=== PATIENT | male | born 1955 | race Caucasian/White ===

== ENCOUNTER 2018-01-08 10:14 | Emergency (ER) | payer OTHER ==
[2018-01-08 11:08] VITALS: RESP 16
--- NOTE | 2018-01-08 12:15 | ED ---
Recheck HPI - General Chief Complaint: Recheck/Abnormal Lab/Rx Stated Complaint: med refill Time Seen by Provider: 01/08/18 12:07 Source: patient, RN notes reviewed Mode of arrival: ambulatory Limitations: no limitations - History of Present Illness Initial Comments: This is a 62-year-old male presents emergency department for medication refill. Patient states she has hypertension takes Cozaar. Patient states he has been on it for 8 years. He ran out yesterday and is in between primary care physicians. Patient has no specific complaints denies chest pain, shortness breath, headache or dizziness. Patient states his last dose was yesterday. - Related Data Home Medications Medication Instructions Recorded Confirmed Losartan [Cozaar] 50 mg PO DAILY 01/08/18 01/08/18 Previous Rx's Medication Instructions Recorded Losartan [Cozaar] 50 mg PO DAILY #30 tab 01/08/18 Allergies Allergy/AdvReac Type Severity Reaction Status Date / Time No Known Allergies Allergy Verified 01/08/18 12:18 Review of Systems ROS Statement: Those systems with pertinent positive or pertinent negative responses have been documented in the HPI. ROS Other: All systems not noted in ROS Statement are negative. Past Medical History Past Medical History: Hypertension Additional Past Medical History / Comment(s): gout History of Any Multi-Drug Resistant Organisms: None Reported Additional Past Surgical History / Comment(s): 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 Past Psychological History: No Psychological Hx Reported Smoking Status: Never smoker Past Alcohol Use History: Daily Past Drug Use History: None Reported General Exam Limitations: no limitations General appearance: alert, in no apparent distress Head exam: Present: atraumatic, normocephalic, normal inspection ENT exam: Present: normal exam, normal oropharynx, mucous membranes moist Neck exam: Present: normal inspection, full ROM. Absent: tenderness, meningismus, lymphadenopathy Respiratory exam: Present: normal lung sounds bilaterally. Absent: respiratory distress, wheezes, rales, rhonchi, stridor Cardiovascular Exam: Present: regular rate, normal rhythm, normal heart sounds. Absent: systolic murmur, diastolic murmur, rubs, gallop, clicks Skin exam: Present: warm, dry, intact, normal color. Absent: rash Course Vital Signs 01/08/18 11:05 Temperature 98.2 F Pulse Rate 72 Respiratory 16 Rate Blood Pressure 149/87 O2 Sat by Pulse 96 Oximetry Medical Decision Making - Medical Decision Making 62-year-old male presented for medication refill. Patient will be given prescription for Cozaar he'll follow-up PCP and return for any worsening symptoms. Disposition Clinical Impression: Encounter for medication refill, Hypertension Disposition: HOME SELF-CARE Condition: Stable Instructions: Hypertension (ED) Additional Instructions: Please return to the Emergency Department if symptoms worsen or any other concerns. Prescriptions: Losartan [Cozaar] 50 mg PO DAILY #30 tab Is patient prescribed a controlled substance at d/c from ED?: No Referrals: None,Stated [Primary Care Provider] - 1-2 days Time of Disposition: 12:15
[2018-01-08 12:33] VITALS: BP 140/78; PULSE 74; TEMP 98.7
== END 2018-01-08 12:32 | disposition home or self-care (01) ==
LOC: EC 10:14
DX: I10 Essential (primary) hypertension (principal); Z76.0 Encounter for issue of repeat prescription; Z79.899 Other long term (current) drug therapy
CPT/HCPCS: 99281

== ENCOUNTER 2020-02-21 09:42 | Emergency (ER) | payer OTHER ==
[2020-02-21] MEDS ORDERED: ACETAMINOPHEN TAB 500 MG TAB PO STA (10:22)
--- NOTE | 2020-02-21 10:24 | ED ---
General Adult HPI - General Chief complaint: Upper Respiratory Infection Stated complaint: body aches/dizziness Time Seen by Provider: 02/21/20 10:04 Source: patient Mode of arrival: ambulatory Limitations: no limitations - History of Present Illness Initial comments: Patient is a 64-year-old male presenting to emergency Department with a chief complaint of body aches and dizziness. Patient reports for the past 2 days he's been having generalized body Aches with intermittent nonproductive cough. He also reports some chest tightness on both sides of the chest. Denies any radiation of the chest pain. Denies any shortness of breath. Does report some dizziness where the room was spinning around him. Denies any lightheadedness or diaphoretic episodes. Patient would like to get test difficulty. He was traveling in the last week out of state. He does have history of hypertension and hypercholesterolemia. Denies smoking. Denies family history of early cardiac related . He denies sore throat, rhinorrhea, otalgia, loss of taste or smell. - Related Data Home Medications Medication Instructions Recorded Confirmed Losartan [Cozaar] 50 mg PO HS 02/21/20 02/21/20 Previous Rx's Medication Instructions Recorded Azithromycin [Zithromax Z-pack (6 0 mg PO DIRECTED #1 pack 02/21/20 tabs)] Allergies Allergy/AdvReac Type Severity Reaction Status Date / Time No Known Allergies Allergy Verified 02/21/20 10:30 Review of Systems ROS Statement: Those systems with pertinent positive or pertinent negative responses have been documented in the HPI. ROS Other: All systems not noted in ROS Statement are negative. Past Medical History Past Medical History: Hypertension Additional Past Medical History / Comment(s): gout History of Any Multi-Drug Resistant Organisms: None Reported Additional Past Surgical History / Comment(s): 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 Past Psychological History: No Psychological Hx Reported Smoking Status: Never smoker Past Alcohol Use History: Daily Past Drug Use History: None Reported General Exam Limitations: no limitations General appearance: alert, in no apparent distress, obese Head exam: Present: atraumatic, normocephalic, normal inspection Eye exam: Present: normal appearance, PERRL, EOMI Pupils: Present: normal accommodation ENT exam: Present: normal exam, normal oropharynx, mucous membranes moist, TM's normal bilaterally, normal external ear exam Neck exam: Present: normal inspection, full ROM. Absent: tenderness Respiratory exam: Present: normal lung sounds bilaterally. Absent: respiratory distress, wheezes, rales Cardiovascular Exam: Present: regular rate, normal rhythm, normal heart sounds Extremities exam: Present: normal inspection, full ROM, normal capillary refill. Absent: tenderness, pedal edema, joint swelling, calf tenderness Back exam: Present: normal inspection, full ROM. Absent: tenderness, CVA tenderness (R), CVA tenderness (L) Neurological exam: Present: alert, oriented X3 Psychiatric exam: Present: normal affect, normal mood Skin exam: Present: warm, dry, intact, normal color Course Vital Signs 02/21/20 09:46 Temperature 100.9 F H Pulse Rate 88 Respiratory 18 Rate Blood Pressure 144/84 O2 Sat by Pulse 95 Oximetry EKG Findings - EKG Comments: EKG Findings:: Sinus rhythm and no ST or T-wave changes. Ventricular rate 75, DE 146, QRS 82, QTC 437. Medical Decision Making - Medical Decision Making Patient is a 44-year-old male presenting to the emergency department with a chief complaint of body aches. On Physical examination, patient is not in any respiratory distress. ENT examination is unremarkable. Patient did have a low- grade fever. Patient was given Tylenol. Chest x-ray is unremarkable. CBC CMP are unremarkable. Initial troponin is negative. EKG reveals sinus rhythm and no ST or T-wave changes. CT chest reveals no signs of PE but does indicate multiple small scattered groundglass opacities which can indicate early viral pneumonia. Patient will be started on azithromycin. Covid testing pending. Strict return parameters were thoroughly discussed the patient was understanding and agreeable. Case discussed with physician. - Lab Data Result diagrams: 02/21/20 10:46 02/21/20 10:46 Lab Results 02/21/20 02/21/20 02/21/20 Range/Units 10:46 10:46 10:46 WBC 3.6 L (3.8-10.6) k/uL RBC 4.84 (4.30-5.90) m/uL Hgb 15.1 (13.0-17.5) gm/dL Hct 44.3 (39.0-53.0) % MCV 91.4 (80.0-100.0) fL MCH 31.1 (25.0-35.0) pg MCHC 34.0 (31.0-37.0) g/dL RDW 12.8 (11.5-15.5) % Plt Count 198 (150-450) k/uL Neutrophils % 59 % Lymphocytes % 28 % Monocytes % 9 % Eosinophils % 2 % Basophils % 1 % Neutrophils # 2.1 (1.3-7.7) k/uL Lymphocytes # 1.0 (1.0-4.8) k/uL Monocytes # 0.3 (0-1.0) k/uL Eosinophils # 0.1 (0-0.7) k/uL Basophils # 0.0 (0-0.2) k/uL PT 10.2 (9.0-12.0) sec INR 1.0 (<1.2) APTT 29.3 (22.0-30.0) sec Sodium 139 (137-145) mmol/L Potassium 4.4 (3.5-5.1) mmol/L Chloride 103 (98-107) mmol/L Carbon Dioxide 29 (22-30) mmol/L Anion Gap 7 mmol/L BUN 20 (9-20) mg/dL Creatinine 0.97 (0.66-1.25) mg/dL Est GFR (CKD-EPI)AfAm >90 (>60 ml/min/1.73 sqM) Est GFR (CKD-EPI)NonAf 83 (>60 ml/min/1.73 sqM) Glucose 108 H (74-99) mg/dL Calcium 9.0 (8.4-10.2) mg/dL Magnesium 1.9 (1.6-2.3) mg/dL Total Bilirubin 0.4 (0.2-1.3) mg/dL AST 24 (17-59) U/L ALT 27 (4-49) U/L Alkaline Phosphatase 66 (38-126) U/L Troponin I (0.000-0.034) ng/mL Total Protein 7.1 (6.3-8.2) g/dL Albumin 4.1 (3.5-5.0) g/dL 02/21/20 Range/Units 10:46 WBC (3.8-10.6) k/uL RBC (4.30-5.90) m/uL Hgb (13.0-17.5) gm/dL Hct (39.0-53.0) % MCV (80.0-100.0) fL MCH (25.0-35.0) pg MCHC (31.0-37.0) g/dL RDW (11.5-15.5) % Plt Count (150-450) k/uL Neutrophils % % Lymphocytes % % Monocytes % % Eosinophils % % Basophils % % Neutrophils # (1.3-7.7) k/uL Lymphocytes # (1.0-4.8) k/uL Monocytes # (0-1.0) k/uL Eosinophils # (0-0.7) k/uL Basophils # (0-0.2) k/uL PT (9.0-12.0) sec INR (<1.2) APTT (22.0-30.0) sec Sodium (137-145) mmol/L Potassium (3.5-5.1) mmol/L Chloride (98-107) mmol/L Carbon Dioxide (22-30) mmol/L Anion Gap mmol/L BUN (9-20) mg/dL Creatinine (0.66-1.25) mg/dL Est GFR (CKD-EPI)AfAm (>60 ml/min/1.73 sqM) Est GFR (CKD-EPI)NonAf (>60 ml/min/1.73 sqM) Glucose (74-99) mg/dL Calcium (8.4-10.2) mg/dL Magnesium (1.6-2.3) mg/dL Total Bilirubin (0.2-1.3) mg/dL AST (17-59) U/L ALT (4-49) U/L Alkaline Phosphatase (38-126) U/L Troponin I <0.012 (0.000-0.034) ng/mL Total Protein (6.3-8.2) g/dL Albumin (3.5-5.0) g/dL Disposition Clinical Impression: Viral respiratory infection, Generalized body aches Disposition: HOME SELF-CARE Condition: Stable Instructions (If sedation given, give patient instructions): Viral Pneumonia (DC) Additional Instructions: Take prescribed medication as directed. Follow with the primary care physician. Return to emergency department if symptoms worsen. Take Tylenol only for fever. Self-isolation until you receive Covid test results. Prescriptions: Azithromycin [Zithromax Z-pack (6 tabs)] 0 mg PO DIRECTED #1 pack Is patient prescribed a controlled substance at d/c from ED?: No Referrals: None,Stated [Primary Care Provider] - 1-2 days Time of Disposition: 13:01
[2020-02-21 10:55] LABS: Basophils % (A) 1 %; Eosinophils # (A) 0.1 k/uL (0-0.7); Eosinophils % (A) 2 %; HCT 44.3 % (39.0-53.0); HGB 15.1 gm/dL (13.0-17.5); Lymphocytes % (A) 28 %; MCH 31.1 pg (25.0-35.0); MCV 91.4 fL (80.0-100.0); Monocytes # (A) 0.3 k/uL (0-1.0); Monocytes % (A) 9 %; Neutrophils # (A) 2.1 k/uL (1.3-7.7); Neutrophils % (A) 59 %; Platelet Count 198 k/uL (150-450); RBC 4.84 m/uL (4.30-5.90); RDW 12.8 % (11.5-15.5); WBC 3.6 k/uL (3.8-10.6)
[2020-02-21 11:04] LABS: ALT 27 U/L (4-49); AST 24 U/L (17-59); African American GFR (CKD) >90 (>60 ml/min/1.73 sqM); Albumin 4.1 g/dL (3.5-5.0); Alkaline Phosphatase 66 U/L (38-126); Anion Gap 7 mmol/L; Blood Urea Nitrogen 20 mg/dL (9-20); Carbon Dioxide 29 mmol/L (22-30); Chloride 103 mmol/L (98-107); Glucose 108 mg/dL (74-99); Magnesium 1.9 mg/dL (1.6-2.3); Non-African American GFR(CKD) 83 (>60 ml/min/1.73 sqM); Potassium 4.4 mmol/L (3.5-5.1); Sodium 139 mmol/L (137-145); Total Bilirubin 0.4 mg/dL (0.2-1.3); Total Protein 7.1 g/dL (6.3-8.2)
[2020-02-21 11:06] LABS: Partial Thromboplastin Time 29.3 sec (22.0-30.0); Prothrombin Time 10.2 sec (9.0-12.0)
--- NOTE | 2020-02-21 11:23 | XR ---
EXAMINATION TYPE: XR chest 2V DATE OF EXAM: 02/21/2020 COMPARISON: NONE HISTORY: Chest pain, fatigue TECHNIQUE: Frontal and lateral views of the chest are obtained. FINDINGS: There is no focal air space opacity, pleural effusion, or pneumothorax seen. The cardiac silhouette size is within normal limits. The osseous structures are intact, patient is rotated, the re may be spinal curvature. IMPRESSION: No acute cardiopulmonary process.
--- NOTE | 2020-02-21 12:55 | CT ---
EXAMINATION TYPE: CT chest angio for PE DATE OF EXAM: 02/21/2020 COMPARISON: Radiograph same day HISTORY: 64-year-old male bodyache, cough, rule out DVT TECHNIQUE: Contiguous axial scanning of the chest performed with IV Contrast, patient injected with 1 00 mL of Isovue 370. Coronal/sagittal MIP reconstructions performed. CT DLP: 694.5 mGycm Automated exposure control for dose reduction was used. FINDINGS: Heart normal size without pericardial effusion. No flattening of the interventricular septum or reflu x of contrast into hepatic veins. Ectatic aortic root at 3.6 cm. Borderline ectatic ascending aorta 3.5 cm. Conventional branching anatomy. Focal fusiform aneurysm of the proximal left vertebral artery at 9 mm, refer to axial image 15. Satisfactory opacification of pulmonary artery system without evidence for pulmonary embolus. Mildly enlarged right hilar lymph node at 1.3 cm the reactive. A few scattered prominent but nonenlar ged mediastinal lymph nodes measuring up to 8 mm in the AP window and lower right paratracheal region . Small groundglass focus periphery of the right upper lobe, axial image 37. A few additional scattered peribronchial vascular groundglass foci in the bilateral upper lobes, refer to the axial images 44, 47, 48, 50, and 58 for some medical device sales representative images. Mild dependent atelectasis. No pleural effusion. Small hiatal hernia. Visualized upper abdomen shows hepatic steatosis and some fusiform dilatation of the celiac axis after its take off of the 1.1 cm. Bones: Moderate degenerative disc disease T10-T11. IMPRESSION: 1. NO EVIDENCE FOR PULMONARY EMBOLUS. 2. SCATTERED SMALL GROUNDGLASS FOCI WITHIN THE BILATERAL UPPER LOBES. NONSPECIFIC INFECTIOUS/INFLAMMA TORY FOCI ARE SUGGESTED. DIFFERENTIAL CONSIDERATIONS INCLUDE HYPERSENSITIVITY PNEUMONITIS, BED SPRING MAKER, EARLY MULTIFOCAL PNEUMONIA, AND EVEN EARLY COVID PNEUMONIA. CLINICALLY CORRELATE. 3. SIX-MONTH FOLLOW-UP CAN REASSESS A MILDLY ENLARGED 1.3 CM RIGHT HILAR LYMPH NODE, PROBABLY REACTIV E. 4. 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
[2020-02-21 13:28] VITALS: BP 122/81; PULSE 99; RESP 17; TEMP 99.9
== END 2020-02-21 13:27 | disposition home or self-care (01) ==
LOC: EC 09:42
DX: U07.1 COVID-19 (principal); J98.8 Other specified respiratory disorders; I10 Essential (primary) hypertension; Z79.899 Other long term (current) drug therapy
CPT/HCPCS: 36415; 93005; 80053; 83735; 84484; 85025; 85610; 85730; 71046; 71275; 99284; U0003; Q9967

== ENCOUNTER 2022-09-25 09:41 | Day surgery (SDC) | payer MEDICARE, OTHER ==
[2022-09-20 12:18] VITALS: BMI 38.4
--- NOTE | 2022-09-24 15:44 | HP ---
HISTORY AND PHYSICAL DATE OF SURGERY: 09/25/2022. HISTORY OF PRESENT ILLNESS: Florin Noyola is a 67-year-old gentleman seen with progressive left knee pain. We discussed options for treatment. He elected to proceed with left knee arthroscopy. Consent regarding the procedure was obtained. PAST MEDICAL HISTORY: Hypertension, hyperlipidemia. PAST SURGICAL HISTORY: Noncontributory. DAILY MEDICATIONS: 1. Allopurinol. 2. Lipitor. 3. Losartan. 4. Meloxicam. ALLERGIES: None. SOCIAL HISTORY: Denies tobacco use. PHYSICAL EVALUATION OF THE LEFT KNEE: His range of motion is 0 to 130 degrees. Mild effusion. Tenderness along the medial and lateral joint lines. Positive medial Khushi's. Positive lateral Khushi's. Ligament is stable. Hip rotation without pain. Distal neurovascular exam is intact. RADIOGRAPHS: Radiographs of the left knee revealed some osteoarthritic changes. MRI of left knee, lateral meniscal tear. Moderate effusion. Osteoarthritic changes. IMPRESSION: 1. Internal derangement of left knee lateral meniscal tear. 2. Hypertension. 3. Hyperlipidemia. PLAN: Left knee arthroscopy with partial lateral meniscectomy and debridement. MMODL / IJN: [id number] /
[2022-09-25] MEDS ORDERED: HYDROmorphone 0.5 MG/0.5 ML SYRINGE IVP PRN (09:49)
[2022-09-25] MEDS ORDERED: LACTATED RINGERS 1,000 ML IV SCH (09:49)
[2022-09-25] MEDS ORDERED: DEXAMETHASONE SOD PHOSPHATE 4 MG/ML 1 ML VIAL IV ONE (09:49)
[2022-09-25] MEDS ORDERED: ONDANSETRON 4 MG/2 ML VIAL IVP ONE (09:49)
[2022-09-25] MEDS ORDERED: PROPOFOL 10 MG/ML 20 ML VIAL IV ONE (11:01)
[2022-09-25] MEDS ORDERED: LIDOCAINE 2% INJ 20 MG/ML (2 ML VIAL) ONE (11:01)
[2022-09-25] MEDS ORDERED: KETOROLAC 15 MG/ML 1 ML VIAL ONE (11:01)
[2022-09-25] MEDS ORDERED: MIDAZOLAM 2 MG/2 ML VIAL ONE (11:01)
[2022-09-25] MEDS ORDERED: fentaNYL (PF) 50 MCG/ML 2 ML AMP ONE (11:01)
[2022-09-25] MEDS ORDERED: BUPIVACAINE (PF) 0.25% 30 ML VIAL SQ ONE ×2 (11:23→11:38)
[2022-09-25 11:51] VITALS: TEMP 97
--- NOTE | 2022-09-25 11:53 | P.OP ---
Date of Procedure: 09/25/22 Preoperative Diagnosis: Internal derangement left knee Postoperative Diagnosis: 1. Tear medial and lateral meniscus left knee 2. Reactive synovitis medial, lateral and suprapatellar compartments left knee 3. 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 Grade 2/3 chondromalacia patella left knee Procedure(s) Performed: 1. Arthroscopic partial medial and lateral meniscectomy left knee 2. Arthroscopic partial synovectomy medial, lateral and suprapatellar compartments left knee 3. Arthroscopic chondroplasty lateral femoral condyle left knee 4. Arthroscopic chondroplasty patella left knee Anesthesia: DIRKA, local Surgeon: Jaime Macedo Estimated Blood Loss (ml): 7 Pathology: none sent Condition: stable Disposition: PACU Indications for Procedure: 67-year-old gentleman seen with progressive left knee pain. After having treatment options discussed, he elected to proceed with arthroscopy. Operative Findings: See description of procedure Description of Procedure: Patient was taken to the operative suite. Patient underwent a general anesthetic by the department of anesthesia. Patient was given preoperative antibiotics. The left lower extremity was placed in a well-padded arthroscopic leg ochoa. The left leg was prepped and draped in the normal sterile orthopedic fashion. A lateral parapatellar and suprapatellar incision was made. Trochars were inserted. Arthroscopy was initiated. Suprapatellar pouch revealed diffuse thick reactive synovitis. The patellofemoral joint appeared to articulate congruently. There was grade 2/3 chondromalacia of the patella with some osteochondral flap tears present. The scope was guided into the medial gutter. No loose bodies or plica were identified. The scope was then guided into the medial compartment. A medial parapatellar incision was made. Trocar inserted followed by probe. There was a radial tear involving the mid body of the medial meniscus. There were grade 1 chondromalacia changes involving the medial compartment. There was thick reactive synovitis anteriorly. I performed a partial medial meniscectomy getting down to stable meniscal tissue. I performed a partial synovectomy decompressing the reactive synovitis. The residual meniscus was stable. There was good decompression of the synovitis. Scope and probe were then guided into the intercondylar notch. Cruciates were identified, probed and found to be stable. The scope and probe were then guided into lateral compartment. There was a complex tear involving the anterior horn, mid body and posterior horn of the lateral meniscus. There were diffuse grade 2/3 chondromalacia changes along the lateral femoral condyle with some osteochondral flap tears present. There was thick reactive synovitis anteriorly. I performed a partial lateral meniscectomy getting down to stable meniscal tissue. I performed a chondroplasty of the lateral femoral condyle getting down to stable osteochondral tissue. I performed a partial synovectomy decompressing the reactive synovitis anteriorly. The residual meniscus was probed and was found to be stable. The residual osteochondral surface was stable. There was good decompression of the synovitis. The scope was in guided back into the suprapatellar compartment. I introduced a motorized shaver into the suprapatellar compartment. I debrided some piecemeal fragments of meniscus that I encountered. I performed a chondroplasty of the patella getting down to stable osteochondral tissue. I performed a partial synovectomy decompressing the thick reactive synovitis. The shaver was now removed. There was good decompression of the synovitis. The residual osteochondral surface about the patella was stable. I now took one more look around the entire knee, no residual debris. Instruments were now removed from the joint. The joint was infiltrated with .25% Marcaine. Steri-Strips were applied to the portal sites. Sterile dressings were applied. The patient was placed into a ALVA hose. No tourniquet was utilized. The patient was awakened, transferred to a bed and taken to recovery stable satisfactory condition.
[2022-09-25 12:53] VITALS: RESP 18
[2022-09-25] MEDS ORDERED: HYDROcodone/APAP 5-325MG 1 EACH TAB PO ONE (13:10)
[2022-09-25] MEDS ORDERED: HYDROcodone/APAP 5-325MG 1 EACH TAB ONE (13:10)
[2022-09-25 13:39] VITALS: BP 125/84; PULSE 73
== END 2022-09-25 13:58 | disposition home or self-care (01) ==
LOC: OR 09:41
PROVIDERS: ATTEND Orthopaedic Surgery
DX: S83.232A Complex tear of medial meniscus, current injury, left knee, initial encounter (principal); S83.272A Complex tear of lateral meniscus, current injury, left knee, initial encounter; M94.262 Chondromalacia, left knee; M65.862 Other synovitis and tenosynovitis, left lower leg; M17.12 Unilateral primary osteoarthritis, left knee; I10 Essential (primary) hypertension; E78.5 Hyperlipidemia, unspecified; G47.33 Obstructive sleep apnea (adult) (pediatric); E66.01 Morbid (severe) obesity due to excess calories; Z68.41 Body mass index [BMI] 40.0-44.9, adult; Z79.899 Other long term (current) drug therapy; X58.XXXA Exposure to other specified factors, initial encounter
CPT/HCPCS: 29880; J2250; J1100; J0690; J2405; J3010; J1885; J2704; J2001

== ENCOUNTER 2023-01-31 21:55 | Inpatient (IN) | payer MEDICARE, OTHER ==
--- NOTE | 2023-01-31 22:24 | ED ---
SOB HPI - General Chief Complaint: Shortness of Breath Stated Complaint: SOB Time Seen by Provider: 01/31/23 22:03 Source: patient, EMS Mode of arrival: EMS Limitations: no limitations - History of Present Illness Initial Comments: This patient is 67-year-old man who presents of evaluation for cough and shortness of breath. The patient states that he had been in his usual state of health until yesterday. At that point he noticed he had a bit of fever and a little bit of cough. Things progressed until today he was feeling very short of breath. The patient denies productive cough. No chest pain. He does have generalized weakness and fatigue. MD Complaint: shortness of breath, cough Onset/Timin -: days(s) Severity scale (1-10): 0 Consistency: constant Improves With: nothing Worsens With: nothing Associated Symptoms: fever, cough Treatments Prior to Arrival: none - Related Data Home Oxygen Therapy: No Home Medications Medication Instructions Recorded Confirmed Losartan [Cozaar] 50 mg PO HS 02/21/20 02/01/23 Atorvastatin [Lipitor] 20 mg PO HS 09/20/22 02/01/23 Finasteride [Proscar] 5 mg PO HS 09/20/22 02/01/23 allopurinoL 300 mg PO HS 09/20/22 02/01/23 Cyclobenzaprine [Flexeril] 10 mg PO TID PRN 02/01/23 02/01/23 Meloxicam [Mobic] 15 mg PO HS 02/01/23 02/01/23 Previous Rx's Medication Instructions Recorded HYDROcodone/APAP 5-325MG [[place] 1 tab PO Q6HR PRN #12 tab 09/25/22 5-325] Allergies Allergy/AdvReac Type Severity Reaction Status Date / Time No Known Allergies Allergy Verified 02/01/23 11:55 Review of Systems ROS Statement: Those systems with pertinent positive or pertinent negative responses have been documented in the HPI. ROS Other: All systems not noted in ROS Statement are negative. Constitutional: Reports: fever, chills, weakness ENT: Reports: congestion Respiratory: Reports: cough Cardiovascular: Denies: chest pain, palpitations, edema, syncope Gastrointestinal: Denies: abdominal pain, nausea, vomiting, diarrhea, melena, hematochezia Genitourinary: Denies: dysuria, hematuria Musculoskeletal: Denies: back pain Skin: Denies: rash Neurological: Denies: headache, weakness 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 Absent: scleral icterus, conjunctival injection ENT exam: Present: mucous membranes dry Neck exam: Present: normal inspection Respiratory exam: Present: rales. Absent: wheezes, rhonchi, stridor, accessory muscle use Cardiovascular Exam: Present: normal rhythm, tachycardia, normal heart sounds. Absent: systolic murmur, diastolic murmur, rubs, gallop GI/Abdominal exam: Present: soft. Absent: distended, tenderness, guarding, rebound, rigid, mass Extremities exam: Present: normal inspection, normal capillary refill. Absent: pedal edema, calf tenderness Back exam: Present: normal inspection. Absent: CVA tenderness (R), CVA tenderness (L) Neurological exam: Present: alert Skin exam: Present: warm, dry, intact, normal color. Absent: rash Course Vital Signs 01/31/23 01/31/23 01/31/23 21:57 22:00 23:37 Temperature 97.0 F L Pulse Rate 106 H Pulse Rate [ Emt P ] Respiratory 19 25 H Rate Blood Pressure 100/83 Blood Pressure [Right Arm] O2 Sat by Pulse 94 L 97 Oximetry Fraction of Inspired Oxygen (FIO2) 02/01/23 02/01/23 02/01/23 00:28 01:11 01:30 Temperature Pulse Rate 105 H 106 H 110 H Pulse Rate [ Emt P ] Respiratory 24 28 H 25 H Rate Blood Pressure 110/92 93/69 120/81 Blood Pressure [Right Arm] O2 Sat by Pulse 95 91 L 93 L Oximetry Fraction of Inspired Oxygen (FIO2) 02/01/23 02/01/23 02/01/23 01:40 02:00 02:10 Temperature Pulse Rate 104 H 104 H 103 H Pulse Rate [ Emt P ] Respiratory 24 20 24 Rate Blood Pressure 151/93 156/87 Blood Pressure [Right Arm] O2 Sat by Pulse 92 L 94 L 95 Oximetry Fraction of Inspired Oxygen (FIO2) 02/01/23 02/01/23 02/01/23 02:20 02:40 02:59 Temperature 98.3 F Pulse Rate 110 H 109 H Pulse Rate [ 116 H Emt P ] Respiratory 24 20 36 H Rate Blood Pressure 156/87 150/95 Blood Pressure 147/124 [Right Arm] O2 Sat by Pulse 94 L 95 Oximetry Fraction of Inspired Oxygen (FIO2) 02/01/23 02/01/23 02/01/23 03:10 03:40 04:10 Temperature Pulse Rate 112 H 105 H 112 H Pulse Rate [ Emt P ] Respiratory 23 23 24 Rate Blood Pressure 153/64 138/67 132/98 Blood Pressure [Right Arm] O2 Sat by Pulse 93 L 94 L 94 L Oximetry Fraction of Inspired Oxygen (FIO2) 02/01/23 02/01/23 02/01/23 06:39 06:46 07:23 Temperature Pulse Rate Pulse Rate [ 115 H Emt P ] Respiratory 35 H 30 H Rate Blood Pressure 121/78 Blood Pressure 92/73 [Right Arm] O2 Sat by Pulse 98 Oximetry Fraction of 30 Inspired Oxygen (FIO2) 02/01/23 02/01/23 02/01/23 07:28 08:24 10:28 Temperature 98.3 F Pulse Rate 112 H Pulse Rate [ 106 H Emt P ] Respiratory 31 H 37 H Rate Blood Pressure Blood Pressure [Right Arm] O2 Sat by Pulse 97 100 Oximetry Fraction of Inspired Oxygen (FIO2) 02/01/23 10:30 Temperature Pulse Rate 112 H Pulse Rate [ Emt P ] Respiratory 36 H Rate Blood Pressure 151/115 Blood Pressure [Right Arm] O2 Sat by Pulse Oximetry Fraction of Inspired Oxygen (FIO2) Medical Decision Making - Medical Decision Making The patient had chest x-ray which I interpreted as negative for acute infiltrate, pneumothorax. There is some possible congestion. Was pt. sent in by a medical professional or institution (, PA, WIRE RIGGER, urgent care, hospital, or [facility]...) When possible be specific @ -[No] Did you speak to anyone other than the patient for history (EMS, parent, family, police, friend...)? What history was obtained from this source @ -[No] Did you review nursing and triage notes (agree or disagree)? Why? @ -[I reviewed and agree with nursing and triage notes] Were old charts reviewed (outside hosp., previous admission, EMS record, old EKG, old radiological studies, urgent care reports/EKG's, [facility] records)? Report findings @ -[No old charts were reviewed] Differential Diagnosis (chest pain, altered mental status, abdominal pain women, abdominal pain men, vaginal bleeding, weakness, fever, dyspnea, syncope, headache, dizziness, GI bleed, back pain, seizure, CVA, palpatations, mental health, musculoskeletal)? @ -[Differential Dyspnea: Coronary syndrome, arrhythmia, tamponade, asthma, COPD, pulmonary embolism, pneumonia, pneumothorax, pulmonary effusion, anaphylaxis, diabetic ketoacidosis, flailed chest, pulmonary contusion, diaphragmatic rupture, anemia, neuromuscular, this is not meant to be an all-inclusive list. EKG interpreted by me (3pts min.). @ -[I interpret As above] X-rays interpreted by me (1pt min.). @ -[I interpreted as above CT interpreted by me (1pt min.). @ -[None done] U/S interpreted by me (1pt. min.). @ -[None done] What testing was considered but not performed or refused? (CT, X-rays, U/S, labs)? Why? @ -[None] What meds were considered but not given or refused? Why? @ -[None] Did you discuss the management of the patient with other professionals (professionals i.e. , PA, WIRE RIGGER, lab, RT, psych nurse, social work professor, hog sawyer, teacher, environmental protection officer, business case analyst)? Give summary @ -[Case discussed with the admitting physician and treatment recommendations are incorporated Was smoking cessation discussed for >3mins.? @ -[No] Was critical care preformed (if so, how long)? @ -[Yes 35 minutes Were there social determinants of health that impacted care today? How? (Homelessness, low income, unemployed, alcoholism, drug addiction, transportation, low edu. Level, literacy, decrease access to med. care, [facility], rehab)? @ -[No] Was there de-escalation of care discussed even if they declined (Discuss DNR or withdrawal of care, Hospice)? DNR status @ -[No] What co-morbidities impacted this encounter? (DM, HTN, Smoking, COPD, CAD, Cancer, CVA, ARF, Chemo, Hep., AIDS, mental health diagnosis, sleep apnea, morbid obesity)? @ -[None] Was patient admitted / discharged? Hospital course, mention meds given and ro deneen, prescriptions, significant lab abnormalities, going to OR and other pertinent info. @ -[Patient is a 67-year-old man presenting with recent cough and dyspnea. The patient workup reveals leukocytopenia. Patient started on empiric antiBiotics. Sepsis protocol at 2336 with initial fluids and then at 130/h after bolus finished. Patient be admitted with infectious disease, nephrology, pulmonology consultations Undiagnosed new problem with uncertain prognosis? @ -[No] Drug Therapy requiring intensive monitoring for toxicity (Heparin, Nitro, Insulin, Cardizem)? @ -[No] Were any procedures done? @ -[No] Diagnosis/symptom? @ -[Acute pneumonia Acute kidney injury Leukocytopenia Acute lactic acidosis Sepsis Acute, or Chronic, or Acute on Chronic? @ -[Acute Uncomplicated (without systemic symptoms) or Complicated (systemic symptoms)? @ -[Complicated Side effects of treatment? @ -[No] Exacerbation, Progression, or Severe Exacerbation? @ -[No] Poses a threat to life or bodily function? How? (Chest pain, USA, IA, pneumonia, PE, COPD, DKA, ARF, appy, cholecystitis, CVA, Diverticulitis, Homicidal, Suicidal, threat to staff... and all critical care pts) @ -[Yes - Lab Data Result diagrams: 02/05/23 04:30 02/05/23 06:45 Lab Results 01/31/23 01/31/23 01/31/23 Range/Units 22:48 22:48 22:48 WBC 0.9 L* (3.8-10.6) k/uL RBC 3.16 L (4.30-5.90) m/uL Hgb 11.3 L (13.0-17.5) gm/dL Hct 32.8 L (39.0-53.0) % MCV 103.6 H (80.0-100.0) fL MCH 35.7 H (25.0-35.0) pg MCHC 34.5 (31.0-37.0) g/dL RDW 15.7 H (11.5-15.5) % Plt Count 56 L (150-450) k/uL MPV 16.4 Neutrophils % 11 % Lymphocytes % 47 % Monocytes % 6 % Eosinophils % 0 % Basophils % 2 % Neutrophils # 0.1 L* (1.3-7.7) k/uL Lymphocytes # 0.4 L (1.0-4.8) k/uL Monocytes # 0.1 (0-1.0) k/uL Eosinophils # 0.0 (0-0.7) k/uL Basophils # 0.0 (0-0.2) k/uL Manual Slide Review Performed Large Platelets Present Macrocytosis Moderate PT 12.9 H (9.0-12.0) sec INR 1.3 H (<1.2) APTT 29.6 (22.0-30.0) sec Sodium 132 L (137-145) mmol/L Potassium 4.1 (3.5-5.1) mmol/L Chloride 98 (98-107) mmol/L Carbon Dioxide 13 L (22-30) mmol/L Anion Gap 21 mmol/L BUN 54 H (9-20) mg/dL Creatinine 3.53 H (0.66-1.25) mg/dL Est GFR (CKD-EPI)AfAm 20 (>60 ml/min/1.73 sqM) Est GFR (CKD-EPI)NonAf 17 (>60 ml/min/1.73 sqM) Glucose 183 H (74-99) mg/dL Lactic Ac Sepsis Rflx Plasma Lactic Acid [place] (0.7-2.0) mmol/L Calcium 8.6 (8.4-10.2) mg/dL Total Bilirubin 1.5 H (0.2-1.3) mg/dL AST 188 H (17-59) U/L ALT 63 H (4-49) U/L Alkaline Phosphatase 34 L (38-126) U/L Troponin I (0.000-0.034) ng/mL NT-Pro-B Natriuret Pep 8960 pg/mL Total Protein 6.8 (6.3-8.2) g/dL Albumin 3.4 L (3.5-5.0) g/dL Coronavirus (PCR) (Not Detectd) 01/31/23 01/31/23 01/31/23 Range/Units 22:48 22:48 22:48 WBC (3.8-10.6) k/uL RBC (4.30-5.90) m/uL Hgb (13.0-17.5) gm/dL Hct (39.0-53.0) % MCV (80.0-100.0) fL MCH (25.0-35.0) pg MCHC (31.0-37.0) g/dL RDW (11.5-15.5) % Plt Count (150-450) k/uL MPV Neutrophils % % Lymphocytes % % Monocytes % % Eosinophils % % Basophils % % Neutrophils # (1.3-7.7) k/uL Lymphocytes # (1.0-4.8) k/uL Monocytes # (0-1.0) k/uL Eosinophils # (0-0.7) k/uL Basophils # (0-0.2) k/uL Manual Slide Review Large Platelets Macrocytosis PT (9.0-12.0) sec INR (<1.2) APTT (22.0-30.0) sec Sodium (137-145) mmol/L Potassium (3.5-5.1) mmol/L Chloride (98-107) mmol/L Carbon Dioxide (22-30) mmol/L Anion Gap mmol/L BUN (9-20) mg/dL Creatinine (0.66-1.25) mg/dL Est GFR (CKD-EPI)AfAm (>60 ml/min/1.73 sqM) Est GFR (CKD-EPI)NonAf (>60 ml/min/1.73 sqM) Glucose (74-99) mg/dL Lactic Ac Sepsis Rflx Plasma Lactic Acid [place] 8.1 H* (0.7-2.0) mmol/L Calcium (8.4-10.2) mg/dL Total Bilirubin (0.2-1.3) mg/dL AST (17-59) U/L ALT (4-49) U/L Alkaline Phosphatase (38-126) U/L Troponin I 0.030 (0.000-0.034) ng/mL NT-Pro-B Natriuret Pep pg/mL Total Protein (6.3-8.2) g/dL Albumin (3.5-5.0) g/dL Coronavirus (PCR) Not Detected (Not Detectd) 01/31/23 Range/Units 23:35 WBC (3.8-10.6) k/uL RBC (4.30-5.90) m/uL Hgb (13.0-17.5) gm/dL Hct (39.0-53.0) % MCV (80.0-100.0) fL MCH (25.0-35.0) pg MCHC (31.0-37.0) g/dL RDW (11.5-15.5) % Plt Count (150-450) k/uL MPV Neutrophils % % Lymphocytes % % Monocytes % % Eosinophils % % Basophils % % Neutrophils # (1.3-7.7) k/uL Lymphocytes # (1.0-4.8) k/uL Monocytes # (0-1.0) k/uL Eosinophils # (0-0.7) k/uL Basophils # (0-0.2) k/uL Manual Slide Review Large Platelets Macrocytosis PT (9.0-12.0) sec INR (<1.2) APTT (22.0-30.0) sec Sodium (137-145) mmol/L Potassium (3.5-5.1) mmol/L Chloride (98-107) mmol/L Carbon Dioxide (22-30) mmol/L Anion Gap mmol/L BUN (9-20) mg/dL Creatinine (0.66-1.25) mg/dL Est GFR (CKD-EPI)AfAm (>60 ml/min/1.73 sqM) Est GFR (CKD-EPI)NonAf (>60 ml/min/1.73 sqM) Glucose (74-99) mg/dL Lactic Ac Sepsis Rflx Y Plasma Lactic Acid [place] (0.7-2.0) mmol/L Calcium (8.4-10.2) mg/dL Total Bilirubin (0.2-1.3) mg/dL AST (17-59) U/L ALT (4-49) U/L Alkaline Phosphatase (38-126) U/L Troponin I (0.000-0.034) ng/mL NT-Pro-B Natriuret Pep pg/mL Total Protein (6.3-8.2) g/dL Albumin (3.5-5.0) g/dL Coronavirus (PCR) (Not Detectd) - EKG Data -: EKG Interpreted by Me EKG shows normal: sinus rhythm, axis (Normal), intervals (Normal), QRS complexes (Normal) Rate: tachycardia (Rate 106 bpm) Interpretation: nonspecific ST-T wave changes Disposition Clinical Impression: Pneumonia, Acute kidney injury, Leukocytopenia, Lactic acidosis Disposition: ADMITTED IP TO THIS HOSP Condition: Critical Is patient prescribed a controlled substance at d/c from ED?: No
[2023-01-31 23:28] LABS: Basophils % (A) 2 %; Eosinophils % (A) 0 %; HCT 32.8 % (39.0-53.0); HGB 11.3 gm/dL (13.0-17.5); Lymphocytes # (A) 0.4 k/uL (1.0-4.8); Lymphocytes % (A) 47 %; MCH 35.7 pg (25.0-35.0); MCHC 34.5 g/dL (31.0-37.0); MCV 103.6 fL (80.0-100.0); Macrocytosis Moderate; Mean Platelet Volume 16.4; Monocytes # (A) 0.1 k/uL (0-1.0); Monocytes % (A) 6 %; Neutrophils % (A) 11 %; RBC 3.16 m/uL (4.30-5.90); RDW 15.7 % (11.5-15.5)
[2023-01-31 23:33] LABS: African American GFR (CKD) 20 (>60 ml/min/1.73 sqM); Albumin 3.4 g/dL (3.5-5.0); Anion Gap 21 mmol/L; Blood Urea Nitrogen 54 mg/dL (9-20); Calcium 8.6 mg/dL (8.4-10.2); Carbon Dioxide 13 mmol/L (22-30); Chloride 98 mmol/L (98-107); Glucose 183 mg/dL (74-99); Non-African American GFR(CKD) 17 (>60 ml/min/1.73 sqM); Sodium 132 mmol/L (137-145); Total Bilirubin 1.5 mg/dL (0.2-1.3); Total Protein 6.8 g/dL (6.3-8.2)
[2023-01-31] MEDS ORDERED: SODIUM CHLORIDE 0.9% 1,000 ML IV ONE ×2 (23:35→23:36)
[2023-01-31 23:41] LABS: NT-Pro-B-Type Natriuretic Pept 8960 pg/mL
[2023-01-31 23:46] LABS: AST 188 U/L (17-59); Alkaline Phosphatase 34 U/L (38-126); Neutrophils # (A) 0.1 k/uL (1.3-7.7); Potassium 4.1 mmol/L (3.5-5.1)
[2023-01-31 23:47] LABS: ALT 63 U/L (4-49)
[2023-01-31 23:50] LABS: WBC 0.9 k/uL (3.8-10.6)
[2023-02-01] LABS: INR 1.3 (<1.2); Partial Thromboplastin Time 29.6 sec (22.0-30.0); Prothrombin Time 12.9 sec (9.0-12.0)
[2023-02-01 00:25] LABS: Large Platelets Present; Platelet Count 56 k/uL (150-450)
[2023-02-01] MEDS ORDERED: AZITHROMYCIN 500 MG TAB PO STA (01:05)
[2023-02-01] MEDS ORDERED: PNEUMONIA PROTOCOL UTILIZED 1 EACH MISC PO PRN (01:37)
[2023-02-01] MEDS ORDERED: HYDROcodone/APAP 5-325MG 1 EACH TAB PO PRN (01:41)
[2023-02-01] MEDS ORDERED: SODIUM CHLORIDE 0.9% 1,000 ML IV STA (01:41)
--- NOTE | 2023-02-01 03:22 | XR ---
EXAM: XR Chest, 2 Views CLINICAL HISTORY: ITS.REASON XR Reason: difficulty breathing TECHNIQUE: Frontal and lateral views of the chest. COMPARISON: 02/21/2020. FINDINGS: Lungs: Mild prominence of central pulmonary vasculature. Presumed subsegmental atelectasis at the lung bases. Pleural space: Unremarkable. No pneumothorax. Heart: Cardiomegaly. Mediastinum: Unremarkable. Bones/joints: Unremarkable. Other findings: Hypoaeration. IMPRESSION: 1. Hypoaeration. 2. Cardiomegaly. 3. Consider mild incipient congestive heart failure.
--- NOTE | 2023-02-01 05:29 | P.HPIM ---
History of Present Illness H&P Date: 02/01/23 Chief Complaint: Shortness of breath 67-year-old male denies any significant past medical history except for hypertension He comes in with sudden onset shortness of breath that started today in the afternoon. It was associated with fever that was started yesterday. He oth erwise reports that he was at his baseline status of health he was recently in [facility] on a vacation came back about a week ago and he was doing fine up until yesterday when he spiked a fever and felt that his knees are hurting and then today he suddenly felt short of breath and decided to come into the hospital for evaluation he denies any headache denies any nausea vomiting abdominal pain changes in bowel or urinary habits denies any known sick contacts He reports some wheezing and mild cough denies any hemoptysis or phlegm production. Denies any sinus issues or sore throat. He reports right knee pain and left knee pain extending down his left leg. Today he noticed mottling of his skin over bilateral legs claims that this never happened before. He denies any history of blood clots denies any coronary artery disease or congestive heart failure patient denies illicit drugs or alcohol or smoking review of systems Pertinent positives as noted in HPI. All other systems were reviewed and are negative on exam Constitutional: No acute distress, conversant, pleasant Eyes: Anicteric sclerae, moist conjunctiva, Pupils equal round reactive to light ENMT: NC/AT Oropharynx clear, no erythema, or exudates Neck: Supple, no masses, or JVD No carotid bruits No thyromegaly Lungs: Clear to auscultation Clear to percussion Normal respiratory effort, no accessory muscle use Cardiovascular: Heart regular in rate and rhythm, No murmurs, gallops, or rubs No peripheral edema Abdominal: Soft Nontender, no guarding, rebound or rigidity Abdomen moving with respiration Normoactive bowel sounds No hepatomegaly, No splenomegaly No palpable mass No abdominal wall hernia noted Skin: Livedo reticularis and mottling of the skin over bilateral legs from the knee and down Extremities: No digital cyanosis No clubbing Pedal pulses intact and symmetrical Radial pulses intact and symmetrical No calf tenderness Psychiatric: Alert and oriented to person, place and time Appropriate affect fair judgement Neuro Muscles Strength 5/5 in all 4 extremities Sensation to light touch grossly present throughout Cranial nerves II-XII grossly intact Lymphatics: no palpable cervical or supraclavicular lymph nodes 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 Past Anesthesia/Blood Transfusion Reactions: No Reported Reaction Past Psychological History: No Psychological Hx Reported Past Alcohol Use History: Daily - Past Family History Mother Family Medical History: No Reported History Medications and Allergies Home Medications Medication Instructions Recorded Confirmed Type Losartan [Cozaar] 50 mg PO HS 02/21/20 09/20/22 History Atorvastatin [Lipitor] 20 mg PO HS 09/20/22 09/20/22 History Finasteride [Proscar] 5 mg PO HS 09/20/22 09/20/22 History allopurinoL 300 mg PO HS 09/20/22 09/20/22 History HYDROcodone/APAP 5-325MG [[place] 1 tab PO Q6HR PRN #12 tab 09/25/22 Rx 5-325] Allergies Allergy/AdvReac Type Severity Reaction Status Date / Time No Known Allergies Allergy Verified 01/31/23 22:02 Physical Exam Vitals: Vital Signs Temp Pulse Resp BP Pulse Ox 02/01/23 04:10 112 H 24 132/98 94 L 02/01/23 03:40 105 H 23 138/67 94 L 02/01/23 03:10 112 H 23 153/64 93 L 02/01/23 02:40 109 H 20 150/95 95 02/01/23 02:20 110 H 24 156/87 94 L 02/01/23 02:10 103 H 24 156/87 95 02/01/23 02:00 104 H 20 94 L 02/01/23 01:40 104 H 24 151/93 92 L 02/01/23 01:30 110 H 25 H 120/81 93 L 02/01/23 01:11 106 H 28 H 93/69 91 L 02/01/23 00:28 105 H 24 110/92 95 01/31/23 23:37 97 01/31/23 22:00 25 H 01/31/23 21:57 97.0 F L 106 H 19 100/83 94 L Intake and Output 01/31/23 01/31/23 02/01/23 14:59 22:59 06:59 Other: Weight 122.47 kg Results CBC & Chem 7: 01/31/23 22:48 01/31/23 22:48 Labs: Abnormal Lab Results - Last 24 Hours (Table) 01/31/23 01/31/23 01/31/23 Range/Units 22:48 22:48 22:48 WBC 0.9 L* (3.8-10.6) k/uL RBC 3.16 L (4.30-5.90) m/uL Hgb 11.3 L (13.0-17.5) gm/dL Hct 32.8 L (39.0-53.0) % MCV 103.6 H (80.0-100.0) fL MCH 35.7 H (25.0-35.0) pg RDW 15.7 H (11.5-15.5) % Plt Count 56 L (150-450) k/uL Neutrophils # 0.1 L* (1.3-7.7) k/uL Lymphocytes # 0.4 L (1.0-4.8) k/uL PT 12.9 H (9.0-12.0) sec INR 1.3 H (<1.2) Sodium 132 L (137-145) mmol/L Carbon Dioxide 13 L (22-30) mmol/L BUN 54 H (9-20) mg/dL Creatinine 3.53 H (0.66-1.25) mg/dL Glucose 183 H (74-99) mg/dL Plasma Lactic Acid Ham[place] (0.7-2.0) mmol/L Total Bilirubin 1.5 H (0.2-1.3) mg/dL AST 188 H (17-59) U/L ALT 63 H (4-49) U/L Alkaline Phosphatase 34 L (38-126) U/L Albumin 3.4 L (3.5-5.0) g/dL 01/31/23 02/01/23 Range/Units 22:48 01:47 WBC (3.8-10.6) k/uL RBC (4.30-5.90) m/uL Hgb (13.0-17.5) gm/dL Hct (39.0-53.0) % MCV (80.0-100.0) fL MCH (25.0-35.0) pg RDW (11.5-15.5) % Plt Count (150-450) k/uL Neutrophils # (1.3-7.7) k/uL Lymphocytes # (1.0-4.8) k/uL PT (9.0-12.0) sec INR (<1.2) Sodium (137-145) mmol/L Carbon Dioxide (22-30) mmol/L BUN (9-20) mg/dL Creatinine (0.66-1.25) mg/dL Glucose (74-99) mg/dL Plasma Lactic Acid [place] 8.1 H* 5.2 H* (0.7-2.0) mmol/L Total Bilirubin (0.2-1.3) mg/dL AST (17-59) U/L ALT (4-49) U/L Alkaline Phosphatase (38-126) U/L Albumin (3.5-5.0) g/dL Assessment and Plan Assessment: 67-year-old male with hypertension coming in for sudden onset shortness of breath he reports coming back from a vacation [facility] about 1 week ago I discussed the case with the ED doctor and accepted the admission for sepsis possibly secondary to underlying pneumonia rule out underlying blood clots with anticipated length of stay more than 2 midnights Sepsis with acute hypoxic respiratory failure Suspected pneumonia Follow-up cultures Check urine Legionella antigen Patient initiated on Rocephin and azithromycin in the ED continue with azithromycin switch to cefepime due to neutropenic fever Supportive care Check stat d-dimer Check CPK IV fluid hydration normal saline 130 mL per hour Lactic acidosis continue to monitor status post normal saline boluses 2 L Tylenol for fever Covid test negative Lactic acid 8.1 White count 0.9 Hemoglobin 11.3 Acute kidney injury most likely secondary to prerenal ATN Avoid nephrotoxic meds Hold losartan IV fluid hydration as above Monitor renal function Monitor urine output Sodium 132 creatinine 3.5 when necessary 54 Hypertension Hold losartan secondary to acute kidney injury Full code DVT prophylaxis heparin subcu 3 times a day
--- NOTE | 2023-02-01 07:30 | XR ---
EXAMINATION TYPE: XR chest 1V portable DATE OF EXAM: 02/01/2023 COMPARISON: 01/31/2023 HISTORY: Dyspnea TECHNIQUE: Single frontal view of the chest is obtained. FINDINGS: There is no focal air space opacity, pleural effusion, or pneumothorax seen. The cardiac silhouette size is within normal limits. The osseous structures are intact. IMPRESSION: No acute cardiopulmonary disease with no interval change.
[2023-02-01] MEDS ORDERED: VANCOMYCIN IV PER PHARMACY 1 EACH MISC MISCELLANE PRN (07:48)
[2023-02-01] MEDS ORDERED: CEFEPIME 2 GM in SODIUM CHLORIDE 0.9% 100 ML IVPB SCH (08:00)
[2023-02-01] MEDS ORDERED: VANCOMYCIN 2,000 MG in SODIUM CHLORIDE 0.9% 500 ML 500 ML IVPB ONE (08:30)
[2023-02-01 08:44] LABS: HCT 31.6 % (39.0-53.0); HGB 10.9 gm/dL (13.0-17.5); MCH 35.8 pg (25.0-35.0); MCHC 34.6 g/dL (31.0-37.0); MCV 103.4 fL (80.0-100.0); Macrocytosis Moderate; Mean Platelet Volume 15.8; RBC 3.06 m/uL (4.30-5.90)
[2023-02-01 08:46] LABS: WBC 0.5 k/uL (3.8-10.6)
[2023-02-01 08:47] LABS: Platelet Count 47 k/uL (150-450)
[2023-02-01 08:53] LABS: ALT 67 U/L (4-49); AST 207 U/L (17-59); African American GFR (CKD) 18 (>60 ml/min/1.73 sqM); Alkaline Phosphatase 40 U/L (38-126); Anion Gap 18 mmol/L; Blood Urea Nitrogen 61 mg/dL (9-20); Calcium 7.9 mg/dL (8.4-10.2); Carbon Dioxide 15 mmol/L (22-30); Chloride 102 mmol/L (98-107); Glucose 141 mg/dL (74-99); Non-African American GFR(CKD) 15 (>60 ml/min/1.73 sqM); Potassium 4.3 mmol/L (3.5-5.1); Sodium 135 mmol/L (137-145)
[2023-02-01 09:32] LABS: Large Platelets Present; Rouleaux Present
--- NOTE | 2023-02-01 10:17 | US ---
EXAMINATION TYPE: US venous doppler duplex LE DATE OF EXAM: 02/01/2023 9:53 AM COMPARISON: NONE CLINICAL INDICATION: Male, 67 years old with history of possible DVT; Pain and edema bilateral legs SIDE PERFORMED: bilateral TECHNIQUE: The lower extremity deep venous system is examined utilizing real time linear array sonog miroslava with graded compression, doppler sonography and color-flow sonography. VESSELS IMAGED: Common Femoral Vein Deep Femoral Vein Greater Saphenous Vein * Femoral Vein Popliteal Vein Small Saphenous Vein * Proximal Calf Veins (* superficial vessels) Right Leg: Limited by the patient's body habitus but the deep venous system from the common femoral v ein to the proximal calf veins is patent and compressible with augmentable flow throughout. Left Leg: Deep venous systems left lower extremity from the common femoral vein to the proximal calf veins is patent and compressible with augmentable flow throughout. IMPRESSION: No evidence of bilateral lower extremity DVT as described above.
--- NOTE | 2023-02-01 10:19 | US ---
EXAMINATION TYPE: US kidneys/renal and bladder DATE OF EXAM: 02/01/2023 COMPARISON: NONE CLINICAL INDICATION: Male, 67 years old with history of FRANCISCO; FRANCISCO EXAM MEASUREMENTS: Right Kidney: 11.0 x 5.9 x 4.2 cm Left Kidney: 10.9 x 4.8 x 4.4 cm Right Kidney: no evidence of hydronephrosis Left Kidney: no evidence of hydronephrosis Bladder: unable to visualize, not fully distended There is no evidence for hydronephrosis at this point in time. No nephrolithiasis is seen. No edgar s are identified. The urinary bladder is anechoic. Bilateral ureteral jets are seen. The renal cortices are normal in thickness and echotexture and there is no evidence of medical renal disease. IMPRESSION: 1. No significant abnormality of the kidneys. 2. Limited evaluation of the urinary bladder due to nondistention.
[2023-02-01] MEDS ORDERED: SODIUM CHLORIDE 0.9% 1,000 ML IV ONE (11:12)
[2023-02-01] MEDS ORDERED: SODIUM CHLORIDE 0.9% 1,000 ML IV SCH (11:15)
[2023-02-01 11:25] LABS: ABG Base Excess -10.2 mmol/L; ABG HCO3 16 mmol/L (21-25); ABG Oxygen Saturation 97.9 % (94-97); ABG PCO2 29 mmHg (35-45); ABG PH 7.34 (7.35-7.45); ABG PO2 118 mmHg (83-108); ABG TCO2 16 mmol/L (19-24); Allen Test Performed? Yes
[2023-02-01] MEDS: CEFEPIME 1 GM in SODIUM CHLORIDE 0.9% 50 ML IVPB SCH ×2 (11:54→19:52)
--- NOTE | 2023-02-01 12:22 | P.CNPUL ---
History of Present Illness Consult date: 02/01/23 Requesting physician: Sharmin Escobedo Reason for consult: dyspnea, pneumonia, other Chief complaint: Shortness of breath, weakness. History of present illness: Pulmonary consult dated 02/01/2023. 67-year-old male with a history of hypertension, hyperlipidemia, and gout. Presents to the emergency department on January 31, complaining of shortness of breath. He also complained of cough. He apparently recently was in [facility], about a week and a half or 2 weeks ago. He recentlyjust about 2 days prior to admission. He missed a bit of a fever as well. He also admits to some weakness in his legs, and generally weakness and fatigue. The patient is seen in the emergency department, room 25. The patient's N-terminal proBNP was elevated, suggesting CHF. The patient's white count was only 0.9. The patient was on BiPAP at 10/5, and 30%, or 4 L. He was started on vancomycin and cefepime. We will ordered a pro-calcitonin level. We also wanted the patient to have lower extremity Dopplers. He had a left lower extremity Doppler on January 27 that was negative. In addition, we recommended a ventilation perfusion lung scan. His lower extremities reveal evidence of livedo reticularis. White count was 0.5, down from 0.9, hemoglobin 10.9, hematocrit 31.6, and platelet count only 47,000. The patient's d-dimer was elevated at 9.94. Blood gases showed a pO2 118, pCO2 29, and a pH is 7.34. This is consistent with metabolic acidosis. Sodium 135, potassium 4.3, chlorides 102, CO2 15, anion gap 18, and BUN 61 with a creatinine of 3.83. Lactic acid was 3.8, and repeat was 4.9. The patient's CK was 15,572. In addition, the patient's N-terminal proBNP was 8960. He was tested for coronavirus, but tested negative. Chest x-ray was interpreted as being normal. Bilateral lower extremity Dopplers were negative for DVT. Review of Systems REVIEW OF SYSTEMS: CONSTITUTIONAL: Weakness and fatigue. NEUROLOGIC: [ Negative.] HEENT: [ Negative.] CARDIAC: [Negative.] PULMONARY: Shortness of breath and cough. GI: [Negative.] : [Negative.] RHEUMATOLOGIC: [ Negative.] IMMUNOLOGIC: [ Negative.] ENDOCRINE: [Negative. 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 Past Anesthesia/Blood Transfusion Reactions: No Reported Reaction Past Psychological History: No Psychological Hx Reported Past Alcohol Use History: Daily - Past Family History Mother Family Medical History: No Reported History Medications and Allergies Home Medications Medication Instructions Recorded Confirmed Type Losartan [Cozaar] 50 mg PO HS 02/21/20 02/01/23 History Atorvastatin [Lipitor] 20 mg PO HS 09/20/22 02/01/23 History Finasteride [Proscar] 5 mg PO HS 09/20/22 02/01/23 History allopurinoL 300 mg PO HS 09/20/22 02/01/23 History HYDROcodone/APAP 5-325MG [[place] 1 tab PO Q6HR PRN #12 tab 09/25/22 02/01/23 Rx 5-325] Cyclobenzaprine [Flexeril] 10 mg PO TID PRN 02/01/23 02/01/23 History Meloxicam [Mobic] 15 mg PO HS 02/01/23 02/01/23 History Allergies Allergy/AdvReac Type Severity Reaction Status Date / Time No Known Allergies Allergy Verified 02/01/23 11:55 Physical Exam Osteopathic Statement: *. No significant issues noted on an osteopathic structural exam other than those noted in the History and Physical/Consult. Vitals: Vital Signs Temp Pulse Pulse Resp BP BP Pulse Ox 02/01/23 11:15 112 H 33 H 128/64 98 02/01/23 11:04 02/01/23 11:00 114 H 40 H 147/124 96 02/01/23 10:45 112 H 40 H 133/100 93 L 02/01/23 10:30 112 H 36 H 151/115 02/01/23 10:28 98.3 F 112 H 37 H 100 02/01/23 08:24 97 02/01/23 07:28 106 H 31 H 02/01/23 07:23 115 H 30 H 92/73 98 02/01/23 06:46 02/01/23 06:39 35 H 121/78 02/01/23 04:10 112 H 24 132/98 94 L 02/01/23 03:40 105 H 23 138/67 94 L 02/01/23 03:10 112 H 23 153/64 93 L 02/01/23 02:59 98.3 F 116 H 36 H 147/124 02/01/23 02:40 109 H 20 150/95 95 02/01/23 02:20 110 H 24 156/87 94 L 02/01/23 02:10 103 H 24 156/87 95 02/01/23 02:00 104 H 20 94 L 02/01/23 01:40 104 H 24 151/93 92 L 02/01/23 01:30 110 H 25 H 120/81 93 L 02/01/23 01:11 106 H 28 H 93/69 91 L 02/01/23 00:28 105 H 24 110/92 95 01/31/23 23:37 97 01/31/23 22:00 25 H 01/31/23 21:57 97.0 F L 106 H 19 100/83 94 L FiO2 02/01/23 11:15 30 02/01/23 11:04 30 02/01/23 11:00 02/01/23 10:45 02/01/23 10:30 02/01/23 10:28 02/01/23 08:24 02/01/23 07:28 02/01/23 07:23 02/01/23 06:46 30 02/01/23 06:39 02/01/23 04:10 02/01/23 03:40 02/01/23 03:10 02/01/23 02:59 02/01/23 02:40 02/01/23 02:20 02/01/23 02:10 02/01/23 02:00 02/01/23 01:40 02/01/23 01:30 02/01/23 01:11 02/01/23 00:28 01/31/23 23:37 01/31/23 22:00 01/31/23 21:57 Intake and Output 01/31/23 02/01/23 02/01/23 22:59 06:59 14:59 Other: Weight 122.47 kg 122.47 kg Oriented 3, quite dyspneic at rest. Currently on 4 L nasal cannula. Saturations are 97%. HEENT examination is grossly unremarkable. Neck supple. Full range of motion. No adenopathy thyromegaly or neck vein distention. Cardiovascular examination reveals regular rhythm rate. S1-S2 normal. No S3 or S4. No discernible murmur noted. Heart rate 112 bpm. Lungs reveal mostly clear breath sounds. Her sounds are equal bilaterally. Minimal scattered rhonchi. No wheezes or crackles. Saturations are 98% on BiPAP. Abdomen soft bowel sounds are heard. No masses or tenderness. Extremities are intact. No cyanosis, clubbing, or significant edema. Skin reveals livedo reticularis of the lower extremities. Neurologic examination is brief but nonfocal. Results - Laboratory Findings CBC and BMP: 02/01/23 07:55 02/01/23 07:55 ABG ABG pH 7.34 (7.35-7.45) L 02/01/23 11:24 ABG pCO2 29 mmHg (35-45) L 02/01/23 11:24 ABG pO2 118 mmHg (83-108) H 02/01/23 11:24 ABG O2 Saturation 97.9 % (94-97) H 02/01/23 11:24 PT/INR, D-dimer PT 12.9 sec (9.0-12.0) H 01/31/23 22:48 INR 1.3 (<1.2) H 01/31/23 22:48 D-Dimer 9.94 mg/L FEU (<0.60) H 02/01/23 04:39 Abnormal lab findings: Abnormal Labs 01/31/23 01/31/23 01/31/23 22:48 22:48 22:48 WBC 0.9 L* RBC 3.16 L Hgb 11.3 L Hct 32.8 L MCV 103.6 H MCH 35.7 H RDW 15.7 H Plt Count 56 L Neutrophils # 0.1 L* Lymphocytes # 0.4 L PT 12.9 H INR 1.3 H D-Dimer ABG pH ABG pCO2 ABG pO2 ABG HCO3 ABG Total CO2 ABG O2 Saturation Sodium 132 L Carbon Dioxide 13 L BUN 54 H Creatinine 3.53 H Glucose 183 H Plasma Lactic Acid [place] Calcium Total Bilirubin 1.5 H AST 188 H ALT 63 H Alkaline Phosphatase 34 L Creatine Kinase Total Protein Albumin 3.4 L 01/31/23 02/01/23 02/01/23 22:48 01:47 04:39 WBC RBC Hgb Hct MCV MCH RDW Plt Count Neutrophils # Lymphocytes # PT INR D-Dimer 9.94 H ABG pH ABG pCO2 ABG pO2 ABG HCO3 ABG Total CO2 ABG O2 Saturation Sodium Carbon Dioxide BUN Creatinine Glucose Plasma Lactic Acid [place] 8.1 H* 5.2 H* Calcium Total Bilirubin AST ALT Alkaline Phosphatase Creatine Kinase Total Protein Albumin 02/01/23 02/01/23 02/01/23 04:39 07:55 07:55 WBC 0.5 L* RBC 3.06 L Hgb 10.9 L Hct 31.6 L MCV 103.4 H MCH 35.8 H RDW 16.0 H Plt Count 47 L Neutrophils # Lymphocytes # PT INR D-Dimer ABG pH ABG pCO2 ABG pO2 ABG HCO3 ABG Total CO2 ABG O2 Saturation Sodium Carbon Dioxide BUN Creatinine Glucose Plasma Lactic Acid [place] 3.8 H* Calcium Total Bilirubin AST ALT Alkaline Phosphatase Creatine Kinase 20714 H* Total Protein Albumin 02/01/23 02/01/23 02/01/23 07:55 11:15 11:24 WBC RBC Hgb Hct MCV MCH RDW Plt Count Neutrophils # Lymphocytes # PT INR D-Dimer ABG pH 7.34 L ABG pCO2 29 L ABG pO2 118 H ABG HCO3 16 L ABG Total CO2 16 L ABG O2 Saturation 97.9 H Sodium 135 L Carbon Dioxide 15 L BUN 61 H Creatinine 3.83 H Glucose 141 H Plasma Lactic Acid Ham[place] 4.9 H* Calcium 7.9 L Total Bilirubin AST 207 H ALT 67 H Alkaline Phosphatase Creatine Kinase Total Protein 6.0 L Albumin 3.0 L - Diagnostic Findings Chest x-ray: image reviewed U/S of Legs: image reviewed Assessment and Plan Assessment: Shortness of breath, and cough, possibly related to underlying sepsis, and/or fluid overload. Acute kidney injury. Anion gap metabolic acidosis. Rule out pulmonary embolism. Lactic acidosis. Rhabdomyolysis. Pancytopenia. History of hypertension. History of hyperlipidemia. History of gout. Plan: Plan dated 02/01/2023. The patient is seen in the emergency department, room 25. It's unclear as to what's going on with this patient, as he only recently became ill in the last 2 or 3 days. A pro-calcitonin level was pending. The patient has significant pancytopenia. The patient was started on vancomycin and cefepime for possible sepsis, empirically. Bilateral lower extremity Dopplers were negative for DVT. A VQ scan is pending. The patient is transferred to the intensive care unit for further monitoring and management. Will have nephrology see the patient. The patient will be started on a sodium bicarbonate drip. Additional recommendations and suggestions are forthcoming. Prognosis is very guarded. Time with Patient: Greater than 30
[2023-02-01] MEDS ORDERED: AMIODARONE 360 MG in DEXTROSE 5% IN WATER 200 ML IV ONE ×2 (13:14)
[2023-02-01] MEDS ORDERED: DEXTROSE 5% IN WATER 250 ML with AMIODARONE 300 MG IV ONE (13:15)
[2023-02-01 13:39] LABS: Appearance,Urine Turbid (Clear); Bacteria,Urine Occasional /hpf; Bilirubin,Urine Negative (Negative); Blood,Urine Large (Negative); Color,Urine Dark Brown; Glucose,Urine (UA) Trace (Negative); Ketones,Urine Trace (Negative); Leukocyte Esterase,Urine Small (Negative); Mucus,Urine Few /hpf; Nitrite,Urine Negative (Negative); PH, Urine 5.5 (5.0-8.0); Protein,Urine 2+ (Negative); RBC,Urine >182 /hpf (0-5); Specific Gravity,Urine 1.024 (1.001-1.035); Squamous Epithelial Cell,Urine 3 /hpf (0-4); Urobilinogen,Urine <2.0 mg/dL (<2.0); WBC,Urine 50 /hpf (0-5)
[2023-02-01 14:34] LABS: Reticulocyte % 1.5 % (0.5-2.0)
--- NOTE | 2023-02-01 14:55 | NM ---
EXAMINATION TYPE: NM pul perfusion DATE OF EXAM: 02/01/2023 COMPARISON: Radiograph same day CLINICAL INDICATION: Male, 67 years old with history of R/O PE; patient on BiPAP. TECHNIQUE: Following administration of 5.4 mCi Tc 99m MAA. Images obtained post injection. The techn ologist notes that the patient's arms are by his side during imaging. FINDINGS: There is no discrete perfusion abnormality seen. Some artifact is created by the patient's arms done - IMPRESSION: Very low probability for pulmonary embolus.
[2023-02-01 15:04] LABS: ABG HCO3 16 mmol/L (21-25); ABG Oxygen Saturation 99.2 % (94-97); ABG PCO2 27 mmHg (35-45); ABG PH 7.36 (7.35-7.45); ABG PO2 204 mmHg (83-108); ABG TCO2 16 mmol/L (19-24)
--- NOTE | 2023-02-01 15:05 | P.NPCON ---
History of Present Illness - Reason for Consult Consult date: 02/01/23 acute renal failure - Chief Complaint Acute kidney injury - History of Present Illness 61-year-old white gentleman coming to the hospital with shortness of breath and not feeling well. As per him he has decreased oral intake for few days. Denies any nausea vomiting diarrhea. Baseline creatinine 1.2 MG per DL. He was hypotensive, lactic acidosis, transferred to ICU. He was given fluid resusc itation, urine output marginal. On BiPAP. Chest x-ray shows pneumonia. History of hypertension on losartan at home. 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 Past Anesthesia/Blood Transfusion Reactions: No Reported Reaction Past Psychological History: No Psychological Hx Reported Past Alcohol Use History: Daily - Past Family History Mother Family Medical History: No Reported History Medications and Allergies Home Medications Medication Instructions Recorded Confirmed Type Losartan [Cozaar] 50 mg PO HS 02/21/20 02/01/23 History Atorvastatin [Lipitor] 20 mg PO HS 09/20/22 02/01/23 History Finasteride [Proscar] 5 mg PO HS 09/20/22 02/01/23 History allopurinoL 300 mg PO HS 09/20/22 02/01/23 History HYDROcodone/APAP 5-325MG [[place] 1 tab PO Q6HR PRN #12 tab 09/25/22 02/01/23 Rx 5-325] Cyclobenzaprine [Flexeril] 10 mg PO TID PRN 02/01/23 02/01/23 History Meloxicam [Mobic] 15 mg PO HS 02/01/23 02/01/23 History Allergies Allergy/AdvReac Type Severity Reaction Status Date / Time No Known Allergies Allergy Verified 02/01/23 11:55 Physical Exam Vitals: Vital Signs Temp Pulse Pulse Resp BP BP Pulse Ox 02/01/23 14:00 141 H 35 H 102/80 95 02/01/23 13:30 152 H 30 H 102/80 100 02/01/23 12:00 109 H 35 H 150/62 99 02/01/23 11:30 113 H 37 H 164/77 97 02/01/23 11:15 112 H 33 H 128/64 98 02/01/23 11:04 02/01/23 11:00 114 H 40 H 147/124 96 02/01/23 10:45 112 H 40 H 133/100 93 L 02/01/23 10:30 112 H 36 H 151/115 02/01/23 10:28 98.3 F 112 H 37 H 100 02/01/23 08:24 97 02/01/23 07:28 106 H 31 H 02/01/23 07:23 115 H 30 H 92/73 98 02/01/23 06:46 02/01/23 06:39 35 H 121/78 02/01/23 04:10 112 H 24 132/98 94 L 02/01/23 03:40 105 H 23 138/67 94 L 02/01/23 03:10 112 H 23 153/64 93 L 02/01/23 02:59 98.3 F 116 H 36 H 147/124 02/01/23 02:40 109 H 20 150/95 95 02/01/23 02:20 110 H 24 156/87 94 L 02/01/23 02:10 103 H 24 156/87 95 02/01/23 02:00 104 H 20 94 L 02/01/23 01:40 104 H 24 151/93 92 L 02/01/23 01:30 110 H 25 H 120/81 93 L 02/01/23 01:11 106 H 28 H 93/69 91 L 02/01/23 00:28 105 H 24 110/92 95 01/31/23 23:37 97 01/31/23 22:00 25 H 01/31/23 21:57 97.0 F L 106 H 19 100/83 94 L FiO2 02/01/23 14:00 02/01/23 13:30 02/01/23 12:00 02/01/23 11:30 02/01/23 11:15 30 02/01/23 11:04 30 02/01/23 11:00 02/01/23 10:45 02/01/23 10:30 02/01/23 10:28 02/01/23 08:24 02/01/23 07:28 02/01/23 07:23 02/01/23 06:46 30 02/01/23 06:39 02/01/23 04:10 02/01/23 03:40 02/01/23 03:10 02/01/23 02:59 02/01/23 02:40 02/01/23 02:20 02/01/23 02:10 02/01/23 02:00 02/01/23 01:40 02/01/23 01:30 02/01/23 01:11 02/01/23 00:28 01/31/23 23:37 01/31/23 22:00 01/31/23 21:57 Intake and Output 01/31/23 02/01/23 02/01/23 22:59 06:59 14:59 Intake Total 1390 Output Total 65 Balance 1325 Intake: IV 1390 Sodium Chloride 0.9% 1, 1390 000 ml @ 130 mls/hr IV . Q7H42M [facility] Rx#:[id number] Output: Urine 65 Other: Voiding Method Indwelling Catheter Weight 122.47 kg 122.47 kg No acute distress S1-S2 heard Decreased breath sounds Abdomen distended Amaro Edema Results - Lab Results Most recent lab results ABG pH 7.34 (7.35-7.45) L 02/01/23 11:24 ABG pCO2 29 mmHg (35-45) L 02/01/23 11:24 ABG pO2 118 mmHg (83-108) H 02/01/23 11:24 ABG HCO3 16 mmol/L (21-25) L 02/01/23 11:24 ABG O2 Saturation 97.9 % (94-97) H 02/01/23 11:24 Calcium 7.9 mg/dL (8.4-10.2) L 02/01/23 07:55 02/01/23 07:55 02/01/23 07:55 Assessment and Plan Assessment: #1 oliguric acute kidney injury secondary to hemodynamic ATN with low blood pressures -Baseline creatinine 1.2 MG per DL. -Urine analysis hematuria with pyuria and proteinuria -No hydronephrosis on renal ultrasound #2 severe sepsis #3 acute respiratory failure on BiPAP #4 lactic acidosis secondary to hypotension and sepsis #5 pancytopenia Plan: #1 continue with fluid resuscitation, currently on bicarb drip. #2 monitor renal function, urine output closely. #3 discussed with the patient, if renal function does not improve he needs dialysis. Patient agreeable. #4 ICU care #5 avoid nephrotoxic agents and hypotensive episodes
[2023-02-01 15:06] LABS: Allen Test Performed? no
[2023-02-01] MEDS: AZITHROMYCIN 500 MG in SODIUM CHLORIDE 0.9% 250 ML IVPB SCH (15:07)
[2023-02-01] MEDS: DEXTROSE 5% IN WATER 1,000 ML with SODIUM BICARB (1 MEQ/ML) 150 ML IV SCH ×2 (15:07→23:41)
[2023-02-01] MEDS: AMIODARONE 450 MG in DEXTROSE 5% IN WATER 250 ML IV SCH ×4 (15:08→21:55)
--- NOTE | 2023-02-01 15:20 | PCN ---
PROCEDURE NOTE PROCEDURE PERFORMED: Right radial art line. PREOPERATIVE DIAGNOSES: Frequent blood draws and blood gas monitoring. POSTOPERATIVE DIAGNOSES: Frequent blood draws and blood gas monitoring. We used the right radial artery. GAS PUMPING STATION OPERATOR: Dr. Thomas. DESCRIPTION OF PROCEDURE: There were informed consent and universal time-out. We used the right radial artery. There were good blood return and waveform. The patient tolerated the procedure well. The catheter was sutured in place. There was no immediate complication. MMODL / IJN: [id number] /
--- NOTE | 2023-02-01 15:23 | PCN ---
PROCEDURE NOTE PROCEDURE PERFORMED: Left internal jugular triple-lumen catheter. PREOPERATIVE DIAGNOSES: 1. Administration of fluids and pressors. 2. Hypotension. POSTOPERATIVE DIAGNOSES: 1. Administration of fluids and pressors. 2. Hypotension. DESCRIPTION OF PROCEDURE: We used the left internal jugular vein. There was no immediate complication. There was good blood return from all 3 ports. The tip of the catheter was seen at the junction of superior vena cava and right atrium. The catheter was sutured in place. Sterile dressing was applied by the nurse. A chest x-ray was ordered. There was no immediate complication. MMODL / IJN: [id number] /
--- NOTE | 2023-02-01 15:32 | XR ---
EXAMINATION TYPE: XR chest 1V portable DATE OF EXAM: 02/01/2023 COMPARISON: 02/01/2023 HISTORY: Shortness of breath TECHNIQUE: Single frontal view of the chest is obtained. Limited by suboptimal inspiration FINDINGS: There is no focal air space opacity, pleural effusion, or pneumothorax seen. The cardiac silhouette size is within normal limits. The osseous structures are intact. IMPRESSION: No acute process. Limited by suboptimal inspiration
[2023-02-01] MEDS ORDERED: propofoL 100 ML IV ONE (16:32)
[2023-02-01] MEDS ORDERED: CISATRACURIUM 2 MG/ML 5 ML VIAL IV ONE (16:36)
--- NOTE | 2023-02-01 17:45 | XR ---
EXAMINATION TYPE: XR chest 1V portable DATE OF EXAM: 02/01/2023 COMPARISON: 02/01/2023 Findings: There has been interval insertion of an ET tube which is approximately 2 cm above the simon. There i s an NG tube within the stomach. A left central venous catheter tip is unchanged in position and is i n the SVC/R junction. The lungs are clear. There is no pleural effusion or pneumothorax. The heart and pulmonary vasculature are normal. The osseous structures are intact. IMPRESSION: 1. ET tube 2 cm above the simon. 2. No acute cardiopulmonary disease.
[2023-02-01 17:59] LABS: ABG Base Excess -10.9 mmol/L; ABG HCO3 18 mmol/L (21-25); ABG Oxygen Saturation 97.4 % (94-97); ABG PCO2 47 mmHg (35-45); ABG PO2 132 mmHg (83-108); ABG TCO2 19 mmol/L (19-24)
[2023-02-01 18:01] LABS: ABG PH 7.18 (7.35-7.45); Allen Test Performed? no
[2023-02-01] MEDS: NOREPINEPHRINE 32 MG in SODIUM CHLORIDE 0.9% 218 ML IV SCH (18:44)
[2023-02-01] MEDS: LINEZOLID 600 MG in DEXTROSE/WATER 1 300ML.BAG IVPB SCH (19:44)
[2023-02-01] MEDS: FINASTERIDE 5 MG TAB PO SCH (19:46)
[2023-02-01] MEDS: CHLORHEXIDINE GLUCONATE 15 ML CUP MUCOUS MEM SCH (19:55)
[2023-02-01] MEDS ORDERED: ATORVASTATIN 20 MG TAB PO SCH (21:00)
[2023-02-01] MEDS ORDERED: LOSARTAN 50 MG TAB PO SCH (21:00)
[2023-02-01] MEDS ORDERED: allopurinoL 300 MG TAB PO SCH (21:00)
--- NOTE | 2023-02-01 22:15 | P.CONS ---
History of Present Illness - Reason for Consult Consult date: 02/01/23 Pneumonia, sepsis Requesting physician: Soren Lowry - Chief Complaint shortness of breath and cough x few days - History of Present Illness Patient is a 67-year-old male with a past medical history [place] for hypertension and gout who recently returned from a trip to [facility] about a week ago patient presented to [facility] ER last night for evaluation of increasing shortness of breath fever and generalized body aches patient symptom has been going on for about 2 days before presentation to hospital patient denies having any chest pain he did have a cough mild to moderate intensity but is mostly dry in nature has not been up any sputum no pleuritic chest pain denies any URI symptoms nausea vomiting no abdominal pain and no diarrhea patien t also noticed mottling of his skin to bilateral legs area but no significant swelling to the joints on presentation to the hospital patient was afebrile and no fever has been culture subsequently patient was tachycardic tachypneic and hypotensive requiring admission to the ICU and has been on a BiPAP at the time my evaluation patient did have a leukopenia with a white count of 0.9 platelet count was low at 56 hemoglobin is 11.3 creatinine is 3.83 lactic acid was elevated as well as CK urine was mostly hematuria and small leukocyte esterase influenza RSV COVID and urine for Legionella antigen were negative patient did have a chest x-ray mild prominence of central vascular atelectasis lung bases [place] scan was low probability for PE, patient was started on vancomycin cefepime and Zithromax infectious was consulted for further management of antibiotic therapy most information has been obtained from review the chart that the patient was slightly tachypneic and mild respite distress at the time of evaluation Review of Systems Positive point and negatives has been mentioned in the HPI, complete review of systems was performed and all other systems are negative 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 Past Anesthesia/Blood Transfusion Reactions: No Reported Reaction Past Psychological History: No Psychological Hx Reported Past Alcohol Use History: Daily - Past Family History Mother Family Medical History: No Reported History Medications and Allergies Home Medications Medication Instructions Recorded Confirmed Type Losartan [Cozaar] 50 mg PO HS 02/21/20 02/01/23 History Atorvastatin [Lipitor] 20 mg PO HS 09/20/22 02/01/23 History Finasteride [Proscar] 5 mg PO HS 09/20/22 02/01/23 History allopurinoL 300 mg PO HS 09/20/22 02/01/23 History HYDROcodone/APAP 5-325MG [[place] 1 tab PO Q6HR PRN #12 tab 09/25/22 02/01/23 Rx 5-325] Cyclobenzaprine [Flexeril] 10 mg PO TID PRN 02/01/23 02/01/23 History Meloxicam [Mobic] 15 mg PO HS 02/01/23 02/01/23 History Allergies Allergy/AdvReac Type Severity Reaction Status Date / Time No Known Allergies Allergy Verified 02/01/23 11:55 Physical Exam Vitals: Vital Signs Temp Pulse Pulse Resp BP BP Pulse Ox 02/01/23 11:15 112 H 33 H 128/64 98 02/01/23 11:04 02/01/23 11:00 114 H 40 H 147/124 96 02/01/23 10:45 112 H 40 H 133/100 93 L 02/01/23 10:30 112 H 36 H 151/115 02/01/23 10:28 98.3 F 112 H 37 H 100 02/01/23 08:24 97 02/01/23 07:28 106 H 31 H 02/01/23 07:23 115 H 30 H 92/73 98 02/01/23 06:46 02/01/23 06:39 35 H 121/78 02/01/23 04:10 112 H 24 132/98 94 L 02/01/23 03:40 105 H 23 138/67 94 L 02/01/23 03:10 112 H 23 153/64 93 L 02/01/23 02:59 98.3 F 116 H 36 H 147/124 02/01/23 02:40 109 H 20 150/95 95 02/01/23 02:20 110 H 24 156/87 94 L 02/01/23 02:10 103 H 24 156/87 95 02/01/23 02:00 104 H 20 94 L 02/01/23 01:40 104 H 24 151/93 92 L 02/01/23 01:30 110 H 25 H 120/81 93 L 02/01/23 01:11 106 H 28 H 93/69 91 L 02/01/23 00:28 105 H 24 110/92 95 01/31/23 23:37 97 01/31/23 22:00 25 H 01/31/23 21:57 97.0 F L 106 H 19 100/83 94 L FiO2 02/01/23 11:15 30 02/01/23 11:04 30 02/01/23 11:00 02/01/23 10:45 02/01/23 10:30 02/01/23 10:28 02/01/23 08:24 02/01/23 07:28 02/01/23 07:23 02/01/23 06:46 30 02/01/23 06:39 02/01/23 04:10 02/01/23 03:40 02/01/23 03:10 02/01/23 02:59 02/01/23 02:40 02/01/23 02:20 02/01/23 02:10 02/01/23 02:00 02/01/23 01:40 02/01/23 01:30 02/01/23 01:11 02/01/23 00:28 01/31/23 23:37 01/31/23 22:00 01/31/23 21:57 Intake and Output 01/31/23 02/01/23 02/01/23 22:59 06:59 14:59 Intake Total 1260 Output Total 55 Balance 1205 Intake: IV 1260 Sodium Chloride 0.9% 1, 1260 000 ml @ 130 mls/hr IV . Q7H42M [facility] Rx#:[id number] Output: Urine 55 Other: Weight 122.47 kg 122.47 kg GENERAL DESCRIPTION: Elderly male lying in bed, no distress. No tachypnea or accessory muscle of respiration use. HEENT: Shows Pallor , no scleral icterus. Oral mucous membrane is dry. NECK: Trachea central, no thyromegaly. LUNGS: Unlabored breathing. Coarse breath sounds bilaterally HEART: S1, S2, regular rate and rhythm. No loud murmur ABDOMEN: Soft, no tenderness , EXTREMITIES: No edema of feet. SKIN: No rash, no masses palpable. NEUROLOGICAL: The patient is awake, alert, oriented x3, mood and affect normal. Results CBC & Chem 7: 02/05/23 04:30 02/05/23 06:45 Labs: Abnormal Lab Results - Last 24 Hours (Table) 01/31/23 01/31/23 01/31/23 Range/Units 22:48 22:48 22:48 WBC 0.9 L* (3.8-10.6) k/uL RBC 3.16 L (4.30-5.90) m/uL Hgb 11.3 L (13.0-17.5) gm/dL Hct 32.8 L (39.0-53.0) % MCV 103.6 H (80.0-100.0) fL MCH 35.7 H (25.0-35.0) pg RDW 15.7 H (11.5-15.5) % Plt Count 56 L (150-450) k/uL Neutrophils # 0.1 L* (1.3-7.7) k/uL Lymphocytes # 0.4 L (1.0-4.8) k/uL PT 12.9 H (9.0-12.0) sec INR 1.3 H (<1.2) D-Dimer (<0.60) mg/L FEU ABG pH (7.35-7.45) ABG pCO2 (35-45) mmHg ABG pO2 (83-108) mmHg ABG HCO3 (21-25) mmol/L ABG Total CO2 (19-24) mmol/L ABG O2 Saturation (94-97) % Sodium 132 L (137-145) mmol/L Carbon Dioxide 13 L (22-30) mmol/L BUN 54 H (9-20) mg/dL Creatinine 3.53 H (0.66-1.25) mg/dL Glucose 183 H (74-99) mg/dL Plasma Lactic Acid Hamlet (0.7-2.0) mmol/L Calcium (8.4-10.2) mg/dL Total Bilirubin 1.5 H (0.2-1.3) mg/dL AST 188 H (17-59) U/L ALT 63 H (4-49) U/L Alkaline Phosphatase 34 L (38-126) U/L Creatine Kinase (55-170) U/L Total Protein (6.3-8.2) g/dL Albumin 3.4 L (3.5-5.0) g/dL 01/31/23 02/01/23 02/01/23 Range/Units 22:48 01:47 04:39 WBC (3.8-10.6) k/uL RBC (4.30-5.90) m/uL Hgb (13.0-17.5) gm/dL Hct (39.0-53.0) % MCV (80.0-100.0) fL MCH (25.0-35.0) pg RDW (11.5-15.5) % Plt Count (150-450) k/uL Neutrophils # (1.3-7.7) k/uL Lymphocytes # (1.0-4.8) k/uL PT (9.0-12.0) sec INR (<1.2) D-Dimer 9.94 H (<0.60) mg/L FEU ABG pH (7.35-7.45) ABG pCO2 (35-45) mmHg ABG pO2 (83-108) mmHg ABG HCO3 (21-25) mmol/L ABG Total CO2 (19-24) mmol/L ABG O2 Saturation (94-97) % Sodium (137-145) mmol/L Carbon Dioxide (22-30) mmol/L BUN (9-20) mg/dL Creatinine (0.66-1.25) mg/dL Glucose (74-99) mg/dL Plasma Lactic Acid Hamlet 8.1 H* 5.2 H* (0.7-2.0) mmol/L Calcium (8.4-10.2) mg/dL Total Bilirubin (0.2-1.3) mg/dL AST (17-59) U/L ALT (4-49) U/L Alkaline Phosphatase (38-126) U/L Creatine Kinase (55-170) U/L Total Protein (6.3-8.2) g/dL Albumin (3.5-5.0) g/dL 02/01/23 02/01/23 02/01/23 Range/Units 04:39 07:55 07:55 WBC 0.5 L* (3.8-10.6) k/uL RBC 3.06 L (4.30-5.90) m/uL Hgb 10.9 L (13.0-17.5) gm/dL Hct 31.6 L (39.0-53.0) % MCV 103.4 H (80.0-100.0) fL MCH 35.8 H (25.0-35.0) pg RDW 16.0 H (11.5-15.5) % Plt Count 47 L (150-450) k/uL Neutrophils # (1.3-7.7) k/uL Lymphocytes # (1.0-4.8) k/uL PT (9.0-12.0) sec INR (<1.2) D-Dimer (<0.60) mg/L FEU ABG pH (7.35-7.45) ABG pCO2 (35-45) mmHg ABG pO2 (83-108) mmHg ABG HCO3 (21-25) mmol/L ABG Total CO2 (19-24) mmol/L ABG O2 Saturation (94-97) % Sodium (137-145) mmol/L Carbon Dioxide (22-30) mmol/L BUN (9-20) mg/dL Creatinine (0.66-1.25) mg/dL Glucose (74-99) mg/dL Plasma Lactic Acid Hamlet 3.8 H* (0.7-2.0) mmol/L Calcium (8.4-10.2) mg/dL Total Bilirubin (0.2-1.3) mg/dL AST (17-59) U/L ALT (4-49) U/L Alkaline Phosphatase (38-126) U/L Creatine Kinase 27172 H* (55-170) U/L Total Protein (6.3-8.2) g/dL Albumin (3.5-5.0) g/dL 02/01/23 02/01/23 02/01/23 Range/Units 07:55 11:15 11:24 WBC (3.8-10.6) k/uL RBC (4.30-5.90) m/uL Hgb (13.0-17.5) gm/dL Hct (39.0-53.0) % MCV (80.0-100.0) fL MCH (25.0-35.0) pg RDW (11.5-15.5) % Plt Count (150-450) k/uL Neutrophils # (1.3-7.7) k/uL Lymphocytes # (1.0-4.8) k/uL PT (9.0-12.0) sec INR (<1.2) D-Dimer (<0.60) mg/L FEU ABG pH 7.34 L (7.35-7.45) ABG pCO2 29 L (35-45) mmHg ABG pO2 118 H (83-108) mmHg ABG HCO3 16 L (21-25) mmol/L ABG Total CO2 16 L (19-24) mmol/L ABG O2 Saturation 97.9 H (94-97) % Sodium 135 L (137-145) mmol/L Carbon Dioxide 15 L (22-30) mmol/L BUN 61 H (9-20) mg/dL Creatinine 3.83 H (0.66-1.25) mg/dL Glucose 141 H (74-99) mg/dL Plasma Lactic Acid Hamlet 4.9 H* (0.7-2.0) mmol/L Calcium 7.9 L (8.4-10.2) mg/dL Total Bilirubin (0.2-1.3) mg/dL AST 207 H (17-59) U/L ALT 67 H (4-49) U/L Alkaline Phosphatase (38-126) U/L Creatine Kinase (55-170) U/L Total Protein 6.0 L (6.3-8.2) g/dL Albumin 3.0 L (3.5-5.0) g/dL Assessment and Plan (1) Pneumonia Status: Acute Code(s): J18.9 - PNEUMONIA, UNSPECIFIED ORGANISM SNOMED Code(s): 337780262 (2) Sepsis Status: Acute Code(s): A41.9 - SEPSIS, UNSPECIFIED ORGANISM SNOMED Code(s): 53387233 Plan: 1patient presented hospital with sepsis in this patient with the leukopenia tachycardia tachypnea hypotension elevated lactic acid and apparently did have a fever at home with the pulmonary vascular congestion on the x-rays low probability of PE on the VQ scan with consideration for pneumonia question of tuberculosis atypical pathogen however urine for Legionella antigen was negative and the patient has been ruled out for COVID-19 2-patient with renal insufficiency high risk of nephrotoxicity from vancomycin 3-we will try to obtain a sputum for Gram stain and culture check a procalcitonin level 4-discontinue vancomycin 5-we will keep the patient on cefepime Zithromax and Zyvox while waiting for the condition stabilized and culture to finalize Prognosis guarded We will follow on clinical condition and cultures to further adjust medication if needed Thank you for this consultation we will follow the patient along with you Dictation was produced using [employer] dictation software. please excuse any grammatical, word or spelling errors. Time with Patient: Greater than 30
[2023-02-02 01:12] LABS: Glucose,Whole Blood 219 mg/dL (70-110)
[2023-02-02] MEDS ORDERED: DEXTROSE 50% SYRINGE 50 ML IVP PRN ×2 (02:21)
[2023-02-02 03:22] LABS: Anisocytosis Slight; HCT 27.2 % (39.0-53.0); HGB 9.7 gm/dL (13.0-17.5); MCH 37.2 pg (25.0-35.0); MCHC 35.8 g/dL (31.0-37.0); Macrocytosis Moderate; Mean Platelet Volume 19.4; Poikilocytosis Slight; RBC 2.61 m/uL (4.30-5.90); RDW 16.7 % (11.5-15.5)
[2023-02-02 03:30] LABS: ALT 263 U/L (4-49); AST 362 U/L (17-59); African American GFR (CKD) 15 (>60 ml/min/1.73 sqM); Albumin 2.6 g/dL (3.5-5.0); Alkaline Phosphatase 43 U/L (38-126); Anion Gap 16 mmol/L; Blood Urea Nitrogen 69 mg/dL (9-20); Calcium 6.5 mg/dL (8.4-10.2); Carbon Dioxide 16 mmol/L (22-30); Chloride 100 mmol/L (98-107); Glucose 213 mg/dL (74-99); Non-African American GFR(CKD) 13 (>60 ml/min/1.73 sqM); Potassium 4.8 mmol/L (3.5-5.1); Sodium 132 mmol/L (137-145); Total Protein 5.3 g/dL (6.3-8.2)
[2023-02-02 03:36] LABS: Platelet Count 62 k/uL (150-450)
[2023-02-02] MEDS: NOREPINEPHRINE 32 MG in SODIUM CHLORIDE 0.9% 218 ML IV SCH ×2 (06:19→16:48)
[2023-02-02 06:35] LABS: ABG HCO3 20 mmol/L (21-25); ABG Oxygen Saturation 96.5 % (94-97); ABG PCO2 36 mmHg (35-45); ABG PH 7.34 (7.35-7.45); ABG PO2 89 mmHg (83-108); ABG TCO2 21 mmol/L (19-24); Allen Test Performed? Yes
[2023-02-02 06:46] LABS: Glucose,Whole Blood 208 mg/dL (70-110)
[2023-02-02] MEDS: INSULIN ASPART (NovoLOG) 100 UNIT/ML VIAL SQ SCH ×3 (06:46→18:01)
[2023-02-02] MEDS ORDERED: VANCOMYCIN 2,000 MG in SODIUM CHLORIDE 0.9% 500 ML 500 ML IVPB ONE (08:00)
[2023-02-02] MEDS ORDERED: IPRATROPIUM-ALBUTEROL 3 ML NEB INHALATION PRN (08:07)
--- NOTE | 2023-02-02 08:38 | XR ---
EXAMINATION TYPE: XR chest 1V portable DATE OF EXAM: 02/02/2023 COMPARISON: 02/01/2023 HISTORY: Tube placement TECHNIQUE: Single frontal view of the chest is obtained. FINDINGS: ET tube is 3.8 cm above. There is an NG tube stomach. There is no change in the small left pleural effusion and probable left lower lobe infiltrate. The right lung is clear. The heart size is normal and the pulmonary vasculature is not congested. The osseous structures are intact IMPRESSION: 1. ET tube 3.8 cm above the simon. 2. No change in the left lower lobe infiltrate and small pleural effusion.
[2023-02-02] MEDS ORDERED: AZITHROMYCIN 500 MG TAB PO SCH (09:00)
[2023-02-02] MEDS ORDERED: CISATRACURIUM 2 MG/ML 5 ML VIAL IV ONE (09:03)
[2023-02-02 09:25] LABS: Neutrophils % (M) 19 %
[2023-02-02 09:26] LABS: Band Neutrophils % 1 %; Metamyelocytes # (M) 0.02 k/uL (0); Metamyelocytes % 1 %; Monocytes # (M) 0.36 k/uL (0-1.0); Myelocytes # (M) 0.02 k/uL (0); Myelocytes % 1 %; Nucleated Red Blood Cells 29 /100 WBC (0-0); Total Cells Counted 100
[2023-02-02] MEDS: CISATRACURIUM 200 MG in SODIUM CHLORIDE 0.9% 180 ML IV SCH (09:31)
[2023-02-02] MEDS: VASOPRESSIN 60 UNIT in SODIUM CHLORIDE 0.9% 150 ML IV SCH (09:31)
[2023-02-02] MEDS ORDERED: AMIODARONE 360 MG in DEXTROSE 5% IN WATER 200 ML IV ONE ×2 (09:39)
[2023-02-02] MEDS: CEFEPIME 1 GM in SODIUM CHLORIDE 0.9% 50 ML IVPB SCH (09:44)
[2023-02-02] MEDS: DEXTROSE 5% IN WATER 1,000 ML with SODIUM BICARB (1 MEQ/ML) 150 ML IV SCH ×2 (09:45→16:52)
[2023-02-02] MEDS: CHLORHEXIDINE GLUCONATE 15 ML CUP MUCOUS MEM SCH ×2 (10:05→21:55)
[2023-02-02] MEDS: LINEZOLID 600 MG in DEXTROSE/WATER 1 300ML.BAG IVPB SCH (10:15)
--- NOTE | 2023-02-02 11:32 | P.PN ---
Subjective Progress Note Date: 02/02/23 Hospital Course: 67-year-old male with history of hypertension and dyslipidemia presented with sudden onset shortness of breath. Patient recently spent some time in eyes: On medication, came back 1 week ago. He was doing well up until the day prior to admission when he spiked a fever and felt pain in his knees. Prior to admission, he had sudden onset shortness of breath and presented to the hospital for further evaluation. At the time of admission, patient was tachypneic, tachycardic, slowly becoming hypoxic and required BiPAP. Laboratory workup showed WBC of 0.9, with neutrophil 0.1, pancytopenia, acute kidney injury with creatinine of 2.53, transaminitis, lactic acidosis with lactate of 8.1, rhabdomyolysis with CK of 15,000. Pulmonology was consulted. Patient was thomas sferred to medical ICU, currently intubated and sedated. Etiology of acute decompensation and multiorgan failure currently unclear. Subjective: Patient seen and examined at bedside. Right minimal dark urine in Amaro bag. Currently intubated and sedated Pertinent positives and negatives as discussed above, a complete review of systems was performed and all other systems are negative. Vitals Signs Reviewed. General: nontoxic, no distress, appears at stated age, intubated and sedated, Derm: warm, dry, slight erythema noted on the left calf, lower extremity mottling has resolved Head: atraumatic, normocephalic, symmetric Eyes: Pupils equal and reactive, anicteric sclera Mouth: no lip lesion, mucus membranes moist Cardiovascular: S1S2 reg, no murmur Lungs: CTA bilateral, no rhonchi, no rales , intubated Abdominal: soft, nontender to palpation, no guarding, no appreciable organome shalini Ext: no gross muscle atrophy, no edema, no contractures Neuro: Sedated Psych: Unable to assess Data Reviewed Today: Pertinent Labs: WBC 2, hemoglobin 9.7, platelets 62, neutrophils 0.4, sodium 132, BUN 69, creatinine 4.33, total bilirubin 1, AST 362, ALT 263, LDH 798, CK 12,000, fibrinogen 1200. Imaging: Chest x-ray independently interpreted, underinflated, shows left basilar opacity, ET tube and NG tube in place. Assessment and Plan: Patient is critically ill, currently in medical ICU Septic shock Beta-hemolytic strep G bacteremia Suspected pneumonia Pancytopenia with severe neutropenia Rhabdomyolysis Acute kidney injury, anuric High anion gap metabolic acidosis Transaminitis A. fib with RVR History of hypertension, hold antihypertensives -On vasopressin and Levophed -Intubated and sedated on propofol, ICU following -ID following, patient currently on azithromycin, cefepime, and linezolid, may consider de-escalating -Repeat blood cultures ordered -Echocardiogram pending -Pancytopenia likely secondary to bone marrow suppression in the setting of bacteremia -Fibrinogen elevated, less likely to be DIC -LDH elevated, haptoglobin pending -Hematology has been consulted -CK down trending, lactic acid down trended -Renal function still poor, nephrology following -On D5 water sodium bicarbonate drip at 1 25 mL an hour -Amaro catheter in place, patient may need dialysis if no improvement -On amiodarone drip cardiology consulted DVT ppx: Mechanical Code status: Full code Anticipated discharge place: Pending clinical course Anticipated discharge time: Pending clinical course Objective - Vital Signs Vital signs: Vital Signs Temp 99.9 F H 02/02/23 09:00 Pulse 124 H 02/02/23 11:15 Resp 28 H 02/02/23 11:15 BP 102/80 02/01/23 14:00 Pulse Ox 98 02/02/23 11:15 FiO2 50 02/02/23 11:22 Intake & Output 02/01/23 02/02/23 02/02/23 18:59 06:59 18:59 Intake Total 2359.026 4949.229 718.077 Output Total 85 695 85 Balance 9653.364 2533.229 633.077 Weight 134.1 kg Intake: IV 1890 1500 625 Dextrose 5% in Water 1, 500 1500 625 000 ml @ 125 mls/hr IV . Q9H12M [facility] with Sodium Bicarb (1 Meq/ml) 150 ml Rx#:[id number] Sodium Chloride 0.9% 1, 1390 000 ml @ 130 mls/hr IV . Q7H42M [facility] Rx#:[id number] Intake, IV Titration 6.246 541.229 93.077 Amount Norepinephrine 32 mg In 213.186 Sodium Chloride 0.9% 218 ml @ 0.03 MCG/KG/MIN 1. 722 mls/hr IV .Q24H [facility] Rx#:[id number] propofoL 1,000 mg In 6.246 328.043 93.077 Empty Bag 1 bag @ 15 MCG/ KG/MIN 11.022 mls/hr IV . Q9H5M [facility] Rx#:[id number] Output: Gastric Drainage 550 Urine 85 145 85 Other: Voiding Method Indwelling Catheter Indwelling Catheter ABP, PAP, CO, CI - Last Documented Arterial Blood Pressure 102/67 - Labs CBC & Chem 7: 02/02/23 02:40 02/02/23 02:40 Labs: Abnormal Lab Results - Last 24 Hours (Table) 02/01/23 02/01/23 02/01/23 Range/Units 11:15 12:55 14:09 WBC (3.8-10.6) k/uL RBC (4.30-5.90) m/uL Hgb (13.0-17.5) gm/dL Hct (39.0-53.0) % MCV (80.0-100.0) fL MCH (25.0-35.0) pg RDW (11.5-15.5) % Plt Count (150-450) k/uL Neutrophils # (Manual) (1.3-7.7) k/uL Metamyelocytes # (Man) (0) k/uL Myelocytes # (Manual) (0) k/uL Nucleated RBCs (0-0) /100 WBC Haptoglobin (31.2-198.0) mg/dL Fibrinogen (200-500) mg/dL ABG pH (7.35-7.45) ABG pCO2 (35-45) mmHg ABG pO2 (83-108) mmHg ABG HCO3 (21-25) mmol/L ABG Total CO2 (19-24) mmol/L ABG O2 Saturation (94-97) % Sodium (137-145) mmol/L Carbon Dioxide (22-30) mmol/L BUN (9-20) mg/dL Creatinine (0.66-1.25) mg/dL Glucose (74-99) mg/dL POC Glucose (mg/dL) (70-110) mg/dL Plasma Lactic Acid Hamlet 4.9 H* (0.7-2.0) mmol/L Calcium (8.4-10.2) mg/dL AST (17-59) U/L ALT (4-49) U/L Lactate Dehydrogenase (120-246) U/L Creatine Kinase 76996 H* (55-170) U/L Total Protein (6.3-8.2) g/dL Albumin (3.5-5.0) g/dL Urine Protein 2+ H (Negative) Urine Glucose (UA) Trace H (Negative) Urine Ketones Trace H (Negative) Urine Blood Large H (Negative) Ur Leukocyte Esterase Small H (Negative) Urine RBC >182 H (0-5) /hpf Urine WBC 50 H (0-5) /hpf Urine Bacteria Occasional H (None) /hpf Urine Mucus Few H (None) /hpf 02/01/23 02/01/23 02/01/23 Range/Units 14:09 14:09 14:09 WBC (3.8-10.6) k/uL RBC (4.30-5.90) m/uL Hgb (13.0-17.5) gm/dL Hct (39.0-53.0) % MCV (80.0-100.0) fL MCH (25.0-35.0) pg RDW (11.5-15.5) % Plt Count (150-450) k/uL Neutrophils # (Manual) (1.3-7.7) k/uL Metamyelocytes # (Man) (0) k/uL Myelocytes # (Manual) (0) k/uL Nucleated RBCs (0-0) /100 WBC Haptoglobin 337.0 H (31.2-198.0) mg/dL Fibrinogen 1204 H (200-500) mg/dL ABG pH (7.35-7.45) ABG pCO2 (35-45) mmHg ABG pO2 (83-108) mmHg ABG HCO3 (21-25) mmol/L ABG Total CO2 (19-24) mmol/L ABG O2 Saturation (94-97) % Sodium (137-145) mmol/L Carbon Dioxide (22-30) mmol/L BUN (9-20) mg/dL Creatinine (0.66-1.25) mg/dL Glucose (74-99) mg/dL POC Glucose (mg/dL) (70-110) mg/dL Plasma Lactic Acid Hamlet (0.7-2.0) mmol/L Calcium (8.4-10.2) mg/dL AST (17-59) U/L ALT (4-49) U/L Lactate Dehydrogenase 798 H (120-246) U/L Creatine Kinase (55-170) U/L Total Protein (6.3-8.2) g/dL Albumin (3.5-5.0) g/dL Urine Protein (Negative) Urine Glucose (UA) (Negative) Urine Ketones (Negative) Urine Blood (Negative) Ur Leukocyte Esterase (Negative) Urine RBC (0-5) /hpf Urine WBC (0-5) /hpf Urine Bacteria (None) /hpf Urine Mucus (None) /hpf 02/01/23 02/01/23 02/01/23 Range/Units 14:09 15:02 17:56 WBC (3.8-10.6) k/uL RBC (4.30-5.90) m/uL Hgb (13.0-17.5) gm/dL Hct (39.0-53.0) % MCV (80.0-100.0) fL MCH (25.0-35.0) pg RDW (11.5-15.5) % Plt Count (150-450) k/uL Neutrophils # (Manual) (1.3-7.7) k/uL Metamyelocytes # (Man) (0) k/uL Myelocytes # (Manual) (0) k/uL Nucleated RBCs (0-0) /100 WBC Haptoglobin (31.2-198.0) mg/dL Fibrinogen (200-500) mg/dL ABG pH 7.18 L* (7.35-7.45) ABG pCO2 27 L 47 H (35-45) mmHg ABG pO2 204 H 132 H (83-108) mmHg ABG HCO3 16 L 18 L (21-25) mmol/L ABG Total CO2 16 L (19-24) mmol/L ABG O2 Saturation 99.2 H 97.4 H (94-97) % Sodium (137-145) mmol/L Carbon Dioxide (22-30) mmol/L BUN (9-20) mg/dL Creatinine (0.66-1.25) mg/dL Glucose (74-99) mg/dL POC Glucose (mg/dL) (70-110) mg/dL Plasma Lactic Acid Hamlet 4.1 H* (0.7-2.0) mmol/L Calcium (8.4-10.2) mg/dL AST (17-59) U/L ALT (4-49) U/L Lactate Dehydrogenase (120-246) U/L Creatine Kinase (55-170) U/L Total Protein (6.3-8.2) g/dL Albumin (3.5-5.0) g/dL Urine Protein (Negative) Urine Glucose (UA) (Negative) Urine Ketones (Negative) Urine Blood (Negative) Ur Leukocyte Esterase (Negative) Urine RBC (0-5) /hpf Urine WBC (0-5) /hpf Urine Bacteria (None) /hpf Urine Mucus (None) /hpf 02/01/23 02/02/23 02/02/23 Range/Units 20:00 01:10 02:40 WBC 2.0 L (3.8-10.6) k/uL RBC 2.61 L (4.30-5.90) m/uL Hgb 9.7 L (13.0-17.5) gm/dL Hct 27.2 L (39.0-53.0) % MCV 104.0 H (80.0-100.0) fL MCH 37.2 H (25.0-35.0) pg RDW 16.7 H (11.5-15.5) % Plt Count 62 L (150-450) k/uL Neutrophils # (Manual) 0.40 L* (1.3-7.7) k/uL Metamyelocytes # (Man) 0.02 H (0) k/uL Myelocytes # (Manual) 0.02 H (0) k/uL Nucleated RBCs 29 H (0-0) /100 WBC Haptoglobin (31.2-198.0) mg/dL Fibrinogen (200-500) mg/dL ABG pH (7.35-7.45) ABG pCO2 (35-45) mmHg ABG pO2 (83-108) mmHg ABG HCO3 (21-25) mmol/L ABG Total CO2 (19-24) mmol/L ABG O2 Saturation (94-97) % Sodium (137-145) mmol/L Carbon Dioxide (22-30) mmol/L BUN (9-20) mg/dL Creatinine (0.66-1.25) mg/dL Glucose (74-99) mg/dL POC Glucose (mg/dL) 219 H (70-110) mg/dL Plasma Lactic Acid Hamlet 4.1 H* (0.7-2.0) mmol/L Calcium (8.4-10.2) mg/dL AST (17-59) U/L ALT (4-49) U/L Lactate Dehydrogenase (120-246) U/L Creatine Kinase (55-170) U/L Total Protein (6.3-8.2) g/dL Albumin (3.5-5.0) g/dL Urine Protein (Negative) Urine Glucose (UA) (Negative) Urine Ketones (Negative) Urine Blood (Negative) Ur Leukocyte Esterase (Negative) Urine RBC (0-5) /hpf Urine WBC (0-5) /hpf Urine Bacteria (None) /hpf Urine Mucus (None) /hpf 02/02/23 02/02/23 02/02/23 Range/Units 02:40 06:31 06:45 WBC (3.8-10.6) k/uL RBC (4.30-5.90) m/uL Hgb (13.0-17.5) gm/dL Hct (39.0-53.0) % MCV (80.0-100.0) fL MCH (25.0-35.0) pg RDW (11.5-15.5) % Plt Count (150-450) k/uL Neutrophils # (Manual) (1.3-7.7) k/uL Metamyelocytes # (Man) (0) k/uL Myelocytes # (Manual) (0) k/uL Nucleated RBCs (0-0) /100 WBC Haptoglobin (31.2-198.0) mg/dL Fibrinogen (200-500) mg/dL ABG pH 7.34 L (7.35-7.45) ABG pCO2 (35-45) mmHg ABG pO2 (83-108) mmHg ABG HCO3 20 L (21-25) mmol/L ABG Total CO2 (19-24) mmol/L ABG O2 Saturation (94-97) % Sodium 132 L (137-145) mmol/L Carbon Dioxide 16 L (22-30) mmol/L BUN 69 H (9-20) mg/dL Creatinine 4.33 H (0.66-1.25) mg/dL Glucose 213 H (74-99) mg/dL POC Glucose (mg/dL) 208 H (70-110) mg/dL Plasma Lactic Acid [place] (0.7-2.0) mmol/L Calcium 6.5 L (8.4-10.2) mg/dL AST 362 H (17-59) U/L ALT 263 H (4-49) U/L Lactate Dehydrogenase (120-246) U/L Creatine Kinase (55-170) U/L Total Protein 5.3 L (6.3-8.2) g/dL Albumin 2.6 L (3.5-5.0) g/dL Urine Protein (Negative) Urine Glucose (UA) (Negative) Urine Ketones (Negative) Urine Blood (Negative) Ur Leukocyte Esterase (Negative) Urine RBC (0-5) /hpf Urine WBC (0-5) /hpf Urine Bacteria (None) /hpf Urine Mucus (None) /hpf Microbiology - Last 24 Hours (Table) 02/01/23 00:18 Blood Culture Gram Stain - Preliminary Blood Blood Culture - Preliminary Beta Hemolytic Strep Group G
[2023-02-02] MEDS: IPRATROPIUM-ALBUTEROL 3 ML NEB INHALATION SCH ×3 (11:44→21:05)
[2023-02-02 12:05] LABS: Hepatitis A Antibody IgM Nonreactive; Hepatitis B Core IgM Nonreactive; Hepatitis B Surface Antigen Nonreactive; Hepatitis C IgG Antibody Nonreactive
--- NOTE | 2023-02-02 12:19 | P.CONS ---
History of Present Illness - Reason for Consult Consult date: 02/02/23 Severe neutropenia, pancytopenia - History of Present Illness The patient is a 67-year-old white male, with reasonably well controlled medical problems baseline. The patient had come into the emergency room on 02/01/23 with development of some shortness of breath, mild cough and wheezing. The day before he had spiked a high fever. Prior to that he was in her normal state of health and had actually come back from [facility] about a week before. During evaluation in the ER, the patient became progressively short of breath and hypotensive. He was admitted to the ICU with intubation. Imaging studies showed left lower lobe infiltrate with pleural effusion. Dopplers of the lower extremities, and V/Q scan were negative for evidence of venous thrombosis. He was noted to be in renal failure, presumably acute. Labs showed severe leukopenia with total WBC in the 500-900 range, hemoglobin in the 11 range, and platelets in the 50,000 range. Total WBC has improved today to 2000, though the patient remains profoundly neutropenic. However absolute neutrophil count has also shown some improvement from non-measurable to about 400. Platelets at down into the 40,000 range but are up to 62,000. Hemoglobin is 9.7. Blood cultures grew group B streptococcus. Testing for COVID, influenza and RSV were negative. The history was obtained from the EMR, as well as family members including his and [id number] were at the bedside. They confirmed that the patient has no prior history of any blood related problems or malignancy, other than superficial nonmelanoma skin cancer. He has been on allopurinol chronically for gout. Labs in 08/25 showed WBC in the lower end of normal at 4.3 with normal hemoglobin and platelets. No history of any heavy or regular alcohol use, or chronic liver disease. No history of any autoimmune disease. Review of Systems Review of systems from prior to admission obtained from family and bedside and EHR Constitutional: Reports as per HPI, Reports fever Eyes: denies blurred vision, denies pain Ears: deny: decreased hearing, ear discharge, earache, tinnitus Ears, nose, mouth and throat: Denies headache, Denies sore throat Cardiovascular: Denies chest pain, Denies shortness of breath Respiratory: Reports as per HPI Gastrointestinal: Denies abdominal pain, Denies diarrhea, Denies nausea, Denies vomiting Genitourinary: Reports as per HPI Musculoskeletal: Denies myalgias Integumentary: Denies pruritus, Denies rash Neurological: Reports weakness Psychiatric: Denies anxiety, Denies depression Endocrine: Denies fatigue, Denies weight change Hematologic/Lymphatic: Reports as per HPI 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 Past Anesthesia/Blood Transfusion Reactions: No Reported Reaction Past Psychological History: No Psychological Hx Reported Past Alcohol Use History: Daily - Past Family History Mother Family Medical History: No Reported History Medications and Allergies Home Medications Medication Instructions Recorded Confirmed Type Losartan [Cozaar] 50 mg PO HS 02/21/20 02/01/23 History Atorvastatin [Lipitor] 20 mg PO HS 09/20/22 02/01/23 History Finasteride [Proscar] 5 mg PO HS 09/20/22 02/01/23 History allopurinoL 300 mg PO HS 09/20/22 02/01/23 History HYDROcodone/APAP 5-325MG [[place] 1 tab PO Q6HR PRN #12 tab 09/25/22 02/01/23 Rx 5-325] Cyclobenzaprine [Flexeril] 10 mg PO TID PRN 02/01/23 02/01/23 History Meloxicam [Mobic] 15 mg PO HS 02/01/23 02/01/23 History Allergies Allergy/AdvReac Type Severity Reaction Status Date / Time No Known Allergies Allergy Verified 02/01/23 11:55 Physical Exam Vitals: Vital Signs Temp Pulse Resp BP Pulse Ox FiO2 02/02/23 11:53 130 H 02/02/23 11:44 130 H 02/02/23 11:22 50 02/02/23 11:15 124 H 28 H 98 02/02/23 11:00 133 H 28 H 98 02/02/23 10:45 116 H 28 H 98 02/02/23 10:30 122 H 28 H 99 02/02/23 10:15 126 H 28 H 99 02/02/23 10:00 135 H 28 H 98 02/02/23 09:45 134 H 28 H 98 02/02/23 09:30 133 H 28 H 93 L 02/02/23 09:15 142 H 28 H 96 02/02/23 09:00 99.9 F H 138 H 28 H 94 L 02/02/23 08:45 135 H 28 H 95 02/02/23 08:30 130 H 28 H 92 L 02/02/23 08:15 138 H 28 H 96 02/02/23 08:00 152 H 28 H 96 50 02/02/23 07:45 144 H 28 H 97 02/02/23 07:30 151 H 28 H 97 02/02/23 07:15 131 H 28 H 97 02/02/23 07:00 128 H 36 H 97 02/02/23 06:45 129 H 36 H 96 02/02/23 06:30 160 H 38 H 98 02/02/23 06:15 144 H 31 H 97 02/02/23 06:00 149 H 35 H 98 02/02/23 05:45 142 H 30 H 99 02/02/23 05:30 131 H 37 H 93 L 02/02/23 05:15 138 H 36 H 93 L 02/02/23 05:00 141 H 36 H 92 L 02/02/23 04:45 130 H 37 H 93 L 02/02/23 04:30 151 H 39 H 94 L 02/02/23 04:15 129 H 35 H 94 L 02/02/23 04:00 99 F 133 H 36 H 96 50 02/02/23 03:54 50 02/02/23 03:45 124 H 35 H 98 02/02/23 03:35 60 02/02/23 03:30 138 H 34 H 99 02/02/23 03:15 115 H 34 H 99 02/02/23 03:00 130 H 34 H 98 02/02/23 02:45 122 H 36 H 100 02/02/23 02:30 122 H 33 H 100 02/02/23 02:15 116 H 35 H 96 02/02/23 02:00 141 H 34 H 96 02/02/23 01:45 128 H 34 H 97 02/02/23 01:30 128 H 34 H 97 02/02/23 01:18 97 02/02/23 01:15 138 H 33 H 99 02/02/23 01:00 140 H 33 H 99 02/02/23 00:45 151 H 35 H 100 02/02/23 00:30 146 H 31 H 93 L 02/02/23 00:19 138 H 34 H 97 02/02/23 00:15 130 H 34 H 93 L 02/02/23 00:00 99.2 F 117 H 33 H 97 60 02/01/23 23:59 60 02/01/23 23:45 138 H 34 H 98 02/01/23 23:38 60 02/01/23 23:30 120 H 33 H 98 02/01/23 23:15 131 H 33 H 96 02/01/23 23:00 134 H 34 H 98 02/01/23 22:45 125 H 33 H 97 02/01/23 22:30 112 H 34 H 98 02/01/23 22:15 137 H 33 H 98 02/01/23 22:00 133 H 35 H 97 02/01/23 21:45 120 H 34 H 98 02/01/23 21:30 122 H 34 H 98 02/01/23 21:15 146 H 35 H 97 02/01/23 21:00 133 H 34 H 98 02/01/23 20:56 70 02/01/23 20:45 135 H 32 H 99 02/01/23 20:30 140 H 34 H 99 02/01/23 20:15 133 H 42 H 97 02/01/23 20:00 99.4 F 131 H 35 H 96 80 02/01/23 19:56 80 02/01/23 19:45 128 H 38 H 02/01/23 19:30 142 H 41 H 97 02/01/23 19:15 135 H 39 H 02/01/23 19:00 138 H 28 H 97 02/01/23 18:45 141 H 28 H 96 02/01/23 18:30 141 H 28 H 97 02/01/23 18:15 133 H 28 H 96 02/01/23 18:04 80 02/01/23 18:00 133 H 24 98 02/01/23 17:45 149 H 24 98 02/01/23 17:30 160 H 24 95 02/01/23 17:15 144 H 24 02/01/23 17:00 134 H 39 H 98 100 02/01/23 16:50 100 02/01/23 16:45 130 H 23 98 02/01/23 16:42 100 02/01/23 16:30 137 H 42 H 02/01/23 15:49 50 02/01/23 15:30 138 H 28 H 99 02/01/23 15:00 142 H 36 H 99 02/01/23 14:30 151 H 40 H 100 02/01/23 14:00 141 H 35 H 102/80 95 02/01/23 13:30 152 H 30 H 102/80 100 Intake and Output 02/01/23 02/02/23 02/02/23 22:59 06:59 14:59 Intake Total 1206.070 9476.093 718.077 Output Total 635 80 85 Balance 522.388 9848.093 633.077 Intake: IV 1000 1000 625 Dextrose 5% in Water 1, 1000 1000 625 000 ml @ 125 mls/hr IV . Q9H12M [facility] with Sodium Bicarb (1 Meq/ml) 150 ml Rx#:[id number] Intake, IV Titration 154.382 393.093 93.077 Amount Norepinephrine 32 mg In 20.093 193.093 Sodium Chloride 0.9% 218 ml @ 0.03 MCG/KG/MIN 1. 722 mls/hr IV .Q24H [facility]HE Rx#:[id number] propofoL 1,000 mg In 134.289 200 93.077 Empty Bag 1 bag @ 15 MCG/ KG/MIN 11.022 mls/hr IV . Q9H5M [facility] Rx#:[id number] Output: Gastric Drainage 550 Urine 85 80 85 Other: Voiding Method Indwelling Catheter Indwelling Catheter Weight 134.1 kg ABP, PAP, CO, CI - Last 8 Hours Arterial Blood Pressure 102/67 Arterial Blood Pressure 107/70 Arterial Blood Pressure 103/64 Arterial Blood Pressure 98/61 Arterial Blood Pressure 99/62 Arterial Blood Pressure 114/71 Arterial Blood Pressure 112/64 Arterial Blood Pressure 100/59 Arterial Blood Pressure 107/63 Arterial Blood Pressure 105/64 Arterial Blood Pressure 106/64 Arterial Blood Pressure 94/56 Arterial Blood Pressure 99/56 Arterial Blood Pressure 100/60 Arterial Blood Pressure 98/58 Arterial Blood Pressure 101/63 Arterial Blood Pressure 102/64 Arterial Blood Pressure 92/57 Arterial Blood Pressure 89/57 Arterial Blood Pressure 98/61 Arterial Blood Pressure 114/67 Arterial Blood Pressure 102/61 Arterial Blood Pressure 91/56 Arterial Blood Pressure 98/60 Arterial Blood Pressure 96/59 Arterial Blood Pressure 104/61 Arterial Blood Pressure 107/65 Arterial Blood Pressure 95/62 Arterial Blood Pressure 103/60 - Constitutional Sedated, on the vent General appearance: obese - EENT Eyes: PERRLA - Neck Neck: no lymphadenopathy - Respiratory Respiratory: left: diminished - Cardiovascular Rhythm: regular Heart sounds: normal: S1, S2 - Gastrointestinal General gastrointestinal: decreased bowel sounds, soft - Integumentary Integumentary: normal - Neurologic Sedated, on the vent - Musculoskeletal Musculoskeletal: generalized weakness - Psychiatric Sedated Results CBC & Chem 7: 02/02/23 02:40 02/02/23 02:40 Labs: Abnormal Lab Results - Last 24 Hours (Table) 02/01/23 02/01/23 02/01/23 Range/Units 12:55 14:09 14:09 WBC (3.8-10.6) k/uL RBC (4.30-5.90) m/uL Hgb (13.0-17.5) gm/dL Hct (39.0-53.0) % MCV (80.0-100.0) fL MCH (25.0-35.0) pg RDW (11.5-15.5) % Plt Count (150-450) k/uL Neutrophils # (Manual) (1.3-7.7) k/uL Metamyelocytes # (Man) (0) k/uL Myelocytes # (Manual) (0) k/uL Nucleated RBCs (0-0) /100 WBC Haptoglobin (31.2-198.0) mg/dL Fibrinogen 1204 H (200-500) mg/dL ABG pH (7.35-7.45) ABG pCO2 (35-45) mmHg ABG pO2 (83-108) mmHg ABG HCO3 (21-25) mmol/L ABG Total CO2 (19-24) mmol/L ABG O2 Saturation (94-97) % Sodium (137-145) mmol/L Carbon Dioxide (22-30) mmol/L BUN (9-20) mg/dL Creatinine (0.66-1.25) mg/dL Glucose (74-99) mg/dL POC Glucose (mg/dL) (70-110) mg/dL Plasma Lactic Acid [place] (0.7-2.0) mmol/L Calcium (8.4-10.2) mg/dL AST (17-59) U/L ALT (4-49) U/L Lactate Dehydrogenase (120-246) U/L Creatine Kinase 90305 H* (55-170) U/L Total Protein (6.3-8.2) g/dL Albumin (3.5-5.0) g/dL Urine Protein 2+ H (Negative) Urine Glucose (UA) Trace H (Negative) Urine Ketones Trace H (Negative) Urine Blood Large H (Negative) Ur Leukocyte Esterase Small H (Negative) Urine RBC >182 H (0-5) /hpf Urine WBC 50 H (0-5) /hpf Urine Bacteria Occasional H (None) /hpf Urine Mucus Few H (None) /hpf 02/01/23 02/01/23 02/01/23 Range/Units 14:09 14:09 14:09 WBC (3.8-10.6) k/uL RBC (4.30-5.90) m/uL Hgb (13.0-17.5) gm/dL Hct (39.0-53.0) % MCV (80.0-100.0) fL MCH (25.0-35.0) pg RDW (11.5-15.5) % Plt Count (150-450) k/uL Neutrophils # (Manual) (1.3-7.7) k/uL Metamyelocytes # (Man) (0) k/uL Myelocytes # (Manual) (0) k/uL Nucleated RBCs (0-0) /100 WBC Haptoglobin 337.0 H (31.2-198.0) mg/dL Fibrinogen (200-500) mg/dL ABG pH (7.35-7.45) ABG pCO2 (35-45) mmHg ABG pO2 (83-108) mmHg ABG HCO3 (21-25) mmol/L ABG Total CO2 (19-24) mmol/L ABG O2 Saturation (94-97) % Sodium (137-145) mmol/L Carbon Dioxide (22-30) mmol/L BUN (9-20) mg/dL Creatinine (0.66-1.25) mg/dL Glucose (74-99) mg/dL POC Glucose (mg/dL) (70-110) mg/dL Plasma Lactic Acid [place] 4.1 H* (0.7-2.0) mmol/L Calcium (8.4-10.2) mg/dL AST (17-59) U/L ALT (4-49) U/L Lactate Dehydrogenase 798 H (120-246) U/L Creatine Kinase (55-170) U/L Total Protein (6.3-8.2) g/dL Albumin (3.5-5.0) g/dL Urine Protein (Negative) Urine Glucose (UA) (Negative) Urine Ketones (Negative) Urine Blood (Negative) Ur Leukocyte Esterase (Negative) Urine RBC (0-5) /hpf Urine WBC (0-5) /hpf Urine Bacteria (None) /hpf Urine Mucus (None) /hpf 02/01/23 02/01/23 02/01/23 Range/Units 15:02 17:56 20:00 WBC (3.8-10.6) k/uL RBC (4.30-5.90) m/uL Hgb (13.0-17.5) gm/dL Hct (39.0-53.0) % MCV (80.0-100.0) fL MCH (25.0-35.0) pg RDW (11.5-15.5) % Plt Count (150-450) k/uL Neutrophils # (Manual) (1.3-7.7) k/uL Metamyelocytes # (Man) (0) k/uL Myelocytes # (Manual) (0) k/uL Nucleated RBCs (0-0) /100 WBC Haptoglobin (31.2-198.0) mg/dL Fibrinogen (200-500) mg/dL ABG pH 7.18 L* (7.35-7.45) ABG pCO2 27 L 47 H (35-45) mmHg ABG pO2 204 H 132 H (83-108) mmHg ABG HCO3 16 L 18 L (21-25) mmol/L ABG Total CO2 16 L (19-24) mmol/L ABG O2 Saturation 99.2 H 97.4 H (94-97) % Sodium (137-145) mmol/L Carbon Dioxide (22-30) mmol/L BUN (9-20) mg/dL Creatinine (0.66-1.25) mg/dL Glucose (74-99) mg/dL POC Glucose (mg/dL) (70-110) mg/dL Plasma Lactic Acid [place] 4.1 H* (0.7-2.0) mmol/L Calcium (8.4-10.2) mg/dL AST (17-59) U/L ALT (4-49) U/L Lactate Dehydrogenase (120-246) U/L Creatine Kinase (55-170) U/L Total Protein (6.3-8.2) g/dL Albumin (3.5-5.0) g/dL Urine Protein (Negative) Urine Glucose (UA) (Negative) Urine Ketones (Negative) Urine Blood (Negative) Ur Leukocyte Esterase (Negative) Urine RBC (0-5) /hpf Urine WBC (0-5) /hpf Urine Bacteria (None) /hpf Urine Mucus (None) /hpf 02/02/23 02/02/23 02/02/23 Range/Units 01:10 02:40 02:40 WBC 2.0 L (3.8-10.6) k/uL RBC 2.61 L (4.30-5.90) m/uL Hgb 9.7 L (13.0-17.5) gm/dL Hct 27.2 L (39.0-53.0) % MCV 104.0 H (80.0-100.0) fL MCH 37.2 H (25.0-35.0) pg RDW 16.7 H (11.5-15.5) % Plt Count 62 L (150-450) k/uL Neutrophils # (Manual) 0.40 L* (1.3-7.7) k/uL Metamyelocytes # (Man) 0.02 H (0) k/uL Myelocytes # (Manual) 0.02 H (0) k/uL Nucleated RBCs 29 H (0-0) /100 WBC Haptoglobin (31.2-198.0) mg/dL Fibrinogen (200-500) mg/dL ABG pH (7.35-7.45) ABG pCO2 (35-45) mmHg ABG pO2 (83-108) mmHg ABG HCO3 (21-25) mmol/L ABG Total CO2 (19-24) mmol/L ABG O2 Saturation (94-97) % Sodium 132 L (137-145) mmol/L Carbon Dioxide 16 L (22-30) mmol/L BUN 69 H (9-20) mg/dL Creatinine 4.33 H (0.66-1.25) mg/dL Glucose 213 H (74-99) mg/dL POC Glucose (mg/dL) 219 H (70-110) mg/dL Plasma Lactic Acid [place] (0.7-2.0) mmol/L Calcium 6.5 L (8.4-10.2) mg/dL AST 362 H (17-59) U/L ALT 263 H (4-49) U/L Lactate Dehydrogenase (120-246) U/L Creatine Kinase (55-170) U/L Total Protein 5.3 L (6.3-8.2) g/dL Albumin 2.6 L (3.5-5.0) g/dL Urine Protein (Negative) Urine Glucose (UA) (Negative) Urine Ketones (Negative) Urine Blood (Negative) Ur Leukocyte Esterase (Negative) Urine RBC (0-5) /hpf Urine WBC (0-5) /hpf Urine Bacteria (None) /hpf Urine Mucus (None) /hpf 02/02/23 02/02/23 Range/Units 06:31 06:45 WBC (3.8-10.6) k/uL RBC (4.30-5.90) m/uL Hgb (13.0-17.5) gm/dL Hct (39.0-53.0) % MCV (80.0-100.0) fL MCH (25.0-35.0) pg RDW (11.5-15.5) % Plt Count (150-450) k/uL Neutrophils # (Manual) (1.3-7.7) k/uL Metamyelocytes # (Man) (0) k/uL Myelocytes # (Manual) (0) k/uL Nucleated RBCs (0-0) /100 WBC Haptoglobin (31.2-198.0) mg/dL Fibrinogen (200-500) mg/dL ABG pH 7.34 L (7.35-7.45) ABG pCO2 (35-45) mmHg ABG pO2 (83-108) mmHg ABG HCO3 20 L (21-25) mmol/L ABG Total CO2 (19-24) mmol/L ABG O2 Saturation (94-97) % Sodium (137-145) mmol/L Carbon Dioxide (22-30) mmol/L BUN (9-20) mg/dL Creatinine (0.66-1.25) mg/dL Glucose (74-99) mg/dL POC Glucose (mg/dL) 208 H (70-110) mg/dL Plasma Lactic Acid [place] (0.7-2.0) mmol/L Calcium (8.4-10.2) mg/dL AST (17-59) U/L ALT (4-49) U/L Lactate Dehydrogenase (120-246) U/L Creatine Kinase (55-170) U/L Total Protein (6.3-8.2) g/dL Albumin (3.5-5.0) g/dL Urine Protein (Negative) Urine Glucose (UA) (Negative) Urine Ketones (Negative) Urine Blood (Negative) Ur Leukocyte Esterase (Negative) Urine RBC (0-5) /hpf Urine WBC (0-5) /hpf Urine Bacteria (None) /hpf Urine Mucus (None) /hpf Microbiology - Last 24 Hours (Table) 02/01/23 00:18 Blood Culture Gram Stain - Preliminary Blood Blood Culture - Preliminary Beta Hemolytic Strep Group G Comments: V/Q scan report reviewed Chest x-ray: report reviewed Venous US: report reviewed Assessment and Plan (1) Leukocytopenia Narrative/Plan: The patient had presented with pancytopenia, with leukocytopenia most performed. There is an improvement since admission. - Based on review of his history with the family, and previous labs, this appears to be acute, most likely due to severe infection. It may be some underlying baseline marrow suppression from allopurinol use. Clinical suspicion for any underlying primary marrow condition is low at this time. - Therefore it would be reasonable to start the patient on G-CSF. Same will be ordered - Check labs for other underlying conditions, with autoimmune markers, and labs for deficiency states and paraproteinemia. - Check CMV serology in view of prominent leukopenia, and liver enzyme elevation Current Visit: Yes Status: Acute Code(s): D72.819 - DECREASED WHITE BLOOD CELL COUNT, UNSPECIFIED SNOMED Code(s): 60420434 (2) Pancytopenia Narrative/Plan: [facility] to be secondary to the same process, that is possibly some underlying low- level marrow suppression from chronic allopurinol use, Exacerbated by acute infection. Platelet counts have improved to 62,000. Continue to monitor and supplement for hemoglobin less than 7, and platelets less than 10,000. - G-CSF initiation as detailed above - Hold allopurinol Current Visit: Yes Status: Acute Code(s): D61.818 - OTHER PANCYTOPENIA SNOMED Code(s): 213925883 Plan: Defer to the admitting service for management of his other medical issues. Case discussed with nursing. It is possible that as his WBC increases, the chest x- ray findings, as well as lung symptoms may actually worsen temporarily, due to increased capacity for inflammatory response.
[2023-02-02] MEDS: AZITHROMYCIN 500 MG in SODIUM CHLORIDE 0.9% 250 ML IVPB SCH (12:31)
[2023-02-02 12:34] LABS: Glucose,Whole Blood 281 mg/dL (70-110)
--- NOTE | 2023-02-02 12:40 | P.PN ---
Subjective Progress Note Date: 02/02/23 Principal diagnosis: Respiratory failure/sepsis. Pulmonary consult dated 02/01/2023. 67-year-old male with a history of hypertension, hyperlipidemia, and gout. Presents to the emergency department on January 31, complaining of shortness of breath. He also complained of cough. He apparently recently was in [facility], about a week and a half or 2 weeks ago. He recentlyjust about 2 days prior to admission. He missed a bit of a fever as well. He also admits to some weakness in his legs, and generally weakness and fatigue. The patient is seen in the emergency department, room 25. The patient's N-terminal proBNP was elevated, suggesting CHF. The patient's white count was only 0.9. The patient was on BiPAP at 10/5, and 30%, or 4 L. He was started on vancomycin and cefepime. We will ordered a pro-calcitonin level. We also wanted the patient to have lower extremity Dopplers. He had a left lower extremity Doppler on January 27 that was negative. In addition, we recommended a ventilation perfusion lung scan. His lower extremities reveal evidence of livedo reticularis. White count was 0.5, down from 0.9, hemoglobin 10.9, hematocrit 31.6, and platelet count only 47,000. The patient's d-dimer was elevated at 9.94. Blood gases showed a pO2 118, pCO2 29, and a pH is 7.34. This is consistent with metabolic acidosis. Sodium 135, potassium 4.3, chlorides 102, CO2 15, anion gap 18, and BUN 61 with a creatinine of 3.83. Lactic acid was 3.8, and repeat was 4.9. The patient's CK was 15,572. In addition, the patient's N-terminal proBNP was 8960. He was tested for coronavirus, but tested negative. Chest x-ray was interpreted as being normal. Bilateral lower extremity Dopplers were negative for DVT. Progress note dated 02/02/2023. The patient was seen in consultation yesterday. He is a 67-year-old male with a history of hypertension, hyperlipidemia and gout. He presented to the emergency department on January 31, complaining of shortness of breath, and cough. The patient was brought to the intensive care unit, and rapidly deteriorated, and, required intubation and mechanical ventilation. In addition, the patient had a arterial line in place, and a central line placed. Currently, the patient is on volume assist control, rate 28, tidal volume 400, FiO2 50%, and PEEP of 10. Blood gases show pO2 of 89, pCO2 36, and a pH is 7.34. The patient is receiving a sodium bicarbonate drip, with 3 ampules of sodium bicarbonate and D5W 125 mL an hour. Addition, the patient is on norepinephrine at 36 mcg/m, and receiving propofol at 50 mcg/kg/m. The patient's also getting saline at 10 mL an hour, and amiodarone at 0.5 mcg/m. White count is 2, hemoglobin 9.7, hematocrit 27.2, and platelet count 62,000. Sodium 132, potassium 4.8, chlorides 100, CO2 16, anion gap 16, BUN 69, creatinine 4.33. Calcium is 6.5. Albumin is 2.6. AST is 362 with an ALT of 263. Blood cultures are positive for group G beta-hemolytic strep. Chest x-ray shows a well-placed endotracheal tube, about 4 cm above the simon, and a left lower lobe infi ltrate. Objective - Vital Signs Vital signs: Vital Signs Temp 99.9 F H 02/02/23 09:00 Pulse 130 H 02/02/23 11:53 Resp 28 H 02/02/23 11:15 BP 102/80 02/01/23 14:00 Pulse Ox 98 02/02/23 11:15 FiO2 50 02/02/23 11:22 Intake & Output 02/01/23 02/02/23 02/02/23 18:59 06:59 18:59 Intake Total 7128.886 7898.229 718.077 Output Total 85 695 85 Balance 2647.842 8609.229 633.077 Weight 134.1 kg Intake: IV 1890 1500 625 Dextrose 5% in Water 1, 500 1500 625 000 ml @ 125 mls/hr IV . Q9H12M [facility] with Sodium Bicarb (1 Meq/ml) 150 ml Rx#:[id number] Sodium Chloride 0.9% 1, 1390 000 ml @ 130 mls/hr IV . Q7H42M [facility] Rx#:[id number] Intake, IV Titration 6.246 541.229 93.077 Amount Norepinephrine 32 mg In 213.186 Sodium Chloride 0.9% 218 ml @ 0.03 MCG/KG/MIN 1. 722 mls/hr IV .Q24H [facility] Rx#:[id number] propofoL 1,000 mg In 6.246 328.043 93.077 Empty Bag 1 bag @ 15 MCG/ KG/MIN 11.022 mls/hr IV . Q9H5M [facility] Rx#:[id number] Output: Gastric Drainage 550 Urine 85 145 85 Other: Voiding Method Indwelling Catheter Indwelling Catheter ABP, PAP, CO, CI - Last Documented Arterial Blood Pressure 102/67 - Exam Sedated, with an orally placed endotracheal tube and NG tube. HEENT examination is grossly unremarkable. Neck supple. Full range of motion. No adenopathy thyromegaly or neck vein distention. Cardiovascular examination reveals regular rhythm rate. S1-S2 normal. No S3 or S4. No discernible murmur noted. Heart rate 130 bpm. Lungs reveal mostly clear breath sounds. Her sounds are equal bilaterally. Minimal scattered rhonchi. No wheezes or crackles. Saturations are 98% on the ventilator. Abdomen soft, without bowel sounds. No masses or tenderness.. Extremities are intact. No cyanosis, clubbing, or significant edema. Skin reveals livedo reticularis of the lower extremities, which is improved. Neurologic examination cannot be assessed at this time. - Labs CBC & Chem 7: 02/02/23 02:40 02/02/23 02:40 Labs: Abnormal Lab Results - Last 24 Hours (Table) 02/01/23 02/01/23 02/01/23 Range/Units 12:55 14:09 14:09 WBC (3.8-10.6) k/uL RBC (4.30-5.90) m/uL Hgb (13.0-17.5) gm/dL Hct (39.0-53.0) % MCV (80.0-100.0) fL MCH (25.0-35.0) pg RDW (11.5-15.5) % Plt Count (150-450) k/uL Neutrophils # (Manual) (1.3-7.7) k/uL Metamyelocytes # (Man) (0) k/uL Myelocytes # (Manual) (0) k/uL Nucleated RBCs (0-0) /100 WBC Haptoglobin (31.2-198.0) mg/dL Fibrinogen 1204 H (200-500) mg/dL ABG pH (7.35-7.45) ABG pCO2 (35-45) mmHg ABG pO2 (83-108) mmHg ABG HCO3 (21-25) mmol/L ABG Total CO2 (19-24) mmol/L ABG O2 Saturation (94-97) % Sodium (137-145) mmol/L Carbon Dioxide (22-30) mmol/L BUN (9-20) mg/dL Creatinine (0.66-1.25) mg/dL Glucose (74-99) mg/dL POC Glucose (mg/dL) (70-110) mg/dL Plasma Lactic Acid Hamlet (0.7-2.0) mmol/L Calcium (8.4-10.2) mg/dL AST (17-59) U/L ALT (4-49) U/L Lactate Dehydrogenase (120-246) U/L Creatine Kinase 03037 H* (55-170) U/L Total Protein (6.3-8.2) g/dL Albumin (3.5-5.0) g/dL Urine Protein 2+ H (Negative) Urine Glucose (UA) Trace H (Negative) Urine Ketones Trace H (Negative) Urine Blood Large H (Negative) Ur Leukocyte Esterase Small H (Negative) Urine RBC >182 H (0-5) /hpf Urine WBC 50 H (0-5) /hpf Urine Bacteria Occasional H (None) /hpf Urine Mucus Few H (None) /hpf 02/01/23 02/01/23 02/01/23 Range/Units 14:09 14:09 14:09 WBC (3.8-10.6) k/uL RBC (4.30-5.90) m/uL Hgb (13.0-17.5) gm/dL Hct (39.0-53.0) % MCV (80.0-100.0) fL MCH (25.0-35.0) pg RDW (11.5-15.5) % Plt Count (150-450) k/uL Neutrophils # (Manual) (1.3-7.7) k/uL Metamyelocytes # (Man) (0) k/uL Myelocytes # (Manual) (0) k/uL Nucleated RBCs (0-0) /100 WBC Haptoglobin 337.0 H (31.2-198.0) mg/dL Fibrinogen (200-500) mg/dL ABG pH (7.35-7.45) ABG pCO2 (35-45) mmHg ABG pO2 (83-108) mmHg ABG HCO3 (21-25) mmol/L ABG Total CO2 (19-24) mmol/L ABG O2 Saturation (94-97) % Sodium (137-145) mmol/L Carbon Dioxide (22-30) mmol/L BUN (9-20) mg/dL Creatinine (0.66-1.25) mg/dL Glucose (74-99) mg/dL POC Glucose (mg/dL) (70-110) mg/dL Plasma Lactic Acid Hamlet 4.1 H* (0.7-2.0) mmol/L Calcium (8.4-10.2) mg/dL AST (17-59) U/L ALT (4-49) U/L Lactate Dehydrogenase 798 H (120-246) U/L Creatine Kinase (55-170) U/L Total Protein (6.3-8.2) g/dL Albumin (3.5-5.0) g/dL Urine Protein (Negative) Urine Glucose (UA) (Negative) Urine Ketones (Negative) Urine Blood (Negative) Ur Leukocyte Esterase (Negative) Urine RBC (0-5) /hpf Urine WBC (0-5) /hpf Urine Bacteria (None) /hpf Urine Mucus (None) /hpf 02/01/23 02/01/23 02/01/23 Range/Units 15:02 17:56 20:00 WBC (3.8-10.6) k/uL RBC (4.30-5.90) m/uL Hgb (13.0-17.5) gm/dL Hct (39.0-53.0) % MCV (80.0-100.0) fL MCH (25.0-35.0) pg RDW (11.5-15.5) % Plt Count (150-450) k/uL Neutrophils # (Manual) (1.3-7.7) k/uL Metamyelocytes # (Man) (0) k/uL Myelocytes # (Manual) (0) k/uL Nucleated RBCs (0-0) /100 WBC Haptoglobin (31.2-198.0) mg/dL Fibrinogen (200-500) mg/dL ABG pH 7.18 L* (7.35-7.45) ABG pCO2 27 L 47 H (35-45) mmHg ABG pO2 204 H 132 H (83-108) mmHg ABG HCO3 16 L 18 L (21-25) mmol/L ABG Total CO2 16 L (19-24) mmol/L ABG O2 Saturation 99.2 H 97.4 H (94-97) % Sodium (137-145) mmol/L Carbon Dioxide (22-30) mmol/L BUN (9-20) mg/dL Creatinine (0.66-1.25) mg/dL Glucose (74-99) mg/dL POC Glucose (mg/dL) (70-110) mg/dL Plasma Lactic Acid Hamlet 4.1 H* (0.7-2.0) mmol/L Calcium (8.4-10.2) mg/dL AST (17-59) U/L ALT (4-49) U/L Lactate Dehydrogenase (120-246) U/L Creatine Kinase (55-170) U/L Total Protein (6.3-8.2) g/dL Albumin (3.5-5.0) g/dL Urine Protein (Negative) Urine Glucose (UA) (Negative) Urine Ketones (Negative) Urine Blood (Negative) Ur Leukocyte Esterase (Negative) Urine RBC (0-5) /hpf Urine WBC (0-5) /hpf Urine Bacteria (None) /hpf Urine Mucus (None) /hpf 02/02/23 02/02/23 02/02/23 Range/Units 01:10 02:40 02:40 WBC 2.0 L (3.8-10.6) k/uL RBC 2.61 L (4.30-5.90) m/uL Hgb 9.7 L (13.0-17.5) gm/dL Hct 27.2 L (39.0-53.0) % MCV 104.0 H (80.0-100.0) fL MCH 37.2 H (25.0-35.0) pg RDW 16.7 H (11.5-15.5) % Plt Count 62 L (150-450) k/uL Neutrophils # (Manual) 0.40 L* (1.3-7.7) k/uL Metamyelocytes # (Man) 0.02 H (0) k/uL Myelocytes # (Manual) 0.02 H (0) k/uL Nucleated RBCs 29 H (0-0) /100 WBC Haptoglobin (31.2-198.0) mg/dL Fibrinogen (200-500) mg/dL ABG pH (7.35-7.45) ABG pCO2 (35-45) mmHg ABG pO2 (83-108) mmHg ABG HCO3 (21-25) mmol/L ABG Total CO2 (19-24) mmol/L ABG O2 Saturation (94-97) % Sodium 132 L (137-145) mmol/L Carbon Dioxide 16 L (22-30) mmol/L BUN 69 H (9-20) mg/dL Creatinine 4.33 H (0.66-1.25) mg/dL Glucose 213 H (74-99) mg/dL POC Glucose (mg/dL) 219 H (70-110) mg/dL Plasma Lactic Acid Hamlet (0.7-2.0) mmol/L Calcium 6.5 L (8.4-10.2) mg/dL AST 362 H (17-59) U/L ALT 263 H (4-49) U/L Lactate Dehydrogenase (120-246) U/L Creatine Kinase (55-170) U/L Total Protein 5.3 L (6.3-8.2) g/dL Albumin 2.6 L (3.5-5.0) g/dL Urine Protein (Negative) Urine Glucose (UA) (Negative) Urine Ketones (Negative) Urine Blood (Negative) Ur Leukocyte Esterase (Negative) Urine RBC (0-5) /hpf Urine WBC (0-5) /hpf Urine Bacteria (None) /hpf Urine Mucus (None) /hpf 02/02/23 02/02/23 Range/Units 06:31 06:45 WBC (3.8-10.6) k/uL RBC (4.30-5.90) m/uL Hgb (13.0-17.5) gm/dL Hct (39.0-53.0) % MCV (80.0-100.0) fL MCH (25.0-35.0) pg RDW (11.5-15.5) % Plt Count (150-450) k/uL Neutrophils # (Manual) (1.3-7.7) k/uL Metamyelocytes # (Man) (0) k/uL Myelocytes # (Manual) (0) k/uL Nucleated RBCs (0-0) /100 WBC Haptoglobin (31.2-198.0) mg/dL Fibrinogen (200-500) mg/dL ABG pH 7.34 L (7.35-7.45) ABG pCO2 (35-45) mmHg ABG pO2 (83-108) mmHg ABG HCO3 20 L (21-25) mmol/L ABG Total CO2 (19-24) mmol/L ABG O2 Saturation (94-97) % Sodium (137-145) mmol/L Carbon Dioxide (22-30) mmol/L BUN (9-20) mg/dL Creatinine (0.66-1.25) mg/dL Glucose (74-99) mg/dL POC Glucose (mg/dL) 208 H (70-110) mg/dL Plasma Lactic Acid Hamlet (0.7-2.0) mmol/L Calcium (8.4-10.2) mg/dL AST (17-59) U/L ALT (4-49) U/L Lactate Dehydrogenase (120-246) U/L Creatine Kinase (55-170) U/L Total Protein (6.3-8.2) g/dL Albumin (3.5-5.0) g/dL Urine Protein (Negative) Urine Glucose (UA) (Negative) Urine Ketones (Negative) Urine Blood (Negative) Ur Leukocyte Esterase (Negative) Urine RBC (0-5) /hpf Urine WBC (0-5) /hpf Urine Bacteria (None) /hpf Urine Mucus (None) /hpf Microbiology - Last 24 Hours (Table) 02/01/23 00:18 Blood Culture Gram Stain - Preliminary Blood Blood Culture - Preliminary Beta Hemolytic Strep Group G Assessment and Plan Assessment: Acute hypoxemic respiratory failure, requiring intubation and mechanical ventilation, on 02/01/2023. Shortness of breath, and cough, possibly related to underlying sepsis, and/or fluid overload. Group G beta-hemolytic streptococcal sepsis/bacteremia. Acute kidney injury, secondary to ATN. Anion gap metabolic acidosis. Lactic acidosis. Rhabdomyolysis. Pancytopenia. History of hypertension. History of hyperlipidemia. History of gout. Plan: Plan dated 02/01/2023. The patient is seen in the emergency department, room 25. It's unclear as to what's going on with this patient, as he only recently became ill in the last 2 or 3 days. A pro-calcitonin level was pending. The patient has significant pancytopenia. The patient was started on vancomycin and cefepime for possible sepsis, empirically. Bilateral lower extremity Dopplers were negative for DVT. A VQ scan is pending. The patient is transferred to the intensive care unit for further monitoring and management. Will have nephrology see the patient. The patient will be started on a sodium bicarbonate drip. Additional recommendations and suggestions are forthcoming. Prognosis is very guarded. Plan dated 02/02/2023. Tube feedings will be started on this patient. In addition, we will add vasopressin at 0.03 units per minute. The patient will also be started on Nimbex, given a bolus of 10 mg, and a drip at 2 mcg/kg/m, with train of 4 monitoring. Dopplers of the lower extremities were negative. The VQ scan was low probability for pulmonary embolism. His respiratory rate, despite propofol, is quite high. Labs, x-rays, and medications are reviewed. The patient is currently on azithromycin, cefepime, and Zyvox, for group G beta-hemolytic streptococcal sepsis. The patient has been seen by nephrology, and infectious diseases. The patient's overall prognosis remains guarded. Time with Patient: Greater than 30
--- NOTE | 2023-02-02 13:12 | CA ---
Transthoracic Echo Report Name: Florin Noyola Age: 67 Gender: M : 1955 Exam Date: 02/01/2023 14:55 Exam Location: [facility] Ht (in): 69 Wt (lb): 270 Ordering Physician: Soren Lowry MD Attending/Referring Phys: Song Lyricist Elvia Rodriguez RDCS Procedure CPT: Indications: hypoxic respiratory failure Cardiac Hx: Technical Quality: Technically difficult study Contrast 1: Lumason Total Dose (mL): 4 Contrast 2: Total Dose (mL): MEASUREMENTS (Male / Female) Normal Values 2D ECHO LV Diastolic Diameter PLAX 3.2 cm 4.2 - 5.9 / 3.9 - 5.3 cm LV Systolic Diameter PLAX 2.8 cm IVS Diastolic Thickness 1.4 cm 0.6 - 1.0 / 0.6 - 0.9 cm LVPW Diastolic Thickness 1.5 cm 0.6 - 1.0 / 0.6 - 0.9 cm LV Relative Wall Thickness 0.9 RV Internal Dim ED PLAX 3.1 cm M-MODE Aortic Root Diameter MM 3.8 cm LA Systolic Diameter MM 3.7 cm LA Ao Ratio MM 1.0 AV Cusp Separation MM 1.5 cm DOPPLER AV Peak Velocity 148.1 cm/s AV Peak Gradient 8.8 mmHg AV Mean Velocity 89.7 cm/s AV Mean Gradient 4.0 mmHg AV Velocity Time Integral 17.1 cm LVOT Peak Velocity 128.9 cm/s LVOT Peak Gradient 6.6 mmHg LVOT Velocity Time Integral 15.7 cm MV Area PHT 4.6 cm??? Mitral E Point Velocity 78.4 cm/s Mitral A Point Velocity 0.6 cm/s Mitral E to A Ratio 133.3 MV Deceleration Time 166.2 ms MV E' Velocity 8.2 cm/s Mitral E to MV E' Ratio 9.6 TR Peak Velocity 197.9 cm/s TR Peak Gradient 15.7 mmHg Right Ventricular Systolic Press 20.1 mmHg FINDINGS Left Ventricle Mildly increased left ventricular wall thickness. Left ventricular cavity size normal. Severely reduced global left ventricular systolic function. Left ventricular ejection fraction is estimated at 25-30 %. Right Ventricle Normal right ventricular size and function. Right ventricular systolic pressure within normal limits. Right Atrium Right atrium not well visualized. Left Atrium Normal left atrial size. Mitral Valve Mild mitral annular calcification. Mild mitral regurgitation. Aortic Valve Diffuse thickening (sclerosis) of the aortic valve cusps without reduced excursion. No aortic stenosis. No aortic regurgitation. Tricuspid Valve Trace to mild tricuspid regurgitation. Pulmonic Valve Pulmonic valve not well visualized. Pericardium No pericardial effusion. Aorta Normal size aortic root and proximal ascending aorta. CONCLUSIONS Apparently reduced LV systolic function in the setting of RVR Previewed by: Dr. Cristian Geiger MD (Electronically Signed) Final Date: 02 February 2023 13:11
--- NOTE | 2023-02-02 14:01 | P.CRDCN ---
History of Present Illness Consult date: 02/02/23 Consult reason: atrial fibrillation History of present illness: This is Shane Valenzuela NP, I'm dictating on behalf of Dr. Geiger's H&P and A&P The patient was interviewed and examined. HPI: Patient is a 67-year-old male with a past medical history that includes hypertension and gout who presented to the hospital for cough and shortness of breath. Patient reported generalized weakness and fatigue, with shortness of breath that progressively got significantly worse, until he presented to the hospital. Patient had previously been on a trip to [facility] approximately 2 weeks ago. In the emergency department the patient required to be placed on BiPAP due to his increasing tachypnea and tachycardia. Patient's white count was low at 0.9, with pancytopenia. Patient had acute kidney injury, transaminitis, lactic acidosis, and rhabdomyolysis. Patient eventually required intubation, which was completed yesterday. Cardiology was consulted due to the patient being in A. fib with RVR. Patient was examined at the bedside, and is currently intubated and sedated. ROS: Unable to be completed due to patient being intubated and sedated EXAMINATION: GENERAL: Ill-appearing, well-nourished and in no acute distress. NECK: Supple without JVD or thyromegaly. LUNGS: Breath sounds contain some rhonchi to auscultation bilaterally. Respiration equal and unlabored. No wheezes, rales. HEART: Irregular rate and rhythm without murmurs, rubs or gallops. S1 and S2 heard. EXTREMITIES: No edema. No clubbing or cyanosis. Peripheral pulses intact and strong. REVIEW OF LABS, ECG & MEDICAL DATA: LABS: EKG: IMAGING: Chest x-ray dated 01/31/2023 demonstrates hypoaeration, cardiomegaly, and consider mild incipient congestive heart failure. Chest x-ray dated 02/01/2023 demonstrates no acute cardiopulmonary disease with no interval change. Venous Doppler of the bilateral lower extremities dated 02/01/2023 demonstrates no evidence of bilateral lower extremity DVT. Ultrasound of the kidneys, renal, and bladder dated 02/01/2023 demonstrates no significant abnormality of the kidneys, limited evaluation of the urinary bladder due to nondistention. VQ scan dated 02/01/2023 demonstrates very low probability for pulmonary embolus. Echocardiogram dated 02/01/2023 demonstrates apparently reduced LV systolic function and the settings of RVR. Chest x-ray dated 02/01/2023 demonstrates no acute process, limited by suboptimal inspiration. Chest x-ray dated 02/01/2023 demonstrates ET tube 2 cm above the simon, no acute cardiopulmonary disease. Chest x-ray dated 02/02/2023 demonstrates ET tube 3.8 cm above the simon, no change in the left lower lobe infiltrate and small pleural effusion. VITALS: Temp 99.9, pulse 138, respirations 28, blood pressure 105/64, O2 saturation 94% on mechanical ventilation IMPRESSION: 1. A. fib with RVR, likely secondary to current medical status 2. Pneumonia of unknown origin 3. Severe hypoxic respiratory failure, requiring intubation 4. Pancytopenia 5. Acute kidney injury 6. Rhabdomyolysis 7. Lactic acidosis PLAN: Increase amiodarone drip to 1 mg/minute. It is felt that the A. fib with RVR is likely secondary to his other current acute conditions. It will be difficult to place the patient on any other rate control medications, due to his soft blood pressures. Suspect that once other acute conditions begin to improve, the A. fib will also improve, and it will be easier to medicate the patient if necessary. Further recommendations based on patient's clinical course. Thank you for the consult and allowing us to participate in the care of this patient. 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 Past Anesthesia/Blood Transfusion Reactions: No Reported Reaction Past Psychological History: No Psychological Hx Reported Past Alcohol Use History: Daily - Past Family History Mother Family Medical History: No Reported History Medications and Allergies Home Medications Medication Instructions Recorded Confirmed Type Losartan [Cozaar] 50 mg PO HS 02/21/20 02/01/23 History Atorvastatin [Lipitor] 20 mg PO HS 09/20/22 02/01/23 History Finasteride [Proscar] 5 mg PO HS 09/20/22 02/01/23 History allopurinoL 300 mg PO HS 09/20/22 02/01/23 History HYDROcodone/APAP 5-325MG [[place] 1 tab PO Q6HR PRN #12 tab 09/25/22 02/01/23 Rx 5-325] Cyclobenzaprine [Flexeril] 10 mg PO TID PRN 02/01/23 02/01/23 History Meloxicam [Mobic] 15 mg PO HS 02/01/23 02/01/23 History Allergies Allergy/AdvReac Type Severity Reaction Status Date / Time No Known Allergies Allergy Verified 02/01/23 11:55 Physical Exam Vitals: Vital Signs Temp Pulse Resp BP Pulse Ox FiO2 02/02/23 13:00 123 H 28 H 97 02/02/23 12:45 138 H 28 H 97 02/02/23 12:30 125 H 28 H 98 02/02/23 12:15 117 H 28 H 97 02/02/23 12:00 100.6 F H 141 H 28 H 98 50 02/02/23 11:53 130 H 02/02/23 11:45 142 H 28 H 98 02/02/23 11:44 130 H 02/02/23 11:30 128 H 28 H 98 02/02/23 11:22 50 02/02/23 11:15 124 H 28 H 98 02/02/23 11:00 133 H 28 H 98 02/02/23 10:45 116 H 28 H 98 02/02/23 10:30 122 H 28 H 99 02/02/23 10:15 126 H 28 H 99 02/02/23 10:00 135 H 28 H 98 02/02/23 09:45 134 H 28 H 98 02/02/23 09:30 133 H 28 H 93 L 02/02/23 09:15 142 H 28 H 96 02/02/23 09:00 99.9 F H 138 H 28 H 94 L 02/02/23 08:45 135 H 28 H 95 02/02/23 08:30 130 H 28 H 92 L 02/02/23 08:15 138 H 28 H 96 02/02/23 08:00 152 H 28 H 96 50 02/02/23 07:45 144 H 28 H 97 02/02/23 07:30 151 H 28 H 97 02/02/23 07:15 131 H 28 H 97 02/02/23 07:00 128 H 36 H 97 02/02/23 06:45 129 H 36 H 96 02/02/23 06:30 160 H 38 H 98 02/02/23 06:15 144 H 31 H 97 02/02/23 06:00 149 H 35 H 98 02/02/23 05:45 142 H 30 H 99 02/02/23 05:30 131 H 37 H 93 L 02/02/23 05:15 138 H 36 H 93 L 02/02/23 05:00 141 H 36 H 92 L 02/02/23 04:45 130 H 37 H 93 L 02/02/23 04:30 151 H 39 H 94 L 02/02/23 04:15 129 H 35 H 94 L 02/02/23 04:00 99 F 133 H 36 H 96 50 02/02/23 03:54 50 02/02/23 03:45 124 H 35 H 98 02/02/23 03:35 60 02/02/23 03:30 138 H 34 H 99 02/02/23 03:15 115 H 34 H 99 02/02/23 03:00 130 H 34 H 98 02/02/23 02:45 122 H 36 H 100 02/02/23 02:30 122 H 33 H 100 02/02/23 02:15 116 H 35 H 96 02/02/23 02:00 141 H 34 H 96 02/02/23 01:45 128 H 34 H 97 02/02/23 01:30 128 H 34 H 97 02/02/23 01:18 97 02/02/23 01:15 138 H 33 H 99 02/02/23 01:00 140 H 33 H 99 02/02/23 00:45 151 H 35 H 100 02/02/23 00:30 146 H 31 H 93 L 02/02/23 00:19 138 H 34 H 97 02/02/23 00:15 130 H 34 H 93 L 02/02/23 00:00 99.2 F 117 H 33 H 97 60 02/01/23 23:59 60 02/01/23 23:45 138 H 34 H 98 02/01/23 23:38 60 02/01/23 23:30 120 H 33 H 98 02/01/23 23:15 131 H 33 H 96 02/01/23 23:00 134 H 34 H 98 02/01/23 22:45 125 H 33 H 97 02/01/23 22:30 112 H 34 H 98 02/01/23 22:15 137 H 33 H 98 02/01/23 22:00 133 H 35 H 97 02/01/23 21:45 120 H 34 H 98 02/01/23 21:30 122 H 34 H 98 02/01/23 21:15 146 H 35 H 97 02/01/23 21:00 133 H 34 H 98 02/01/23 20:56 70 02/01/23 20:45 135 H 32 H 99 02/01/23 20:30 140 H 34 H 99 02/01/23 20:15 133 H 42 H 97 02/01/23 20:00 99.4 F 131 H 35 H 96 80 02/01/23 19:56 80 02/01/23 19:45 128 H 38 H 02/01/23 19:30 142 H 41 H 97 02/01/23 19:15 135 H 39 H 02/01/23 19:00 138 H 28 H 97 02/01/23 18:45 141 H 28 H 96 02/01/23 18:30 141 H 28 H 97 02/01/23 18:15 133 H 28 H 96 02/01/23 18:04 80 02/01/23 18:00 133 H 24 98 02/01/23 17:45 149 H 24 98 02/01/23 17:30 160 H 24 95 02/01/23 17:15 144 H 24 02/01/23 17:00 134 H 39 H 98 100 02/01/23 16:50 100 02/01/23 16:45 130 H 23 98 02/01/23 16:42 100 02/01/23 16:30 137 H 42 H 02/01/23 15:49 50 02/01/23 15:30 138 H 28 H 99 02/01/23 15:00 142 H 36 H 99 02/01/23 14:30 151 H 40 H 100 02/01/23 14:00 141 H 35 H 102/80 95 Intake and Output 02/01/23 02/02/23 02/02/23 22:59 06:59 14:59 Intake Total 8366.080 8293.093 968.077 Output Total 635 80 110 Balance 184.897 7327.093 858.077 Intake: IV 1000 1000 875 Dextrose 5% in Water 1, 1000 1000 875 000 ml @ 125 mls/hr IV . Q9H12M [facility] with Sodium Bicarb (1 Meq/ml) 150 ml Rx#:[id number] Intake, IV Titration 154.382 393.093 93.077 Amount Norepinephrine 32 mg In 20.093 193.093 Sodium Chloride 0.9% 218 ml @ 0.03 MCG/KG/MIN 1. 722 mls/hr IV .Q24H [facility] Rx#:[id number] propofoL 1,000 mg In 134.289 200 93.077 Empty Bag 1 bag @ 15 MCG/ KG/MIN 11.022 mls/hr IV . Q9H5M [facility] Rx#:[id number] Output: Gastric Drainage 550 Urine 85 80 110 Other: Voiding Method Indwelling Catheter Indwelling Catheter Indwelling Catheter Weight 134.1 kg ABP, PAP, CO, CI - Last 8 Hours Arterial Blood Pressure 96/62 Arterial Blood Pressure 102/67 Arterial Blood Pressure 103/62 Arterial Blood Pressure 101/69 Arterial Blood Pressure 96/65 Arterial Blood Pressure 119/74 Arterial Blood Pressure 104/70 Arterial Blood Pressure 102/67 Arterial Blood Pressure 107/70 Arterial Blood Pressure 103/64 Arterial Blood Pressure 98/61 Arterial Blood Pressure 99/62 Arterial Blood Pressure 114/71 Arterial Blood Pressure 112/64 Arterial Blood Pressure 100/59 Arterial Blood Pressure 107/63 Arterial Blood Pressure 105/64 Arterial Blood Pressure 106/64 Arterial Blood Pressure 94/56 Arterial Blood Pressure 99/56 Arterial Blood Pressure 100/60 Arterial Blood Pressure 98/58 Arterial Blood Pressure 101/63 Arterial Blood Pressure 102/64 Arterial Blood Pressure 92/57 Arterial Blood Pressure 89/57 Arterial Blood Pressure 98/61 Arterial Blood Pressure 114/67 Arterial Blood Pressure 102/61 Results 02/02/23 02:40 02/02/23 02:40 Cardiac Enzymes 02/01/23 02/02/23 Range/Units 14:09 02:40 AST 362 H (17-59) U/L Lactate Dehydrogenase 798 H (120-246) U/L CBC 02/02/23 Range/Units 02:40 WBC 2.0 L (3.8-10.6) k/uL RBC 2.61 L (4.30-5.90) m/uL Hgb 9.7 L (13.0-17.5) gm/dL Hct 27.2 L (39.0-53.0) % Plt Count 62 L (150-450) k/uL Comprehensive Metabolic Panel 02/02/23 Range/Units 02:40 Sodium 132 L (137-145) mmol/L Potassium 4.8 (3.5-5.1) mmol/L Chloride 100 (98-107) mmol/L Carbon Dioxide 16 L (22-30) mmol/L BUN 69 H (9-20) mg/dL Creatinine 4.33 H (0.66-1.25) mg/dL Glucose 213 H (74-99) mg/dL Calcium 6.5 L (8.4-10.2) mg/dL AST 362 H (17-59) U/L ALT 263 H (4-49) U/L Alkaline Phosphatase 43 (38-126) U/L Total Protein 5.3 L (6.3-8.2) g/dL Albumin 2.6 L (3.5-5.0) g/dL Current Medications Generic Name Dose Route Start Last Admin Trade Name Freq PRN Reason Stop Dose Admin Hydrocodone Bitart/Acetaminophen 1 each 02/01/23 01:41 Hydrocodone/Apap 5-325mg 1 Each Tab PO Q6HR PRN Pain Albuterol/Ipratropium 3 ml 02/02/23 12:00 02/02/23 11:44 Ipratropium-Albuterol 3 Ml Neb INHALATION 3 ml RT-Q4H [facility] Administration Albuterol/Ipratropium 3 ml 02/02/23 08:07 Ipratropium-Albuterol 3 Ml Neb INHALATION RT-Q2H PRN Shortness Of Breath Or Wheezing Chlorhexidine Gluconate 15 ml 02/01/23 21:00 02/02/23 10:05 Chlorhexidine Gluconate 15 Ml Cup MUCOUS MEM 15 ml BID [facility] Administration Dextrose/Water 25 ml 02/02/23 02:21 Dextrose 50% Syringe 50 Ml IVP PER PROTOCOL PRN Hypoglycemia Protocol Dextrose/Water 50 ml 02/02/23 02:21 Dextrose 50% Syringe 50 Ml IVP PER PROTOCOL PRN Hypoglycemia Protocol Filgrastim-Sndz 480 mcg 02/02/23 12:00 Filgrastim-Sndz 480 Mcg/0.8 Ml Syringe SQ DAILY [facility] Finasteride 5 mg 02/01/23 21:00 02/01/23 19:46 Finasteride 5 Mg Tab PO Not Given HS [facility] Cefepime HCl 1 gm/ Sodium 50 mls @ 12.5 mls/hr 02/01/23 08:00 02/02/23 09:44 Chloride IVPB 12.5 mls/hr Q12H [facility] Administration Sodium Bicarbonate 150 ml/ 1,150 mls @ 125 mls/hr 02/01/23 12:30 02/02/23 09:45 Dextrose/Water IV 125 mls/hr .Q9H12M [facility] Administration Azithromycin 500 mg/ Sodium 250 mls @ 250 mls/hr 02/01/23 13:30 02/02/23 12:31 Chloride IVPB 02/03/23 09:59 250 mls/hr DAILY [facility] Administration Protocol Propofol 1,000 mg/ IV Solution 100 mls @ 11.022 mls/hr 02/01/23 16:45 08:50 IV 50 mcg/kg/min .Q9H5M [facility] 36.741 mls/hr Administration Protocol 15 MCG/KG/MIN Norepinephrine Bitartrate 32 250 mls @ 1.722 mls/hr 02/01/23 17:00 02/02/23 06:19 mg/ Sodium Chloride IV 0.3 mcg/kg/min .Q24H [facility] 17.222 mls/hr Administration Protocol 0.03 MCG/KG/MIN Linezolid 600 mg/ IV Solution 300 mls @ 150 mls/hr 02/01/23 21:00 02/02/23 10:15 IVPB 150 mls/hr Q12HR [facility] Administration Protocol Vasopressin 60 unit/ Sodium 153 mls @ 4.59 mls/hr 02/02/23 09:15 02/02/23 09:31 Chloride IV 0.04 units/min .Q24H [facility] 6.12 mls/hr Administration Protocol 0.03 UNITS/MIN Cisatracurium Besylate 200 mg/ 200 mls @ 8.046 mls/hr 02/02/23 09:15 02/02/23 09:31 Sodium Chloride IV 1 mcg/kg/min .Q24H [facility] 8.046 mls/hr Administration Protocol 1 MCG/KG/MIN Amiodarone HCl 360 mg/ 200 mls @ 33.333 mls/hr 02/02/23 09:39 02/02/23 10:05 Dextrose/Water IV 02/02/23 15:38 1 mg/min .Q6H ONE 33.333 mls/hr Administration Protocol 1 MG/MIN Insulin Aspart 0 unit 02/02/23 06:00 02/02/23 13:35 Insulin Aspart (Novolog) 100 Unit/Ml Vial SQ 6 unit Q6H [facility] Administration Protocol Miscellaneous Information 1 each 02/01/23 01:37 Pneumonia Protocol Utilized 1 Each Misc PO ONCE PRN Per Protocol Intake and Output 02/01/23 02/02/23 02/02/23 22:59 06:59 14:59 Intake Total 3273.713 7229.093 968.077 Output Total 635 80 110 Balance 071.388 3108.093 858.077 Intake: IV 1000 1000 875 Dextrose 5% in Water 1, 1000 1000 875 000 ml @ 125 mls/hr IV . Q9H12M [facility] with Sodium Bicarb (1 Meq/ml) 150 ml Rx#:[id number] Intake, IV Titration 154.382 393.093 93.077 Amount Norepinephrine 32 mg In 20.093 193.093 Sodium Chloride 0.9% 218 ml @ 0.03 MCG/KG/MIN 1. 722 mls/hr IV .Q24H [facility] Rx#:[id number] propofoL 1,000 mg In 134.289 200 93.077 Empty Bag 1 bag @ 15 MCG/ KG/MIN 11.022 mls/hr IV . Q9H5M [facility] Rx#:[id number] Output: Gastric Drainage 550 Urine 85 80 110 Other: Voiding Method Indwelling Catheter Indwelling Catheter Indwelling Catheter Weight 134.1 kg 02/02/23 02:40 02/02/23 02:40
[2023-02-02] MEDS ORDERED: FUROSEMIDE 10 MG/ML 10 ML VIAL IV STA (14:28)
[2023-02-02] MEDS: FILGRASTIM-SNDZ 480 MCG/0.8 ML SYRINGE SQ SCH (14:29)
--- NOTE | 2023-02-02 14:40 | P.PN ---
Subjective Progress Note Date: 02/02/23 Follow-up for acute kidney injury. Still on pressors. Urine output marginal. On ventilator, family at bedside Objective - Vital Signs Vital signs: Vital Signs Temp 100.6 F H 02/02/23 12:00 Pulse 128 H 02/02/23 14:15 Resp 28 H 02/02/23 14:15 BP 102/80 02/01/23 14:00 Pulse Ox 98 02/02/23 14:15 FiO2 50 02/02/23 12:00 Intake & Output 02/01/23 02/02/23 02/02/23 18:59 06:59 18:59 Intake Total 4255.669 2254.229 1203.077 Output Total 85 695 115 Balance 7375.197 3525.229 1088.077 Weight 134.1 kg Intake: IV 1890 1500 1000 Dextrose 5% in Water 1, 500 1500 1000 000 ml @ 125 mls/hr IV . Q9H12M [facility] with Sodium Bicarb (1 Meq/ml) 150 ml Rx#:[id number] Sodium Chloride 0.9% 1, 1390 000 ml @ 130 mls/hr IV . Q7H42M [facility] Rx#:[id number] Intake, IV Titration 6.246 541.229 193.077 Amount Norepinephrine 32 mg In 213.186 Sodium Chloride 0.9% 218 ml @ 0.03 MCG/KG/MIN 1. 722 mls/hr IV .Q24H [facility] Rx#:[id number] propofoL 1,000 mg In 6.246 328.043 193.077 Empty Bag 1 bag @ 15 MCG/ KG/MIN 11.022 mls/hr IV . Q9H5M [facility] Rx#:[id number] Tube Feeding 10 Output: Gastric Drainage 550 Urine 85 145 115 Other: Voiding Method Indwelling Catheter Indwelling Catheter Indwelling Catheter ABP, PAP, CO, CI - Last Documented Arterial Blood Pressure 86/61 - Exam No acute distress S1-S2 heard Decreased breath sounds Oral intubation Abdomen soft Edema - Labs CBC & Chem 7: 02/02/23 02:40 02/02/23 02:40 Labs: Abnormal Lab Results - Last 24 Hours (Table) 02/01/23 02/01/23 02/01/23 Range/Units 08:04 14:09 14:09 WBC (3.8-10.6) k/uL RBC (4.30-5.90) m/uL Hgb (13.0-17.5) gm/dL Hct (39.0-53.0) % MCV (80.0-100.0) fL MCH (25.0-35.0) pg RDW (11.5-15.5) % Plt Count (150-450) k/uL Neutrophils # (Manual) (1.3-7.7) k/uL Metamyelocytes # (Man) (0) k/uL Myelocytes # (Manual) (0) k/uL Nucleated RBCs (0-0) /100 WBC Haptoglobin (31.2-198.0) mg/dL Fibrinogen 1204 H (200-500) mg/dL ABG pH (7.35-7.45) ABG pCO2 (35-45) mmHg ABG pO2 (83-108) mmHg ABG HCO3 (21-25) mmol/L ABG Total CO2 (19-24) mmol/L ABG O2 Saturation (94-97) % Sodium (137-145) mmol/L Carbon Dioxide (22-30) mmol/L BUN (9-20) mg/dL Creatinine (0.66-1.25) mg/dL Glucose (74-99) mg/dL POC Glucose (mg/dL) (70-110) mg/dL Plasma Lactic Acid [place] (0.7-2.0) mmol/L Calcium (8.4-10.2) mg/dL AST (17-59) U/L ALT (4-49) U/L Lactate Dehydrogenase (120-246) U/L Creatine Kinase 96846 H* (55-170) U/L Total Protein (6.3-8.2) g/dL Albumin (3.5-5.0) g/dL Procalcitonin >100.00 H (0.02-0.09) ng/mL 02/01/23 02/01/23 02/01/23 Range/Units 14:09 14:09 14:09 WBC (3.8-10.6) k/uL RBC (4.30-5.90) m/uL Hgb (13.0-17.5) gm/dL Hct (39.0-53.0) % MCV (80.0-100.0) fL MCH (25.0-35.0) pg RDW (11.5-15.5) % Plt Count (150-450) k/uL Neutrophils # (Manual) (1.3-7.7) k/uL Metamyelocytes # (Man) (0) k/uL Myelocytes # (Manual) (0) k/uL Nucleated RBCs (0-0) /100 WBC Haptoglobin 337.0 H (31.2-198.0) mg/dL Fibrinogen (200-500) mg/dL ABG pH (7.35-7.45) ABG pCO2 (35-45) mmHg ABG pO2 (83-108) mmHg ABG HCO3 (21-25) mmol/L ABG Total CO2 (19-24) mmol/L ABG O2 Saturation (94-97) % Sodium (137-145) mmol/L Carbon Dioxide (22-30) mmol/L BUN (9-20) mg/dL Creatinine (0.66-1.25) mg/dL Glucose (74-99) mg/dL POC Glucose (mg/dL) (70-110) mg/dL Plasma Lactic Acid [place] 4.1 H* (0.7-2.0) mmol/L Calcium (8.4-10.2) mg/dL AST (17-59) U/L ALT (4-49) U/L Lactate Dehydrogenase 798 H (120-246) U/L Creatine Kinase (55-170) U/L Total Protein (6.3-8.2) g/dL Albumin (3.5-5.0) g/dL Procalcitonin (0.02-0.09) ng/mL 02/01/23 02/01/23 02/01/23 Range/Units 15:02 17:56 20:00 WBC (3.8-10.6) k/uL RBC (4.30-5.90) m/uL Hgb (13.0-17.5) gm/dL Hct (39.0-53.0) % MCV (80.0-100.0) fL MCH (25.0-35.0) pg RDW (11.5-15.5) % Plt Count (150-450) k/uL Neutrophils # (Manual) (1.3-7.7) k/uL Metamyelocytes # (Man) (0) k/uL Myelocytes # (Manual) (0) k/uL Nucleated RBCs (0-0) /100 WBC Haptoglobin (31.2-198.0) mg/dL Fibrinogen (200-500) mg/dL ABG pH 7.18 L* (7.35-7.45) ABG pCO2 27 L 47 H (35-45) mmHg ABG pO2 204 H 132 H (83-108) mmHg ABG HCO3 16 L 18 L (21-25) mmol/L ABG Total CO2 16 L (19-24) mmol/L ABG O2 Saturation 99.2 H 97.4 H (94-97) % Sodium (137-145) mmol/L Carbon Dioxide (22-30) mmol/L BUN (9-20) mg/dL Creatinine (0.66-1.25) mg/dL Glucose (74-99) mg/dL POC Glucose (mg/dL) (70-110) mg/dL Plasma Lactic Acid [place] 4.1 H* (0.7-2.0) mmol/L Calcium (8.4-10.2) mg/dL AST (17-59) U/L ALT (4-49) U/L Lactate Dehydrogenase (120-246) U/L Creatine Kinase (55-170) U/L Total Protein (6.3-8.2) g/dL Albumin (3.5-5.0) g/dL Procalcitonin (0.02-0.09) ng/mL 02/02/23 02/02/23 02/02/23 Range/Units 01:10 02:40 02:40 WBC 2.0 L (3.8-10.6) k/uL RBC 2.61 L (4.30-5.90) m/uL Hgb 9.7 L (13.0-17.5) gm/dL Hct 27.2 L (39.0-53.0) % MCV 104.0 H (80.0-100.0) fL MCH 37.2 H (25.0-35.0) pg RDW 16.7 H (11.5-15.5) % Plt Count 62 L (150-450) k/uL Neutrophils # (Manual) 0.40 L* (1.3-7.7) k/uL Metamyelocytes # (Man) 0.02 H (0) k/uL Myelocytes # (Manual) 0.02 H (0) k/uL Nucleated RBCs 29 H (0-0) /100 WBC Haptoglobin (31.2-198.0) mg/dL Fibrinogen (200-500) mg/dL ABG pH (7.35-7.45) ABG pCO2 (35-45) mmHg ABG pO2 (83-108) mmHg ABG HCO3 (21-25) mmol/L ABG Total CO2 (19-24) mmol/L ABG O2 Saturation (94-97) % Sodium 132 L (137-145) mmol/L Carbon Dioxide 16 L (22-30) mmol/L BUN 69 H (9-20) mg/dL Creatinine 4.33 H (0.66-1.25) mg/dL Glucose 213 H (74-99) mg/dL POC Glucose (mg/dL) 219 H (70-110) mg/dL Plasma Lactic Acid [place] (0.7-2.0) mmol/L Calcium 6.5 L (8.4-10.2) mg/dL AST 362 H (17-59) U/L ALT 263 H (4-49) U/L Lactate Dehydrogenase (120-246) U/L Creatine Kinase (55-170) U/L Total Protein 5.3 L (6.3-8.2) g/dL Albumin 2.6 L (3.5-5.0) g/dL Procalcitonin (0.02-0.09) ng/mL 02/02/23 02/02/23 02/02/23 Range/Units 06:31 06:45 12:33 WBC (3.8-10.6) k/uL RBC (4.30-5.90) m/uL Hgb (13.0-17.5) gm/dL Hct (39.0-53.0) % MCV (80.0-100.0) fL MCH (25.0-35.0) pg RDW (11.5-15.5) % Plt Count (150-450) k/uL Neutrophils # (Manual) (1.3-7.7) k/uL Metamyelocytes # (Man) (0) k/uL Myelocytes # (Manual) (0) k/uL Nucleated RBCs (0-0) /100 WBC Haptoglobin (31.2-198.0) mg/dL Fibrinogen (200-500) mg/dL ABG pH 7.34 L (7.35-7.45) ABG pCO2 (35-45) mmHg ABG pO2 (83-108) mmHg ABG HCO3 20 L (21-25) mmol/L ABG Total CO2 (19-24) mmol/L ABG O2 Saturation (94-97) % Sodium (137-145) mmol/L Carbon Dioxide (22-30) mmol/L BUN (9-20) mg/dL Creatinine (0.66-1.25) mg/dL Glucose (74-99) mg/dL POC Glucose (mg/dL) 208 H 281 H (70-110) mg/dL Plasma Lactic Acid [place] (0.7-2.0) mmol/L Calcium (8.4-10.2) mg/dL AST (17-59) U/L ALT (4-49) U/L Lactate Dehydrogenase (120-246) U/L Creatine Kinase (55-170) U/L Total Protein (6.3-8.2) g/dL Albumin (3.5-5.0) g/dL Procalcitonin (0.02-0.09) ng/mL Microbiology - Last 24 Hours (Table) 02/01/23 00:18 Blood Culture Gram Stain - Preliminary Blood Blood Culture - Preliminary Beta Hemolytic Strep Group G Assessment and Plan Assessment: #1 oliguric acute kidney injury secondary to hemodynamic ATN with low blood pressures -Baseline creatinine 1.2 MG per DL. -Urine analysis hematuria with pyuria and proteinuria -No hydronephrosis on renal ultrasound #2 severe sepsis with septic shock #3 acute respiratory failure on BiPAP #4 lactic acidosis secondary to hypotension and sepsis #5 pancytopenia Plan: #1 renal function worsening. #2 Lasix challenge today, 120 mg IV once. If he makes 200 ML's of urine in 2 hours, add Lasix drip at 10 mg an hour. If no response to Lasix challenge, he needs dialysis by tomorrow #3 ICU care #4 plan of care discussed with the family at bedside #5 avoid nephrotoxic agents and hypotensive episodes
[2023-02-02] MEDS: CLINDAMYCIN 900 MG in DEXTROSE 5% IN WATER 50 ML IVPB SCH ×2 (15:40)
[2023-02-02 17:14] VITALS: RESP 28
[2023-02-02 17:41] LABS: Glucose,Whole Blood 300 mg/dL (70-110)
[2023-02-02] MEDS: AMIODARONE 360 MG in DEXTROSE 5% IN WATER 200 ML IV SCH ×4 (18:18→22:05)
[2023-02-02] MEDS: INSULIN REGULAR 100 UNIT in SODIUM CHLORIDE 0.9% 100 ML IV SCH (18:37)
[2023-02-02 18:38] LABS: Glucose,Whole Blood 301 mg/dL (70-110)
[2023-02-02 20:02] LABS: Glucose,Whole Blood 275 mg/dL (70-110)
[2023-02-02 21:24] LABS: Glucose,Whole Blood 277 mg/dL (70-110)
[2023-02-02] MEDS: FINASTERIDE 5 MG TAB PO SCH (21:55)
[2023-02-02 22:39] LABS: Glucose,Whole Blood 265 mg/dL (70-110)
--- NOTE | 2023-02-02 23:04 | P.PN ---
Subjective Progress Note Date: 02/02/23 Principal diagnosis: Sepsis.Pneumonia,Bacteremia Patient is a 67-year-old male with a past medical history Nupercaine for hypertension and gout who recently returned from a trip to [facility] about a week ago patient presented to [facility], for evaluation of increasing shortness of breath fever and generalized body aches,patient admitted to ICU subsequently ended up getting intubated because of worsening respiratory status. On today's evaluation that is 02/02/2023 patient did have a low-grade fever 100.6 F patient is currently on the vent FiO2 50% patient is also tachycardic and tachypneic and is requiring pressor to maintain his blood pressure no signifi cant purulent secretions through the ET or any diarrhea reported by the nursing staff. Patient white count has come up to 2.0, creatinine is 4.33 blood cultures with a beta-hemolytic group G strep. Objective - Vital Signs Vital signs: Vital Signs Temp 100.6 F H 02/02/23 12:00 Pulse 128 H 02/02/23 14:15 Resp 28 H 02/02/23 14:15 BP 102/80 02/01/23 14:00 Pulse Ox 98 02/02/23 14:15 FiO2 50 02/02/23 12:00 Intake & Output 02/01/23 02/02/23 02/02/23 18:59 06:59 18:59 Intake Total 4049.679 6135.229 1203.077 Output Total 85 695 115 Balance 0284.093 9853.229 1088.077 Weight 134.1 kg Intake: IV 1890 1500 1000 Dextrose 5% in Water 1, 500 1500 1000 000 ml @ 125 mls/hr IV . Q9H12M [facility] with Sodium Bicarb (1 Meq/ml) 150 ml Rx#:[id number] Sodium Chloride 0.9% 1, 1390 000 ml @ 130 mls/hr IV . Q7H42M [facility] Rx#:[id number] Intake, IV Titration 6.246 541.229 193.077 Amount Norepinephrine 32 mg In 213.186 Sodium Chloride 0.9% 218 ml @ 0.03 MCG/KG/MIN 1. 722 mls/hr IV .Q24H [facility] Rx#:[id number] propofoL 1,000 mg In 6.246 328.043 193.077 Empty Bag 1 bag @ 15 MCG/ KG/MIN 11.022 mls/hr IV . Q9H5M [facility] Rx#:[id number] Tube Feeding 10 Output: Gastric Drainage 550 Urine 85 145 115 Other: Voiding Method Indwelling Catheter Indwelling Catheter Indwelling Catheter ABP, PAP, CO, CI - Last Documented Arterial Blood Pressure 86/61 - Exam GENERAL DESCRIPTION: Elderly male intubated on the vent RESPIRATORY SYSTEM: Unlabored breathing , decreased breath sounds at bases HEART: S1 S2 regular rate and rhythm ,no loud murmurs ABDOMEN: Soft , no tenderness EXTREMITIES: No edema feet - Labs CBC & Chem 7: 02/02/23 02:40 02/02/23 02:40 Labs: Abnormal Lab Results - Last 24 Hours (Table) 02/01/23 02/01/23 02/01/23 Range/Units 08:04 14:09 14:09 WBC (3.8-10.6) k/uL RBC (4.30-5.90) m/uL Hgb (13.0-17.5) gm/dL Hct (39.0-53.0) % MCV (80.0-100.0) fL MCH (25.0-35.0) pg RDW (11.5-15.5) % Plt Count (150-450) k/uL Neutrophils # (Manual) (1.3-7.7) k/uL Metamyelocytes # (Man) (0) k/uL Myelocytes # (Manual) (0) k/uL Nucleated RBCs (0-0) /100 WBC Haptoglobin (31.2-198.0) mg/dL Fibrinogen 1204 H (200-500) mg/dL ABG pH (7.35-7.45) ABG pCO2 (35-45) mmHg ABG pO2 (83-108) mmHg ABG HCO3 (21-25) mmol/L ABG Total CO2 (19-24) mmol/L ABG O2 Saturation (94-97) % Sodium (137-145) mmol/L Carbon Dioxide (22-30) mmol/L BUN (9-20) mg/dL Creatinine (0.66-1.25) mg/dL Glucose (74-99) mg/dL POC Glucose (mg/dL) (70-110) mg/dL Plasma Lactic Acid Hamlet (0.7-2.0) mmol/L Calcium (8.4-10.2) mg/dL AST (17-59) U/L ALT (4-49) U/L Lactate Dehydrogenase (120-246) U/L Creatine Kinase 28159 H* (55-170) U/L Total Protein (6.3-8.2) g/dL Albumin (3.5-5.0) g/dL Procalcitonin >100.00 H (0.02-0.09) ng/mL 02/01/23 02/01/23 02/01/23 Range/Units 14:09 14:09 14:09 WBC (3.8-10.6) k/uL RBC (4.30-5.90) m/uL Hgb (13.0-17.5) gm/dL Hct (39.0-53.0) % MCV (80.0-100.0) fL MCH (25.0-35.0) pg RDW (11.5-15.5) % Plt Count (150-450) k/uL Neutrophils # (Manual) (1.3-7.7) k/uL Metamyelocytes # (Man) (0) k/uL Myelocytes # (Manual) (0) k/uL Nucleated RBCs (0-0) /100 WBC Haptoglobin 337.0 H (31.2-198.0) mg/dL Fibrinogen (200-500) mg/dL ABG pH (7.35-7.45) ABG pCO2 (35-45) mmHg ABG pO2 (83-108) mmHg ABG HCO3 (21-25) mmol/L ABG Total CO2 (19-24) mmol/L ABG O2 Saturation (94-97) % Sodium (137-145) mmol/L Carbon Dioxide (22-30) mmol/L BUN (9-20) mg/dL Creatinine (0.66-1.25) mg/dL Glucose (74-99) mg/dL POC Glucose (mg/dL) (70-110) mg/dL Plasma Lactic Acid Hamlet 4.1 H* (0.7-2.0) mmol/L Calcium (8.4-10.2) mg/dL AST (17-59) U/L ALT (4-49) U/L Lactate Dehydrogenase 798 H (120-246) U/L Creatine Kinase (55-170) U/L Total Protein (6.3-8.2) g/dL Albumin (3.5-5.0) g/dL Procalcitonin (0.02-0.09) ng/mL 02/01/23 02/01/23 02/01/23 Range/Units 15:02 17:56 20:00 WBC (3.8-10.6) k/uL RBC (4.30-5.90) m/uL Hgb (13.0-17.5) gm/dL Hct (39.0-53.0) % MCV (80.0-100.0) fL MCH (25.0-35.0) pg RDW (11.5-15.5) % Plt Count (150-450) k/uL Neutrophils # (Manual) (1.3-7.7) k/uL Metamyelocytes # (Man) (0) k/uL Myelocytes # (Manual) (0) k/uL Nucleated RBCs (0-0) /100 WBC Haptoglobin (31.2-198.0) mg/dL Fibrinogen (200-500) mg/dL ABG pH 7.18 L* (7.35-7.45) ABG pCO2 27 L 47 H (35-45) mmHg ABG pO2 204 H 132 H (83-108) mmHg ABG HCO3 16 L 18 L (21-25) mmol/L ABG Total CO2 16 L (19-24) mmol/L ABG O2 Saturation 99.2 H 97.4 H (94-97) % Sodium (137-145) mmol/L Carbon Dioxide (22-30) mmol/L BUN (9-20) mg/dL Creatinine (0.66-1.25) mg/dL Glucose (74-99) mg/dL POC Glucose (mg/dL) (70-110) mg/dL Plasma Lactic Acid Hamlet 4.1 H* (0.7-2.0) mmol/L Calcium (8.4-10.2) mg/dL AST (17-59) U/L ALT (4-49) U/L Lactate Dehydrogenase (120-246) U/L Creatine Kinase (55-170) U/L Total Protein (6.3-8.2) g/dL Albumin (3.5-5.0) g/dL Procalcitonin (0.02-0.09) ng/mL 02/02/23 02/02/23 02/02/23 Range/Units 01:10 02:40 02:40 WBC 2.0 L (3.8-10.6) k/uL RBC 2.61 L (4.30-5.90) m/uL Hgb 9.7 L (13.0-17.5) gm/dL Hct 27.2 L (39.0-53.0) % MCV 104.0 H (80.0-100.0) fL MCH 37.2 H (25.0-35.0) pg RDW 16.7 H (11.5-15.5) % Plt Count 62 L (150-450) k/uL Neutrophils # (Manual) 0.40 L* (1.3-7.7) k/uL Metamyelocytes # (Man) 0.02 H (0) k/uL Myelocytes # (Manual) 0.02 H (0) k/uL Nucleated RBCs 29 H (0-0) /100 WBC Haptoglobin (31.2-198.0) mg/dL Fibrinogen (200-500) mg/dL ABG pH (7.35-7.45) ABG pCO2 (35-45) mmHg ABG pO2 (83-108) mmHg ABG HCO3 (21-25) mmol/L ABG Total CO2 (19-24) mmol/L ABG O2 Saturation (94-97) % Sodium 132 L (137-145) mmol/L Carbon Dioxide 16 L (22-30) mmol/L BUN 69 H (9-20) mg/dL Creatinine 4.33 H (0.66-1.25) mg/dL Glucose 213 H (74-99) mg/dL POC Glucose (mg/dL) 219 H (70-110) mg/dL Plasma Lactic Acid Hamlet (0.7-2.0) mmol/L Calcium 6.5 L (8.4-10.2) mg/dL AST 362 H (17-59) U/L ALT 263 H (4-49) U/L Lactate Dehydrogenase (120-246) U/L Creatine Kinase (55-170) U/L Total Protein 5.3 L (6.3-8.2) g/dL Albumin 2.6 L (3.5-5.0) g/dL Procalcitonin (0.02-0.09) ng/mL 02/02/23 02/02/23 02/02/23 Range/Units 06:31 06:45 12:33 WBC (3.8-10.6) k/uL RBC (4.30-5.90) m/uL Hgb (13.0-17.5) gm/dL Hct (39.0-53.0) % MCV (80.0-100.0) fL MCH (25.0-35.0) pg RDW (11.5-15.5) % Plt Count (150-450) k/uL Neutrophils # (Manual) (1.3-7.7) k/uL Metamyelocytes # (Man) (0) k/uL Myelocytes # (Manual) (0) k/uL Nucleated RBCs (0-0) /100 WBC Haptoglobin (31.2-198.0) mg/dL Fibrinogen (200-500) mg/dL ABG pH 7.34 L (7.35-7.45) ABG pCO2 (35-45) mmHg ABG pO2 (83-108) mmHg ABG HCO3 20 L (21-25) mmol/L ABG Total CO2 (19-24) mmol/L ABG O2 Saturation (94-97) % Sodium (137-145) mmol/L Carbon Dioxide (22-30) mmol/L BUN (9-20) mg/dL Creatinine (0.66-1.25) mg/dL Glucose (74-99) mg/dL POC Glucose (mg/dL) 208 H 281 H (70-110) mg/dL Plasma Lactic Acid Hamlet (0.7-2.0) mmol/L Calcium (8.4-10.2) mg/dL AST (17-59) U/L ALT (4-49) U/L Lactate Dehydrogenase (120-246) U/L Creatine Kinase (55-170) U/L Total Protein (6.3-8.2) g/dL Albumin (3.5-5.0) g/dL Procalcitonin (0.02-0.09) ng/mL Microbiology - Last 24 Hours (Table) 02/01/23 00:18 Blood Culture Gram Stain - Preliminary Blood Blood Culture - Preliminary Beta Hemolytic Strep Group G Assessment and Plan (1) Sepsis Current Visit: Yes Status: Acute Code(s): A41.9 - SEPSIS, UNSPECIFIED ORGANISM SNOMED Code(s): 32083378 (2) Bacteremia Current Visit: Yes Status: Acute Code(s): R78.81 - BACTEREMIA SNOMED Code(s): 9165515 (3) Pneumonia Current Visit: Yes Status: Acute Code(s): J18.9 - PNEUMONIA, UNSPECIFIED ORGANISM SNOMED Code(s): 810962155 Plan: 1patient presented hospital with sepsis in this patient with the leukopenia tachycardia tachypnea hypotension elevated lactic acid and apparently did have a fever at home with the pulmonary vascular congestion on the x-rays low probability of PE on the VQ scan with consideration for pneumonia question of tuberculosis atypical pathogen however urine for Legionella antigen was negative and the patient has been ruled out for COVID-19 2patient blood cultures came back positive with beta-hemolytic's group G strep source likely pneumonia 3-we will discontinue cefepime Zyvox and Zithromax 4-start the patient on Rocephin 2 g daily and clindamycin 5-nursing staff to obtain sputum for Gram stain and culture Multiple family members the bedside questions were answered Dictation was produced using [employer] dictation software. please excuse any gramm atical, word or spelling errors.
[2023-02-02 23:18] LABS: Glucose,Whole Blood 296 mg/dL (70-110)
[2023-02-02 23:21] LABS: Glucose,Whole Blood 235 mg/dL (70-110)
[2023-02-03 00:11] LABS: Glucose,Whole Blood 254 mg/dL (70-110)
[2023-02-03] MEDS: IPRATROPIUM-ALBUTEROL 3 ML NEB INHALATION SCH ×6 (00:11→21:15)
[2023-02-03] MEDS: CLINDAMYCIN 900 MG in DEXTROSE 5% IN WATER 50 ML IVPB SCH ×6 (01:17→15:48)
[2023-02-03 01:27] LABS: Glucose,Whole Blood 232 mg/dL (70-110)
[2023-02-03 03:24] LABS: Glucose,Whole Blood 209 mg/dL (70-110)
[2023-02-03] MEDS: DEXTROSE 5% IN WATER 1,000 ML with SODIUM BICARB (1 MEQ/ML) 150 ML IV SCH ×3 (03:27→21:56)
[2023-02-03] MEDS: AMIODARONE 360 MG in DEXTROSE 5% IN WATER 200 ML IV SCH ×8 (03:55→19:27)
[2023-02-03 04:44] LABS: Glucose,Whole Blood 192 mg/dL (70-110)
[2023-02-03 05:26] LABS: Anisocytosis Slight; HCT 22.7 % (39.0-53.0); MCV 103.7 fL (80.0-100.0); Macrocytosis Moderate; RBC 2.19 m/uL (4.30-5.90); RDW 16.3 % (11.5-15.5)
[2023-02-03 05:38] LABS: Glucose,Whole Blood 177 mg/dL (70-110)
[2023-02-03 05:39] LABS: ALT 349 U/L (4-49); AST 341 U/L (17-59); African American GFR (CKD) 18 (>60 ml/min/1.73 sqM); Albumin 1.7 g/dL (3.5-5.0); Alkaline Phosphatase 42 U/L (38-126); Anion Gap 13 mmol/L; Blood Urea Nitrogen 65 mg/dL (9-20); Carbon Dioxide 18 mmol/L (22-30); Chloride 103 mmol/L (98-107); Glucose 131 mg/dL (74-99); Non-African American GFR(CKD) 16 (>60 ml/min/1.73 sqM); Sodium 134 mmol/L (137-145); Total Bilirubin 1.2 mg/dL (0.2-1.3); Total Protein 3.8 g/dL (6.3-8.2)
[2023-02-03 05:44] LABS: Vancomycin,Random 8.8 ug/mL
[2023-02-03 05:56] LABS: MCH 34.9 pg (25.0-35.0)
[2023-02-03 05:57] LABS: Platelet Count 24 k/uL (150-450)
[2023-02-03 06:07] LABS: Calcium 4.4 mg/dL (8.4-10.2)
[2023-02-03 06:10] LABS: HGB 7.7 gm/dL (13.0-17.5)
[2023-02-03 06:17] LABS: ABG Base Excess -0.4 mmol/L; ABG HCO3 26 mmol/L (21-25); ABG Oxygen Saturation 95.3 % (94-97); ABG PCO2 53 mmHg (35-45); ABG PO2 79 mmHg (83-108); ABG TCO2 28 mmol/L (19-24); Allen Test Performed? Yes
[2023-02-03] MEDS: NOREPINEPHRINE 32 MG in SODIUM CHLORIDE 0.9% 218 ML IV SCH ×2 (06:36→19:27)
[2023-02-03] MEDS: VASOPRESSIN 60 UNIT in SODIUM CHLORIDE 0.9% 150 ML IV SCH (06:37)
[2023-02-03 06:57] LABS: Glucose,Whole Blood 163 mg/dL (70-110)
[2023-02-03] MEDS: CISATRACURIUM 200 MG in SODIUM CHLORIDE 0.9% 180 ML IV SCH (07:08)
--- NOTE | 2023-02-03 07:33 | P.PN ---
Subjective Progress Note Date: 02/03/23 Principal diagnosis: Persistent atrial fibrillation This is a 67-year-old gentleman who was admitted to the hospital after he presented with shortness of breath and was found to be in respiratory failure. Initially he was placed on BiPAP with no improvement and subsequently he was intubated and placed on mechanical ventilation. Patient was seen by our service because off new-onset atrial fibrillation with RVR. He was diagnosed with pneumonia/sepsis. Also he was found to have pancytopenia. The atrial fibrillation is new to the patient. Further investigation was performed including an echocardiogram and that revealed a cardiomyopathy appeared to be severe with an ejection fraction between 25-30%. Also he was found to be in acute renal failure. The plan is to undergo dialysis later on today. February 032022 The patient was seen and evaluated this morning. Unfortunately he continues to be intubated on mechanical ventilation and currently he is with an empty unstable requiring vasopressors was norepinephrine and vasopressin's. He continues to be in atrial fibrillation. Currently amiodarone is on. He, be on any beta fabian at this point during the hypotension and cannot be on any calcium channel fabian giving the cardiomyopathy as well as well as h ypotension. Heparin is not given to the patient also because of the pancytopenia severely low platelet count. Also his hemoglobin is low. The echo as a mentioned earlier showed an ejection fraction between 25-30% The examination is remarkable for irregular rhythm with diminished breathing sounds bilaterally and bilateral lower extremities edema Assessment Acute hypoxic respiratory failure Pneumonia/sepsis with positive blood culture Persistent atrial fibrillation Acute renal failure Pancytopenia Multiple comorbid conditions Plan Continue amiodarone IV Avoid any oral anticoagulation giving the thrombocytopenia Consider adding beta fabian once the blood pressure improved Consider adding cardiomyopathy medication once a pressure improved as well Continue antibiotic Follow-up with the patient Objective - Vital Signs Vital signs: Vital Signs Temp 100.4 F H 02/03/23 04:00 Pulse 113 H 02/03/23 07:00 Resp 28 H 02/03/23 07:00 BP 102/80 02/01/23 14:00 Pulse Ox 95 02/03/23 07:00 FiO2 50 02/03/23 04:29 Intake & Output 02/02/23 02/03/23 02/03/23 18:59 06:59 18:59 Intake Total 2259.528 2784.930 308.928 Output Total 198 221 5 Balance 2061.528 2563.930 303.928 Weight 137 kg Intake: IV 1375 1375 125 Dextrose 5% in Water 1, 1375 1375 125 000 ml @ 125 mls/hr IV . Q9H12M [facility] with Sodium Bicarb (1 Meq/ml) 150 ml Rx#:[id number] Intake, IV Titration 103.996 2530.930 173.928 Amount Amiodarone 360 mg In 320.552 Dextrose 5% in Water 200 ml @ 1 MG/MIN 33.333 mls/ hr IV .Q6H [facility] Rx#: [id number] Azithromycin 500 mg In 250 Sodium Chloride 0.9% 250 ml @ 250 mls/hr IVPB DAILY [facility] Rx#:[id number] Cisatracurium 200 mg In 173.928 Sodium Chloride 0.9% 180 ml @ 1 MCG/KG/MIN 8.046 mls/hr IV .Q24H [facility] Rx#: [id number] Clindamycin 900 mg In 50 Dextrose 5% in Water 50 ml @ 50 mls/hr IVPB Q8HR [facility] Rx#:[id number] Insulin Regular 100 unit 66.400 In Sodium Chloride 0.9% 100 ml @ Titrate IV .Q0M [facility] Rx#:[id number] Norepinephrine 32 mg In 191.451 239.093 Sodium Chloride 0.9% 218 ml @ 0.03 MCG/KG/MIN 1. 722 mls/hr IV .Q24H [facility] Rx#:[id number] Vasopressin 60 unit In 129.132 Sodium Chloride 0.9% 150 ml @ 0.03 UNITS/MIN 4.59 mls/hr IV .Q24H [facility] Rx#: [id number] cefTRIAXone 2 gm In 50 Sodium Chloride 0.9% 50 ml @ 100 mls/hr IVPB Q24HR [facility] Rx#:[id number] propofoL 1,000 mg In 293.077 444.753 Empty Bag 1 bag @ 15 MCG/ KG/MIN 11.022 mls/hr IV . Q9H5M [facility] Rx#:[id number] Tube Feeding 50 120 10 Other 90 Output: Urine 198 221 5 Other: Voiding Method Indwelling Catheter Indwelling Catheter ABP, PAP, CO, CI - Last Documented Arterial Blood Pressure 104/63 - Labs CBC & Chem 7: 02/03/23 05:10 02/03/23 05:10 Labs: Abnormal Lab Results - Last 24 Hours (Table) 02/01/23 02/01/23 02/02/23 Range/Units 08:04 14:09 02:40 WBC 2.0 L (3.8-10.6) k/uL RBC (4.30-5.90) m/uL Hct (39.0-53.0) % MCV (80.0-100.0) fL RDW (11.5-15.5) % Plt Count 62 L (150-450) k/uL Neutrophils # (Manual) 0.40 L* (1.3-7.7) k/uL Metamyelocytes # (Man) 0.02 H (0) k/uL Myelocytes # (Manual) 0.02 H (0) k/uL Nucleated RBCs 29 H (0-0) /100 WBC Haptoglobin 337.0 H (31.2-198.0) mg/dL ABG pH (7.35-7.45) ABG pCO2 (35-45) mmHg ABG pO2 (83-108) mmHg ABG HCO3 (21-25) mmol/L ABG Total CO2 (19-24) mmol/L Sodium (137-145) mmol/L Potassium (3.5-5.1) mmol/L Carbon Dioxide (22-30) mmol/L BUN (9-20) mg/dL Creatinine (0.66-1.25) mg/dL Glucose (74-99) mg/dL POC Glucose (mg/dL) (70-110) mg/dL Calcium (8.4-10.2) mg/dL AST (17-59) U/L ALT (4-49) U/L Total Protein (6.3-8.2) g/dL Albumin (3.5-5.0) g/dL Procalcitonin >100.00 H (0.02-0.09) ng/mL 02/02/23 02/02/23 02/02/23 Range/Units 12:33 17:40 18:36 WBC (3.8-10.6) k/uL RBC (4.30-5.90) m/uL Hct (39.0-53.0) % MCV (80.0-100.0) fL RDW (11.5-15.5) % Plt Count (150-450) k/uL Neutrophils # (Manual) (1.3-7.7) k/uL Metamyelocytes # (Man) (0) k/uL Myelocytes # (Manual) (0) k/uL Nucleated RBCs (0-0) /100 WBC Haptoglobin (31.2-198.0) mg/dL ABG pH (7.35-7.45) ABG pCO2 (35-45) mmHg ABG pO2 (83-108) mmHg ABG HCO3 (21-25) mmol/L ABG Total CO2 (19-24) mmol/L Sodium (137-145) mmol/L Potassium (3.5-5.1) mmol/L Carbon Dioxide (22-30) mmol/L BUN (9-20) mg/dL Creatinine (0.66-1.25) mg/dL Glucose (74-99) mg/dL POC Glucose (mg/dL) 281 H 300 H 301 H (70-110) mg/dL Calcium (8.4-10.2) mg/dL AST (17-59) U/L ALT (4-49) U/L Total Protein (6.3-8.2) g/dL Albumin (3.5-5.0) g/dL Procalcitonin (0.02-0.09) ng/mL 02/02/23 02/02/23 02/02/23 Range/Units 20:01 21:23 22:37 WBC (3.8-10.6) k/uL RBC (4.30-5.90) m/uL Hct (39.0-53.0) % MCV (80.0-100.0) fL RDW (11.5-15.5) % Plt Count (150-450) k/uL Neutrophils # (Manual) (1.3-7.7) k/uL Metamyelocytes # (Man) (0) k/uL Myelocytes # (Manual) (0) k/uL Nucleated RBCs (0-0) /100 WBC Haptoglobin (31.2-198.0) mg/dL ABG pH (7.35-7.45) ABG pCO2 (35-45) mmHg ABG pO2 (83-108) mmHg ABG HCO3 (21-25) mmol/L ABG Total CO2 (19-24) mmol/L Sodium (137-145) mmol/L Potassium (3.5-5.1) mmol/L Carbon Dioxide (22-30) mmol/L BUN (9-20) mg/dL Creatinine (0.66-1.25) mg/dL Glucose (74-99) mg/dL POC Glucose (mg/dL) 275 H 277 H 265 H (70-110) mg/dL Calcium (8.4-10.2) mg/dL AST (17-59) U/L ALT (4-49) U/L Total Protein (6.3-8.2) g/dL Albumin (3.5-5.0) g/dL Procalcitonin (0.02-0.09) ng/mL 02/02/23 02/02/23 02/03/23 Range/Units 23:15 23:19 00:09 WBC (3.8-10.6) k/uL RBC (4.30-5.90) m/uL Hct (39.0-53.0) % MCV (80.0-100.0) fL RDW (11.5-15.5) % Plt Count (150-450) k/uL Neutrophils # (Manual) (1.3-7.7) k/uL Metamyelocytes # (Man) (0) k/uL Myelocytes # (Manual) (0) k/uL Nucleated RBCs (0-0) /100 WBC Haptoglobin (31.2-198.0) mg/dL ABG pH (7.35-7.45) ABG pCO2 (35-45) mmHg ABG pO2 (83-108) mmHg ABG HCO3 (21-25) mmol/L ABG Total CO2 (19-24) mmol/L Sodium (137-145) mmol/L Potassium (3.5-5.1) mmol/L Carbon Dioxide (22-30) mmol/L BUN (9-20) mg/dL Creatinine (0.66-1.25) mg/dL Glucose (74-99) mg/dL POC Glucose (mg/dL) 296 H 235 H 254 H (70-110) mg/dL Calcium (8.4-10.2) mg/dL AST (17-59) U/L ALT (4-49) U/L Total Protein (6.3-8.2) g/dL Albumin (3.5-5.0) g/dL Procalcitonin (0.02-0.09) ng/mL 02/03/23 02/03/23 02/03/23 Range/Units 01:25 03:22 04:42 WBC (3.8-10.6) k/uL RBC (4.30-5.90) m/uL Hct (39.0-53.0) % MCV (80.0-100.0) fL RDW (11.5-15.5) % Plt Count (150-450) k/uL Neutrophils # (Manual) (1.3-7.7) k/uL Metamyelocytes # (Man) (0) k/uL Myelocytes # (Manual) (0) k/uL Nucleated RBCs (0-0) /100 WBC Haptoglobin (31.2-198.0) mg/dL ABG pH (7.35-7.45) ABG pCO2 (35-45) mmHg ABG pO2 (83-108) mmHg ABG HCO3 (21-25) mmol/L ABG Total CO2 (19-24) mmol/L Sodium (137-145) mmol/L Potassium (3.5-5.1) mmol/L Carbon Dioxide (22-30) mmol/L BUN (9-20) mg/dL Creatinine (0.66-1.25) mg/dL Glucose (74-99) mg/dL POC Glucose (mg/dL) 232 H 209 H 192 H (70-110) mg/dL Calcium (8.4-10.2) mg/dL AST (17-59) U/L ALT (4-49) U/L Total Protein (6.3-8.2) g/dL Albumin (3.5-5.0) g/dL Procalcitonin (0.02-0.09) ng/mL 02/03/23 02/03/23 02/03/23 Range/Units 05:10 05:10 05:37 WBC 2.4 L (3.8-10.6) k/uL RBC 2.19 L (4.30-5.90) m/uL Hct 22.7 L (39.0-53.0) % MCV 103.7 H (80.0-100.0) fL RDW 16.3 H (11.5-15.5) % Plt Count (150-450) k/uL Neutrophils # (Manual) (1.3-7.7) k/uL Metamyelocytes # (Man) (0) k/uL Myelocytes # (Manual) (0) k/uL Nucleated RBCs (0-0) /100 WBC Haptoglobin (31.2-198.0) mg/dL ABG pH (7.35-7.45) ABG pCO2 (35-45) mmHg ABG pO2 (83-108) mmHg ABG HCO3 (21-25) mmol/L ABG Total CO2 (19-24) mmol/L Sodium 134 L (137-145) mmol/L Potassium 3.0 L (3.5-5.1) mmol/L Carbon Dioxide 18 L (22-30) mmol/L BUN 65 H (9-20) mg/dL Creatinine 3.71 H (0.66-1.25) mg/dL Glucose 131 H (74-99) mg/dL POC Glucose (mg/dL) 177 H (70-110) mg/dL Calcium 4.4 L* (8.4-10.2) mg/dL AST 341 H (17-59) U/L ALT 349 H (4-49) U/L Total Protein 3.8 L (6.3-8.2) g/dL Albumin 1.7 L (3.5-5.0) g/dL Procalcitonin (0.02-0.09) ng/mL 02/03/23 02/03/23 Range/Units 06:22 06:55 WBC (3.8-10.6) k/uL RBC (4.30-5.90) m/uL Hct (39.0-53.0) % MCV (80.0-100.0) fL RDW (11.5-15.5) % Plt Count (150-450) k/uL Neutrophils # (Manual) (1.3-7.7) k/uL Metamyelocytes # (Man) (0) k/uL Myelocytes # (Manual) (0) k/uL Nucleated RBCs (0-0) /100 WBC Haptoglobin (31.2-198.0) mg/dL ABG pH 7.30 L (7.35-7.45) ABG pCO2 53 H (35-45) mmHg ABG pO2 79 L (83-108) mmHg ABG HCO3 26 H (21-25) mmol/L ABG Total CO2 28 H (19-24) mmol/L Sodium (137-145) mmol/L Potassium (3.5-5.1) mmol/L Carbon Dioxide (22-30) mmol/L BUN (9-20) mg/dL Creatinine (0.66-1.25) mg/dL Glucose (74-99) mg/dL POC Glucose (mg/dL) 163 H (70-110) mg/dL Calcium (8.4-10.2) mg/dL AST (17-59) U/L ALT (4-49) U/L Total Protein (6.3-8.2) g/dL Albumin (3.5-5.0) g/dL Procalcitonin (0.02-0.09) ng/mL Microbiology - Last 24 Hours (Table) 02/01/23 00:18 Blood Culture Gram Stain - Preliminary Blood Blood Culture - Preliminary Beta Hemolytic Strep Group G
[2023-02-03] MEDS ORDERED: Potassium Replacement Protocol 1 EACH MISC MISCELLANE PRN (08:02)
[2023-02-03] MEDS ORDERED: Magnesium Replacement Protocol 1 EACH MISC MISCELLANE PRN (08:02)
[2023-02-03] MEDS: CHLORHEXIDINE GLUCONATE 15 ML CUP MUCOUS MEM SCH ×2 (08:12→20:28)
[2023-02-03 08:15] LABS: Band Neutrophils % 2 %; Eosinophils # (M) 0.02 k/uL (0-0.7); Neutrophils % (M) 13 %
[2023-02-03] MEDS: FILGRASTIM-SNDZ 480 MCG/0.8 ML SYRINGE SQ SCH (08:15)
[2023-02-03 08:17] LABS: Metamyelocytes # (M) 0.14 k/uL (0); Metamyelocytes % 6 %; Myelocytes % 4 %; Nucleated Red Blood Cells 4 /100 WBC (0-0); Total Cells Counted 100
[2023-02-03 08:18] LABS: Lymphocytes # (M) 1.43 k/uL (1.0-4.8); Monocytes # (M) 0.28 k/uL (0-1.0); Myelocytes # (M) 0.09 k/uL (0); WBC 2.3 k/uL (3.8-10.6)
--- NOTE | 2023-02-03 08:25 | XR ---
EXAMINATION TYPE: XR chest 1V portable DATE OF EXAM: 02/03/2023 COMPARISON: 02/02/2023 HISTORY: Shortness of breath TECHNIQUE: Single frontal view of the chest is obtained. FINDINGS: Bilateral and joint pleural effusion rest. Congestion. ET tube, G-tube and central line stable. No sizable thorax. Size stable. Hypertrophic deg enerative changes spine IMPRESSION: 1. Mild progression in bilateral pleural effusion. Underlying venous congestion in the differential d iagnosis.
[2023-02-03 08:52] LABS: Glucose,Whole Blood 152 mg/dL (70-110)
[2023-02-03] MEDS ORDERED: POTASSIUM CHLORIDE ER 20 MEQ TAB.ER PO SCH (09:00)
--- NOTE | 2023-02-03 10:01 | P.PN ---
Subjective Progress Note Date: 02/03/23 67-year-old male with a history of hypertension, hyperlipidemia, and gout. Presents to the emergency department on January 31, complaining of shortness of breath. He also complained of cough. He apparently recently was in [facility], about a week and a half or 2 weeks ago. On today's evaluation of 02/03/2022, I'm seeing the patient for a follow-up. He remains intubated on a mechanical ventilator. The patient is an septic shock with multisystem organ failure. To me, the exact source of the strep into his blood is not clear. The patient had positive positive blood culture with beta- hemolytic strep group G. The patient remains on a combination of clindamycin and IV Rocephin. At this point in time, the patient is intubated on a mechanical ventilator. He is on propofol running at 50 mcg/kg/m and is also on Nimbex at 1 mcg/kg/m. His adequately sedated and paralyzed for now. He is on assist-control mode of mechanical ventilation, at the rate of 28, tidal volume 400, FiO2 of 50% with a PEEP of 10. He remains on pressors. Norepinephrine is running at 0.32 mcg/kg/m and the patient is also physiologic vasopressin dose of 0.04 units minutes. The patient remains oliguric, hypotensive, tachycardic, his cardiac rhythm is atrial fibrillation he remains on amiodarone drip running at 1 mg/m. His urine output is in order of 5-10 mL an hour. IV fluids are currently running in the form of bicarbonate infusion at the rate of 125 mL an hour. Is in a pathologic profile is obviously abnormal. His echoes improved and is currently up to 2.3. He has a drop in hemoglobin down to 7.7 and a drop in a platelet count down to 84. This could be related to underlying DIC as the patient has also abnormal coagulation profile. D-dimer is at 9.9. Fibrinogen is at 05/06/2003. The patient also has an acute kidney injury. Creatinine was up to 3.7 with a BUN of 65, serum bicarbs of 18, the patient has a hiatus lactic acid level of 8.1, LFTs are abnormal, he had a acute rhabdomyolysis and the CPK has been down trending down to 12,607. Pro-calcitonin level was above 1000. The patient's echo cardiac rhythm showed impaired LV function with ejection fraction of 25%. The chest x-ray from today is showing adequate expansion of both lungs. No evidence of any pneumothorax. There is some limited subpulmonic bilateral pleural effusions. The blood gas also shows a pH of 7.3 with a pCO2 of 53 and pO2 of 79. The patient's triple lumen cath in his left IJ. Calcium level is at 4.4. Potassium levels at 3.0. The patient is also on an insulin drip running at 12 units an hour. Objective - Vital Signs Vital signs: Vital Signs Temp 98.5 F 02/03/23 08:00 Pulse 118 H 02/03/23 08:14 Resp 28 H 02/03/23 08:00 BP 102/80 02/01/23 14:00 Pulse Ox 94 L 02/03/23 08:00 FiO2 50 02/03/23 08:00 Intake & Output 02/02/23 02/03/23 02/03/23 18:59 06:59 18:59 Intake Total 2259.528 2784.930 843.248 Output Total 198 221 15 Balance 2061.528 2563.930 828.248 Weight 137 kg Intake: IV 1375 1375 250 Dextrose 5% in Water 1, 1375 1375 250 000 ml @ 125 mls/hr IV . Q9H12M [facility] with Sodium Bicarb (1 Meq/ml) 150 ml Rx#:[id number] Intake, IV Titration 674.662 6530.930 493.248 Amount Amiodarone 360 mg In 320.552 142.776 Dextrose 5% in Water 200 ml @ 1 MG/MIN 33.333 mls/ hr IV .Q6H [facility] Rx#: [id number] Azithromycin 500 mg In 250 Sodium Chloride 0.9% 250 ml @ 250 mls/hr IVPB DAILY [facility] Rx#:[id number] Cisatracurium 200 mg In 173.928 Sodium Chloride 0.9% 180 ml @ 1 MCG/KG/MIN 8.046 mls/hr IV .Q24H [facility] Rx#: [id number] Clindamycin 900 mg In 50 50 Dextrose 5% in Water 50 ml @ 50 mls/hr IVPB Q8HR [facility] Rx#:[id number] Insulin Regular 100 unit 66.400 In Sodium Chloride 0.9% 100 ml @ Titrate IV .Q0M [facility] Rx#:[id number] Norepinephrine 32 mg In 191.451 239.093 Sodium Chloride 0.9% 218 ml @ 0.03 MCG/KG/MIN 1. 722 mls/hr IV .Q24H [facility] Rx#:[id number] Vasopressin 60 unit In 129.132 Sodium Chloride 0.9% 150 ml @ 0.03 UNITS/MIN 4.59 mls/hr IV .Q24H [facility] Rx#: [id number] cefTRIAXone 2 gm In 50 50 Sodium Chloride 0.9% 50 ml @ 100 mls/hr IVPB Q24HR [facility] Rx#:[id number] propofoL 1,000 mg In 293.077 444.753 76.544 Empty Bag 1 bag @ 15 MCG/ KG/MIN 11.022 mls/hr IV . Q9H5M [facility] Rx#:[id number] Oral 80 Tube Feeding 50 120 20 Other 90 Output: Urine 198 221 15 Other: Voiding Method Indwelling Catheter Indwelling Catheter Indwelling Catheter ABP, PAP, CO, CI - Last Documented Arterial Blood Pressure 98/58 - Exam Sedated, with an orally placed endotracheal tube and NG tube. Patient is also on paralytics and is on a combination propofol and Nimbex Head exam was generally normal. There was no scleral icterus or corneal arcus. Mucous membranes were moist. HEENT examination is grossly unremarkable. The patient has a left IJ triple lumen catheter Neck supple. Full range of motion. No adenopathy thyromegaly or neck vein distention. Cardiovascular examination reveals regular rhythm rate. S1-S2 normal. No S3 or S4. No discernible murmur noted. Lungs reveal mostly clear breath sounds. Her sounds are equal bilaterally. Minimal scattered rhonchi. No wheezes or crackles. Abdomen soft, without bowel sounds. No masses or tenderness.. Extremities are intact. No cyanosis, clubbing, or significant edema. Skin reveals livedo reticularis of the lower extremities, which is improved. Neurologic examination cannot be assessed at this time. - Labs CBC & Chem 7: 02/03/23 05:10 02/03/23 05:10 Labs: Abnormal Lab Results - Last 24 Hours (Table) 02/01/23 02/01/23 02/02/23 Range/Units 08:04 14:09 12:33 WBC (3.8-10.6) k/uL RBC (4.30-5.90) m/uL Hgb (13.0-17.5) gm/dL Hct (39.0-53.0) % MCV (80.0-100.0) fL RDW (11.5-15.5) % Plt Count (150-450) k/uL Haptoglobin 337.0 H (31.2-198.0) mg/dL ABG pH (7.35-7.45) ABG pCO2 (35-45) mmHg ABG pO2 (83-108) mmHg ABG HCO3 (21-25) mmol/L ABG Total CO2 (19-24) mmol/L Sodium (137-145) mmol/L Potassium (3.5-5.1) mmol/L Carbon Dioxide (22-30) mmol/L BUN (9-20) mg/dL Creatinine (0.66-1.25) mg/dL Glucose (74-99) mg/dL POC Glucose (mg/dL) 281 H (70-110) mg/dL Calcium (8.4-10.2) mg/dL AST (17-59) U/L ALT (4-49) U/L Total Protein (6.3-8.2) g/dL Albumin (3.5-5.0) g/dL Procalcitonin >100.00 H (0.02-0.09) ng/mL 02/02/23 02/02/23 02/02/23 Range/Units 17:40 18:36 20:01 WBC (3.8-10.6) k/uL RBC (4.30-5.90) m/uL Hgb (13.0-17.5) gm/dL Hct (39.0-53.0) % MCV (80.0-100.0) fL RDW (11.5-15.5) % Plt Count (150-450) k/uL Haptoglobin (31.2-198.0) mg/dL ABG pH (7.35-7.45) ABG pCO2 (35-45) mmHg ABG pO2 (83-108) mmHg ABG HCO3 (21-25) mmol/L ABG Total CO2 (19-24) mmol/L Sodium (137-145) mmol/L Potassium (3.5-5.1) mmol/L Carbon Dioxide (22-30) mmol/L BUN (9-20) mg/dL Creatinine (0.66-1.25) mg/dL Glucose (74-99) mg/dL POC Glucose (mg/dL) 300 H 301 H 275 H (70-110) mg/dL Calcium (8.4-10.2) mg/dL AST (17-59) U/L ALT (4-49) U/L Total Protein (6.3-8.2) g/dL Albumin (3.5-5.0) g/dL Procalcitonin (0.02-0.09) ng/mL 02/02/23 02/02/23 02/02/23 Range/Units 21:23 22:37 23:15 WBC (3.8-10.6) k/uL RBC (4.30-5.90) m/uL Hgb (13.0-17.5) gm/dL Hct (39.0-53.0) % MCV (80.0-100.0) fL RDW (11.5-15.5) % Plt Count (150-450) k/uL Haptoglobin (31.2-198.0) mg/dL ABG pH (7.35-7.45) ABG pCO2 (35-45) mmHg ABG pO2 (83-108) mmHg ABG HCO3 (21-25) mmol/L ABG Total CO2 (19-24) mmol/L Sodium (137-145) mmol/L Potassium (3.5-5.1) mmol/L Carbon Dioxide (22-30) mmol/L BUN (9-20) mg/dL Creatinine (0.66-1.25) mg/dL Glucose (74-99) mg/dL POC Glucose (mg/dL) 277 H 265 H 296 H (70-110) mg/dL Calcium (8.4-10.2) mg/dL AST (17-59) U/L ALT (4-49) U/L Total Protein (6.3-8.2) g/dL Albumin (3.5-5.0) g/dL Procalcitonin (0.02-0.09) ng/mL 02/02/23 02/03/23 02/03/23 Range/Units 23:19 00:09 01:25 WBC (3.8-10.6) k/uL RBC (4.30-5.90) m/uL Hgb (13.0-17.5) gm/dL Hct (39.0-53.0) % MCV (80.0-100.0) fL RDW (11.5-15.5) % Plt Count (150-450) k/uL Haptoglobin (31.2-198.0) mg/dL ABG pH (7.35-7.45) ABG pCO2 (35-45) mmHg ABG pO2 (83-108) mmHg ABG HCO3 (21-25) mmol/L ABG Total CO2 (19-24) mmol/L Sodium (137-145) mmol/L Potassium (3.5-5.1) mmol/L Carbon Dioxide (22-30) mmol/L BUN (9-20) mg/dL Creatinine (0.66-1.25) mg/dL Glucose (74-99) mg/dL POC Glucose (mg/dL) 235 H 254 H 232 H (70-110) mg/dL Calcium (8.4-10.2) mg/dL AST (17-59) U/L ALT (4-49) U/L Total Protein (6.3-8.2) g/dL Albumin (3.5-5.0) g/dL Procalcitonin (0.02-0.09) ng/mL 02/03/23 02/03/23 02/03/23 Range/Units 03:22 04:42 05:10 WBC (3.8-10.6) k/uL RBC (4.30-5.90) m/uL Hgb (13.0-17.5) gm/dL Hct (39.0-53.0) % MCV (80.0-100.0) fL RDW (11.5-15.5) % Plt Count (150-450) k/uL Haptoglobin (31.2-198.0) mg/dL ABG pH (7.35-7.45) ABG pCO2 (35-45) mmHg ABG pO2 (83-108) mmHg ABG HCO3 (21-25) mmol/L ABG Total CO2 (19-24) mmol/L Sodium 134 L (137-145) mmol/L Potassium 3.0 L (3.5-5.1) mmol/L Carbon Dioxide 18 L (22-30) mmol/L BUN 65 H (9-20) mg/dL Creatinine 3.71 H (0.66-1.25) mg/dL Glucose 131 H (74-99) mg/dL POC Glucose (mg/dL) 209 H 192 H (70-110) mg/dL Calcium 4.4 L* (8.4-10.2) mg/dL AST 341 H (17-59) U/L ALT 349 H (4-49) U/L Total Protein 3.8 L (6.3-8.2) g/dL Albumin 1.7 L (3.5-5.0) g/dL Procalcitonin (0.02-0.09) ng/mL 02/03/23 02/03/23 02/03/23 Range/Units 05:10 05:37 06:22 WBC 2.3 L (3.8-10.6) k/uL RBC 2.19 L (4.30-5.90) m/uL Hgb 7.7 L D (13.0-17.5) gm/dL Hct 22.7 L (39.0-53.0) % MCV 103.7 H (80.0-100.0) fL RDW 16.3 H (11.5-15.5) % Plt Count 24 L D (150-450) k/uL Haptoglobin (31.2-198.0) mg/dL ABG pH 7.30 L (7.35-7.45) ABG pCO2 53 H (35-45) mmHg ABG pO2 79 L (83-108) mmHg ABG HCO3 26 H (21-25) mmol/L ABG Total CO2 28 H (19-24) mmol/L Sodium (137-145) mmol/L Potassium (3.5-5.1) mmol/L Carbon Dioxide (22-30) mmol/L BUN (9-20) mg/dL Creatinine (0.66-1.25) mg/dL Glucose (74-99) mg/dL POC Glucose (mg/dL) 177 H (70-110) mg/dL Calcium (8.4-10.2) mg/dL AST (17-59) U/L ALT (4-49) U/L Total Protein (6.3-8.2) g/dL Albumin (3.5-5.0) g/dL Procalcitonin (0.02-0.09) ng/mL 02/03/23 02/03/23 Range/Units 06:55 08:50 WBC (3.8-10.6) k/uL RBC (4.30-5.90) m/uL Hgb (13.0-17.5) gm/dL Hct (39.0-53.0) % MCV (80.0-100.0) fL RDW (11.5-15.5) % Plt Count (150-450) k/uL Haptoglobin (31.2-198.0) mg/dL ABG pH (7.35-7.45) ABG pCO2 (35-45) mmHg ABG pO2 (83-108) mmHg ABG HCO3 (21-25) mmol/L ABG Total CO2 (19-24) mmol/L Sodium (137-145) mmol/L Potassium (3.5-5.1) mmol/L Carbon Dioxide (22-30) mmol/L BUN (9-20) mg/dL Creatinine (0.66-1.25) mg/dL Glucose (74-99) mg/dL POC Glucose (mg/dL) 163 H 152 H (70-110) mg/dL Calcium (8.4-10.2) mg/dL AST (17-59) U/L ALT (4-49) U/L Total Protein (6.3-8.2) g/dL Albumin (3.5-5.0) g/dL Procalcitonin (0.02-0.09) ng/mL Microbiology - Last 24 Hours (Table) 02/01/23 00:18 Blood Culture Gram Stain - Preliminary Blood Blood Culture - Preliminary Beta Hemolytic Strep Group G Assessment and Plan Plan: Acute hypoxemic respiratory failure, requiring intubation and mechanical ventilation, on 02/01/2023. Acute septic shock with evidence of multisystem organ failure secondary to streptococcal septicemia. Exact source is not clear. It could be bilateral pneumonia although other sources cannot be completely ruled out. No evidence of any endocarditis. No evidence of any soft tissue infection. Acute hypotension secondary to above, currently on high-dose pressors and the patient is currently on a combination of norepinephrine and vasopressin Acute bone marrow suppression secondary to septic shock, white second is gradually improving Acute DIC secondary to septic shock, the patient has developed anemia and thrombocytopenia. No evidence of any bleeding Acute kidney failure secondary to above and the patient is currently oliguric, not ready for hemodialysis yet. Acute rhabdomyolysis, CPK is gradually improving Acute lactic acidosis, improved and the patient remains on a bicarb drip to replace the bicarb deficit Acute febrile illness secondary to above Hypertension history of Hyperlipidemia, history of Gout, history of Chronic atrial fibrillation, currently on IV amiodarone Severe cardiomyopathy with an ejection fraction of 25%, chronic versus acute myocardial suppression to septic shock. Plan Continue ventilator support, no ventilator changes without for today Keep the patient sedated and paralyzed for now Continue the bicarb infusion lingula and give the patient 2 L of normal saline infusion for now. Continue pressors Monitor fluid balance and electrolytes. Urine output remains low. Not ready for hemodialysis yet. Potassium is being replaced. Calcium be replaced. No signs of any significant fluid overload at this point in time. Monitor hematologic profile Continue the IV amiodarone Continue Rocephin and clindamycin Check cortisol level and add hydrocortisone should the patient be relatively adrenal insufficient Repeat CPK level Condition is extremely critical. We'll continue to follow, update the family in his condition and make further recommendations based on his progress. Evaluation was done in more than 30 minutes. Case was discussed with nephrology. Time with Patient: Greater than 30
[2023-02-03] MEDS ORDERED: SODIUM CHLORIDE 0.9% 2,000 ML IV ONE (10:06)
[2023-02-03 10:15] LABS: Glucose,Whole Blood 134 mg/dL (70-110)
[2023-02-03] MEDS: POTASSIUM BICARBONATE/CIT AC 20 MEQ TABLET.EFF PO SCH ×3 (10:27→10:30)
--- NOTE | 2023-02-03 10:34 | P.PN ---
Subjective Patient is seen in follow-up for acute kidney injury. Creatinine trending down however oliguric. Currently on Levophed and vasopressin. Also on amiodarone drip. Receiving tube feeds. On bicarb drip. Intubated. Vital signs - on vasopressor support. Blood pressure on the lower side. In A. fib. General: Laying in bed. HEENT: Intubated. LUNGS: Scattered rhonchi. HEART: Irregular rate and rhythm. ABDOMEN: No distention. Obese. EXTREMITITES: Trace edema. Objective - Vital Signs Vital signs: Vital Signs Temp 98.5 F 02/03/23 08:00 Pulse 118 H 02/03/23 08:14 Resp 28 H 02/03/23 08:00 BP 102/80 02/01/23 14:00 Pulse Ox 94 L 02/03/23 08:00 FiO2 50 02/03/23 08:00 Intake & Output 02/02/23 02/03/23 02/03/23 18:59 06:59 18:59 Intake Total 2259.528 2784.930 843.248 Output Total 198 221 15 Balance 2061.528 2563.930 828.248 Weight 137 kg Intake: IV 1375 1375 250 Dextrose 5% in Water 1, 1375 1375 250 000 ml @ 125 mls/hr IV . Q9H12M [facility] with Sodium Bicarb (1 Meq/ml) 150 ml Rx#:[id number] Intake, IV Titration 342.954 9542.930 493.248 Amount Amiodarone 360 mg In 320.552 142.776 Dextrose 5% in Water 200 ml @ 1 MG/MIN 33.333 mls/ hr IV .Q6H [facility] Rx#: [id number] Azithromycin 500 mg In 250 Sodium Chloride 0.9% 250 ml @ 250 mls/hr IVPB DAILY [facility] Rx#:[id number] Cisatracurium 200 mg In 173.928 Sodium Chloride 0.9% 180 ml @ 1 MCG/KG/MIN 8.046 mls/hr IV .Q24H [facility] Rx#: [id number] Clindamycin 900 mg In 50 50 Dextrose 5% in Water 50 ml @ 50 mls/hr IVPB Q8HR [facility] Rx#:[id number] Insulin Regular 100 unit 66.400 In Sodium Chloride 0.9% 100 ml @ Titrate IV .Q0M [facility] Rx#:[id number] Norepinephrine 32 mg In 191.451 239.093 Sodium Chloride 0.9% 218 ml @ 0.03 MCG/KG/MIN 1. 722 mls/hr IV .Q24H [facility] Rx#:[id number] Vasopressin 60 unit In 129.132 Sodium Chloride 0.9% 150 ml @ 0.03 UNITS/MIN 4.59 mls/hr IV .Q24H [facility] Rx#: [id number] cefTRIAXone 2 gm In 50 50 Sodium Chloride 0.9% 50 ml @ 100 mls/hr IVPB Q24HR [facility] Rx#:[id number] propofoL 1,000 mg In 293.077 444.753 76.544 Empty Bag 1 bag @ 15 MCG/ KG/MIN 11.022 mls/hr IV . Q9H5M [facility] Rx#:[id number] Oral 80 Tube Feeding 50 120 20 Other 90 Output: Urine 198 221 15 Other: Voiding Method Indwelling Catheter Indwelling Catheter Indwelling Catheter ABP, PAP, CO, CI - Last Documented Arterial Blood Pressure 98/58 - Labs CBC & Chem 7: 02/03/23 05:10 02/03/23 05:10 Labs: Abnormal Lab Results - Last 24 Hours (Table) 02/01/23 02/01/23 02/02/23 Range/Units 08:04 14:09 12:33 WBC (3.8-10.6) k/uL RBC (4.30-5.90) m/uL Hgb (13.0-17.5) gm/dL Hct (39.0-53.0) % MCV (80.0-100.0) fL RDW (11.5-15.5) % Plt Count (150-450) k/uL Haptoglobin 337.0 H (31.2-198.0) mg/dL ABG pH (7.35-7.45) ABG pCO2 (35-45) mmHg ABG pO2 (83-108) mmHg ABG HCO3 (21-25) mmol/L ABG Total CO2 (19-24) mmol/L Sodium (137-145) mmol/L Potassium (3.5-5.1) mmol/L Carbon Dioxide (22-30) mmol/L BUN (9-20) mg/dL Creatinine (0.66-1.25) mg/dL Glucose (74-99) mg/dL POC Glucose (mg/dL) 281 H (70-110) mg/dL Calcium (8.4-10.2) mg/dL AST (17-59) U/L ALT (4-49) U/L Total Protein (6.3-8.2) g/dL Albumin (3.5-5.0) g/dL Procalcitonin >100.00 H (0.02-0.09) ng/mL 02/02/23 02/02/23 02/02/23 Range/Units 17:40 18:36 20:01 WBC (3.8-10.6) k/uL RBC (4.30-5.90) m/uL Hgb (13.0-17.5) gm/dL Hct (39.0-53.0) % MCV (80.0-100.0) fL RDW (11.5-15.5) % Plt Count (150-450) k/uL Haptoglobin (31.2-198.0) mg/dL ABG pH (7.35-7.45) ABG pCO2 (35-45) mmHg ABG pO2 (83-108) mmHg ABG HCO3 (21-25) mmol/L ABG Total CO2 (19-24) mmol/L Sodium (137-145) mmol/L Potassium (3.5-5.1) mmol/L Carbon Dioxide (22-30) mmol/L BUN (9-20) mg/dL Creatinine (0.66-1.25) mg/dL Glucose (74-99) mg/dL POC Glucose (mg/dL) 300 H 301 H 275 H (70-110) mg/dL Calcium (8.4-10.2) mg/dL AST (17-59) U/L ALT (4-49) U/L Total Protein (6.3-8.2) g/dL Albumin (3.5-5.0) g/dL Procalcitonin (0.02-0.09) ng/mL 02/02/23 02/02/23 02/02/23 Range/Units 21:23 22:37 23:15 WBC (3.8-10.6) k/uL RBC (4.30-5.90) m/uL Hgb (13.0-17.5) gm/dL Hct (39.0-53.0) % MCV (80.0-100.0) fL RDW (11.5-15.5) % Plt Count (150-450) k/uL Haptoglobin (31.2-198.0) mg/dL ABG pH (7.35-7.45) ABG pCO2 (35-45) mmHg ABG pO2 (83-108) mmHg ABG HCO3 (21-25) mmol/L ABG Total CO2 (19-24) mmol/L Sodium (137-145) mmol/L Potassium (3.5-5.1) mmol/L Carbon Dioxide (22-30) mmol/L BUN (9-20) mg/dL Creatinine (0.66-1.25) mg/dL Glucose (74-99) mg/dL POC Glucose (mg/dL) 277 H 265 H 296 H (70-110) mg/dL Calcium (8.4-10.2) mg/dL AST (17-59) U/L ALT (4-49) U/L Total Protein (6.3-8.2) g/dL Albumin (3.5-5.0) g/dL Procalcitonin (0.02-0.09) ng/mL 02/02/23 02/03/23 02/03/23 Range/Units 23:19 00:09 01:25 WBC (3.8-10.6) k/uL RBC (4.30-5.90) m/uL Hgb (13.0-17.5) gm/dL Hct (39.0-53.0) % MCV (80.0-100.0) fL RDW (11.5-15.5) % Plt Count (150-450) k/uL Haptoglobin (31.2-198.0) mg/dL ABG pH (7.35-7.45) ABG pCO2 (35-45) mmHg ABG pO2 (83-108) mmHg ABG HCO3 (21-25) mmol/L ABG Total CO2 (19-24) mmol/L Sodium (137-145) mmol/L Potassium (3.5-5.1) mmol/L Carbon Dioxide (22-30) mmol/L BUN (9-20) mg/dL Creatinine (0.66-1.25) mg/dL Glucose (74-99) mg/dL POC Glucose (mg/dL) 235 H 254 H 232 H (70-110) mg/dL Calcium (8.4-10.2) mg/dL AST (17-59) U/L ALT (4-49) U/L Total Protein (6.3-8.2) g/dL Albumin (3.5-5.0) g/dL Procalcitonin (0.02-0.09) ng/mL 02/03/23 02/03/23 02/03/23 Range/Units 03:22 04:42 05:10 WBC (3.8-10.6) k/uL RBC (4.30-5.90) m/uL Hgb (13.0-17.5) gm/dL Hct (39.0-53.0) % MCV (80.0-100.0) fL RDW (11.5-15.5) % Plt Count (150-450) k/uL Haptoglobin (31.2-198.0) mg/dL ABG pH (7.35-7.45) ABG pCO2 (35-45) mmHg ABG pO2 (83-108) mmHg ABG HCO3 (21-25) mmol/L ABG Total CO2 (19-24) mmol/L Sodium 134 L (137-145) mmol/L Potassium 3.0 L (3.5-5.1) mmol/L Carbon Dioxide 18 L (22-30) mmol/L BUN 65 H (9-20) mg/dL Creatinine 3.71 H (0.66-1.25) mg/dL Glucose 131 H (74-99) mg/dL POC Glucose (mg/dL) 209 H 192 H (70-110) mg/dL Calcium 4.4 L* (8.4-10.2) mg/dL AST 341 H (17-59) U/L ALT 349 H (4-49) U/L Total Protein 3.8 L (6.3-8.2) g/dL Albumin 1.7 L (3.5-5.0) g/dL Procalcitonin (0.02-0.09) ng/mL 02/03/23 02/03/23 02/03/23 Range/Units 05:10 05:37 06:22 WBC 2.3 L (3.8-10.6) k/uL RBC 2.19 L (4.30-5.90) m/uL Hgb 7.7 L D (13.0-17.5) gm/dL Hct 22.7 L (39.0-53.0) % MCV 103.7 H (80.0-100.0) fL RDW 16.3 H (11.5-15.5) % Plt Count 24 L D (150-450) k/uL Haptoglobin (31.2-198.0) mg/dL ABG pH 7.30 L (7.35-7.45) ABG pCO2 53 H (35-45) mmHg ABG pO2 79 L (83-108) mmHg ABG HCO3 26 H (21-25) mmol/L ABG Total CO2 28 H (19-24) mmol/L Sodium (137-145) mmol/L Potassium (3.5-5.1) mmol/L Carbon Dioxide (22-30) mmol/L BUN (9-20) mg/dL Creatinine (0.66-1.25) mg/dL Glucose (74-99) mg/dL POC Glucose (mg/dL) 177 H (70-110) mg/dL Calcium (8.4-10.2) mg/dL AST (17-59) U/L ALT (4-49) U/L Total Protein (6.3-8.2) g/dL Albumin (3.5-5.0) g/dL Procalcitonin (0.02-0.09) ng/mL 02/03/23 02/03/23 02/03/23 Range/Units 06:55 08:50 10:13 WBC (3.8-10.6) k/uL RBC (4.30-5.90) m/uL Hgb (13.0-17.5) gm/dL Hct (39.0-53.0) % MCV (80.0-100.0) fL RDW (11.5-15.5) % Plt Count (150-450) k/uL Haptoglobin (31.2-198.0) mg/dL ABG pH (7.35-7.45) ABG pCO2 (35-45) mmHg ABG pO2 (83-108) mmHg ABG HCO3 (21-25) mmol/L ABG Total CO2 (19-24) mmol/L Sodium (137-145) mmol/L Potassium (3.5-5.1) mmol/L Carbon Dioxide (22-30) mmol/L BUN (9-20) mg/dL Creatinine (0.66-1.25) mg/dL Glucose (74-99) mg/dL POC Glucose (mg/dL) 163 H 152 H 134 H (70-110) mg/dL Calcium (8.4-10.2) mg/dL AST (17-59) U/L ALT (4-49) U/L Total Protein (6.3-8.2) g/dL Albumin (3.5-5.0) g/dL Procalcitonin (0.02-0.09) ng/mL Microbiology - Last 24 Hours (Table) 02/01/23 00:18 Blood Culture Gram Stain - Preliminary Blood Blood Culture - Preliminary Beta Hemolytic Strep Group G Assessment and Plan Plan: Assessment: 1. Acute kidney injury secondary to ATN secondary to septic shock. Baseline creatinine near 1. Creatinine 3.5 on admission and peaked at 4.33 - 3.71 today. Oliguric. No hydronephrosis noted on kidney ultrasound. 2. A. fib with RVR maintain on amiodarone drip. Cardiology following. 3. Metabolic acidosis secondary to acute kidney injury and lactic acidosis. 4. Hypokalemia from poor intake. 5. Hypocalcemia secondary to acute kidney injury. Corrected calcium near 6.2. 6. Septic shock with blood culture positive for beta hemolytic strep group G. On vasopressors. 7. Acute hypoxic respiratory failure. 8. Cardiomyopathy with ejection fraction of 25-30%. 9. Pancytopenia. Haptoglobin high. Consider hematology developed. Plan: Maintain bicarb drip. Potassium and calcium being replaced. Wean FiO2 and vasopressors. Receiving fluid bolus. Maintain tube feeds. Status post 120 mg of IV Lasix given in 02/02/2023 with no significant response in urine output. Repeat BMP this afternoon. Check phosphorus level as well. Continue to assess daily for need for renal replacement therapy. Patient currently hemodynamically very unstable for renal replacement therapy. Case discussed with superintendent measurement.
[2023-02-03 10:40] LABS: Rheumatoid Factor, Qnt 29 IU/mL (0-15)
[2023-02-03] MEDS ORDERED: CALCIUM GLUCONATE IN NACL 2 GM in SALINE 1 100ML.BAG IVPB ONE (11:00)
[2023-02-03 11:05] LABS: Vitamin B12 >3600.0 pg/mL (200.0-944.0)
--- NOTE | 2023-02-03 11:15 | P.PN ---
Subjective Progress Note Date: 02/03/[address] [facility], came back 1 week ago. He was doing well up until the day prior to admission when he spiked a fever and felt pain in his knees. Prior to admission, he had sudden onset shortness of breath and presented to the hospital for further evaluation. At the time of admission, patient was tachypneic, tachycardic, slowly becoming hypoxic and required BiPAP. Laboratory workup sh owed WBC of 0.9, with neutrophil 0.1, pancytopenia, acute kidney injury with creatinine of 2.53, transaminitis, lactic acidosis with lactate of 8.1, rhabdomyolysis with CK of 15,000. Pulmonology was consulted. Patient was transferred to medical ICU, currently intubated and sedated. His workup rev ealed beta-hemolytic strep group G bacteremia. Currently on IV antibiotics. In septic shock, on vasopressors. Remains anuric, nephrology following. Also in A. fib with RVR, currently on amiodarone drip, cardiology following. Subjective: Patient seen and examined at bedside. Currently intubated and sedated. On multiple pressors. Poor urine output. Pertinent positives and negatives as discussed above, a complete review of systems was performed and all other systems are negative. Vitals Signs Reviewed. General: nontoxic, no distress, appears at stated age, intubated and sedated, Derm: warm, dry, slight erythema noted on the left calf, lower extremity mottling has resolved Head: atraumatic, normocephalic, symmetric Eyes: Pupils equal and reactive, anicteric sclera Mouth: no lip lesion, mucus membranes moist Cardiovascular: S1S2 reg, no murmur Lungs: CTA bilateral, no rhonchi, no rales , intubated Abdominal: soft, nontender to palpation, no guarding, no appreciable organom egaly Ext: no gross muscle atrophy, no edema, no contractures Neuro: Sedated Psych: Unable to assess Data Reviewed Today: Pertinent Labs: WBC 2.3, hemoglobin 7.7, platelet 24, sodium 134, potassium 3, creatinine 3.71, calcium 4.4, AST 341, ALT 249 Imaging: Chest x-ray independently interpreted, bilateral pleural effusions, increased vascular prominence, ET tube and NG tube in place. Assessment and Plan: Patient is critically ill, currently in medical ICU, prognosis is poor. Septic shock Beta-hemolytic strep G bacteremia Suspected pneumonia Pancytopenia with severe neutropenia Rhabdomyolysis Acute kidney injury likely ATN, anuric High anion gap metabolic acidosis Transaminitis A. fib with RVR Cardiomyopathy, unsure if ischemic or nonischemic, EF 25-30% History of hypertension, hold antihypertensives Hypokalemia Hypocalcemia Hyperglycemia -On vasopressin and Levophed, wean if possible -Intubated and sedated on propofol -ICU note reviewed, checking cortisol level and may need to add hydrocortisone -ID following, now on ceftriaxone and clindamycin -Repeat blood cultures pending -Hematology following, allopurinol discontinued as it may cause pancytopenia -Patient on filgrastim -Nephrology note reviewed, replace potassium and calcium, no response to IV Lasix given yesterday, currently hemodynamically very unstable for renal replacement therapy, on bicarb drip -Cardiology note reviewed, continue amiodarone drip -On insulin drip for persistent hyperglycemia DVT ppx: Mechanical Code status: Full code Anticipated discharge place: Pending clinical course Anticipated discharge time: Pending clinical course Objective - Vital Signs Vital signs: Vital Signs Temp 98.5 F 02/03/23 08:00 Pulse 118 H 02/03/23 08:14 Resp 28 H 02/03/23 08:00 BP 102/80 02/01/23 14:00 Pulse Ox 94 L 02/03/23 08:00 FiO2 50 02/03/23 11:13 Intake & Output 02/02/23 02/03/23 02/03/23 18:59 06:59 18:59 Intake Total 2259.528 2784.930 925.303 Output Total 198 221 15 Balance 2061.528 2563.930 910.303 Weight 137 kg Intake: IV 1375 1375 250 Dextrose 5% in Water 1, 1375 1375 250 000 ml @ 125 mls/hr IV . Q9H12M [facility] with Sodium Bicarb (1 Meq/ml) 150 ml Rx#:[id number] Intake, IV Titration 356.464 1978.930 575.303 Amount Amiodarone 360 mg In 320.552 142.776 Dextrose 5% in Water 200 ml @ 1 MG/MIN 33.333 mls/ hr IV .Q6H [facility] Rx#: [id number] Azithromycin 500 mg In 250 Sodium Chloride 0.9% 250 ml @ 250 mls/hr IVPB DAILY [facility] Rx#:[id number] Cisatracurium 200 mg In 173.928 Sodium Chloride 0.9% 180 ml @ 1 MCG/KG/MIN 8.046 mls/hr IV .Q24H [facility] Rx#: [id number] Clindamycin 900 mg In 50 50 Dextrose 5% in Water 50 ml @ 50 mls/hr IVPB Q8HR [facility] Rx#:[id number] Insulin Regular 100 unit 66.400 In Sodium Chloride 0.9% 100 ml @ Titrate IV .Q0M [facility] Rx#:[id number] Norepinephrine 32 mg In 191.451 239.093 Sodium Chloride 0.9% 218 ml @ 0.03 MCG/KG/MIN 1. 722 mls/hr IV .Q24H [facility] Rx#:[id number] Vasopressin 60 unit In 129.132 Sodium Chloride 0.9% 150 ml @ 0.03 UNITS/MIN 4.59 mls/hr IV .Q24H [facility] Rx#: [id number] cefTRIAXone 2 gm In 50 50 Sodium Chloride 0.9% 50 ml @ 100 mls/hr IVPB Q24HR [facility] Rx#:[id number] propofoL 1,000 mg In 293.077 444.753 158.599 Empty Bag 1 bag @ 15 MCG/ KG/MIN 11.022 mls/hr IV . Q9H5M [facility] Rx#:[id number] Oral 80 Tube Feeding 50 120 20 Other 90 Output: Urine 198 221 15 Other: Voiding Method Indwelling Catheter Indwelling Catheter Indwelling Catheter ABP, PAP, CO, CI - Last Documented Arterial Blood Pressure 98/58 - Labs CBC & Chem 7: 02/03/23 05:10 02/03/23 05:10 Labs: Abnormal Lab Results - Last 24 Hours (Table) 02/01/23 02/02/23 02/02/23 Range/Units 08:04 02:40 12:33 WBC (3.8-10.6) k/uL RBC (4.30-5.90) m/uL Hgb (13.0-17.5) gm/dL Hct (39.0-53.0) % MCV (80.0-100.0) fL RDW (11.5-15.5) % Plt Count (150-450) k/uL ABG pH (7.35-7.45) ABG pCO2 (35-45) mmHg ABG pO2 (83-108) mmHg ABG HCO3 (21-25) mmol/L ABG Total CO2 (19-24) mmol/L Sodium (137-145) mmol/L Potassium (3.5-5.1) mmol/L Carbon Dioxide (22-30) mmol/L BUN (9-20) mg/dL Creatinine (0.66-1.25) mg/dL Glucose (74-99) mg/dL POC Glucose (mg/dL) 281 H (70-110) mg/dL Calcium (8.4-10.2) mg/dL AST (17-59) U/L ALT (4-49) U/L Total Protein (6.3-8.2) g/dL Albumin (3.5-5.0) g/dL Vitamin B12 >3600.0 H (200.0-944.0) pg/mL Procalcitonin >100.00 H (0.02-0.09) ng/mL Rheumatoid Factor 29 H (0-15) IU/mL 02/02/23 02/02/23 02/02/23 Range/Units 17:40 18:36 20:01 WBC (3.8-10.6) k/uL RBC (4.30-5.90) m/uL Hgb (13.0-17.5) gm/dL Hct (39.0-53.0) % MCV (80.0-100.0) fL RDW (11.5-15.5) % Plt Count (150-450) k/uL ABG pH (7.35-7.45) ABG pCO2 (35-45) mmHg ABG pO2 (83-108) mmHg ABG HCO3 (21-25) mmol/L ABG Total CO2 (19-24) mmol/L Sodium (137-145) mmol/L Potassium (3.5-5.1) mmol/L Carbon Dioxide (22-30) mmol/L BUN (9-20) mg/dL Creatinine (0.66-1.25) mg/dL Glucose (74-99) mg/dL POC Glucose (mg/dL) 300 H 301 H 275 H (70-110) mg/dL Calcium (8.4-10.2) mg/dL AST (17-59) U/L ALT (4-49) U/L Total Protein (6.3-8.2) g/dL Albumin (3.5-5.0) g/dL Vitamin B12 (200.0-944.0) pg/mL Procalcitonin (0.02-0.09) ng/mL Rheumatoid Factor (0-15) IU/mL 02/02/23 02/02/23 02/02/23 Range/Units 21:23 22:37 23:15 WBC (3.8-10.6) k/uL RBC (4.30-5.90) m/uL Hgb (13.0-17.5) gm/dL Hct (39.0-53.0) % MCV (80.0-100.0) fL RDW (11.5-15.5) % Plt Count (150-450) k/uL ABG pH (7.35-7.45) ABG pCO2 (35-45) mmHg ABG pO2 (83-108) mmHg ABG HCO3 (21-25) mmol/L ABG Total CO2 (19-24) mmol/L Sodium (137-145) mmol/L Potassium (3.5-5.1) mmol/L Carbon Dioxide (22-30) mmol/L BUN (9-20) mg/dL Creatinine (0.66-1.25) mg/dL Glucose (74-99) mg/dL POC Glucose (mg/dL) 277 H 265 H 296 H (70-110) mg/dL Calcium (8.4-10.2) mg/dL AST (17-59) U/L ALT (4-49) U/L Total Protein (6.3-8.2) g/dL Albumin (3.5-5.0) g/dL Vitamin B12 (200.0-944.0) pg/mL Procalcitonin (0.02-0.09) ng/mL Rheumatoid Factor (0-15) IU/mL 02/02/23 02/03/23 02/03/23 Range/Units 23:19 00:09 01:25 WBC (3.8-10.6) k/uL RBC (4.30-5.90) m/uL Hgb (13.0-17.5) gm/dL Hct (39.0-53.0) % MCV (80.0-100.0) fL RDW (11.5-15.5) % Plt Count (150-450) k/uL ABG pH (7.35-7.45) ABG pCO2 (35-45) mmHg ABG pO2 (83-108) mmHg ABG HCO3 (21-25) mmol/L ABG Total CO2 (19-24) mmol/L Sodium (137-145) mmol/L Potassium (3.5-5.1) mmol/L Carbon Dioxide (22-30) mmol/L BUN (9-20) mg/dL Creatinine (0.66-1.25) mg/dL Glucose (74-99) mg/dL POC Glucose (mg/dL) 235 H 254 H 232 H (70-110) mg/dL Calcium (8.4-10.2) mg/dL AST (17-59) U/L ALT (4-49) U/L Total Protein (6.3-8.2) g/dL Albumin (3.5-5.0) g/dL Vitamin B12 (200.0-944.0) pg/mL Procalcitonin (0.02-0.09) ng/mL Rheumatoid Factor (0-15) IU/mL 02/03/23 02/03/23 02/03/23 Range/Units 03:22 04:42 05:10 WBC (3.8-10.6) k/uL RBC (4.30-5.90) m/uL Hgb (13.0-17.5) gm/dL Hct (39.0-53.0) % MCV (80.0-100.0) fL RDW (11.5-15.5) % Plt Count (150-450) k/uL ABG pH (7.35-7.45) ABG pCO2 (35-45) mmHg ABG pO2 (83-108) mmHg ABG HCO3 (21-25) mmol/L ABG Total CO2 (19-24) mmol/L Sodium 134 L (137-145) mmol/L Potassium 3.0 L (3.5-5.1) mmol/L Carbon Dioxide 18 L (22-30) mmol/L BUN 65 H (9-20) mg/dL Creatinine 3.71 H (0.66-1.25) mg/dL Glucose 131 H (74-99) mg/dL POC Glucose (mg/dL) 209 H 192 H (70-110) mg/dL Calcium 4.4 L* (8.4-10.2) mg/dL AST 341 H (17-59) U/L ALT 349 H (4-49) U/L Total Protein 3.8 L (6.3-8.2) g/dL Albumin 1.7 L (3.5-5.0) g/dL Vitamin B12 (200.0-944.0) pg/mL Procalcitonin (0.02-0.09) ng/mL Rheumatoid Factor (0-15) IU/mL 02/03/23 02/03/23 02/03/23 Range/Units 05:10 05:37 06:22 WBC 2.3 L (3.8-10.6) k/uL RBC 2.19 L (4.30-5.90) m/uL Hgb 7.7 L D (13.0-17.5) gm/dL Hct 22.7 L (39.0-53.0) % MCV 103.7 H (80.0-100.0) fL RDW 16.3 H (11.5-15.5) % Plt Count 24 L D (150-450) k/uL ABG pH 7.30 L (7.35-7.45) ABG pCO2 53 H (35-45) mmHg ABG pO2 79 L (83-108) mmHg ABG HCO3 26 H (21-25) mmol/L ABG Total CO2 28 H (19-24) mmol/L Sodium (137-145) mmol/L Potassium (3.5-5.1) mmol/L Carbon Dioxide (22-30) mmol/L BUN (9-20) mg/dL Creatinine (0.66-1.25) mg/dL Glucose (74-99) mg/dL POC Glucose (mg/dL) 177 H (70-110) mg/dL Calcium (8.4-10.2) mg/dL AST (17-59) U/L ALT (4-49) U/L Total Protein (6.3-8.2) g/dL Albumin (3.5-5.0) g/dL Vitamin B12 (200.0-944.0) pg/mL Procalcitonin (0.02-0.09) ng/mL Rheumatoid Factor (0-15) IU/mL 02/03/23 02/03/23 02/03/23 Range/Units 06:55 08:50 10:13 WBC (3.8-10.6) k/uL RBC (4.30-5.90) m/uL Hgb (13.0-17.5) gm/dL Hct (39.0-53.0) % MCV (80.0-100.0) fL RDW (11.5-15.5) % Plt Count (150-450) k/uL ABG pH (7.35-7.45) ABG pCO2 (35-45) mmHg ABG pO2 (83-108) mmHg ABG HCO3 (21-25) mmol/L ABG Total CO2 (19-24) mmol/L Sodium (137-145) mmol/L Potassium (3.5-5.1) mmol/L Carbon Dioxide (22-30) mmol/L BUN (9-20) mg/dL Creatinine (0.66-1.25) mg/dL Glucose (74-99) mg/dL POC Glucose (mg/dL) 163 H 152 H 134 H (70-110) mg/dL Calcium (8.4-10.2) mg/dL AST (17-59) U/L ALT (4-49) U/L Total Protein (6.3-8.2) g/dL Albumin (3.5-5.0) g/dL Vitamin B12 (200.0-944.0) pg/mL Procalcitonin (0.02-0.09) ng/mL Rheumatoid Factor (0-15) IU/mL Microbiology - Last 24 Hours (Table) 02/01/23 00:18 Blood Culture Gram Stain - Preliminary Blood Blood Culture - Preliminary Beta Hemolytic Strep Group G
[2023-02-03 11:22] LABS: Glucose,Whole Blood 127 mg/dL (70-110)
[2023-02-03 12:29] LABS: Glucose,Whole Blood 162 mg/dL (70-110)
--- NOTE | 2023-02-03 12:37 | P.PN ---
Subjective Progress Note Date: 02/03/23 Principal diagnosis: pneumonia, FRANCISCO Patient was seen today in the ICU on follow-up, at bedside. Patient remains on ventilator. Temperature 100.4 this morning. IV antibiotics continued. WBC improved, 2.3, ANC pending. No reported episodes of acute bleeding. Objective - Vital Signs Vital signs: Vital Signs Temp 98.5 F 02/03/23 08:00 Pulse 118 H 02/03/23 11:28 Resp 28 H 02/03/23 11:00 BP 102/80 02/01/23 14:00 Pulse Ox 90 L 02/03/23 11:00 FiO2 50 02/03/23 12:00 Intake & Output 02/02/23 02/03/23 02/03/23 18:59 06:59 18:59 Intake Total 2259.528 2784.930 1410.303 Output Total 198 221 40 Balance 2061.528 2563.930 1370.303 Weight 137 kg Intake: IV 1375 1375 625 Dextrose 5% in Water 1, 1375 1375 625 000 ml @ 125 mls/hr IV . Q9H12M [facility] with Sodium Bicarb (1 Meq/ml) 150 ml Rx#:[id number] Intake, IV Titration 893.754 5287.930 575.303 Amount Amiodarone 360 mg In 320.552 142.776 Dextrose 5% in Water 200 ml @ 1 MG/MIN 33.333 mls/ hr IV .Q6H [facility] Rx#: [id number] Azithromycin 500 mg In 250 Sodium Chloride 0.9% 250 ml @ 250 mls/hr IVPB DAILY [facility] Rx#:[id number] Cisatracurium 200 mg In 173.928 Sodium Chloride 0.9% 180 ml @ 1 MCG/KG/MIN 8.046 mls/hr IV .Q24H [facility] Rx#: [id number] Clindamycin 900 mg In 50 50 Dextrose 5% in Water 50 ml @ 50 mls/hr IVPB Q8HR [facility] Rx#:[id number] Insulin Regular 100 unit 66.400 In Sodium Chloride 0.9% 100 ml @ Titrate IV .Q0M [facility] Rx#:[id number] Norepinephrine 32 mg In 191.451 239.093 Sodium Chloride 0.9% 218 ml @ 0.03 MCG/KG/MIN 1. 722 mls/hr IV .Q24H [facility] Rx#:[id number] Vasopressin 60 unit In 129.132 Sodium Chloride 0.9% 150 ml @ 0.03 UNITS/MIN 4.59 mls/hr IV .Q24H [facility] Rx#: [id number] cefTRIAXone 2 gm In 50 50 Sodium Chloride 0.9% 50 ml @ 100 mls/hr IVPB Q24HR [facility] Rx#:[id number] propofoL 1,000 mg In 293.077 444.753 158.599 Empty Bag 1 bag @ 15 MCG/ KG/MIN 11.022 mls/hr IV . Q9H5M [facility] Rx#:[id number] Oral 160 Tube Feeding 50 120 50 Other 90 Output: Urine 198 221 40 Other: Voiding Method Indwelling Catheter Indwelling Catheter Indwelling Catheter ABP, PAP, CO, CI - Last Documented Arterial Blood Pressure 88/55 - Constitutional General appearance: Present: obese - Respiratory Details: ventilated - Cardiovascular Details: skin warm and dry - Integumentary Integumentary Comment(s): no petechiae Integumentary: Absent: cyanotic, jaundiced - Psychiatric Psychiatric Comment(s): sedated - Labs CBC & Chem 7: 02/03/23 05:10 02/03/23 05:10 Labs: Abnormal Lab Results - Last 24 Hours (Table) 02/01/23 02/02/23 02/02/23 Range/Units 08:04 02:40 12:33 WBC (3.8-10.6) k/uL RBC (4.30-5.90) m/uL Hgb (13.0-17.5) gm/dL Hct (39.0-53.0) % MCV (80.0-100.0) fL RDW (11.5-15.5) % Plt Count (150-450) k/uL ABG pH (7.35-7.45) ABG pCO2 (35-45) mmHg ABG pO2 (83-108) mmHg ABG HCO3 (21-25) mmol/L ABG Total CO2 (19-24) mmol/L Sodium (137-145) mmol/L Potassium (3.5-5.1) mmol/L Carbon Dioxide (22-30) mmol/L BUN (9-20) mg/dL Creatinine (0.66-1.25) mg/dL Glucose (74-99) mg/dL POC Glucose (mg/dL) 281 H (70-110) mg/dL Hemoglobin A1c (<=6.0) % Calcium (8.4-10.2) mg/dL AST (17-59) U/L ALT (4-49) U/L Total Protein (6.3-8.2) g/dL Albumin (3.5-5.0) g/dL Vitamin B12 >3600.0 H (200.0-944.0) pg/mL Procalcitonin >100.00 H (0.02-0.09) ng/mL Rheumatoid Factor 29 H (0-15) IU/mL 02/02/23 02/02/23 02/02/23 Range/Units 17:40 18:36 20:01 WBC (3.8-10.6) k/uL RBC (4.30-5.90) m/uL Hgb (13.0-17.5) gm/dL Hct (39.0-53.0) % MCV (80.0-100.0) fL RDW (11.5-15.5) % Plt Count (150-450) k/uL ABG pH (7.35-7.45) ABG pCO2 (35-45) mmHg ABG pO2 (83-108) mmHg ABG HCO3 (21-25) mmol/L ABG Total CO2 (19-24) mmol/L Sodium (137-145) mmol/L Potassium (3.5-5.1) mmol/L Carbon Dioxide (22-30) mmol/L BUN (9-20) mg/dL Creatinine (0.66-1.25) mg/dL Glucose (74-99) mg/dL POC Glucose (mg/dL) 300 H 301 H 275 H (70-110) mg/dL Hemoglobin A1c (<=6.0) % Calcium (8.4-10.2) mg/dL AST (17-59) U/L ALT (4-49) U/L Total Protein (6.3-8.2) g/dL Albumin (3.5-5.0) g/dL Vitamin B12 (200.0-944.0) pg/mL Procalcitonin (0.02-0.09) ng/mL Rheumatoid Factor (0-15) IU/mL 02/02/23 02/02/23 02/02/23 Range/Units 21:23 22:37 23:15 WBC (3.8-10.6) k/uL RBC (4.30-5.90) m/uL Hgb (13.0-17.5) gm/dL Hct (39.0-53.0) % MCV (80.0-100.0) fL RDW (11.5-15.5) % Plt Count (150-450) k/uL ABG pH (7.35-7.45) ABG pCO2 (35-45) mmHg ABG pO2 (83-108) mmHg ABG HCO3 (21-25) mmol/L ABG Total CO2 (19-24) mmol/L Sodium (137-145) mmol/L Potassium (3.5-5.1) mmol/L Carbon Dioxide (22-30) mmol/L BUN (9-20) mg/dL Creatinine (0.66-1.25) mg/dL Glucose (74-99) mg/dL POC Glucose (mg/dL) 277 H 265 H 296 H (70-110) mg/dL Hemoglobin A1c (<=6.0) % Calcium (8.4-10.2) mg/dL AST (17-59) U/L ALT (4-49) U/L Total Protein (6.3-8.2) g/dL Albumin (3.5-5.0) g/dL Vitamin B12 (200.0-944.0) pg/mL Procalcitonin (0.02-0.09) ng/mL Rheumatoid Factor (0-15) IU/mL 02/02/23 02/03/23 02/03/23 Range/Units 23:19 00:09 01:25 WBC (3.8-10.6) k/uL RBC (4.30-5.90) m/uL Hgb (13.0-17.5) gm/dL Hct (39.0-53.0) % MCV (80.0-100.0) fL RDW (11.5-15.5) % Plt Count (150-450) k/uL ABG pH (7.35-7.45) ABG pCO2 (35-45) mmHg ABG pO2 (83-108) mmHg ABG HCO3 (21-25) mmol/L ABG Total CO2 (19-24) mmol/L Sodium (137-145) mmol/L Potassium (3.5-5.1) mmol/L Carbon Dioxide (22-30) mmol/L BUN (9-20) mg/dL Creatinine (0.66-1.25) mg/dL Glucose (74-99) mg/dL POC Glucose (mg/dL) 235 H 254 H 232 H (70-110) mg/dL Hemoglobin A1c (<=6.0) % Calcium (8.4-10.2) mg/dL AST (17-59) U/L ALT (4-49) U/L Total Protein (6.3-8.2) g/dL Albumin (3.5-5.0) g/dL Vitamin B12 (200.0-944.0) pg/mL Procalcitonin (0.02-0.09) ng/mL Rheumatoid Factor (0-15) IU/mL 02/03/23 02/03/23 02/03/23 Range/Units 03:22 04:42 05:10 WBC (3.8-10.6) k/uL RBC (4.30-5.90) m/uL Hgb (13.0-17.5) gm/dL Hct (39.0-53.0) % MCV (80.0-100.0) fL RDW (11.5-15.5) % Plt Count (150-450) k/uL ABG pH (7.35-7.45) ABG pCO2 (35-45) mmHg ABG pO2 (83-108) mmHg ABG HCO3 (21-25) mmol/L ABG Total CO2 (19-24) mmol/L Sodium (137-145) mmol/L Potassium (3.5-5.1) mmol/L Carbon Dioxide (22-30) mmol/L BUN (9-20) mg/dL Creatinine (0.66-1.25) mg/dL Glucose (74-99) mg/dL POC Glucose (mg/dL) 209 H 192 H (70-110) mg/dL Hemoglobin A1c 7.0 H (<=6.0) % Calcium (8.4-10.2) mg/dL AST (17-59) U/L ALT (4-49) U/L Total Protein (6.3-8.2) g/dL Albumin (3.5-5.0) g/dL Vitamin B12 (200.0-944.0) pg/mL Procalcitonin (0.02-0.09) ng/mL Rheumatoid Factor (0-15) IU/mL 02/03/23 02/03/23 02/03/23 Range/Units 05:10 05:10 05:37 WBC 2.3 L (3.8-10.6) k/uL RBC 2.19 L (4.30-5.90) m/uL Hgb 7.7 L D (13.0-17.5) gm/dL Hct 22.7 L (39.0-53.0) % MCV 103.7 H (80.0-100.0) fL RDW 16.3 H (11.5-15.5) % Plt Count 24 L D (150-450) k/uL ABG pH (7.35-7.45) ABG pCO2 (35-45) mmHg ABG pO2 (83-108) mmHg ABG HCO3 (21-25) mmol/L ABG Total CO2 (19-24) mmol/L Sodium 134 L (137-145) mmol/L Potassium 3.0 L (3.5-5.1) mmol/L Carbon Dioxide 18 L (22-30) mmol/L BUN 65 H (9-20) mg/dL Creatinine 3.71 H (0.66-1.25) mg/dL Glucose 131 H (74-99) mg/dL POC Glucose (mg/dL) 177 H (70-110) mg/dL Hemoglobin A1c (<=6.0) % Calcium 4.4 L* (8.4-10.2) mg/dL AST 341 H (17-59) U/L ALT 349 H (4-49) U/L Total Protein 3.8 L (6.3-8.2) g/dL Albumin 1.7 L (3.5-5.0) g/dL Vitamin B12 (200.0-944.0) pg/mL Procalcitonin (0.02-0.09) ng/mL Rheumatoid Factor (0-15) IU/mL 02/03/23 02/03/23 02/03/23 Range/Units 06:22 06:55 08:50 WBC (3.8-10.6) k/uL RBC (4.30-5.90) m/uL Hgb (13.0-17.5) gm/dL Hct (39.0-53.0) % MCV (80.0-100.0) fL RDW (11.5-15.5) % Plt Count (150-450) k/uL ABG pH 7.30 L (7.35-7.45) ABG pCO2 53 H (35-45) mmHg ABG pO2 79 L (83-108) mmHg ABG HCO3 26 H (21-25) mmol/L ABG Total CO2 28 H (19-24) mmol/L Sodium (137-145) mmol/L Potassium (3.5-5.1) mmol/L Carbon Dioxide (22-30) mmol/L BUN (9-20) mg/dL Creatinine (0.66-1.25) mg/dL Glucose (74-99) mg/dL POC Glucose (mg/dL) 163 H 152 H (70-110) mg/dL Hemoglobin A1c (<=6.0) % Calcium (8.4-10.2) mg/dL AST (17-59) U/L ALT (4-49) U/L Total Protein (6.3-8.2) g/dL Albumin (3.5-5.0) g/dL Vitamin B12 (200.0-944.0) pg/mL Procalcitonin (0.02-0.09) ng/mL Rheumatoid Factor (0-15) IU/mL 02/03/23 02/03/23 Range/Units 10:13 11:21 WBC (3.8-10.6) k/uL RBC (4.30-5.90) m/uL Hgb (13.0-17.5) gm/dL Hct (39.0-53.0) % MCV (80.0-100.0) fL RDW (11.5-15.5) % Plt Count (150-450) k/uL ABG pH (7.35-7.45) ABG pCO2 (35-45) mmHg ABG pO2 (83-108) mmHg ABG HCO3 (21-25) mmol/L ABG Total CO2 (19-24) mmol/L Sodium (137-145) mmol/L Potassium (3.5-5.1) mmol/L Carbon Dioxide (22-30) mmol/L BUN (9-20) mg/dL Creatinine (0.66-1.25) mg/dL Glucose (74-99) mg/dL POC Glucose (mg/dL) 134 H 127 H (70-110) mg/dL Hemoglobin A1c (<=6.0) % Calcium (8.4-10.2) mg/dL AST (17-59) U/L ALT (4-49) U/L Total Protein (6.3-8.2) g/dL Albumin (3.5-5.0) g/dL Vitamin B12 (200.0-944.0) pg/mL Procalcitonin (0.02-0.09) ng/mL Rheumatoid Factor (0-15) IU/mL Microbiology - Last 24 Hours (Table) 02/01/23 00:18 Blood Culture Gram Stain - Preliminary Blood Blood Culture - Preliminary Beta Hemolytic Strep Group G Assessment and Plan (1) Bacteremia Current Visit: Yes Status: Acute Priority: High Code(s): R78.81 - BACTEREMIA SNOMED Code(s): 7850822 (2) Leukocytopenia Current Visit: Yes Status: Acute Priority: High Code(s): D72.819 - DECREASED WHITE BLOOD CELL COUNT, UNSPECIFIED SNOMED Code(s): 73670730 (3) Pancytopenia Current Visit: Yes Status: Acute Priority: High Code(s): D61.818 - OTHER PANCYTOPENIA SNOMED Code(s): 498207028 (4) Pneumonia Current Visit: Yes Status: Acute Code(s): J18.9 - PNEUMONIA, UNSPECIFIED ORGANISM SNOMED Code(s): 117506245 Plan: Leukocytopenia: The patient had presented with pancytopenia, with leukocytopenia most pronounced. There is an improvement since admission. - Based on review of his history with the family, and previous labs, this appears to be acute, most likely due to severe infection. It may be some underlying baseline marrow suppression from allopurinol use. Clinical suspicion for any underlying primary marrow condition is low at this time. - Therefore it would be reasonable to start the patient on G-CSF. S/p 2 doses granix, will continue tilll ANC > 1000 - Check labs for other underlying conditions, with autoimmune markers, and labs for deficiency states and paraproteinemia. Workup pending - Check CMV serology in view of prominent leukopenia, and liver enzyme elevation. 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 Platelet counts decreased to 24,000 today. Continue to monitor and supplement for hemoglobin less than 7, and platelets less than 10,000. -Hemolysis workup negative. Willcheck DIC labs - G-CSF initiation as detailed above. For anticoagulation platelets need to be greater than 50,000. Recommend SCDs for DVT prophylaxis - Hold allopurinol Defer to the admitting service for management of his other medical issues. Case discussed with nursing. It is possible that as his WBC increases, the chest x- ray findings, as well as lung symptoms may actually worsen temporarily, due to increased capacity for inflammatory response.
[2023-02-03 13:29] LABS: African American GFR (CKD) 13 (>60 ml/min/1.73 sqM); Anion Gap 17 mmol/L; Blood Urea Nitrogen 84 mg/dL (9-20); Carbon Dioxide 20 mmol/L (22-30); Chloride 92 mmol/L (98-107); Glucose 133 mg/dL (74-99); Non-African American GFR(CKD) 11 (>60 ml/min/1.73 sqM); Potassium 4.3 mmol/L (3.5-5.1); Sodium 129 mmol/L (137-145)
[2023-02-03 13:35] LABS: Glucose,Whole Blood 171 mg/dL (70-110)
[2023-02-03 14:00] LABS: Creatine Kinase 4794 U/L (55-170)
[2023-02-03 14:04] LABS: Calcium 5.5 mg/dL (8.4-10.2)
[2023-02-03 14:07] LABS: Free Kappa Lt Chain Qnt, Serum 5.18 mg/dL (0.33-1.94); Free Lambda Lt Chain Qnt, Seru 3.44 mg/dL (0.57-2.63)
[2023-02-03 15:29] LABS: Glucose,Whole Blood 208 mg/dL (70-110)
[2023-02-03] MEDS: INSULIN REGULAR 100 UNIT in SODIUM CHLORIDE 0.9% 100 ML IV SCH (15:48)
[2023-02-03] MEDS ORDERED: ALBUMIN HUMAN 5% 500 ML in EMPTY BAG 1 BAG IVPB ONE (16:26)
[2023-02-03 16:43] LABS: HIV 2 AB Non-Reactive (Non-Reactive); HIV AB P24 Non-Reactive (Non-Reactive); HIV P24 AG Non-Reactive (Non-Reactive)
--- NOTE | 2023-02-03 17:22 | P.PN ---
Subjective Progress Note Date: 02/03/23 Principal diagnosis: Sepsis.Pneumonia,Bacteremia Patient is a 67-year-old male with a past medical history [place]percaine for hypertension and gout who recently returned from a trip to [facility] about a week ago patient presented to [facility], for evaluation of increasing shortness of breath fever and generalized body aches,patient admitted to ICU subsequently ended up getting intubated because of worsening respiratory status. On today's evaluation that is 02/03/2023 patient did have a low-grade fever 100.7 F around midnight, the patient is afebrile this afternoon, patient is currently on the vent FiO2 50% patient is requiring pressor to maintain his blood pressure, no significant purulent secretions through the ET or any diarrhea reported by the nursing staff. Patient white count has come up to 2.3, creatinine is 4.87 blood cultures with a beta-hemolytic group G strep. Sputum cultures pending Objective - Vital Signs Vital signs: Vital Signs Temp 98.5 F 02/03/23 08:00 Pulse 118 H 02/03/23 11:28 Resp 28 H 02/03/23 11:00 BP 102/80 02/01/23 14:00 Pulse Ox 90 L 02/03/23 11:00 FiO2 50 02/03/23 12:00 Intake & Output 02/02/23 02/03/23 02/03/23 18:59 06:59 18:59 Intake Total 2259.528 2784.930 1410.303 Output Total 198 221 40 Balance 2061.528 2563.930 1370.303 Weight 137 kg Intake: IV 1375 1375 625 Dextrose 5% in Water 1, 1375 1375 625 000 ml @ 125 mls/hr IV . Q9H12M [facility] with Sodium Bicarb (1 Meq/ml) 150 ml Rx#:[id number] Intake, IV Titration 681.698 0415.930 575.303 Amount Amiodarone 360 mg In 320.552 142.776 Dextrose 5% in Water 200 ml @ 1 MG/MIN 33.333 mls/ hr IV .Q6H [facility] Rx#: [id number] Azithromycin 500 mg In 250 Sodium Chloride 0.9% 250 ml @ 250 mls/hr IVPB DAILY [facility] Rx#:[id number] Cisatracurium 200 mg In 173.928 Sodium Chloride 0.9% 180 ml @ 1 MCG/KG/MIN 8.046 mls/hr IV .Q24H [facility] Rx#: [id number] Clindamycin 900 mg In 50 50 Dextrose 5% in Water 50 ml @ 50 mls/hr IVPB Q8HR [facility] Rx#:[id number] Insulin Regular 100 unit 66.400 In Sodium Chloride 0.9% 100 ml @ Titrate IV .Q0M [facility] Rx#:[id number] Norepinephrine 32 mg In 191.451 239.093 Sodium Chloride 0.9% 218 ml @ 0.03 MCG/KG/MIN 1. 722 mls/hr IV .Q24H [facility] Rx#:[id number] Vasopressin 60 unit In 129.132 Sodium Chloride 0.9% 150 ml @ 0.03 UNITS/MIN 4.59 mls/hr IV .Q24H [facility] Rx#: [id number] cefTRIAXone 2 gm In 50 50 Sodium Chloride 0.9% 50 ml @ 100 mls/hr IVPB Q24HR [facility] Rx#:[id number] propofoL 1,000 mg In 293.077 444.753 158.599 Empty Bag 1 bag @ 15 MCG/ KG/MIN 11.022 mls/hr IV . Q9H5M [facility] Rx#:[id number] Oral 160 Tube Feeding 50 120 50 Other 90 Output: Urine 198 221 40 Other: Voiding Method Indwelling Catheter Indwelling Catheter Indwelling Catheter ABP, PAP, CO, CI - Last Documented Arterial Blood Pressure 88/55 - Exam GENERAL DESCRIPTION: Elderly male intubated on the vent RESPIRATORY SYSTEM: Unlabored breathing , decreased breath sounds at bases HEART: S1 S2 regular rate and rhythm ,no loud murmurs ABDOMEN: Soft , no tenderness EXTREMITIES: No edema feet - Labs CBC & Chem 7: 02/03/23 05:10 02/03/23 12:00 Labs: Abnormal Lab Results - Last 24 Hours (Table) 02/01/23 02/02/23 02/02/23 Range/Units 08:04 02:40 17:40 WBC (3.8-10.6) k/uL RBC (4.30-5.90) m/uL Hgb (13.0-17.5) gm/dL Hct (39.0-53.0) % MCV (80.0-100.0) fL RDW (11.5-15.5) % Plt Count (150-450) k/uL ABG pH (7.35-7.45) ABG pCO2 (35-45) mmHg ABG pO2 (83-108) mmHg ABG HCO3 (21-25) mmol/L ABG Total CO2 (19-24) mmol/L Sodium (137-145) mmol/L Potassium (3.5-5.1) mmol/L Carbon Dioxide (22-30) mmol/L BUN (9-20) mg/dL Creatinine (0.66-1.25) mg/dL Glucose (74-99) mg/dL POC Glucose (mg/dL) 300 H (70-110) mg/dL Hemoglobin A1c (<=6.0) % Calcium (8.4-10.2) mg/dL AST (17-59) U/L ALT (4-49) U/L Total Protein (6.3-8.2) g/dL Albumin (3.5-5.0) g/dL Vitamin B12 >3600.0 H (200.0-944.0) pg/mL Procalcitonin >100.00 H (0.02-0.09) ng/mL Rheumatoid Factor 29 H (0-15) IU/mL 02/02/23 02/02/23 02/02/23 Range/Units 18:36 20:01 21:23 WBC (3.8-10.6) k/uL RBC (4.30-5.90) m/uL Hgb (13.0-17.5) gm/dL Hct (39.0-53.0) % MCV (80.0-100.0) fL RDW (11.5-15.5) % Plt Count (150-450) k/uL ABG pH (7.35-7.45) ABG pCO2 (35-45) mmHg ABG pO2 (83-108) mmHg ABG HCO3 (21-25) mmol/L ABG Total CO2 (19-24) mmol/L Sodium (137-145) mmol/L Potassium (3.5-5.1) mmol/L Carbon Dioxide (22-30) mmol/L BUN (9-20) mg/dL Creatinine (0.66-1.25) mg/dL Glucose (74-99) mg/dL POC Glucose (mg/dL) 301 H 275 H 277 H (70-110) mg/dL Hemoglobin A1c (<=6.0) % Calcium (8.4-10.2) mg/dL AST (17-59) U/L ALT (4-49) U/L Total Protein (6.3-8.2) g/dL Albumin (3.5-5.0) g/dL Vitamin B12 (200.0-944.0) pg/mL Procalcitonin (0.02-0.09) ng/mL Rheumatoid Factor (0-15) IU/mL 02/02/23 02/02/23 02/02/23 Range/Units 22:37 23:15 23:19 WBC (3.8-10.6) k/uL RBC (4.30-5.90) m/uL Hgb (13.0-17.5) gm/dL Hct (39.0-53.0) % MCV (80.0-100.0) fL RDW (11.5-15.5) % Plt Count (150-450) k/uL ABG pH (7.35-7.45) ABG pCO2 (35-45) mmHg ABG pO2 (83-108) mmHg ABG HCO3 (21-25) mmol/L ABG Total CO2 (19-24) mmol/L Sodium (137-145) mmol/L Potassium (3.5-5.1) mmol/L Carbon Dioxide (22-30) mmol/L BUN (9-20) mg/dL Creatinine (0.66-1.25) mg/dL Glucose (74-99) mg/dL POC Glucose (mg/dL) 265 H 296 H 235 H (70-110) mg/dL Hemoglobin A1c (<=6.0) % Calcium (8.4-10.2) mg/dL AST (17-59) U/L ALT (4-49) U/L Total Protein (6.3-8.2) g/dL Albumin (3.5-5.0) g/dL Vitamin B12 (200.0-944.0) pg/mL Procalcitonin (0.02-0.09) ng/mL Rheumatoid Factor (0-15) IU/mL 02/03/23 02/03/23 02/03/23 Range/Units 00:09 01:25 03:22 WBC (3.8-10.6) k/uL RBC (4.30-5.90) m/uL Hgb (13.0-17.5) gm/dL Hct (39.0-53.0) % MCV (80.0-100.0) fL RDW (11.5-15.5) % Plt Count (150-450) k/uL ABG pH (7.35-7.45) ABG pCO2 (35-45) mmHg ABG pO2 (83-108) mmHg ABG HCO3 (21-25) mmol/L ABG Total CO2 (19-24) mmol/L Sodium (137-145) mmol/L Potassium (3.5-5.1) mmol/L Carbon Dioxide (22-30) mmol/L BUN (9-20) mg/dL Creatinine (0.66-1.25) mg/dL Glucose (74-99) mg/dL POC Glucose (mg/dL) 254 H 232 H 209 H (70-110) mg/dL Hemoglobin A1c (<=6.0) % Calcium (8.4-10.2) mg/dL AST (17-59) U/L ALT (4-49) U/L Total Protein (6.3-8.2) g/dL Albumin (3.5-5.0) g/dL Vitamin B12 (200.0-944.0) pg/mL Procalcitonin (0.02-0.09) ng/mL Rheumatoid Factor (0-15) IU/mL 02/03/23 02/03/23 02/03/23 Range/Units 04:42 05:10 05:10 WBC (3.8-10.6) k/uL RBC (4.30-5.90) m/uL Hgb (13.0-17.5) gm/dL Hct (39.0-53.0) % MCV (80.0-100.0) fL RDW (11.5-15.5) % Plt Count (150-450) k/uL ABG pH (7.35-7.45) ABG pCO2 (35-45) mmHg ABG pO2 (83-108) mmHg ABG HCO3 (21-25) mmol/L ABG Total CO2 (19-24) mmol/L Sodium 134 L (137-145) mmol/L Potassium 3.0 L (3.5-5.1) mmol/L Carbon Dioxide 18 L (22-30) mmol/L BUN 65 H (9-20) mg/dL Creatinine 3.71 H (0.66-1.25) mg/dL Glucose 131 H (74-99) mg/dL POC Glucose (mg/dL) 192 H (70-110) mg/dL Hemoglobin A1c 7.0 H (<=6.0) % Calcium 4.4 L* (8.4-10.2) mg/dL AST 341 H (17-59) U/L ALT 349 H (4-49) U/L Total Protein 3.8 L (6.3-8.2) g/dL Albumin 1.7 L (3.5-5.0) g/dL Vitamin B12 (200.0-944.0) pg/mL Procalcitonin (0.02-0.09) ng/mL Rheumatoid Factor (0-15) IU/mL 02/03/23 02/03/23 02/03/23 Range/Units 05:10 05:37 06:22 WBC 2.3 L (3.8-10.6) k/uL RBC 2.19 L (4.30-5.90) m/uL Hgb 7.7 L D (13.0-17.5) gm/dL Hct 22.7 L (39.0-53.0) % MCV 103.7 H (80.0-100.0) fL RDW 16.3 H (11.5-15.5) % Plt Count 24 L D (150-450) k/uL ABG pH 7.30 L (7.35-7.45) ABG pCO2 53 H (35-45) mmHg ABG pO2 79 L (83-108) mmHg ABG HCO3 26 H (21-25) mmol/L ABG Total CO2 28 H (19-24) mmol/L Sodium (137-145) mmol/L Potassium (3.5-5.1) mmol/L Carbon Dioxide (22-30) mmol/L BUN (9-20) mg/dL Creatinine (0.66-1.25) mg/dL Glucose (74-99) mg/dL POC Glucose (mg/dL) 177 H (70-110) mg/dL Hemoglobin A1c (<=6.0) % Calcium (8.4-10.2) mg/dL AST (17-59) U/L ALT (4-49) U/L Total Protein (6.3-8.2) g/dL Albumin (3.5-5.0) g/dL Vitamin B12 (200.0-944.0) pg/mL Procalcitonin (0.02-0.09) ng/mL Rheumatoid Factor (0-15) IU/mL 02/03/23 02/03/23 02/03/23 Range/Units 06:55 08:50 10:13 WBC (3.8-10.6) k/uL RBC (4.30-5.90) m/uL Hgb (13.0-17.5) gm/dL Hct (39.0-53.0) % MCV (80.0-100.0) fL RDW (11.5-15.5) % Plt Count (150-450) k/uL ABG pH (7.35-7.45) ABG pCO2 (35-45) mmHg ABG pO2 (83-108) mmHg ABG HCO3 (21-25) mmol/L ABG Total CO2 (19-24) mmol/L Sodium (137-145) mmol/L Potassium (3.5-5.1) mmol/L Carbon Dioxide (22-30) mmol/L BUN (9-20) mg/dL Creatinine (0.66-1.25) mg/dL Glucose (74-99) mg/dL POC Glucose (mg/dL) 163 H 152 H 134 H (70-110) mg/dL Hemoglobin A1c (<=6.0) % Calcium (8.4-10.2) mg/dL AST (17-59) U/L ALT (4-49) U/L Total Protein (6.3-8.2) g/dL Albumin (3.5-5.0) g/dL Vitamin B12 (200.0-944.0) pg/mL Procalcitonin (0.02-0.09) ng/mL Rheumatoid Factor (0-15) IU/mL 02/03/23 02/03/23 Range/Units 11:21 12:26 WBC (3.8-10.6) k/uL RBC (4.30-5.90) m/uL Hgb (13.0-17.5) gm/dL Hct (39.0-53.0) % MCV (80.0-100.0) fL RDW (11.5-15.5) % Plt Count (150-450) k/uL ABG pH (7.35-7.45) ABG pCO2 (35-45) mmHg ABG pO2 (83-108) mmHg ABG HCO3 (21-25) mmol/L ABG Total CO2 (19-24) mmol/L Sodium (137-145) mmol/L Potassium (3.5-5.1) mmol/L Carbon Dioxide (22-30) mmol/L BUN (9-20) mg/dL Creatinine (0.66-1.25) mg/dL Glucose (74-99) mg/dL POC Glucose (mg/dL) 127 H 162 H (70-110) mg/dL Hemoglobin A1c (<=6.0) % Calcium (8.4-10.2) mg/dL AST (17-59) U/L ALT (4-49) U/L Total Protein (6.3-8.2) g/dL Albumin (3.5-5.0) g/dL Vitamin B12 (200.0-944.0) pg/mL Procalcitonin (0.02-0.09) ng/mL Rheumatoid Factor (0-15) IU/mL Microbiology - Last 24 Hours (Table) 02/01/23 00:18 Blood Culture Gram Stain - Preliminary Blood Blood Culture - Preliminary Beta Hemolytic Strep Group G Assessment and Plan (1) Sepsis Current Visit: Yes Status: Acute Code(s): A41.9 - SEPSIS, UNSPECIFIED ORGANISM SNOMED Code(s): 95822144 (2) Bacteremia Current Visit: Yes Status: Acute Priority: High Code(s): R78.81 - BACTEREMIA SNOMED Code(s): 9263156 (3) Pneumonia Current Visit: Yes Status: Acute Code(s): J18.9 - PNEUMONIA, UNSPECIFIED ORGANISM SNOMED Code(s): 132780213 Plan: 1patient presented hospital with sepsis in this patient with the leukopenia tachycardia tachypnea hypotension elevated lactic acid and apparently did have a fever at home with the pulmonary vascular congestion on the x-rays low probability of PE on the VQ scan with consideration for pneumonia question of tuberculosis atypical pathogen however urine for Legionella antigen was negative and the patient has been ruled out for COVID-19 2patient blood cultures came back positive with beta-hemolytic's group G strep source likely pneumonia 3-patient to continue with Rocephin 2 g daily and clindamycin, and monitor his clinical course closely Brother at the bedside questions were answered Dictation was produced using [employer] dictation software. please excuse any grammatical, word or spelling errors. Time with Patient: Less than 30
[2023-02-03 17:44] LABS: Glucose,Whole Blood 206 mg/dL (70-110)
[2023-02-03 18:56] LABS: Glucose,Whole Blood 174 mg/dL (70-110)
[2023-02-03] MEDS: ACETAMINOPHEN IV (For NPO) 1,000 MG in EMPTY BAG 1 BAG IVPB ONE ×2 (20:08→20:20)
[2023-02-03] MEDS: FINASTERIDE 5 MG TAB PO SCH (21:00)
[2023-02-03 21:12] LABS: Glucose,Whole Blood 176 mg/dL (70-110)
[2023-02-03 22:18] LABS: Glucose,Whole Blood 179 mg/dL (70-110)
[2023-02-03 22:58] LABS: Fibrinogen 877 mg/dL (200-500); Partial Thromboplastin Time 29.6 sec (22.0-30.0)
[2023-02-03 23:11] LABS: Glucose,Whole Blood 180 mg/dL (70-110)
[2023-02-04 00:08] LABS: Glucose,Whole Blood 180 mg/dL (70-110)
[2023-02-04] MEDS: CLINDAMYCIN 900 MG in DEXTROSE 5% IN WATER 50 ML IVPB SCH ×6 (00:29→15:58)
[2023-02-04] MEDS: IPRATROPIUM-ALBUTEROL 3 ML NEB INHALATION SCH ×6 (00:50→20:47)
[2023-02-04] MEDS: AMIODARONE 360 MG in DEXTROSE 5% IN WATER 200 ML IV SCH ×4 (01:35→07:00)
[2023-02-04 02:29] LABS: Glucose,Whole Blood 178 mg/dL (70-110)
[2023-02-04 03:20] LABS: Glucose,Whole Blood 181 mg/dL (70-110)
[2023-02-04 04:18] LABS: Glucose,Whole Blood 175 mg/dL (70-110)
[2023-02-04] MEDS: VASOPRESSIN 60 UNIT in SODIUM CHLORIDE 0.9% 150 ML IV SCH (05:10)
[2023-02-04 05:25] LABS: Glucose,Whole Blood 176 mg/dL (70-110)
[2023-02-04] MEDS: NOREPINEPHRINE 32 MG in SODIUM CHLORIDE 0.9% 218 ML IV SCH ×2 (05:26→17:20)
[2023-02-04 05:46] LABS: Ionized Calcium 3.1 mg/dL (4.5-5.3)
[2023-02-04] MEDS ORDERED: CALCIUM GLUCONATE IN NACL 2 GM in SALINE 1 100ML.BAG IVPB ONE ×2 (05:50→17:22)
[2023-02-04 05:56] LABS: ABG Base Excess -0.9 mmol/L; ABG HCO3 26 mmol/L (21-25); ABG Oxygen Saturation 96.2 % (94-97); ABG PCO2 60 mmHg (35-45); ABG PH 7.25 (7.35-7.45); ABG PO2 91 mmHg (83-108); ABG TCO2 28 mmol/L (19-24); Allen Test Performed? Yes
[2023-02-04 05:58] LABS: Albumin 2.3 g/dL (3.5-5.0); Alkaline Phosphatase 84 U/L (38-126); Anion Gap 19 mmol/L; Anisocytosis Slight; Blood Urea Nitrogen 91 mg/dL (9-20); Carbon Dioxide 22 mmol/L (22-30); Chloride 87 mmol/L (98-107); Glucose 150 mg/dL (74-99); MCV 104.6 fL (80.0-100.0); Macrocytosis Moderate; Magnesium 1.6 mg/dL (1.6-2.3); Mean Platelet Volume 14.7; Potassium 4.9 mmol/L (3.5-5.1); RBC 1.53 m/uL (4.30-5.90); RDW 17.1 % (11.5-15.5); Sodium 128 mmol/L (137-145); Total Bilirubin 3.1 mg/dL (0.2-1.3); Total Protein 4.8 g/dL (6.3-8.2)
[2023-02-04 05:59] LABS: MCHC 33.5 g/dL (31.0-37.0)
[2023-02-04 06:00] LABS: MCH 34.7 pg (25.0-35.0)
[2023-02-04 06:02] LABS: HGB 5.4 gm/dL (13.0-17.5)
[2023-02-04 06:03] LABS: Platelet Count 17 k/uL (150-450)
[2023-02-04 06:04] LABS: African American GFR (CKD) 13 (>60 ml/min/1.73 sqM); Non-African American GFR(CKD) 11 (>60 ml/min/1.73 sqM)
[2023-02-04 06:05] LABS: AST 1223 U/L (17-59)
[2023-02-04 06:06] LABS: ALT 875 U/L (4-49)
[2023-02-04 06:09] LABS: Phosphorus 9.4 mg/dL (2.5-4.5)
[2023-02-04 06:11] LABS: Calcium 5.3 mg/dL (8.4-10.2)
[2023-02-04 06:38] LABS: Creatine Kinase 4574 U/L (55-170)
[2023-02-04 06:41] LABS: Glucose,Whole Blood 181 mg/dL (70-110)
[2023-02-04] MEDS: CISATRACURIUM 200 MG in SODIUM CHLORIDE 0.9% 180 ML IV SCH (07:01)
[2023-02-04] MEDS: DEXTROSE 5% IN WATER 1,000 ML with SODIUM BICARB (1 MEQ/ML) 150 ML IV SCH (07:04)
--- NOTE | 2023-02-04 07:28 | P.PN ---
Subjective Progress Note Date: 02/04/23 Principal diagnosis: Persistent atrial fibrillation This is a 67-year-old gentleman who was admitted to the hospital after he presented with shortness of breath and was found to be in respiratory failure. Initially he was placed on BiPAP with no improvement and subsequently he was intubated and placed on mechanical ventilation. Patient was seen by our service because off new-onset atrial fibrillation with RVR. He was diagnosed with pneumonia/sepsis. Also he was found to have pancytopenia. The atrial fibrillation is new to the patient. Further investigation was performed including an echocardiogram and that revealed a cardiomyopathy appeared to be severe with an ejection fraction between 25-30%. Also he was found to be in acute renal failure. The plan is to undergo dialysis later on today. February 032022 The patient was seen and evaluated this morning. Unfortunately he continues to be intubated on mechanical ventilation and currently he is with an empty unstable requiring vasopressors was norepinephrine and vasopressin's. He continues to be in atrial fibrillation. Currently amiodarone is on. He, be on any beta fabian at this point during the hypotension and cannot be on any calcium channel fabian giving the cardiomyopathy as well as well as h ypotension. Heparin is not given to the patient also because of the pancytopenia severely low platelet count. Also his hemoglobin is low. The echo as a mentioned earlier showed an ejection fraction between 25-30% The examination is remarkable for irregular rhythm with diminished breathing sounds bilaterally and bilateral lower extremities edema 02/04/2023 The patient was seen and evaluated this morning. Unfortunately he is not doing well. He continues to be hemodynamically unstable requiring vasopressors. Beside that he continues to be in atrial fibrillation with overall heart rate around 115 bpm. He is on amiodarone IV. We can't add any beta fabian or calcium channel fabian at this point. We can't add any oral anticoagulation in the light of thrombocytopenia. Beside that his hemoglobin is low. The EF is extremely low as well as a 25-30%. Overall the prognosis is extremely poor. The examination is remarkable for irregular rhythm with diminished breathing sounds bilaterally and mild bilateral lower extremities edema Assessment Acute hypoxic respiratory failure Pneumonia/sepsis with positive blood culture Persistent atrial fibrillation Acute renal failure Pancytopenia Multiple comorbid conditions Plan Continue amiodarone IV Avoid any oral anticoagulation giving the thrombocytopenia Consider adding beta fabian once the blood pressure improved Consider adding cardiomyopathy medication once a pressure improved as well Continue antibiotic Follow-up with the patient Objective - Vital Signs Vital signs: Vital Signs Temp 101.1 F H 02/04/23 04:00 Pulse 122 H 02/04/23 07:00 Resp 28 H 02/04/23 07:00 BP 102/80 02/01/23 14:00 Pulse Ox 91 L 02/04/23 07:00 FiO2 100 02/04/23 07:00 Intake & Output 02/03/23 02/04/23 02/04/23 18:59 06:59 18:59 Intake Total 5756.418 2952.836 517.719 Output Total 80 68 2 Balance 5676.418 2884.836 515.719 Weight 137 kg 147 kg Intake: IV 1625 1525 125 ACETAMINOPHEN IV (For NPO 100 ) 1,000 mg In Empty Bag 1 bag @ 400 mls/hr IVPB ONCE ONE Rx#:[id number] Clindamycin 900 mg In 50 Dextrose 5% in Water 50 ml @ 50 mls/hr IVPB Q8HR [facility] Rx#:[id number] Dextrose 5% in Water 1, 1625 1375 125 000 ml @ 125 mls/hr IV . Q9H12M [facility] with Sodium Bicarb (1 Meq/ml) 150 ml Rx#:[id number] Intake, IV Titration 3831.418 1117.836 372.719 Amount Albumin Human 5% 500 ml 500 In Empty Bag 1 bag @ 250 mls/hr IVPB ONCE ONE Rx#: [id number] Amiodarone 360 mg In 338.885 378.887 180.554 Dextrose 5% in Water 200 ml @ 1 MG/MIN 33.333 mls/ hr IV .Q6H [facility] Rx#: [id number] Cisatracurium 200 mg In 173.928 192.165 Sodium Chloride 0.9% 180 ml @ 1 MCG/KG/MIN 8.046 mls/hr IV .Q24H [facility] Rx#: [id number] Clindamycin 900 mg In 50 Dextrose 5% in Water 50 ml @ 50 mls/hr IVPB Q8HR [facility] Rx#:[id number] Insulin Regular 100 unit 53.733 29.283 In Sodium Chloride 0.9% 100 ml @ Titrate IV .Q0M [facility] Rx#:[id number] Norepinephrine 32 mg In 216.258 217.348 Sodium Chloride 0.9% 218 ml @ 0.03 MCG/KG/MIN 1. 722 mls/hr IV .Q24H [facility] Rx#:[id number] Sodium Chloride 0.9% 2, 2000 000 ml @ 999 mls/hr IV . Q2H1M [facility] Rx#:[id number] Vasopressin 60 unit In 138.006 Sodium Chloride 0.9% 150 ml @ 0.03 UNITS/MIN 4.59 mls/hr IV .Q24H [facility] Rx#: [id number] cefTRIAXone 2 gm In 50 Sodium Chloride 0.9% 50 ml @ 100 mls/hr IVPB Q24HR [facility] Rx#:[id number] propofoL 1,000 mg In 448.614 354.312 Empty Bag 1 bag @ 15 MCG/ KG/MIN 11.022 mls/hr IV . Q9H5M [facility] Rx#:[id number] Oral 160 Tube Feeding 140 220 20 Other 90 Output: Urine 80 68 2 Other: Voiding Method Indwelling Catheter Indwelling Catheter ABP, PAP, CO, CI - Last Documented Arterial Blood Pressure 81/51 - Labs CBC & Chem 7: 02/04/23 05:00 02/04/23 05:00 Labs: Abnormal Lab Results - Last 24 Hours (Table) 02/02/23 02/02/23 02/02/23 Range/Units 02:40 02:40 02:40 WBC (3.8-10.6) k/uL RBC (4.30-5.90) m/uL Hgb (13.0-17.5) gm/dL Hct (39.0-53.0) % MCV (80.0-100.0) fL RDW (11.5-15.5) % Plt Count (150-450) k/uL Neutrophils # (Manual) (1.3-7.7) k/uL Metamyelocytes # (Man) (0) k/uL Myelocytes # (Manual) (0) k/uL Nucleated RBCs (0-0) /100 WBC Fibrinogen (200-500) mg/dL ABG pH (7.35-7.45) ABG pCO2 (35-45) mmHg ABG HCO3 (21-25) mmol/L ABG Total CO2 (19-24) mmol/L Sodium (137-145) mmol/L Chloride (98-107) mmol/L Carbon Dioxide (22-30) mmol/L BUN (9-20) mg/dL Creatinine (0.66-1.25) mg/dL Glucose (74-99) mg/dL POC Glucose (mg/dL) (70-110) mg/dL Hemoglobin A1c (<=6.0) % Calcium (8.4-10.2) mg/dL Ionized Calcium Ban (4.5-5.3) mg/dL Phosphorus (2.5-4.5) mg/dL Total Bilirubin (0.2-1.3) mg/dL AST (17-59) U/L ALT (4-49) U/L Creatine Kinase (55-170) U/L Total Protein (6.3-8.2) g/dL Albumin (3.5-5.0) g/dL Vitamin B12 >3600.0 H (200.0-944.0) pg/mL IgG (700.0-1600.0) mg/dL Rheumatoid Factor 29 H (0-15) IU/mL Free Sullivan LC, Quant 5.18 H (0.33-1.94) mg/dL Free Lambda LC, Quant 3.44 H (0.57-2.63) mg/dL CMV IgG Ab Reactive A (Non-Reactive) 02/03/23 02/03/23 02/03/23 Range/Units 05:10 05:10 08:50 WBC 2.3 L (3.8-10.6) k/uL RBC (4.30-5.90) m/uL Hgb 7.7 L D (13.0-17.5) gm/dL Hct (39.0-53.0) % MCV (80.0-100.0) fL RDW (11.5-15.5) % Plt Count 24 L D (150-450) k/uL Neutrophils # (Manual) 0.30 L* (1.3-7.7) k/uL Metamyelocytes # (Man) 0.14 H (0) k/uL Myelocytes # (Manual) 0.09 H (0) k/uL Nucleated RBCs 4 H (0-0) /100 WBC Fibrinogen (200-500) mg/dL ABG pH (7.35-7.45) ABG pCO2 (35-45) mmHg ABG HCO3 (21-25) mmol/L ABG Total CO2 (19-24) mmol/L Sodium (137-145) mmol/L Chloride (98-107) mmol/L Carbon Dioxide (22-30) mmol/L BUN (9-20) mg/dL Creatinine (0.66-1.25) mg/dL Glucose (74-99) mg/dL POC Glucose (mg/dL) 152 H (70-110) mg/dL Hemoglobin A1c 7.0 H (<=6.0) % Calcium (8.4-10.2) mg/dL Ionized Calcium Ban (4.5-5.3) mg/dL Phosphorus (2.5-4.5) mg/dL Total Bilirubin (0.2-1.3) mg/dL AST (17-59) U/L ALT (4-49) U/L Creatine Kinase (55-170) U/L Total Protein (6.3-8.2) g/dL Albumin (3.5-5.0) g/dL Vitamin B12 (200.0-944.0) pg/mL IgG (700.0-1600.0) mg/dL Rheumatoid Factor (0-15) IU/mL Free Sullivan LC, Quant (0.33-1.94) mg/dL Free Lambda LC, Quant (0.57-2.63) mg/dL CMV IgG Ab (Non-Reactive) 02/03/23 02/03/23 02/03/23 Range/Units 10:13 11:21 12:00 WBC (3.8-10.6) k/uL RBC (4.30-5.90) m/uL Hgb (13.0-17.5) gm/dL Hct (39.0-53.0) % MCV (80.0-100.0) fL RDW (11.5-15.5) % Plt Count (150-450) k/uL Neutrophils # (Manual) (1.3-7.7) k/uL Metamyelocytes # (Man) (0) k/uL Myelocytes # (Manual) (0) k/uL Nucleated RBCs (0-0) /100 WBC Fibrinogen (200-500) mg/dL ABG pH (7.35-7.45) ABG pCO2 (35-45) mmHg ABG HCO3 (21-25) mmol/L ABG Total CO2 (19-24) mmol/L Sodium 129 L (137-145) mmol/L Chloride 92 L (98-107) mmol/L Carbon Dioxide 20 L (22-30) mmol/L BUN 84 H (9-20) mg/dL Creatinine 4.87 H (0.66-1.25) mg/dL Glucose 133 H (74-99) mg/dL POC Glucose (mg/dL) 134 H 127 H (70-110) mg/dL Hemoglobin A1c (<=6.0) % Calcium 5.5 L* (8.4-10.2) mg/dL Ionized Calcium Ban (4.5-5.3) mg/dL Phosphorus (2.5-4.5) mg/dL Total Bilirubin (0.2-1.3) mg/dL AST (17-59) U/L ALT (4-49) U/L Creatine Kinase 4794 H* (55-170) U/L Total Protein (6.3-8.2) g/dL Albumin (3.5-5.0) g/dL Vitamin B12 (200.0-944.0) pg/mL IgG (700.0-1600.0) mg/dL Rheumatoid Factor (0-15) IU/mL Free Sullivan LC, Quant (0.33-1.94) mg/dL Free Lambda LC, Quant (0.57-2.63) mg/dL CMV IgG Ab (Non-Reactive) 02/03/23 02/03/23 02/03/23 Range/Units 12:26 12:32 13:33 WBC (3.8-10.6) k/uL RBC (4.30-5.90) m/uL Hgb (13.0-17.5) gm/dL Hct (39.0-53.0) % MCV (80.0-100.0) fL RDW (11.5-15.5) % Plt Count (150-450) k/uL Neutrophils # (Manual) (1.3-7.7) k/uL Metamyelocytes # (Man) (0) k/uL Myelocytes # (Manual) (0) k/uL Nucleated RBCs (0-0) /100 WBC Fibrinogen (200-500) mg/dL ABG pH (7.35-7.45) ABG pCO2 (35-45) mmHg ABG HCO3 (21-25) mmol/L ABG Total CO2 (19-24) mmol/L Sodium (137-145) mmol/L Chloride (98-107) mmol/L Carbon Dioxide (22-30) mmol/L BUN (9-20) mg/dL Creatinine (0.66-1.25) mg/dL Glucose (74-99) mg/dL POC Glucose (mg/dL) 162 H 171 H (70-110) mg/dL Hemoglobin A1c (<=6.0) % Calcium (8.4-10.2) mg/dL Ionized Calcium Ban (4.5-5.3) mg/dL Phosphorus (2.5-4.5) mg/dL Total Bilirubin (0.2-1.3) mg/dL AST (17-59) U/L ALT (4-49) U/L Creatine Kinase (55-170) U/L Total Protein (6.3-8.2) g/dL Albumin (3.5-5.0) g/dL Vitamin B12 (200.0-944.0) pg/mL IgG 588.0 L (700.0-1600.0) mg/dL Rheumatoid Factor (0-15) IU/mL Free Sullivan LC, Quant (0.33-1.94) mg/dL Free Lambda LC, Quant (0.57-2.63) mg/dL CMV IgG Ab (Non-Reactive) 02/03/23 02/03/23 02/03/23 Range/Units 15:26 17:42 18:55 WBC (3.8-10.6) k/uL RBC (4.30-5.90) m/uL Hgb (13.0-17.5) gm/dL Hct (39.0-53.0) % MCV (80.0-100.0) fL RDW (11.5-15.5) % Plt Count (150-450) k/uL Neutrophils # (Manual) (1.3-7.7) k/uL Metamyelocytes # (Man) (0) k/uL Myelocytes # (Manual) (0) k/uL Nucleated RBCs (0-0) /100 WBC Fibrinogen (200-500) mg/dL ABG pH (7.35-7.45) ABG pCO2 (35-45) mmHg ABG HCO3 (21-25) mmol/L ABG Total CO2 (19-24) mmol/L Sodium (137-145) mmol/L Chloride (98-107) mmol/L Carbon Dioxide (22-30) mmol/L BUN (9-20) mg/dL Creatinine (0.66-1.25) mg/dL Glucose (74-99) mg/dL POC Glucose (mg/dL) 208 H 206 H 174 H (70-110) mg/dL Hemoglobin A1c (<=6.0) % Calcium (8.4-10.2) mg/dL Ionized Calcium Ban (4.5-5.3) mg/dL Phosphorus (2.5-4.5) mg/dL Total Bilirubin (0.2-1.3) mg/dL AST (17-59) U/L ALT (4-49) U/L Creatine Kinase (55-170) U/L Total Protein (6.3-8.2) g/dL Albumin (3.5-5.0) g/dL Vitamin B12 (200.0-944.0) pg/mL IgG (700.0-1600.0) mg/dL Rheumatoid Factor (0-15) IU/mL Free Sullivan LC, Quant (0.33-1.94) mg/dL Free Lambda LC, Quant (0.57-2.63) mg/dL CMV IgG Ab (Non-Reactive) 02/03/23 02/03/23 02/03/23 Range/Units 21:11 21:15 22:16 WBC (3.8-10.6) k/uL RBC (4.30-5.90) m/uL Hgb (13.0-17.5) gm/dL Hct (39.0-53.0) % MCV (80.0-100.0) fL RDW (11.5-15.5) % Plt Count (150-450) k/uL Neutrophils # (Manual) (1.3-7.7) k/uL Metamyelocytes # (Man) (0) k/uL Myelocytes # (Manual) (0) k/uL Nucleated RBCs (0-0) /100 WBC Fibrinogen 877 H (200-500) mg/dL ABG pH (7.35-7.45) ABG pCO2 (35-45) mmHg ABG HCO3 (21-25) mmol/L ABG Total CO2 (19-24) mmol/L Sodium (137-145) mmol/L Chloride (98-107) mmol/L Carbon Dioxide (22-30) mmol/L BUN (9-20) mg/dL Creatinine (0.66-1.25) mg/dL Glucose (74-99) mg/dL POC Glucose (mg/dL) 176 H 179 H (70-110) mg/dL Hemoglobin A1c (<=6.0) % Calcium (8.4-10.2) mg/dL Ionized Calcium Ban (4.5-5.3) mg/dL Phosphorus (2.5-4.5) mg/dL Total Bilirubin (0.2-1.3) mg/dL AST (17-59) U/L ALT (4-49) U/L Creatine Kinase (55-170) U/L Total Protein (6.3-8.2) g/dL Albumin (3.5-5.0) g/dL Vitamin B12 (200.0-944.0) pg/mL IgG (700.0-1600.0) mg/dL Rheumatoid Factor (0-15) IU/mL Free Sullivan LC, Quant (0.33-1.94) mg/dL Free Lambda LC, Quant (0.57-2.63) mg/dL CMV IgG Ab (Non-Reactive) 02/03/23 02/04/23 02/04/23 Range/Units 23:10 00:06 02:28 WBC (3.8-10.6) k/uL RBC (4.30-5.90) m/uL Hgb (13.0-17.5) gm/dL Hct (39.0-53.0) % MCV (80.0-100.0) fL RDW (11.5-15.5) % Plt Count (150-450) k/uL Neutrophils # (Manual) (1.3-7.7) k/uL Metamyelocytes # (Man) (0) k/uL Myelocytes # (Manual) (0) k/uL Nucleated RBCs (0-0) /100 WBC Fibrinogen (200-500) mg/dL ABG pH (7.35-7.45) ABG pCO2 (35-45) mmHg ABG HCO3 (21-25) mmol/L ABG Total CO2 (19-24) mmol/L Sodium (137-145) mmol/L Chloride (98-107) mmol/L Carbon Dioxide (22-30) mmol/L BUN (9-20) mg/dL Creatinine (0.66-1.25) mg/dL Glucose (74-99) mg/dL POC Glucose (mg/dL) 180 H 180 H 178 H (70-110) mg/dL Hemoglobin A1c (<=6.0) % Calcium (8.4-10.2) mg/dL Ionized Calcium Ban (4.5-5.3) mg/dL Phosphorus (2.5-4.5) mg/dL Total Bilirubin (0.2-1.3) mg/dL AST (17-59) U/L ALT (4-49) U/L Creatine Kinase (55-170) U/L Total Protein (6.3-8.2) g/dL Albumin (3.5-5.0) g/dL Vitamin B12 (200.0-944.0) pg/mL IgG (700.0-1600.0) mg/dL Rheumatoid Factor (0-15) IU/mL Free Sullivan LC, Quant (0.33-1.94) mg/dL Free Lambda LC, Quant (0.57-2.63) mg/dL CMV IgG Ab (Non-Reactive) 02/04/23 02/04/23 02/04/23 Range/Units 03:18 04:16 05:00 WBC (3.8-10.6) k/uL RBC (4.30-5.90) m/uL Hgb (13.0-17.5) gm/dL Hct (39.0-53.0) % MCV (80.0-100.0) fL RDW (11.5-15.5) % Plt Count (150-450) k/uL Neutrophils # (Manual) (1.3-7.7) k/uL Metamyelocytes # (Man) (0) k/uL Myelocytes # (Manual) (0) k/uL Nucleated RBCs (0-0) /100 WBC Fibrinogen (200-500) mg/dL ABG pH (7.35-7.45) ABG pCO2 (35-45) mmHg ABG HCO3 (21-25) mmol/L ABG Total CO2 (19-24) mmol/L Sodium 128 L (137-145) mmol/L Chloride 87 L (98-107) mmol/L Carbon Dioxide (22-30) mmol/L BUN 91 H (9-20) mg/dL Creatinine 5.05 H (0.66-1.25) mg/dL Glucose 150 H (74-99) mg/dL POC Glucose (mg/dL) 181 H 175 H (70-110) mg/dL Hemoglobin A1c (<=6.0) % Calcium 5.3 L* (8.4-10.2) mg/dL Ionized Calcium Ban 3.1 L* (4.5-5.3) mg/dL Phosphorus 9.4 H* (2.5-4.5) mg/dL Total Bilirubin 3.1 H (0.2-1.3) mg/dL AST 1223 H (17-59) U/L ALT 875 H (4-49) U/L Creatine Kinase 4574 H* (55-170) U/L Total Protein 4.8 L (6.3-8.2) g/dL Albumin 2.3 L (3.5-5.0) g/dL Vitamin B12 (200.0-944.0) pg/mL IgG (700.0-1600.0) mg/dL Rheumatoid Factor (0-15) IU/mL Free Sullivan LC, Quant (0.33-1.94) mg/dL Free Lambda LC, Quant (0.57-2.63) mg/dL CMV IgG Ab (Non-Reactive) 02/04/23 02/04/23 02/04/23 Range/Units 05:00 05:24 05:50 WBC (3.8-10.6) k/uL RBC 1.53 L (4.30-5.90) m/uL Hgb (13.0-17.5) gm/dL Hct 16.0 L* (39.0-53.0) % MCV 104.6 H (80.0-100.0) fL RDW 17.1 H (11.5-15.5) % Plt Count (150-450) k/uL Neutrophils # (Manual) (1.3-7.7) k/uL Metamyelocytes # (Man) (0) k/uL Myelocytes # (Manual) (0) k/uL Nucleated RBCs (0-0) /100 WBC Fibrinogen (200-500) mg/dL ABG pH 7.25 L (7.35-7.45) ABG pCO2 60 H (35-45) mmHg ABG HCO3 26 H (21-25) mmol/L ABG Total CO2 28 H (19-24) mmol/L Sodium (137-145) mmol/L Chloride (98-107) mmol/L Carbon Dioxide (22-30) mmol/L BUN (9-20) mg/dL Creatinine (0.66-1.25) mg/dL Glucose (74-99) mg/dL POC Glucose (mg/dL) 176 H (70-110) mg/dL Hemoglobin A1c (<=6.0) % Calcium (8.4-10.2) mg/dL Ionized Calcium Ban (4.5-5.3) mg/dL Phosphorus (2.5-4.5) mg/dL Total Bilirubin (0.2-1.3) mg/dL AST (17-59) U/L ALT (4-49) U/L Creatine Kinase (55-170) U/L Total Protein (6.3-8.2) g/dL Albumin (3.5-5.0) g/dL Vitamin B12 (200.0-944.0) pg/mL IgG (700.0-1600.0) mg/dL Rheumatoid Factor (0-15) IU/mL Free Sullivan LC, Quant (0.33-1.94) mg/dL Free Lambda LC, Quant (0.57-2.63) mg/dL CMV IgG Ab (Non-Reactive) 02/04/23 Range/Units 06:39 WBC (3.8-10.6) k/uL RBC (4.30-5.90) m/uL Hgb (13.0-17.5) gm/dL Hct (39.0-53.0) % MCV (80.0-100.0) fL RDW (11.5-15.5) % Plt Count (150-450) k/uL Neutrophils # (Manual) (1.3-7.7) k/uL Metamyelocytes # (Man) (0) k/uL Myelocytes # (Manual) (0) k/uL Nucleated RBCs (0-0) /100 WBC Fibrinogen (200-500) mg/dL ABG pH (7.35-7.45) ABG pCO2 (35-45) mmHg ABG HCO3 (21-25) mmol/L ABG Total CO2 (19-24) mmol/L Sodium (137-145) mmol/L Chloride (98-107) mmol/L Carbon Dioxide (22-30) mmol/L BUN (9-20) mg/dL Creatinine (0.66-1.25) mg/dL Glucose (74-99) mg/dL POC Glucose (mg/dL) 181 H (70-110) mg/dL Hemoglobin A1c (<=6.0) % Calcium (8.4-10.2) mg/dL Ionized Calcium Ban (4.5-5.3) mg/dL Phosphorus (2.5-4.5) mg/dL Total Bilirubin (0.2-1.3) mg/dL AST (17-59) U/L ALT (4-49) U/L Creatine Kinase (55-170) U/L Total Protein (6.3-8.2) g/dL Albumin (3.5-5.0) g/dL Vitamin B12 (200.0-944.0) pg/mL IgG (700.0-1600.0) mg/dL Rheumatoid Factor (0-15) IU/mL Free Sullivan LC, Quant (0.33-1.94) mg/dL Free Lambda LC, Quant (0.57-2.63) mg/dL CMV IgG Ab (Non-Reactive) Microbiology - Last 24 Hours (Table) 02/02/23 21:16 Gram Stain - Preliminary Sputum 02/01/23 20:00 Urine Culture - Final Urine,Catheterized 02/01/23 00:18 Blood Culture Gram Stain - Final Blood Blood Culture - Final Beta Hemolytic Strep Group G
[2023-02-04] MEDS ORDERED: MAGNESIUM SULFATE-D5W PMX 1 GM in DEXTROSE/WATER 1 100ML.BAG IVPB ONE (07:30)
[2023-02-04] MEDS: FINASTERIDE 5 MG TAB PO SCH (07:43)
[2023-02-04] MEDS: CHLORHEXIDINE GLUCONATE 15 ML CUP MUCOUS MEM SCH ×2 (07:43→21:30)
[2023-02-04] MEDS: FILGRASTIM-SNDZ 480 MCG/0.8 ML SYRINGE SQ SCH (07:43)
[2023-02-04 07:56] LABS: Glucose,Whole Blood 179 mg/dL (70-110)
--- NOTE | 2023-02-04 08:54 | XR ---
EXAMINATION TYPE: XR chest 1V portable DATE OF EXAM: 02/04/2023 COMPARISON: 02/03/2023 HISTORY: Shortness of breath TECHNIQUE: Single frontal view of the chest is obtained. FINDINGS: Bilateral consolidation and pleural effusion stable. Congestion. ET tube, NG-tube and cent ral line stable. No sizable pneumothorax. Hypertrophic and degenerative change of the spine. Limited inspiration IMPRESSION: Stable bilateral pleural-parenchymal changes.
--- NOTE | 2023-02-04 09:20 | P.PN ---
Subjective Patient is seen in follow-up for acute kidney injury. Remains oliguric. Remains on Levophed and vasopressin. Also on amiodarone drip. Receiving tube feeds. On bicarb drip. Intubated. Hemoglobin 5.4 this morning. Vital signs - on vasopressor support. Blood pressure on the lower side. In A. fib. General: Laying in bed. HEENT: Intubated. LUNGS: Scattered rhonchi. HEART: Irregular rate and rhythm. ABDOMEN: No distention. Obese. EXTREMITITES: Trace edema. Objective - Vital Signs Vital signs: Vital Signs Temp 101.1 F H 02/04/23 04:00 Pulse 118 H 02/04/23 07:46 Resp 28 H 02/04/23 07:00 BP 102/80 02/01/23 14:00 Pulse Ox 91 L 02/04/23 07:00 FiO2 50 02/04/23 08:00 Intake & Output 02/03/23 02/04/23 02/04/23 18:59 06:59 18:59 Intake Total 5756.418 2952.836 962.719 Output Total 80 68 2 Balance 5676.418 2884.836 960.719 Weight 137 kg 147 kg Intake: IV 1625 1525 250 ACETAMINOPHEN IV (For NPO 100 ) 1,000 mg In Empty Bag 1 bag @ 400 mls/hr IVPB ONCE ONE Rx#:[id number] Clindamycin 900 mg In 50 Dextrose 5% in Water 50 ml @ 50 mls/hr IVPB Q8HR [facility] Rx#:[id number] Dextrose 5% in Water 1, 1625 1375 250 000 ml @ 125 mls/hr IV . Q9H12M [facility] with Sodium Bicarb (1 Meq/ml) 150 ml Rx#:[id number] Intake, IV Titration 3831.418 1117.836 672.719 Amount Albumin Human 5% 500 ml 500 In Empty Bag 1 bag @ 250 mls/hr IVPB ONCE ONE Rx#: [id number] Amiodarone 360 mg In 338.885 378.887 180.554 Dextrose 5% in Water 200 ml @ 1 MG/MIN 33.333 mls/ hr IV .Q6H [facility] Rx#: [id number] Calcium Gluconate in NaCl 100 2 gm In Saline 1 100ml. bag @ 100 mls/hr IVPB ONCE ONE Rx#:[id number] Cisatracurium 200 mg In 173.928 192.165 Sodium Chloride 0.9% 180 ml @ 1 MCG/KG/MIN 8.046 mls/hr IV .Q24H [facility] Rx#: [id number] Clindamycin 900 mg In 50 Dextrose 5% in Water 50 ml @ 50 mls/hr IVPB Q8HR [facility] Rx#:[id number] Insulin Regular 100 unit 53.733 29.283 In Sodium Chloride 0.9% 100 ml @ Titrate IV .Q0M [facility] Rx#:[id number] Magnesium Sulfate-D5w Pmx 100 1 gm In Dextrose/Water 1 100ml.bag @ 100 mls/hr IVPB ONCE ONE Rx#: [id number] Norepinephrine 32 mg In 216.258 217.348 Sodium Chloride 0.9% 218 ml @ 0.03 MCG/KG/MIN 1. 722 mls/hr IV .Q24H [facility] Rx#:[id number] Sodium Chloride 0.9% 2, 2000 000 ml @ 999 mls/hr IV . Q2H1M [facility] Rx#:[id number] Vasopressin 60 unit In 138.006 Sodium Chloride 0.9% 150 ml @ 0.03 UNITS/MIN 4.59 mls/hr IV .Q24H [facility] Rx#: [id number] cefTRIAXone 2 gm In 50 Sodium Chloride 0.9% 50 ml @ 100 mls/hr IVPB Q24HR [facility] Rx#:[id number] propofoL 1,000 mg In 448.614 354.312 100 Empty Bag 1 bag @ 15 MCG/ KG/MIN 11.022 mls/hr IV . Q9H5M [facility] Rx#:[id number] Oral 160 Tube Feeding 140 220 40 Other 90 Output: Urine 80 68 2 Other: Voiding Method Indwelling Catheter Indwelling Catheter Indwelling Catheter ABP, PAP, CO, CI - Last Documented Arterial Blood Pressure 81/51 - Labs CBC & Chem 7: 02/04/23 05:00 02/04/23 05:00 Labs: Abnormal Lab Results - Last 24 Hours (Table) 02/02/23 02/02/23 02/02/23 Range/Units 02:40 02:40 02:40 RBC (4.30-5.90) m/uL Hct (39.0-53.0) % MCV (80.0-100.0) fL RDW (11.5-15.5) % Neutrophils # (Manual) (1.3-7.7) k/uL Metamyelocytes # (Man) (0) k/uL Myelocytes # (Manual) (0) k/uL Nucleated RBCs (0-0) /100 WBC Fibrinogen (200-500) mg/dL ABG pH (7.35-7.45) ABG pCO2 (35-45) mmHg ABG HCO3 (21-25) mmol/L ABG Total CO2 (19-24) mmol/L Sodium (137-145) mmol/L Chloride (98-107) mmol/L Carbon Dioxide (22-30) mmol/L BUN (9-20) mg/dL Creatinine (0.66-1.25) mg/dL Glucose (74-99) mg/dL POC Glucose (mg/dL) (70-110) mg/dL Hemoglobin A1c (<=6.0) % Calcium (8.4-10.2) mg/dL Ionized Calcium Ban (4.5-5.3) mg/dL Phosphorus (2.5-4.5) mg/dL Total Bilirubin (0.2-1.3) mg/dL AST (17-59) U/L ALT (4-49) U/L Creatine Kinase (55-170) U/L Total Protein (6.3-8.2) g/dL Albumin (3.5-5.0) g/dL Vitamin B12 >3600.0 H (200.0-944.0) pg/mL IgG (700.0-1600.0) mg/dL Rheumatoid Factor 29 H (0-15) IU/mL Free [place] LC, Quant 5.18 H (0.33-1.94) mg/dL Free Lambda LC, Quant 3.44 H (0.57-2.63) mg/dL CMV IgG Ab Reactive A (Non-Reactive) Crossmatch 02/03/23 02/03/23 02/03/23 Range/Units 05:10 05:10 10:13 RBC (4.30-5.90) m/uL Hct (39.0-53.0) % MCV (80.0-100.0) fL RDW (11.5-15.5) % Neutrophils # (Manual) 0.30 L* (1.3-7.7) k/uL Metamyelocytes # (Man) 0.14 H (0) k/uL Myelocytes # (Manual) 0.09 H (0) k/uL Nucleated RBCs 4 H (0-0) /100 WBC Fibrinogen (200-500) mg/dL ABG pH (7.35-7.45) ABG pCO2 (35-45) mmHg ABG HCO3 (21-25) mmol/L ABG Total CO2 (19-24) mmol/L Sodium (137-145) mmol/L Chloride (98-107) mmol/L Carbon Dioxide (22-30) mmol/L BUN (9-20) mg/dL Creatinine (0.66-1.25) mg/dL Glucose (74-99) mg/dL POC Glucose (mg/dL) 134 H (70-110) mg/dL Hemoglobin A1c 7.0 H (<=6.0) % Calcium (8.4-10.2) mg/dL Ionized Calcium Ban (4.5-5.3) mg/dL Phosphorus (2.5-4.5) mg/dL Total Bilirubin (0.2-1.3) mg/dL AST (17-59) U/L ALT (4-49) U/L Creatine Kinase (55-170) U/L Total Protein (6.3-8.2) g/dL Albumin (3.5-5.0) g/dL Vitamin B12 (200.0-944.0) pg/mL IgG (700.0-1600.0) mg/dL Rheumatoid Factor (0-15) IU/mL Free [place] LC, Quant (0.33-1.94) mg/dL Free Lambda LC, Quant (0.57-2.63) mg/dL CMV IgG Ab (Non-Reactive) Crossmatch 02/03/23 02/03/23 02/03/23 Range/Units 11:21 12:00 12:26 RBC (4.30-5.90) m/uL Hct (39.0-53.0) % MCV (80.0-100.0) fL RDW (11.5-15.5) % Neutrophils # (Manual) (1.3-7.7) k/uL Metamyelocytes # (Man) (0) k/uL Myelocytes # (Manual) (0) k/uL Nucleated RBCs (0-0) /100 WBC Fibrinogen (200-500) mg/dL ABG pH (7.35-7.45) ABG pCO2 (35-45) mmHg ABG HCO3 (21-25) mmol/L ABG Total CO2 (19-24) mmol/L Sodium 129 L (137-145) mmol/L Chloride 92 L (98-107) mmol/L Carbon Dioxide 20 L (22-30) mmol/L BUN 84 H (9-20) mg/dL Creatinine 4.87 H (0.66-1.25) mg/dL Glucose 133 H (74-99) mg/dL POC Glucose (mg/dL) 127 H 162 H (70-110) mg/dL Hemoglobin A1c (<=6.0) % Calcium 5.5 L* (8.4-10.2) mg/dL Ionized Calcium Ban (4.5-5.3) mg/dL Phosphorus (2.5-4.5) mg/dL Total Bilirubin (0.2-1.3) mg/dL AST (17-59) U/L ALT (4-49) U/L Creatine Kinase 4794 H* (55-170) U/L Total Protein (6.3-8.2) g/dL Albumin (3.5-5.0) g/dL Vitamin B12 (200.0-944.0) pg/mL IgG (700.0-1600.0) mg/dL Rheumatoid Factor (0-15) IU/mL Free [place] LC, Quant (0.33-1.94) mg/dL Free Lambda LC, Quant (0.57-2.63) mg/dL CMV IgG Ab (Non-Reactive) Crossmatch 02/03/23 02/03/23 02/03/23 Range/Units 12:32 13:33 15:26 RBC (4.30-5.90) m/uL Hct (39.0-53.0) % MCV (80.0-100.0) fL RDW (11.5-15.5) % Neutrophils # (Manual) (1.3-7.7) k/uL Metamyelocytes # (Man) (0) k/uL Myelocytes # (Manual) (0) k/uL Nucleated RBCs (0-0) /100 WBC Fibrinogen (200-500) mg/dL ABG pH (7.35-7.45) ABG pCO2 (35-45) mmHg ABG HCO3 (21-25) mmol/L ABG Total CO2 (19-24) mmol/L Sodium (137-145) mmol/L Chloride (98-107) mmol/L Carbon Dioxide (22-30) mmol/L BUN (9-20) mg/dL Creatinine (0.66-1.25) mg/dL Glucose (74-99) mg/dL POC Glucose (mg/dL) 171 H 208 H (70-110) mg/dL Hemoglobin A1c (<=6.0) % Calcium (8.4-10.2) mg/dL Ionized Calcium Ban (4.5-5.3) mg/dL Phosphorus (2.5-4.5) mg/dL Total Bilirubin (0.2-1.3) mg/dL AST (17-59) U/L ALT (4-49) U/L Creatine Kinase (55-170) U/L Total Protein (6.3-8.2) g/dL Albumin (3.5-5.0) g/dL Vitamin B12 (200.0-944.0) pg/mL IgG 588.0 L (700.0-1600.0) mg/dL Rheumatoid Factor (0-15) IU/mL Free [place] LC, Quant (0.33-1.94) mg/dL Free Lambda LC, Quant (0.57-2.63) mg/dL CMV IgG Ab (Non-Reactive) Crossmatch 02/03/23 02/03/23 02/03/23 Range/Units 17:42 18:55 21:11 RBC (4.30-5.90) m/uL Hct (39.0-53.0) % MCV (80.0-100.0) fL RDW (11.5-15.5) % Neutrophils # (Manual) (1.3-7.7) k/uL Metamyelocytes # (Man) (0) k/uL Myelocytes # (Manual) (0) k/uL Nucleated RBCs (0-0) /100 WBC Fibrinogen (200-500) mg/dL ABG pH (7.35-7.45) ABG pCO2 (35-45) mmHg ABG HCO3 (21-25) mmol/L ABG Total CO2 (19-24) mmol/L Sodium (137-145) mmol/L Chloride (98-107) mmol/L Carbon Dioxide (22-30) mmol/L BUN (9-20) mg/dL Creatinine (0.66-1.25) mg/dL Glucose (74-99) mg/dL POC Glucose (mg/dL) 206 H 174 H 176 H (70-110) mg/dL Hemoglobin A1c (<=6.0) % Calcium (8.4-10.2) mg/dL Ionized Calcium Ban (4.5-5.3) mg/dL Phosphorus (2.5-4.5) mg/dL Total Bilirubin (0.2-1.3) mg/dL AST (17-59) U/L ALT (4-49) U/L Creatine Kinase (55-170) U/L Total Protein (6.3-8.2) g/dL Albumin (3.5-5.0) g/dL Vitamin B12 (200.0-944.0) pg/mL IgG (700.0-1600.0) mg/dL Rheumatoid Factor (0-15) IU/mL Free [place] LC, Quant (0.33-1.94) mg/dL Free Lambda LC, Quant (0.57-2.63) mg/dL CMV IgG Ab (Non-Reactive) Crossmatch 02/03/23 02/03/23 02/03/23 Range/Units 21:15 22:16 23:10 RBC (4.30-5.90) m/uL Hct (39.0-53.0) % MCV (80.0-100.0) fL RDW (11.5-15.5) % Neutrophils # (Manual) (1.3-7.7) k/uL Metamyelocytes # (Man) (0) k/uL Myelocytes # (Manual) (0) k/uL Nucleated RBCs (0-0) /100 WBC Fibrinogen 877 H (200-500) mg/dL ABG pH (7.35-7.45) ABG pCO2 (35-45) mmHg ABG HCO3 (21-25) mmol/L ABG Total CO2 (19-24) mmol/L Sodium (137-145) mmol/L Chloride (98-107) mmol/L Carbon Dioxide (22-30) mmol/L BUN (9-20) mg/dL Creatinine (0.66-1.25) mg/dL Glucose (74-99) mg/dL POC Glucose (mg/dL) 179 H 180 H (70-110) mg/dL Hemoglobin A1c (<=6.0) % Calcium (8.4-10.2) mg/dL Ionized Calcium Ban (4.5-5.3) mg/dL Phosphorus (2.5-4.5) mg/dL Total Bilirubin (0.2-1.3) mg/dL AST (17-59) U/L ALT (4-49) U/L Creatine Kinase (55-170) U/L Total Protein (6.3-8.2) g/dL Albumin (3.5-5.0) g/dL Vitamin B12 (200.0-944.0) pg/mL IgG (700.0-1600.0) mg/dL Rheumatoid Factor (0-15) IU/mL Free [place] LC, Quant (0.33-1.94) mg/dL Free Lambda LC, Quant (0.57-2.63) mg/dL CMV IgG Ab (Non-Reactive) Crossmatch 02/04/23 02/04/23 02/04/23 Range/Units 00:06 02:28 03:18 RBC (4.30-5.90) m/uL Hct (39.0-53.0) % MCV (80.0-100.0) fL RDW (11.5-15.5) % Neutrophils # (Manual) (1.3-7.7) k/uL Metamyelocytes # (Man) (0) k/uL Myelocytes # (Manual) (0) k/uL Nucleated RBCs (0-0) /100 WBC Fibrinogen (200-500) mg/dL ABG pH (7.35-7.45) ABG pCO2 (35-45) mmHg ABG HCO3 (21-25) mmol/L ABG Total CO2 (19-24) mmol/L Sodium (137-145) mmol/L Chloride (98-107) mmol/L Carbon Dioxide (22-30) mmol/L BUN (9-20) mg/dL Creatinine (0.66-1.25) mg/dL Glucose (74-99) mg/dL POC Glucose (mg/dL) 180 H 178 H 181 H (70-110) mg/dL Hemoglobin A1c (<=6.0) % Calcium (8.4-10.2) mg/dL Ionized Calcium Ban (4.5-5.3) mg/dL Phosphorus (2.5-4.5) mg/dL Total Bilirubin (0.2-1.3) mg/dL AST (17-59) U/L ALT (4-49) U/L Creatine Kinase (55-170) U/L Total Protein (6.3-8.2) g/dL Albumin (3.5-5.0) g/dL Vitamin B12 (200.0-944.0) pg/mL IgG (700.0-1600.0) mg/dL Rheumatoid Factor (0-15) IU/mL Free [place] LC, Quant (0.33-1.94) mg/dL Free Lambda LC, Quant (0.57-2.63) mg/dL CMV IgG Ab (Non-Reactive) Crossmatch 02/04/23 02/04/23 02/04/23 Range/Units 04:16 05:00 05:00 RBC 1.53 L (4.30-5.90) m/uL Hct 16.0 L* (39.0-53.0) % MCV 104.6 H (80.0-100.0) fL RDW 17.1 H (11.5-15.5) % Neutrophils # (Manual) (1.3-7.7) k/uL Metamyelocytes # (Man) (0) k/uL Myelocytes # (Manual) (0) k/uL Nucleated RBCs (0-0) /100 WBC Fibrinogen (200-500) mg/dL ABG pH (7.35-7.45) ABG pCO2 (35-45) mmHg ABG HCO3 (21-25) mmol/L ABG Total CO2 (19-24) mmol/L Sodium 128 L (137-145) mmol/L Chloride 87 L (98-107) mmol/L Carbon Dioxide (22-30) mmol/L BUN 91 H (9-20) mg/dL Creatinine 5.05 H (0.66-1.25) mg/dL Glucose 150 H (74-99) mg/dL POC Glucose (mg/dL) 175 H (70-110) mg/dL Hemoglobin A1c (<=6.0) % Calcium 5.3 L* (8.4-10.2) mg/dL Ionized Calcium Ban 3.1 L* (4.5-5.3) mg/dL Phosphorus 9.4 H* (2.5-4.5) mg/dL Total Bilirubin 3.1 H (0.2-1.3) mg/dL AST 1223 H (17-59) U/L ALT 875 H (4-49) U/L Creatine Kinase 4574 H* (55-170) U/L Total Protein 4.8 L (6.3-8.2) g/dL Albumin 2.3 L (3.5-5.0) g/dL Vitamin B12 (200.0-944.0) pg/mL IgG (700.0-1600.0) mg/dL Rheumatoid Factor (0-15) IU/mL Free [place] LC, Quant (0.33-1.94) mg/dL Free Lambda LC, Quant (0.57-2.63) mg/dL CMV IgG Ab (Non-Reactive) Crossmatch 02/04/23 02/04/23 02/04/23 Range/Units 05:24 05:50 06:39 RBC (4.30-5.90) m/uL Hct (39.0-53.0) % MCV (80.0-100.0) fL RDW (11.5-15.5) % Neutrophils # (Manual) (1.3-7.7) k/uL Metamyelocytes # (Man) (0) k/uL Myelocytes # (Manual) (0) k/uL Nucleated RBCs (0-0) /100 WBC Fibrinogen (200-500) mg/dL ABG pH 7.25 L (7.35-7.45) ABG pCO2 60 H (35-45) mmHg ABG HCO3 26 H (21-25) mmol/L ABG Total CO2 28 H (19-24) mmol/L Sodium (137-145) mmol/L Chloride (98-107) mmol/L Carbon Dioxide (22-30) mmol/L BUN (9-20) mg/dL Creatinine (0.66-1.25) mg/dL Glucose (74-99) mg/dL POC Glucose (mg/dL) 176 H 181 H (70-110) mg/dL Hemoglobin A1c (<=6.0) % Calcium (8.4-10.2) mg/dL Ionized Calcium Ban (4.5-5.3) mg/dL Phosphorus (2.5-4.5) mg/dL Total Bilirubin (0.2-1.3) mg/dL AST (17-59) U/L ALT (4-49) U/L Creatine Kinase (55-170) U/L Total Protein (6.3-8.2) g/dL Albumin (3.5-5.0) g/dL Vitamin B12 (200.0-944.0) pg/mL IgG (700.0-1600.0) mg/dL Rheumatoid Factor (0-15) IU/mL Free [place] LC, Quant (0.33-1.94) mg/dL Free Lambda LC, Quant (0.57-2.63) mg/dL CMV IgG Ab (Non-Reactive) Crossmatch 02/04/23 02/04/23 Range/Units 07:54 08:08 RBC (4.30-5.90) m/uL Hct (39.0-53.0) % MCV (80.0-100.0) fL RDW (11.5-15.5) % Neutrophils # (Manual) (1.3-7.7) k/uL Metamyelocytes # (Man) (0) k/uL Myelocytes # (Manual) (0) k/uL Nucleated RBCs (0-0) /100 WBC Fibrinogen (200-500) mg/dL ABG pH (7.35-7.45) ABG pCO2 (35-45) mmHg ABG HCO3 (21-25) mmol/L ABG Total CO2 (19-24) mmol/L Sodium (137-145) mmol/L Chloride (98-107) mmol/L Carbon Dioxide (22-30) mmol/L BUN (9-20) mg/dL Creatinine (0.66-1.25) mg/dL Glucose (74-99) mg/dL POC Glucose (mg/dL) 179 H (70-110) mg/dL Hemoglobin A1c (<=6.0) % Calcium (8.4-10.2) mg/dL Ionized Calcium Ban (4.5-5.3) mg/dL Phosphorus (2.5-4.5) mg/dL Total Bilirubin (0.2-1.3) mg/dL AST (17-59) U/L ALT (4-49) U/L Creatine Kinase (55-170) U/L Total Protein (6.3-8.2) g/dL Albumin (3.5-5.0) g/dL Vitamin B12 (200.0-944.0) pg/mL IgG (700.0-1600.0) mg/dL Rheumatoid Factor (0-15) IU/mL Free [place] LC, Quant (0.33-1.94) mg/dL Free Lambda LC, Quant (0.57-2.63) mg/dL CMV IgG Ab (Non-Reactive) Crossmatch See Detail Microbiology - Last 24 Hours (Table) 02/02/23 21:16 Gram Stain - Preliminary Sputum 02/01/23 20:00 Urine Culture - Final Urine,Catheterized 02/01/23 00:18 Blood Culture Gram Stain - Final Blood Blood Culture - Final Beta Hemolytic Strep Group G Assessment and Plan Plan: Assessment: 1. Acute kidney injury secondary to ATN secondary to septic shock. Baseline creatinine near 1. Creatinine 5.05 today. Oliguric. No hydronephrosis noted on kidney ultrasound. 2. A. fib with RVR maintain on amiodarone drip. Cardiology following. 3. Metabolic acidosis secondary to acute kidney injury and lactic acidosis. Improved with bicarbonate drip. 4. Hypokalemia from poor intake. Stable. 5. Hypocalcemia secondary to acute kidney injury. Corrected calcium near 6.7. Ionized calcium low. 6. Septic shock with blood culture positive for beta hemolytic strep group G. On vasopressors. 7. Acute hypoxic respiratory failure. 8. Cardiomyopathy with ejection fraction of 25-30%. 9. Pancytopenia. Haptoglobin high. Hematology following. 10. Hyperphosphatemia secondary to acute kidney injury. Plan: Maintain bicarb drip for now. Calcium being replaced. Wean FiO2 and vasopressors. Maintain tube feeds. Status post 120 mg of IV Lasix given in 02/02/2023 with no significant response in urine output. Repeat 80 mg IV Lasix once today. Add PhosLo. Repeat BMP this afternoon. Continue to assess daily for need for renal replacement therapy. Patient currently hemodynamically very unstable for renal replacement therapy. Monitor electrolytes and volume status closely. Will attempt SLED if absolutely needed. Prognosis poor.
[2023-02-04 09:59] LABS: Band Neutrophils % 1 %; Eosinophils # (M) 0.04 k/uL (0-0.7); Metamyelocytes # (M) 0.15 k/uL (0); Metamyelocytes % 4 %; Monocytes # (M) 0.22 k/uL (0-1.0); Myelocytes # (M) 0.11 k/uL (0); Myelocytes % 3 %; Neutrophils % (M) 13 %; Nucleated Red Blood Cells 5 /100 WBC (0-0); Total Cells Counted 200; WBC 3.7 k/uL (3.8-10.6)
[2023-02-04 10:03] LABS: Poikilocytosis (M) Present
--- NOTE | 2023-02-04 10:18 | P.PN ---
Subjective Progress Note Date: 02/04/23 67-year-old male with a history of hypertension, hyperlipidemia, and gout. Presents to the emergency department on January 31, complaining of shortness of breath. He also complained of cough. He apparently recently was in [facility], about a week and a half or 2 weeks ago. On today's evaluation of 02/03/2022, I'm seeing the patient for a follow-up. He remains intubated on a mechanical ventilator. The patient is an septic shock with multisystem organ failure. To me, the exact source of the strep into his blood is not clear. The patient had positive positive blood culture with beta- hemolytic strep group G. The patient remains on a combination of clindamycin and IV Rocephin. At this point in time, the patient is intubated on a mechanical ventilator. He is on propofol running at 50 mcg/kg/m and is also on Nimbex at 1 mcg/kg/m. His adequately sedated and paralyzed for now. He is on assist-control mode of mechanical ventilation, at the rate of 28, tidal volume 400, FiO2 of 50% with a PEEP of 10. He remains on pressors. Norepinephrine is running at 0.32 mcg/kg/m and the patient is also physiologic vasopressin dose of 0.04 units minutes. The patient remains oliguric, hypotensive, tachycardic, his cardiac rhythm is atrial fibrillation he remains on amiodarone drip running at 1 mg/m. His urine output is in order of 5-10 mL an hour. IV fluids are currently running in the form of bicarbonate infusion at the rate of 125 mL an hour. Is in a pathologic profile is obviously abnormal. His echoes improved and is currently up to 2.3. He has a drop in hemoglobin down to 7.7 and a drop in a platelet count down to 84. This could be related to underlying DIC as the patient has also abnormal coagulation profile. D-dimer is at 9.9. Fibrinogen is at 05/06/2003. The patient also has an acute kidney injury. Creatinine was up to 3.7 with a BUN of 65, serum bicarbs of 18, the patient has a hiatus lactic acid level of 8.1, LFTs are abnormal, he had a acute rhabdomyolysis and the CPK has been down trending down to 12,607. Pro-calcitonin level was above 1000. The patient's echo cardiac rhythm showed impaired LV function with ejection fraction of 25%. The chest x-ray from today is showing adequate expansion of both lungs. No evidence of any pneumothorax. There is some limited subpulmonic bilateral pleural effusions. The blood gas also shows a pH of 7.3 with a pCO2 of 53 and pO2 of 79. The patient's triple lumen cath in his left IJ. Calcium level is at 4.4. Potassium levels at 3.0. The patient is also on an insulin drip running at 12 units an hour. On 03/03/2023, the patient showing progressive signs of decline and multisystem organ failure. No major progress. The patient is sedated and paralyzed. The patient is on a combination of propofol and fentanyl and the patient is also paralyzed with Nimbex. Noted the patient is profoundly septic in a combination of septic and cardiogenic shock. Noted the patient was offered fluids. He received an additional 2 L of normal saline yesterday and he was also given 5% albumin 2. Despite aggressive fluid resuscitation and ongoing bicarb infusion, the patient continues to be profoundly hypotensive and his pressor requirements have gone up significantly and the patient is currently on norepinephrine at 0.5 mcg/kg/m and the patient is also on vasopressin physiologic dose. This morning, he remains intubated on a mechanical ventilator. Is on assist-control at the rate of 28, tidal volume of 400, FiO2 of 100% with a PEEP of 12. He is demonstrating borderline oxygenation this morning with a pulse ox of 89%. A chest x-ray showing some atelectatic change in lung bases bilaterally with small infiltrates. His blood gas shows a pH of 7.25 with episodes of 60 and pO2 of 91. At the same time, the patient is on high-dose pressors and norepinephrine running at 0.5 mcg/kg/m. Urine output is quite low in the order of 5-10 mL on an hourly basis. The hemoglobin has dropped down to 5.5 and the patient is currently receiving units of packed RBC. This progressive worsening renal function and the creatinine is up to 5.05 with a BUN of 91. Sodium level is at 128. The white cell count is currently at 3.9. Antibiotic coverage same and the patient is currently on a combination of Rocephin and clindamycin. He is on insulin drip which is running at 4 units an hour. He is receiving enteral f eeding the patient is currently on vital high-protein at the rate of 10 mL an hour. His CPK levels are improving. It has dropped down to the 4794. He also developed hepatic dysfunction with elevation of AST and ALP consistent with sepsisshock. The ionized calcium level today is at 3.1. Note that nephrology gave him IV calcium yesterday. His phosphorus level is 9.4. He has also demonstrated progressive drop in his platelet count which is currently down to 17/DIC. The patient continues to be on amiodarone drip at 1 mg a per minutes. There has been improvement in his rate controlled and the patient continues to be in atrial fibrillation. Objective - Vital Signs Vital signs: Vital Signs Temp 99.7 F H 02/04/23 08:00 Pulse 110 H 02/04/23 09:00 Resp 28 H 02/04/23 09:00 BP 102/80 02/01/23 14:00 Pulse Ox 89 L 02/04/23 09:00 FiO2 100 02/04/23 08:00 Intake & Output 02/03/23 02/04/23 02/04/23 18:59 06:59 18:59 Intake Total 5756.418 2952.836 1247.719 Output Total 80 68 2 Balance 5676.418 2884.836 1245.719 Weight 137 kg 147 kg Intake: IV 1625 1525 375 ACETAMINOPHEN IV (For NPO 100 ) 1,000 mg In Empty Bag 1 bag @ 400 mls/hr IVPB ONCE ONE Rx#:[id number] Clindamycin 900 mg In 50 Dextrose 5% in Water 50 ml @ 50 mls/hr IVPB Q8HR [facility] Rx#:[id number] Dextrose 5% in Water 1, 1625 1375 375 000 ml @ 125 mls/hr IV . Q9H12M [facility] with Sodium Bicarb (1 Meq/ml) 150 ml Rx#:[id number] Intake, IV Titration 3831.418 1117.836 822.719 Amount Albumin Human 5% 500 ml 500 In Empty Bag 1 bag @ 250 mls/hr IVPB ONCE ONE Rx#: [id number] Amiodarone 360 mg In 338.885 378.887 180.554 Dextrose 5% in Water 200 ml @ 1 MG/MIN 33.333 mls/ hr IV .Q6H [facility] Rx#: [id number] Calcium Gluconate in NaCl 100 2 gm In Saline 1 100ml. bag @ 100 mls/hr IVPB ONCE ONE Rx#:[id number] Cisatracurium 200 mg In 173.928 192.165 Sodium Chloride 0.9% 180 ml @ 1 MCG/KG/MIN 8.046 mls/hr IV .Q24H [facility] Rx#: [id number] Clindamycin 900 mg In 50 Dextrose 5% in Water 50 ml @ 50 mls/hr IVPB Q8HR [facility] Rx#:[id number] Insulin Regular 100 unit 53.733 29.283 In Sodium Chloride 0.9% 100 ml @ Titrate IV .Q0M [facility] Rx#:[id number] Magnesium Sulfate-D5w Pmx 200 1 gm In Dextrose/Water 1 100ml.bag @ 100 mls/hr IVPB ONCE ONE Rx#: [id number] Norepinephrine 32 mg In 216.258 217.348 Sodium Chloride 0.9% 218 ml @ 0.03 MCG/KG/MIN 1. 722 mls/hr IV .Q24H [facility] Rx#:[id number] Sodium Chloride 0.9% 2, 2000 000 ml @ 999 mls/hr IV . Q2H1M [facility] Rx#:[id number] Vasopressin 60 unit In 138.006 Sodium Chloride 0.9% 150 ml @ 0.03 UNITS/MIN 4.59 mls/hr IV .Q24H [facility] Rx#: [id number] cefTRIAXone 2 gm In 50 50 Sodium Chloride 0.9% 50 ml @ 100 mls/hr IVPB Q24HR [facility] Rx#:[id number] propofoL 1,000 mg In 448.614 354.312 100 Empty Bag 1 bag @ 15 MCG/ KG/MIN 11.022 mls/hr IV . Q9H5M [facility] Rx#:[id number] Oral 160 Tube Feeding 140 220 50 Blood Product 0 Rc Pheresis As-3 Unit 0 [id number] Other 90 Output: Urine 80 68 2 Other: Voiding Method Indwelling Catheter Indwelling Catheter Indwelling Catheter ABP, PAP, CO, CI - Last Documented Arterial Blood Pressure 100/56 - Exam Sedated, with an orally placed endotracheal tube and NG tube. Patient is also on paralytics and is on a combination propofol and Nimbex Head exam was generally normal. There was no scleral icterus or corneal arcus. Mucous membranes were moist. HEENT examination is grossly unremarkable. The patient has a left IJ triple lumen catheter Neck supple. Full range of motion. No adenopathy thyromegaly or neck vein distention. Cardiovascular examination reveals regular rhythm rate. S1-S2 normal. No S3 or S4. No discernible murmur noted. Lungs reveal mostly clear breath sounds. Her sounds are equal bilaterally. Minimal scattered rhonchi. No wheezes or crackles. Abdomen soft, without bowel sounds. No masses or tenderness.. Extremities are intact. No cyanosis, clubbing, or significant edema. Skin reveals livedo reticularis of the lower extremities, which is improved. Neurologic examination cannot be assessed at this time. - Labs CBC & Chem 7: 02/04/23 05:00 02/04/23 05:00 Labs: Abnormal Lab Results - Last 24 Hours (Table) 02/02/23 02/02/23 02/02/23 Range/Units 02:40 02:40 02:40 RBC (4.30-5.90) m/uL Hct (39.0-53.0) % MCV (80.0-100.0) fL RDW (11.5-15.5) % Neutrophils # (Manual) (1.3-7.7) k/uL Metamyelocytes # (Man) (0) k/uL Myelocytes # (Manual) (0) k/uL Nucleated RBCs (0-0) /100 WBC Fibrinogen (200-500) mg/dL ABG pH (7.35-7.45) ABG pCO2 (35-45) mmHg ABG HCO3 (21-25) mmol/L ABG Total CO2 (19-24) mmol/L Sodium (137-145) mmol/L Chloride (98-107) mmol/L Carbon Dioxide (22-30) mmol/L BUN (9-20) mg/dL Creatinine (0.66-1.25) mg/dL Glucose (74-99) mg/dL POC Glucose (mg/dL) (70-110) mg/dL Hemoglobin A1c (<=6.0) % Calcium (8.4-10.2) mg/dL Ionized Calcium Ban (4.5-5.3) mg/dL Phosphorus (2.5-4.5) mg/dL Total Bilirubin (0.2-1.3) mg/dL AST (17-59) U/L ALT (4-49) U/L Creatine Kinase (55-170) U/L Total Protein (6.3-8.2) g/dL Albumin (3.5-5.0) g/dL Vitamin B12 >3600.0 H (200.0-944.0) pg/mL IgG (700.0-1600.0) mg/dL Rheumatoid Factor 29 H (0-15) IU/mL Free [place] LC, Quant 5.18 H (0.33-1.94) mg/dL Free Lambda LC, Quant 3.44 H (0.57-2.63) mg/dL CMV IgG Ab Reactive A (Non-Reactive) Crossmatch 02/03/23 02/03/23 02/03/23 Range/Units 05:10 05:10 10:13 RBC (4.30-5.90) m/uL Hct (39.0-53.0) % MCV (80.0-100.0) fL RDW (11.5-15.5) % Neutrophils # (Manual) 0.30 L* (1.3-7.7) k/uL Metamyelocytes # (Man) 0.14 H (0) k/uL Myelocytes # (Manual) 0.09 H (0) k/uL Nucleated RBCs 4 H (0-0) /100 WBC Fibrinogen (200-500) mg/dL ABG pH (7.35-7.45) ABG pCO2 (35-45) mmHg ABG HCO3 (21-25) mmol/L ABG Total CO2 (19-24) mmol/L Sodium (137-145) mmol/L Chloride (98-107) mmol/L Carbon Dioxide (22-30) mmol/L BUN (9-20) mg/dL Creatinine (0.66-1.25) mg/dL Glucose (74-99) mg/dL POC Glucose (mg/dL) 134 H (70-110) mg/dL Hemoglobin A1c 7.0 H (<=6.0) % Calcium (8.4-10.2) mg/dL Ionized Calcium Ban (4.5-5.3) mg/dL Phosphorus (2.5-4.5) mg/dL Total Bilirubin (0.2-1.3) mg/dL AST (17-59) U/L ALT (4-49) U/L Creatine Kinase (55-170) U/L Total Protein (6.3-8.2) g/dL Albumin (3.5-5.0) g/dL Vitamin B12 (200.0-944.0) pg/mL IgG (700.0-1600.0) mg/dL Rheumatoid Factor (0-15) IU/mL Free [place] LC, Quant (0.33-1.94) mg/dL Free Lambda LC, Quant (0.57-2.63) mg/dL CMV IgG Ab (Non-Reactive) Crossmatch 02/03/23 02/03/23 02/03/23 Range/Units 11:21 12:00 12:26 RBC (4.30-5.90) m/uL Hct (39.0-53.0) % MCV (80.0-100.0) fL RDW (11.5-15.5) % Neutrophils # (Manual) (1.3-7.7) k/uL Metamyelocytes # (Man) (0) k/uL Myelocytes # (Manual) (0) k/uL Nucleated RBCs (0-0) /100 WBC Fibrinogen (200-500) mg/dL ABG pH (7.35-7.45) ABG pCO2 (35-45) mmHg ABG HCO3 (21-25) mmol/L ABG Total CO2 (19-24) mmol/L Sodium 129 L (137-145) mmol/L Chloride 92 L (98-107) mmol/L Carbon Dioxide 20 L (22-30) mmol/L BUN 84 H (9-20) mg/dL Creatinine 4.87 H (0.66-1.25) mg/dL Glucose 133 H (74-99) mg/dL POC Glucose (mg/dL) 127 H 162 H (70-110) mg/dL Hemoglobin A1c (<=6.0) % Calcium 5.5 L* (8.4-10.2) mg/dL Ionized Calcium Ban (4.5-5.3) mg/dL Phosphorus (2.5-4.5) mg/dL Total Bilirubin (0.2-1.3) mg/dL AST (17-59) U/L ALT (4-49) U/L Creatine Kinase 4794 H* (55-170) U/L Total Protein (6.3-8.2) g/dL Albumin (3.5-5.0) g/dL Vitamin B12 (200.0-944.0) pg/mL IgG (700.0-1600.0) mg/dL Rheumatoid Factor (0-15) IU/mL Free [place] LC, Quant (0.33-1.94) mg/dL Free Lambda LC, Quant (0.57-2.63) mg/dL CMV IgG Ab (Non-Reactive) Crossmatch 02/03/23 02/03/23 02/03/23 Range/Units 12:32 13:33 15:26 RBC (4.30-5.90) m/uL Hct (39.0-53.0) % MCV (80.0-100.0) fL RDW (11.5-15.5) % Neutrophils # (Manual) (1.3-7.7) k/uL Metamyelocytes # (Man) (0) k/uL Myelocytes # (Manual) (0) k/uL Nucleated RBCs (0-0) /100 WBC Fibrinogen (200-500) mg/dL ABG pH (7.35-7.45) ABG pCO2 (35-45) mmHg ABG HCO3 (21-25) mmol/L ABG Total CO2 (19-24) mmol/L Sodium (137-145) mmol/L Chloride (98-107) mmol/L Carbon Dioxide (22-30) mmol/L BUN (9-20) mg/dL Creatinine (0.66-1.25) mg/dL Glucose (74-99) mg/dL POC Glucose (mg/dL) 171 H 208 H (70-110) mg/dL Hemoglobin A1c (<=6.0) % Calcium (8.4-10.2) mg/dL Ionized Calcium Ban (4.5-5.3) mg/dL Phosphorus (2.5-4.5) mg/dL Total Bilirubin (0.2-1.3) mg/dL AST (17-59) U/L ALT (4-49) U/L Creatine Kinase (55-170) U/L Total Protein (6.3-8.2) g/dL Albumin (3.5-5.0) g/dL Vitamin B12 (200.0-944.0) pg/mL IgG 588.0 L (700.0-1600.0) mg/dL Rheumatoid Factor (0-15) IU/mL Free [place] LC, Quant (0.33-1.94) mg/dL Free Lambda LC, Quant (0.57-2.63) mg/dL CMV IgG Ab (Non-Reactive) Crossmatch 02/03/23 02/03/23 02/03/23 Range/Units 17:42 18:55 21:11 RBC (4.30-5.90) m/uL Hct (39.0-53.0) % MCV (80.0-100.0) fL RDW (11.5-15.5) % Neutrophils # (Manual) (1.3-7.7) k/uL Metamyelocytes # (Man) (0) k/uL Myelocytes # (Manual) (0) k/uL Nucleated RBCs (0-0) /100 WBC Fibrinogen (200-500) mg/dL ABG pH (7.35-7.45) ABG pCO2 (35-45) mmHg ABG HCO3 (21-25) mmol/L ABG Total CO2 (19-24) mmol/L Sodium (137-145) mmol/L Chloride (98-107) mmol/L Carbon Dioxide (22-30) mmol/L BUN (9-20) mg/dL Creatinine (0.66-1.25) mg/dL Glucose (74-99) mg/dL POC Glucose (mg/dL) 206 H 174 H 176 H (70-110) mg/dL Hemoglobin A1c (<=6.0) % Calcium (8.4-10.2) mg/dL Ionized Calcium Ban (4.5-5.3) mg/dL Phosphorus (2.5-4.5) mg/dL Total Bilirubin (0.2-1.3) mg/dL AST (17-59) U/L ALT (4-49) U/L Creatine Kinase (55-170) U/L Total Protein (6.3-8.2) g/dL Albumin (3.5-5.0) g/dL Vitamin B12 (200.0-944.0) pg/mL IgG (700.0-1600.0) mg/dL Rheumatoid Factor (0-15) IU/mL Free [place] LC, Quant (0.33-1.94) mg/dL Free Lambda LC, Quant (0.57-2.63) mg/dL CMV IgG Ab (Non-Reactive) Crossmatch 02/03/23 02/03/23 02/03/23 Range/Units 21:15 22:16 23:10 RBC (4.30-5.90) m/uL Hct (39.0-53.0) % MCV (80.0-100.0) fL RDW (11.5-15.5) % Neutrophils # (Manual) (1.3-7.7) k/uL Metamyelocytes # (Man) (0) k/uL Myelocytes # (Manual) (0) k/uL Nucleated RBCs (0-0) /100 WBC Fibrinogen 877 H (200-500) mg/dL ABG pH (7.35-7.45) ABG pCO2 (35-45) mmHg ABG HCO3 (21-25) mmol/L ABG Total CO2 (19-24) mmol/L Sodium (137-145) mmol/L Chloride (98-107) mmol/L Carbon Dioxide (22-30) mmol/L BUN (9-20) mg/dL Creatinine (0.66-1.25) mg/dL Glucose (74-99) mg/dL POC Glucose (mg/dL) 179 H 180 H (70-110) mg/dL Hemoglobin A1c (<=6.0) % Calcium (8.4-10.2) mg/dL Ionized Calcium Ban (4.5-5.3) mg/dL Phosphorus (2.5-4.5) mg/dL Total Bilirubin (0.2-1.3) mg/dL AST (17-59) U/L ALT (4-49) U/L Creatine Kinase (55-170) U/L Total Protein (6.3-8.2) g/dL Albumin (3.5-5.0) g/dL Vitamin B12 (200.0-944.0) pg/mL IgG (700.0-1600.0) mg/dL Rheumatoid Factor (0-15) IU/mL Free [place] LC, Quant (0.33-1.94) mg/dL Free Lambda LC, Quant (0.57-2.63) mg/dL CMV IgG Ab (Non-Reactive) Crossmatch 02/04/23 02/04/23 02/04/23 Range/Units 00:06 02:28 03:18 RBC (4.30-5.90) m/uL Hct (39.0-53.0) % MCV (80.0-100.0) fL RDW (11.5-15.5) % Neutrophils # (Manual) (1.3-7.7) k/uL Metamyelocytes # (Man) (0) k/uL Myelocytes # (Manual) (0) k/uL Nucleated RBCs (0-0) /100 WBC Fibrinogen (200-500) mg/dL ABG pH (7.35-7.45) ABG pCO2 (35-45) mmHg ABG HCO3 (21-25) mmol/L ABG Total CO2 (19-24) mmol/L Sodium (137-145) mmol/L Chloride (98-107) mmol/L Carbon Dioxide (22-30) mmol/L BUN (9-20) mg/dL Creatinine (0.66-1.25) mg/dL Glucose (74-99) mg/dL POC Glucose (mg/dL) 180 H 178 H 181 H (70-110) mg/dL Hemoglobin A1c (<=6.0) % Calcium (8.4-10.2) mg/dL Ionized Calcium Ban (4.5-5.3) mg/dL Phosphorus (2.5-4.5) mg/dL Total Bilirubin (0.2-1.3) mg/dL AST (17-59) U/L ALT (4-49) U/L Creatine Kinase (55-170) U/L Total Protein (6.3-8.2) g/dL Albumin (3.5-5.0) g/dL Vitamin B12 (200.0-944.0) pg/mL IgG (700.0-1600.0) mg/dL Rheumatoid Factor (0-15) IU/mL Free [place] LC, Quant (0.33-1.94) mg/dL Free Lambda LC, Quant (0.57-2.63) mg/dL CMV IgG Ab (Non-Reactive) Crossmatch 10/03/23 10/03/23 10/03/23 Range/Units 04:16 05:00 05:00 RBC 1.53 L (4.30-5.90) m/uL Hct 16.0 L* (39.0-53.0) % MCV 104.6 H (80.0-100.0) fL RDW 17.1 H (11.5-15.5) % Neutrophils # (Manual) (1.3-7.7) k/uL Metamyelocytes # (Man) (0) k/uL Myelocytes # (Manual) (0) k/uL Nucleated RBCs (0-0) /100 WBC Fibrinogen (200-500) mg/dL ABG pH (7.35-7.45) ABG pCO2 (35-45) mmHg ABG HCO3 (21-25) mmol/L ABG Total CO2 (19-24) mmol/L Sodium 128 L (137-145) mmol/L Chloride 87 L (98-107) mmol/L Carbon Dioxide (22-30) mmol/L BUN 91 H (9-20) mg/dL Creatinine 5.05 H (0.66-1.25) mg/dL Glucose 150 H (74-99) mg/dL POC Glucose (mg/dL) 175 H (70-110) mg/dL Hemoglobin A1c (<=6.0) % Calcium 5.3 L* (8.4-10.2) mg/dL Ionized Calcium Ban 3.1 L* (4.5-5.3) mg/dL Phosphorus 9.4 H* (2.5-4.5) mg/dL Total Bilirubin 3.1 H (0.2-1.3) mg/dL AST 1223 H (17-59) U/L ALT 875 H (4-49) U/L Creatine Kinase 4574 H* (55-170) U/L Total Protein 4.8 L (6.3-8.2) g/dL Albumin 2.3 L (3.5-5.0) g/dL Vitamin B12 (200.0-944.0) pg/mL IgG (700.0-1600.0) mg/dL Rheumatoid Factor (0-15) IU/mL Free [place] LC, Quant (0.33-1.94) mg/dL Free Lambda LC, Quant (0.57-2.63) mg/dL CMV IgG Ab (Non-Reactive) Crossmatch 02/04/23 02/04/23 02/04/23 Range/Units 05:24 05:50 06:39 RBC (4.30-5.90) m/uL Hct (39.0-53.0) % MCV (80.0-100.0) fL RDW (11.5-15.5) % Neutrophils # (Manual) (1.3-7.7) k/uL Metamyelocytes # (Man) (0) k/uL Myelocytes # (Manual) (0) k/uL Nucleated RBCs (0-0) /100 WBC Fibrinogen (200-500) mg/dL ABG pH 7.25 L (7.35-7.45) ABG pCO2 60 H (35-45) mmHg ABG HCO3 26 H (21-25) mmol/L ABG Total CO2 28 H (19-24) mmol/L Sodium (137-145) mmol/L Chloride (98-107) mmol/L Carbon Dioxide (22-30) mmol/L BUN (9-20) mg/dL Creatinine (0.66-1.25) mg/dL Glucose (74-99) mg/dL POC Glucose (mg/dL) 176 H 181 H (70-110) mg/dL Hemoglobin A1c (<=6.0) % Calcium (8.4-10.2) mg/dL Ionized Calcium Ban (4.5-5.3) mg/dL Phosphorus (2.5-4.5) mg/dL Total Bilirubin (0.2-1.3) mg/dL AST (17-59) U/L ALT (4-49) U/L Creatine Kinase (55-170) U/L Total Protein (6.3-8.2) g/dL Albumin (3.5-5.0) g/dL Vitamin B12 (200.0-944.0) pg/mL IgG (700.0-1600.0) mg/dL Rheumatoid Factor (0-15) IU/mL Free [place] LC, Quant (0.33-1.94) mg/dL Free Lambda LC, Quant (0.57-2.63) mg/dL CMV IgG Ab (Non-Reactive) Crossmatch 02/04/23 02/04/23 Range/Units 07:54 08:08 RBC (4.30-5.90) m/uL Hct (39.0-53.0) % MCV (80.0-100.0) fL RDW (11.5-15.5) % Neutrophils # (Manual) (1.3-7.7) k/uL Metamyelocytes # (Man) (0) k/uL Myelocytes # (Manual) (0) k/uL Nucleated RBCs (0-0) /100 WBC Fibrinogen (200-500) mg/dL ABG pH (7.35-7.45) ABG pCO2 (35-45) mmHg ABG HCO3 (21-25) mmol/L ABG Total CO2 (19-24) mmol/L Sodium (137-145) mmol/L Chloride (98-107) mmol/L Carbon Dioxide (22-30) mmol/L BUN (9-20) mg/dL Creatinine (0.66-1.25) mg/dL Glucose (74-99) mg/dL POC Glucose (mg/dL) 179 H (70-110) mg/dL Hemoglobin A1c (<=6.0) % Calcium (8.4-10.2) mg/dL Ionized Calcium Ban (4.5-5.3) mg/dL Phosphorus (2.5-4.5) mg/dL Total Bilirubin (0.2-1.3) mg/dL AST (17-59) U/L ALT (4-49) U/L Creatine Kinase (55-170) U/L Total Protein (6.3-8.2) g/dL Albumin (3.5-5.0) g/dL Vitamin B12 (200.0-944.0) pg/mL IgG (700.0-1600.0) mg/dL Rheumatoid Factor (0-15) IU/mL Free [place] LC, Quant (0.33-1.94) mg/dL Free Lambda LC, Quant (0.57-2.63) mg/dL CMV IgG Ab (Non-Reactive) Crossmatch See Detail Microbiology - Last 24 Hours (Table) 02/02/23 21:16 Gram Stain - Preliminary Sputum 02/01/23 20:00 Urine Culture - Final Urine,Catheterized 02/01/23 00:18 Blood Culture Gram Stain - Final Blood Blood Culture - Final Beta Hemolytic Strep Group G Assessment and Plan Plan: Acute hypoxemic respiratory failure, requiring intubation and mechanical ventilation, on 02/01/2023. The patient remains intubated on a mechanical ventilator. Chest x-ray showing infiltrate/effusion lung base bilaterally. Patient remains on mechanical support. Blood gases were noted. Acute septic shock with evidence of multisystem organ failure secondary to str eptococcal septicemia. Exact source is not clear. It could be bilateral pneumonia although other sources cannot be completely ruled out. No evidence of any endocarditis. No evidence of any soft tissue infection. Multisystem organ failure secondary to septic shock and in addition the patient has an underlying cardiomyopathy. Acute hypotension secondary to above, currently on high-dose pressors and the patient is currently on a combination of norepinephrine and vasopressin Acute bone marrow suppression secondary to septic shock, white cell count is improving. Subsequently, the patient developed anemia and thrombocytopenia related to DIC picture. Acute DIC secondary to septic shock, the patient has developed anemia and thrombocytopenia. No evidence of any bleeding, currently receiving units of packed RBC for a hemoglobin of 5.5 Acute kidney failure secondary to above with progressive worsening renal function and patient remains oliguric Acute rhabdomyolysis, CPK is gradually improving Acute lactic acidosis Acute febrile illness secondary to above Hypertension history of Hyperlipidemia, history of Gout, history of Chronic atrial fibrillation, currently on IV amiodarone Severe cardiomyopathy with an ejection fraction of 25%, chronic versus acute myocardial suppression to septic shock. Plan Continue ventilator support, no ventilator changes without for today Keep the patient sedated and paralyzed for now Discontinue the bicarb infusion. Continue pressors Monitor fluid balance and electrolytes., will likely need HD and will consult vascular surgery and prepare for a plt transfusion Significant abnormalities electrolytes including hypokalemia, hyperphosphatemia without any significant hyperkalemia. Repeat hemodialysis will be left to nephrology. I do not think person that the patient should be able to Monitor hematologic profile Continue the IV amiodarone, dropped the rate down to 0.5 mg/min lordotic Continue Rocephin and clindamycin Hemodialysis as the patient is able to withstand dialysis hemodynamically. Condition is extremely critical. We'll continue to follow, update the family in his condition and make further recommendations based on his progress. Evaluation was done in more than 30 minutes. Case was discussed with nephrology. Family was updated and the condition. Condition is extremely critical and the patient has a very high increased risk for mortality. Time with Patient: Greater than 30
[2023-02-04 10:59] LABS: Glucose,Whole Blood 175 mg/dL (70-110)
--- NOTE | 2023-02-04 11:46 | P.PN ---
Subjective Progress Note Date: 02/04/23 Hospital Course: 67 year old man with history of HTN, and recent vacation time in [facility], came back 1 week ago presented with fever and felt pain in his knees, and syspnea. At the time of admission, patient was tachypneic, tachycardic, slowly becoming hypoxic and required BiPAP. Laboratory workup showed WBC of 0.9, with neutrophil 0.1, pancytopenia, acute kidney injury with creatinine of 2.53, tra nsaminitis, lactic acidosis with lactate of 8.1, rhabdomyolysis with CK of 15,000. Pulmonology was consulted. Patient was transferred to medical ICU, currently intubated and sedated. His workup revealed beta-hemolytic strep group G bacteremia. Currently on IV antibiotics. In septic shock, on vasopressors. Remains anuric, nephrology following. Also in A. fib with RVR, currently on amiodarone drip, cardiology following. Subjective: Patient seen and examined at bedside. Currently intubated and sedated. On multiple pressors. Poor urine output. Discussed with pulmonology and nephrol ogy - possibility of SLED if patient does not improve with lasix today. General: intubated, sedated HEENT: normocephalic, atraumatic, no tracheal deviation Respiratory: symmetric chest rise, no cyanosis, ventilator dependent CVS: perfusing all extremities, no distal gangrene, bilateral pitting edema GI: soft, ND : no SPT, no CVAT, saunders is present Neuro: sedated Assessment and Plan: Septic shock with shock liver, ventilator dependent respiratory failure Beta-hemolytic strep G bacteremia Pancytopenia with severe neutropenia - ICU critically ill patient with poor prognosis, discussed with pulmonology who will have goals of care discussion with family today - pressors: - levophed 0.36 mcg - vasopressin 0.04 units - paralytics/sedation: - nimbex 1 mcg - propofol 50 mcg - IVF: KVO - Antibiotics: - ceftriaxone 2gm q24h (02/02 - present), - clindamycin 900mg q8h (02/02 - present) - Micro: - Blood culture 02/01 - beta-hemolytic strep Group G - R to clindamycin, S to penicillin - Sputum culture 02/02 - gram stain - no organisms - Urine culture 02/01 - no growth - Imaging: - CXR 02/04, personally interpreted, ETT/OGT in good position, cardiomegaly with increased opacities in bases, small left pleural effusion, increased vas cular congestion - Consultatant review: - Nephrology: Discussed today, will attempt SLED in coming days if no improvement of kidney function - Pulmonology: Discussed today, will have goals of care discussion with family regarding very poor prognosis - Cardiology: Note reviewed, continue IV amiodarone, avoid AC, GDMT once/if BP improves - Infectious Disease: source likely pneumonia, continue present abx - Hematology: discontinue allopurinol, continue with granix until ANC > 1000 Rhabdomyolysis Acute kidney injury likely ATN, anuric High anion gap metabolic acidosis Hypocalcemia Hyperphosphatemia - Discussed with nephrology as above - daily CK check - supplement calcium gluconate - consider phosphate binder Persistent A. fib with RVR Cardiomyopathy, unsure if ischemic or nonischemic, EF 25-30% History of hypertension, hold antihypertensives - Cardiology recommendations as aboe - Continue amiodarone, hold off on AC - CM is septic vs ischemic DVT ppx: Mechanical Code status: Full code Anticipated discharge place: Pending clinical course Anticipated discharge time: Pending clinical course Objective - Vital Signs Vital signs: Vital Signs Temp 99.5 F 02/04/23 09:29 Pulse 100 02/04/23 09:29 Resp 28 H 02/04/23 09:29 BP 100/60 02/04/23 09:29 Pulse Ox 90 L 02/04/23 09:29 FiO2 100 02/04/23 08:00 Intake & Output 02/03/23 02/04/23 02/04/23 18:59 06:59 18:59 Intake Total 5756.418 2952.836 1531.719 Output Total 80 68 2 Balance 5676.418 2884.836 1529.719 Weight 137 kg 147 kg Intake: IV 1625 1525 375 ACETAMINOPHEN IV (For NPO 100 ) 1,000 mg In Empty Bag 1 bag @ 400 mls/hr IVPB ONCE ONE Rx#:[id number] Clindamycin 900 mg In 50 Dextrose 5% in Water 50 ml @ 50 mls/hr IVPB Q8HR [facility] Rx#:[id number] Dextrose 5% in Water 1, 1625 1375 375 000 ml @ 125 mls/hr IV . Q9H12M [facility] with Sodium Bicarb (1 Meq/ml) 150 ml Rx#:[id number] Intake, IV Titration 3831.418 1117.836 822.719 Amount Albumin Human 5% 500 ml 500 In Empty Bag 1 bag @ 250 mls/hr IVPB ONCE ONE Rx#: [id number] Amiodarone 360 mg In 338.885 378.887 180.554 Dextrose 5% in Water 200 ml @ 1 MG/MIN 33.333 mls/ hr IV .Q6H [facility] Rx#: [id number] Calcium Gluconate in NaCl 100 2 gm In Saline 1 100ml. bag @ 100 mls/hr IVPB ONCE ONE Rx#:[id number] Cisatracurium 200 mg In 173.928 192.165 Sodium Chloride 0.9% 180 ml @ 1 MCG/KG/MIN 8.046 mls/hr IV .Q24H [facility] Rx#: [id number] Clindamycin 900 mg In 50 Dextrose 5% in Water 50 ml @ 50 mls/hr IVPB Q8HR [facility] Rx#:[id number] Insulin Regular 100 unit 53.733 29.283 In Sodium Chloride 0.9% 100 ml @ Titrate IV .Q0M [facility] Rx#:[id number] Magnesium Sulfate-D5w Pmx 200 1 gm In Dextrose/Water 1 100ml.bag @ 100 mls/hr IVPB ONCE ONE Rx#: [id number] Norepinephrine 32 mg In 216.258 217.348 Sodium Chloride 0.9% 218 ml @ 0.03 MCG/KG/MIN 1. 722 mls/hr IV .Q24H [facility] Rx#:[id number] Sodium Chloride 0.9% 2, 2000 000 ml @ 999 mls/hr IV . Q2H1M [facility] Rx#:[id number] Vasopressin 60 unit In 138.006 Sodium Chloride 0.9% 150 ml @ 0.03 UNITS/MIN 4.59 mls/hr IV .Q24H [facility] Rx#: [id number] cefTRIAXone 2 gm In 50 50 Sodium Chloride 0.9% 50 ml @ 100 mls/hr IVPB Q24HR [facility] Rx#:[id number] propofoL 1,000 mg In 448.614 354.312 100 Empty Bag 1 bag @ 15 MCG/ KG/MIN 11.022 mls/hr IV . Q9H5M [facility] Rx#:[id number] Oral 160 Tube Feeding 140 220 50 Blood Product 284 Rc As-1 Unit 0 [id number] Rc Pheresis As-3 Unit 284 [id number] Other 90 Output: Urine 80 68 2 Other: Voiding Method Indwelling Catheter Indwelling Catheter Indwelling Catheter ABP, PAP, CO, CI - Last Documented Arterial Blood Pressure 100/56 - Labs CBC & Chem 7: 02/04/23 05:00 02/04/23 05:00 Labs: Abnormal Lab Results - Last 24 Hours (Table) 02/02/23 02/02/23 02/02/23 Range/Units 02:40 02:40 02:40 WBC (3.8-10.6) k/uL RBC (4.30-5.90) m/uL Hct (39.0-53.0) % MCV (80.0-100.0) fL RDW (11.5-15.5) % Plt Count (150-450) k/uL Neutrophils # (Manual) (1.3-7.7) k/uL Metamyelocytes # (Man) (0) k/uL Myelocytes # (Manual) (0) k/uL Nucleated RBCs (0-0) /100 WBC Fibrinogen (200-500) mg/dL ABG pH (7.35-7.45) ABG pCO2 (35-45) mmHg ABG HCO3 (21-25) mmol/L ABG Total CO2 (19-24) mmol/L Sodium (137-145) mmol/L Chloride (98-107) mmol/L Carbon Dioxide (22-30) mmol/L BUN (9-20) mg/dL Creatinine (0.66-1.25) mg/dL Glucose (74-99) mg/dL POC Glucose (mg/dL) (70-110) mg/dL Hemoglobin A1c (<=6.0) % Calcium (8.4-10.2) mg/dL Ionized Calcium Ban (4.5-5.3) mg/dL Phosphorus (2.5-4.5) mg/dL Total Bilirubin (0.2-1.3) mg/dL AST (17-59) U/L ALT (4-49) U/L Creatine Kinase (55-170) U/L Total Protein (6.3-8.2) g/dL Albumin (3.5-5.0) g/dL RBC Folate 795 H (280 - 791) ng/mL IgG (700.0-1600.0) mg/dL Free [place] LC, Quant 5.18 H (0.33-1.94) mg/dL Free [place]ambda LC, Quant 3.44 H (0.57-2.63) mg/dL CMV IgG Ab Reactive A (Non-Reactive) Crossmatch 02/03/23 02/03/23 02/03/23 Range/Units 05:10 05:10 11:21 WBC (3.8-10.6) k/uL RBC (4.30-5.90) m/uL Hct (39.0-53.0) % MCV (80.0-100.0) fL RDW (11.5-15.5) % Plt Count (150-450) k/uL Neutrophils # (Manual) 0.30 L* (1.3-7.7) k/uL Metamyelocytes # (Man) 0.14 H (0) k/uL Myelocytes # (Manual) 0.09 H (0) k/uL Nucleated RBCs 4 H (0-0) /100 WBC Fibrinogen (200-500) mg/dL ABG pH (7.35-7.45) ABG pCO2 (35-45) mmHg ABG HCO3 (21-25) mmol/L ABG Total CO2 (19-24) mmol/L Sodium (137-145) mmol/L Chloride (98-107) mmol/L Carbon Dioxide (22-30) mmol/L BUN (9-20) mg/dL Creatinine (0.66-1.25) mg/dL Glucose (74-99) mg/dL POC Glucose (mg/dL) 127 H (70-110) mg/dL Hemoglobin A1c 7.0 H (<=6.0) % Calcium (8.4-10.2) mg/dL Ionized Calcium Ban (4.5-5.3) mg/dL Phosphorus (2.5-4.5) mg/dL Total Bilirubin (0.2-1.3) mg/dL AST (17-59) U/L ALT (4-49) U/L Creatine Kinase (55-170) U/L Total Protein (6.3-8.2) g/dL Albumin (3.5-5.0) g/dL RBC Folate (280 - 791) ng/mL IgG (700.0-1600.0) mg/dL Free [place] LC, Quant (0.33-1.94) mg/dL Free Lambda LC, Quant (0.57-2.63) mg/dL CMV IgG Ab (Non-Reactive) Crossmatch 02/03/23 02/03/23 02/03/23 Range/Units 12:00 12:26 12:32 WBC (3.8-10.6) k/uL RBC (4.30-5.90) m/uL Hct (39.0-53.0) % MCV (80.0-100.0) fL RDW (11.5-15.5) % Plt Count (150-450) k/uL Neutrophils # (Manual) (1.3-7.7) k/uL Metamyelocytes # (Man) (0) k/uL Myelocytes # (Manual) (0) k/uL Nucleated RBCs (0-0) /100 WBC Fibrinogen (200-500) mg/dL ABG pH (7.35-7.45) ABG pCO2 (35-45) mmHg ABG HCO3 (21-25) mmol/L ABG Total CO2 (19-24) mmol/L Sodium 129 L (137-145) mmol/L Chloride 92 L (98-107) mmol/L Carbon Dioxide 20 L (22-30) mmol/L BUN 84 H (9-20) mg/dL Creatinine 4.87 H (0.66-1.25) mg/dL Glucose 133 H (74-99) mg/dL POC Glucose (mg/dL) 162 H (70-110) mg/dL Hemoglobin A1c (<=6.0) % Calcium 5.5 L* (8.4-10.2) mg/dL Ionized Calcium Ban (4.5-5.3) mg/dL Phosphorus (2.5-4.5) mg/dL Total Bilirubin (0.2-1.3) mg/dL AST (17-59) U/L ALT (4-49) U/L Creatine Kinase 4794 H* (55-170) U/L Total Protein (6.3-8.2) g/dL Albumin (3.5-5.0) g/dL RBC Folate (280 - 791) ng/mL IgG 588.0 L (700.0-1600.0) mg/dL Free [place] LC, Quant (0.33-1.94) mg/dL Free Lambda LC, Quant (0.57-2.63) mg/dL CMV IgG Ab (Non-Reactive) Crossmatch 02/03/23 02/03/23 02/03/23 Range/Units 13:33 15:26 17:42 WBC (3.8-10.6) k/uL RBC (4.30-5.90) m/uL Hct (39.0-53.0) % MCV (80.0-100.0) fL RDW (11.5-15.5) % Plt Count (150-450) k/uL Neutrophils # (Manual) (1.3-7.7) k/uL Metamyelocytes # (Man) (0) k/uL Myelocytes # (Manual) (0) k/uL Nucleated RBCs (0-0) /100 WBC Fibrinogen (200-500) mg/dL ABG pH (7.35-7.45) ABG pCO2 (35-45) mmHg ABG HCO3 (21-25) mmol/L ABG Total CO2 (19-24) mmol/L Sodium (137-145) mmol/L Chloride (98-107) mmol/L Carbon Dioxide (22-30) mmol/L BUN (9-20) mg/dL Creatinine (0.66-1.25) mg/dL Glucose (74-99) mg/dL POC Glucose (mg/dL) 171 H 208 H 206 H (70-110) mg/dL Hemoglobin A1c (<=6.0) % Calcium (8.4-10.2) mg/dL Ionized Calcium Ban (4.5-5.3) mg/dL Phosphorus (2.5-4.5) mg/dL Total Bilirubin (0.2-1.3) mg/dL AST (17-59) U/L ALT (4-49) U/L Creatine Kinase (55-170) U/L Total Protein (6.3-8.2) g/dL Albumin (3.5-5.0) g/dL RBC Folate (280 - 791) ng/mL IgG (700.0-1600.0) mg/dL Free [place] LC, Quant (0.33-1.94) mg/dL Free Lambda LC, Quant (0.57-2.63) mg/dL CMV IgG Ab (Non-Reactive) Crossmatch 02/03/23 02/03/23 02/03/23 Range/Units 18:55 21:11 21:15 WBC (3.8-10.6) k/uL RBC (4.30-5.90) m/uL Hct (39.0-53.0) % MCV (80.0-100.0) fL RDW (11.5-15.5) % Plt Count (150-450) k/uL Neutrophils # (Manual) (1.3-7.7) k/uL Metamyelocytes # (Man) (0) k/uL Myelocytes # (Manual) (0) k/uL Nucleated RBCs (0-0) /100 WBC Fibrinogen 877 H (200-500) mg/dL ABG pH (7.35-7.45) ABG pCO2 (35-45) mmHg ABG HCO3 (21-25) mmol/L ABG Total CO2 (19-24) mmol/L Sodium (137-145) mmol/L Chloride (98-107) mmol/L Carbon Dioxide (22-30) mmol/L BUN (9-20) mg/dL Creatinine (0.66-1.25) mg/dL Glucose (74-99) mg/dL POC Glucose (mg/dL) 174 H 176 H (70-110) mg/dL Hemoglobin A1c (<=6.0) % Calcium (8.4-10.2) mg/dL Ionized Calcium Ban (4.5-5.3) mg/dL Phosphorus (2.5-4.5) mg/dL Total Bilirubin (0.2-1.3) mg/dL AST (17-59) U/L ALT (4-49) U/L Creatine Kinase (55-170) U/L Total Protein (6.3-8.2) g/dL Albumin (3.5-5.0) g/dL RBC Folate (280 - 791) ng/mL IgG (700.0-1600.0) mg/dL Free [place] LC, Quant (0.33-1.94) mg/dL Free Lambda LC, Quant (0.57-2.63) mg/dL CMV IgG Ab (Non-Reactive) Crossmatch 02/03/23 02/03/23 02/04/23 Range/Units 22:16 23:10 00:06 WBC (3.8-10.6) k/uL RBC (4.30-5.90) m/uL Hct (39.0-53.0) % MCV (80.0-100.0) fL RDW (11.5-15.5) % Plt Count (150-450) k/uL Neutrophils # (Manual) (1.3-7.7) k/uL Metamyelocytes # (Man) (0) k/uL Myelocytes # (Manual) (0) k/uL Nucleated RBCs (0-0) /100 WBC Fibrinogen (200-500) mg/dL ABG pH (7.35-7.45) ABG pCO2 (35-45) mmHg ABG HCO3 (21-25) mmol/L ABG Total CO2 (19-24) mmol/L Sodium (137-145) mmol/L Chloride (98-107) mmol/L Carbon Dioxide (22-30) mmol/L BUN (9-20) mg/dL Creatinine (0.66-1.25) mg/dL Glucose (74-99) mg/dL POC Glucose (mg/dL) 179 H 180 H 180 H (70-110) mg/dL Hemoglobin A1c (<=6.0) % Calcium (8.4-10.2) mg/dL Ionized Calcium Ban (4.5-5.3) mg/dL Phosphorus (2.5-4.5) mg/dL Total Bilirubin (0.2-1.3) mg/dL AST (17-59) U/L ALT (4-49) U/L Creatine Kinase (55-170) U/L Total Protein (6.3-8.2) g/dL Albumin (3.5-5.0) g/dL RBC Folate (280 - 791) ng/mL IgG (700.0-1600.0) mg/dL Free [place] LC, Quant (0.33-1.94) mg/dL Free Lambda LC, Quant (0.57-2.63) mg/dL CMV IgG Ab (Non-Reactive) Crossmatch 02/04/23 02/04/2302/04/23 Range/Units 02:28 03:18 04:16 WBC (3.8-10.6) k/uL RBC (4.30-5.90) m/uL Hct (39.0-53.0) % MCV (80.0-100.0) fL RDW (11.5-15.5) % Plt Count (150-450) k/uL Neutrophils # (Manual) (1.3-7.7) k/uL Metamyelocytes # (Man) (0) k/uL Myelocytes # (Manual) (0) k/uL Nucleated RBCs (0-0) /100 WBC Fibrinogen (200-500) mg/dL ABG pH (7.35-7.45) ABG pCO2 (35-45) mmHg ABG HCO3 (21-25) mmol/L ABG Total CO2 (19-24) mmol/L Sodium (137-145) mmol/L Chloride (98-107) mmol/L Carbon Dioxide (22-30) mmol/L BUN (9-20) mg/dL Creatinine (0.66-1.25) mg/dL Glucose (74-99) mg/dL POC Glucose (mg/dL) 178 H 181 H 175 H (70-110) mg/dL Hemoglobin A1c (<=6.0) % Calcium (8.4-10.2) mg/dL Ionized Calcium Ban (4.5-5.3) mg/dL Phosphorus (2.5-4.5) mg/dL Total Bilirubin (0.2-1.3) mg/dL AST (17-59) U/L ALT (4-49) U/L Creatine Kinase (55-170) U/L Total Protein (6.3-8.2) g/dL Albumin (3.5-5.0) g/dL RBC Folate (280 - 791) ng/mL IgG (700.0-1600.0) mg/dL Free [place] LC, Quant (0.33-1.94) mg/dL Free Lambda LC, Quant (0.57-2.63) mg/dL CMV IgG Ab (Non-Reactive) Crossmatch 02/04/23 02/04/23 02/04/23 Range/Units 05:00 05:00 05:24 WBC 3.7 L (3.8-10.6) k/uL RBC 1.53 L (4.30-5.90) m/uL Hct 16.0 L* (39.0-53.0) % MCV 104.6 H (80.0-100.0) fL RDW 17.1 H (11.5-15.5) % Plt Count 17 L* (150-450) k/uL Neutrophils # (Manual) 0.50 L (1.3-7.7) k/uL Metamyelocytes # (Man) 0.15 H (0) k/uL Myelocytes # (Manual) 0.11 H (0) k/uL Nucleated RBCs 5 H (0-0) /100 WBC Fibrinogen (200-500) mg/dL ABG pH (7.35-7.45) ABG pCO2 (35-45) mmHg ABG HCO3 (21-25) mmol/L ABG Total CO2 (19-24) mmol/L Sodium 128 L (137-145) mmol/L Chloride 87 L (98-107) mmol/L Carbon Dioxide (22-30) mmol/L BUN 91 H (9-20) mg/dL Creatinine 5.05 H (0.66-1.25) mg/dL Glucose 150 H (74-99) mg/dL POC Glucose (mg/dL) 176 H (70-110) mg/dL Hemoglobin A1c (<=6.0) % Calcium 5.3 L* (8.4-10.2) mg/dL Ionized Calcium Ban 3.1 L* (4.5-5.3) mg/dL Phosphorus 9.4 H* (2.5-4.5) mg/dL Total Bilirubin 3.1 H (0.2-1.3) mg/dL AST 1223 H (17-59) U/L ALT 875 H (4-49) U/L Creatine Kinase 4574 H* (55-170) U/L Total Protein 4.8 L (6.3-8.2) g/dL Albumin 2.3 L (3.5-5.0) g/dL RBC Folate (280 - 791) ng/mL IgG (700.0-1600.0) mg/dL Free [place] LC, Quant (0.33-1.94) mg/dL Free [place]ambda LC, Quant (0.57-2.63) mg/dL CMV IgG Ab (Non-Reactive) Crossmatch 02/04/23 02/04/23 02/04/23 Range/Units 05:50 06:39 07:54 WBC (3.8-10.6) k/uL RBC (4.30-5.90) m/uL Hct (39.0-53.0) % MCV (80.0-100.0) fL RDW (11.5-15.5) % Plt Count (150-450) k/uL Neutrophils # (Manual) (1.3-7.7) k/uL Metamyelocytes # (Man) (0) k/uL Myelocytes # (Manual) (0) k/uL Nucleated RBCs (0-0) /100 WBC Fibrinogen (200-500) mg/dL ABG pH 7.25 L (7.35-7.45) ABG pCO2 60 H (35-45) mmHg ABG HCO3 26 H (21-25) mmol/L ABG Total CO2 28 H (19-24) mmol/L Sodium (137-145) mmol/L Chloride (98-107) mmol/L Carbon Dioxide (22-30) mmol/L BUN (9-20) mg/dL Creatinine (0.66-1.25) mg/dL Glucose (74-99) mg/dL POC Glucose (mg/dL) 181 H 179 H (70-110) mg/dL Hemoglobin A1c (<=6.0) % Calcium (8.4-10.2) mg/dL Ionized Calcium Ban (4.5-5.3) mg/dL Phosphorus (2.5-4.5) mg/dL Total Bilirubin (0.2-1.3) mg/dL AST (17-59) U/L ALT (4-49) U/L Creatine Kinase (55-170) U/L Total Protein (6.3-8.2) g/dL Albumin (3.5-5.0) g/dL RBC Folate (280 - 791) ng/mL IgG (700.0-1600.0) mg/dL Free [place] LC, Quant (0.33-1.94) mg/dL Free [place] LC, Quant (0.57-2.63) mg/dL CMV IgG Ab (Non-Reactive) Crossmatch 02/04/23 02/04/23 Range/Units 08:08 10:58 WBC (3.8-10.6) k/uL RBC (4.30-5.90) m/uL Hct (39.0-53.0) % MCV (80.0-100.0) fL RDW (11.5-15.5) % Plt Count (150-450) k/uL Neutrophils # (Manual) (1.3-7.7) k/uL Metamyelocytes # (Man) (0) k/uL Myelocytes # (Manual) (0) k/uL Nucleated RBCs (0-0) /100 WBC Fibrinogen (200-500) mg/dL ABG pH (7.35-7.45) ABG pCO2 (35-45) mmHg ABG HCO3 (21-25) mmol/L ABG Total CO2 (19-24) mmol/L Sodium (137-145) mmol/L Chloride (98-107) mmol/L Carbon Dioxide (22-30) mmol/L BUN (9-20) mg/dL Creatinine (0.66-1.25) mg/dL Glucose (74-99) mg/dL POC Glucose (mg/dL) 175 H (70-110) mg/dL Hemoglobin A1c (<=6.0) % Calcium (8.4-10.2) mg/dL Ionized Calcium Ban (4.5-5.3) mg/dL Phosphorus (2.5-4.5) mg/dL Total Bilirubin (0.2-1.3) mg/dL AST (17-59) U/L ALT (4-49) U/L Creatine Kinase (55-170) U/L Total Protein (6.3-8.2) g/dL Albumin (3.5-5.0) g/dL RBC Folate (280 - 791) ng/mL IgG (700.0-1600.0) mg/dL Free [place] LC, Quant (0.33-1.94) mg/dL Free [place] LC, Quant (0.57-2.63) mg/dL CMV IgG Ab (Non-Reactive) Crossmatch See Detail Microbiology - Last 24 Hours (Table) 02/02/23 21:16 Gram Stain - Preliminary Sputum 02/01/23 20:00 Urine Culture - Final Urine,Catheterized 02/01/23 00:18 Blood Culture Gram Stain - Final Blood Blood Culture - Final Beta Hemolytic Strep Group G
[2023-02-04 14:28] LABS: Glucose,Whole Blood 136 mg/dL (70-110)
[2023-02-04 15:21] VITALS: BMI 47.8
--- NOTE | 2023-02-04 15:52 | P.PN ---
Subjective Progress Note Date: 02/04/23 Principal diagnosis: pneumonia, FRANCISCO Patient was seen today in the ICU on follow-up, family at bedside. Patient remains on ventilator. Temperature 101.1 this morning. IV antibiotics continued. WBC improved, 3.9, ANC 500. No reported episodes of acute bleeding. Objective - Vital Signs Vital signs: Vital Signs Temp 99.3 F 02/04/23 12:00 Pulse 111 H 02/04/23 12:00 Resp 28 H 02/04/23 12:00 BP 92/57 02/04/23 11:43 Pulse Ox 88 L 02/04/23 12:00 FiO2 100 02/04/23 12:00 Intake & Output 02/03/23 02/04/23 02/04/23 18:59 06:59 18:59 Intake Total 5756.418 2952.836 2513.453 Output Total 80 68 2 Balance 5676.418 2884.836 2511.453 Weight 137 kg 147 kg Intake: IV 1625 1525 375 ACETAMINOPHEN IV (For NPO 100 ) 1,000 mg In Empty Bag 1 bag @ 400 mls/hr IVPB ONCE ONE Rx#:[id number] Clindamycin 900 mg In 50 Dextrose 5% in Water 50 ml @ 50 mls/hr IVPB Q8HR [facility] Rx#:[id number] Dextrose 5% in Water 1, 1625 1375 375 000 ml @ 125 mls/hr IV . Q9H12M [facility] with Sodium Bicarb (1 Meq/ml) 150 ml Rx#:[id number] Intake, IV Titration 3831.418 5246.589 6530.453 Amount Albumin Human 5% 500 ml 500 In Empty Bag 1 bag @ 250 mls/hr IVPB ONCE ONE Rx#: [id number] Amiodarone 360 mg In 338.885 378.887 329.997 Dextrose 5% in Water 200 ml @ 1 MG/MIN 33.333 mls/ hr IV .Q6H [facility] Rx#: [id number] Calcium Gluconate in NaCl 100 2 gm In Saline 1 100ml. bag @ 100 mls/hr IVPB ONCE ONE Rx#:[id number] Cisatracurium 200 mg In 173.928 192.165 Sodium Chloride 0.9% 180 ml @ 1 MCG/KG/MIN 8.046 mls/hr IV .Q24H [facility] Rx#: [id number] Clindamycin 900 mg In 50 Dextrose 5% in Water 50 ml @ 50 mls/hr IVPB Q8HR [facility] Rx#:[id number] Insulin Regular 100 unit 53.733 29.283 In Sodium Chloride 0.9% 100 ml @ Titrate IV .Q0M [facility] Rx#:[id number] Magnesium Sulfate-D5w Pmx 200 1 gm In Dextrose/Water 1 100ml.bag @ 100 mls/hr IVPB ONCE ONE Rx#: [id number] Norepinephrine 32 mg In 216.258 217.348 143.291 Sodium Chloride 0.9% 218 ml @ 0.03 MCG/KG/MIN 1. 722 mls/hr IV .Q24H [facility] Rx#:[id number] Sodium Chloride 0.9% 2, 2000 000 ml @ 999 mls/hr IV . Q2H1M [facility] Rx#:[id number] Vasopressin 60 unit In 138.006 Sodium Chloride 0.9% 150 ml @ 0.03 UNITS/MIN 4.59 mls/hr IV .Q24H [facility] Rx#: [id number] cefTRIAXone 2 gm In 50 50 Sodium Chloride 0.9% 50 ml @ 100 mls/hr IVPB Q24HR [facility] Rx#:[id number] propofoL 1,000 mg In 448.614 354.312 100 Empty Bag 1 bag @ 15 MCG/ KG/MIN 11.022 mls/hr IV . Q9H5M [facility] Rx#:[id number] Oral 160 Tube Feeding 140 220 80 Blood Product 943 Platelet Pheresis Pas 0 Psoralen Unit [id number] Platelet Pheresis Pas 349 Psoralen Unit [id number] Rc As-1 Unit 310 [id number] Rc Pheresis As-3 Unit 284 [id number] Other 90 Output: Urine 80 68 2 Other: Voiding Method Indwelling Catheter Indwelling Catheter Indwelling Catheter ABP, PAP, CO, CI - Last Documented Arterial Blood Pressure 95/58 - Constitutional General appearance: Present: no acute distress, obese - Respiratory Details: ventilated breath sounds - Cardiovascular Details: tachycardic - Integumentary Integumentary: Present: pale - Neurologic Neurologic Comment(s): sedated - Labs CBC & Chem 7: 02/04/23 05:00 02/04/23 05:00 Labs: Abnormal Lab Results - Last 24 Hours (Table) 02/02/23 02/02/23 02/03/23 Range/Units 02:40 02:40 12:32 WBC (3.8-10.6) k/uL RBC (4.30-5.90) m/uL Hgb (13.0-17.5) gm/dL Hct (39.0-53.0) % MCV (80.0-100.0) fL RDW (11.5-15.5) % Plt Count (150-450) k/uL Neutrophils # (Manual) (1.3-7.7) k/uL Metamyelocytes # (Man) (0) k/uL Myelocytes # (Manual) (0) k/uL Nucleated RBCs (0-0) /100 WBC Fibrinogen (200-500) mg/dL ABG pH (7.35-7.45) ABG pCO2 (35-45) mmHg ABG HCO3 (21-25) mmol/L ABG Total CO2 (19-24) mmol/L Sodium (137-145) mmol/L Chloride (98-107) mmol/L BUN (9-20) mg/dL Creatinine (0.66-1.25) mg/dL Glucose (74-99) mg/dL POC Glucose (mg/dL) (70-110) mg/dL Calcium (8.4-10.2) mg/dL Ionized Calcium Ban (4.5-5.3) mg/dL Phosphorus (2.5-4.5) mg/dL Total Bilirubin (0.2-1.3) mg/dL AST (17-59) U/L ALT (4-49) U/L Creatine Kinase (55-170) U/L Total Protein (6.3-8.2) g/dL Albumin (3.5-5.0) g/dL RBC Folate 795 H (280 - 791) ng/mL Procalcitonin (0.02-0.09) ng/mL IgG 588.0 L (700.0-1600.0) mg/dL CMV IgG Ab Reactive A (Non-Reactive) Crossmatch 02/03/23 02/03/23 02/03/23 Range/Units 15:26 17:42 18:55 WBC (3.8-10.6) k/uL RBC (4.30-5.90) m/uL Hgb (13.0-17.5) gm/dL Hct (39.0-53.0) % MCV (80.0-100.0) fL RDW (11.5-15.5) % Plt Count (150-450) k/uL Neutrophils # (Manual) (1.3-7.7) k/uL Metamyelocytes # (Man) (0) k/uL Myelocytes # (Manual) (0) k/uL Nucleated RBCs (0-0) /100 WBC Fibrinogen (200-500) mg/dL ABG pH (7.35-7.45) ABG pCO2 (35-45) mmHg ABG HCO3 (21-25) mmol/L ABG Total CO2 (19-24) mmol/L Sodium (137-145) mmol/L Chloride (98-107) mmol/L BUN (9-20) mg/dL Creatinine (0.66-1.25) mg/dL Glucose (74-99) mg/dL POC Glucose (mg/dL) 208 H 206 H 174 H (70-110) mg/dL Calcium (8.4-10.2) mg/dL Ionized Calcium Ban (4.5-5.3) mg/dL Phosphorus (2.5-4.5) mg/dL Total Bilirubin (0.2-1.3) mg/dL AST (17-59) U/L ALT (4-49) U/L Creatine Kinase (55-170) U/L Total Protein (6.3-8.2) g/dL Albumin (3.5-5.0) g/dL RBC Folate (280 - 791) ng/mL Procalcitonin (0.02-0.09) ng/mL IgG (700.0-1600.0) mg/dL CMV IgG Ab (Non-Reactive) Crossmatch 02/03/23 02/03/23 02/03/23 Range/Units 21:11 21:15 22:16 WBC (3.8-10.6) k/uL RBC (4.30-5.90) m/uL Hgb (13.0-17.5) gm/dL Hct (39.0-53.0) % MCV (80.0-100.0) fL RDW (11.5-15.5) % Plt Count (150-450) k/uL Neutrophils # (Manual) (1.3-7.7) k/uL Metamyelocytes # (Man) (0) k/uL Myelocytes # (Manual) (0) k/uL Nucleated RBCs (0-0) /100 WBC Fibrinogen 877 H (200-500) mg/dL ABG pH (7.35-7.45) ABG pCO2 (35-45) mmHg ABG HCO3 (21-25) mmol/L ABG Total CO2 (19-24) mmol/L Sodium (137-145) mmol/L Chloride (98-107) mmol/L BUN (9-20) mg/dL Creatinine (0.66-1.25) mg/dL Glucose (74-99) mg/dL POC Glucose (mg/dL) 176 H 179 H (70-110) mg/dL Calcium (8.4-10.2) mg/dL Ionized Calcium Ban (4.5-5.3) mg/dL Phosphorus (2.5-4.5) mg/dL Total Bilirubin (0.2-1.3) mg/dL AST (17-59) U/L ALT (4-49) U/L Creatine Kinase (55-170) U/L Total Protein (6.3-8.2) g/dL Albumin (3.5-5.0) g/dL RBC Folate (280 - 791) ng/mL Procalcitonin (0.02-0.09) ng/mL IgG (700.0-1600.0) mg/dL CMV IgG Ab (Non-Reactive) Crossmatch 02/03/23 02/04/23 02/04/23 Range/Units 23:10 00:06 02:28 WBC (3.8-10.6) k/uL RBC (4.30-5.90) m/uL Hgb (13.0-17.5) gm/dL Hct (39.0-53.0) % MCV (80.0-100.0) fL RDW (11.5-15.5) % Plt Count (150-450) k/uL Neutrophils # (Manual) (1.3-7.7) k/uL Metamyelocytes # (Man) (0) k/uL Myelocytes # (Manual) (0) k/uL Nucleated RBCs (0-0) /100 WBC Fibrinogen (200-500) mg/dL ABG pH (7.35-7.45) ABG pCO2 (35-45) mmHg ABG HCO3 (21-25) mmol/L ABG Total CO2 (19-24) mmol/L Sodium (137-145) mmol/L Chloride (98-107) mmol/L BUN (9-20) mg/dL Creatinine (0.66-1.25) mg/dL Glucose (74-99) mg/dL POC Glucose (mg/dL) 180 H 180 H 178 H (70-110) mg/dL Calcium (8.4-10.2) mg/dL Ionized Calcium Ban (4.5-5.3) mg/dL Phosphorus (2.5-4.5) mg/dL Total Bilirubin (0.2-1.3) mg/dL AST (17-59) U/L ALT (4-49) U/L Creatine Kinase (55-170) U/L Total Protein (6.3-8.2) g/dL Albumin (3.5-5.0) g/dL RBC Folate (280 - 791) ng/mL Procalcitonin (0.02-0.09) ng/mL IgG (700.0-1600.0) mg/dL CMV IgG Ab (Non-Reactive) Crossmatch 02/04/23 02/04/23 02/04/23 Range/Units 03:18 04:16 05:00 WBC (3.8-10.6) k/uL RBC (4.30-5.90) m/uL Hgb (13.0-17.5) gm/dL Hct (39.0-53.0) % MCV (80.0-100.0) fL RDW (11.5-15.5) % Plt Count (150-450) k/uL Neutrophils # (Manual) (1.3-7.7) k/uL Metamyelocytes # (Man) (0) k/uL Myelocytes # (Manual) (0) k/uL Nucleated RBCs (0-0) /100 WBC Fibrinogen (200-500) mg/dL ABG pH (7.35-7.45) ABG pCO2 (35-45) mmHg ABG HCO3 (21-25) mmol/L ABG Total CO2 (19-24) mmol/L Sodium 128 L (137-145) mmol/L Chloride 87 L (98-107) mmol/L BUN 91 H (9-20) mg/dL Creatinine 5.05 H (0.66-1.25) mg/dL Glucose 150 H (74-99) mg/dL POC Glucose (mg/dL) 181 H 175 H (70-110) mg/dL Calcium 5.3 L* (8.4-10.2) mg/dL Ionized Calcium Ban 3.1 L* (4.5-5.3) mg/dL Phosphorus 9.4 H* (2.5-4.5) mg/dL Total Bilirubin 3.1 H (0.2-1.3) mg/dL AST 1223 H (17-59) U/L ALT 875 H (4-49) U/L Creatine Kinase 4574 H* (55-170) U/L Total Protein 4.8 L (6.3-8.2) g/dL Albumin 2.3 L (3.5-5.0) g/dL RBC Folate (280 - 791) ng/mL Procalcitonin (0.02-0.09) ng/mL IgG (700.0-1600.0) mg/dL CMV IgG Ab (Non-Reactive) Crossmatch 02/04/23 02/04/23 02/04/23 Range/Units 05:00 05:00 05:24 WBC 3.7 L (3.8-10.6) k/uL RBC 1.53 L (4.30-5.90) m/uL Hgb 5.4 L* D (13.0-17.5) gm/dL Hct 16.0 L* (39.0-53.0) % MCV 104.6 H (80.0-100.0) fL RDW 17.1 H (11.5-15.5) % Plt Count 17 L* (150-450) k/uL Neutrophils # (Manual) 0.50 L (1.3-7.7) k/uL Metamyelocytes # (Man) 0.15 H (0) k/uL Myelocytes # (Manual) 0.11 H (0) k/uL Nucleated RBCs 5 H (0-0) /100 WBC Fibrinogen (200-500) mg/dL ABG pH (7.35-7.45) ABG pCO2 (35-45) mmHg ABG HCO3 (21-25) mmol/L ABG Total CO2 (19-24) mmol/L Sodium (137-145) mmol/L Chloride (98-107) mmol/L BUN (9-20) mg/dL Creatinine (0.66-1.25) mg/dL Glucose (74-99) mg/dL POC Glucose (mg/dL) 176 H (70-110) mg/dL Calcium (8.4-10.2) mg/dL Ionized Calcium Ban (4.5-5.3) mg/dL Phosphorus (2.5-4.5) mg/dL Total Bilirubin (0.2-1.3) mg/dL AST (17-59) U/L ALT (4-49) U/L Creatine Kinase (55-170) U/L Total Protein (6.3-8.2) g/dL Albumin (3.5-5.0) g/dL RBC Folate (280 - 791) ng/mL Procalcitonin 95.90 H (0.02-0.09) ng/mL IgG (700.0-1600.0) mg/dL CMV IgG Ab (Non-Reactive) Crossmatch 02/04/23 02/04/23 02/04/23 Range/Units 05:50 06:39 07:54 WBC (3.8-10.6) k/uL RBC (4.30-5.90) m/uL Hgb (13.0-17.5) gm/dL Hct (39.0-53.0) % MCV (80.0-100.0) fL RDW (11.5-15.5) % Plt Count (150-450) k/uL Neutrophils # (Manual) (1.3-7.7) k/uL Metamyelocytes # (Man) (0) k/uL Myelocytes # (Manual) (0) k/uL Nucleated RBCs (0-0) /100 WBC Fibrinogen (200-500) mg/dL ABG pH 7.25 L (7.35-7.45) ABG pCO2 60 H (35-45) mmHg ABG HCO3 26 H (21-25) mmol/L ABG Total CO2 28 H (19-24) mmol/L Sodium (137-145) mmol/L Chloride (98-107) mmol/L BUN (9-20) mg/dL Creatinine (0.66-1.25) mg/dL Glucose (74-99) mg/dL POC Glucose (mg/dL) 181 H 179 H (70-110) mg/dL Calcium (8.4-10.2) mg/dL Ionized Calcium Ban (4.5-5.3) mg/dL Phosphorus (2.5-4.5) mg/dL Total Bilirubin (0.2-1.3) mg/dL AST (17-59) U/L ALT (4-49) U/L Creatine Kinase (55-170) U/L Total Protein (6.3-8.2) g/dL Albumin (3.5-5.0) g/dL RBC Folate (280 - 791) ng/mL Procalcitonin (0.02-0.09) ng/mL IgG (700.0-1600.0) mg/dL CMV IgG Ab (Non-Reactive) Crossmatch 02/04/23 02/04/23 02/04/23 Range/Units 08:08 10:58 14:27 WBC (3.8-10.6) k/uL RBC (4.30-5.90) m/uL Hgb (13.0-17.5) gm/dL Hct (39.0-53.0) % MCV (80.0-100.0) fL RDW (11.5-15.5) % Plt Count (150-450) k/uL Neutrophils # (Manual) (1.3-7.7) k/uL Metamyelocytes # (Man) (0) k/uL Myelocytes # (Manual) (0) k/uL Nucleated RBCs (0-0) /100 WBC Fibrinogen (200-500) mg/dL ABG pH (7.35-7.45) ABG pCO2 (35-45) mmHg ABG HCO3 (21-25) mmol/L ABG Total CO2 (19-24) mmol/L Sodium (137-145) mmol/L Chloride (98-107) mmol/L BUN (9-20) mg/dL Creatinine (0.66-1.25) mg/dL Glucose (74-99) mg/dL POC Glucose (mg/dL) 175 H 136 H (70-110) mg/dL Calcium (8.4-10.2) mg/dL Ionized Calcium Ban (4.5-5.3) mg/dL Phosphorus (2.5-4.5) mg/dL Total Bilirubin (0.2-1.3) mg/dL AST (17-59) U/L ALT (4-49) U/L Creatine Kinase (55-170) U/L Total Protein (6.3-8.2) g/dL Albumin (3.5-5.0) g/dL RBC Folate (280 - 791) ng/mL Procalcitonin (0.02-0.09) ng/mL IgG (700.0-1600.0) mg/dL CMV IgG Ab (Non-Reactive) Crossmatch See Detail Microbiology - Last 24 Hours (Table) 02/02/23 21:16 Gram Stain - Preliminary Sputum Sputum Culture - Preliminary 02/01/23 20:00 Urine Culture - Final Urine,Catheterized 02/01/23 00:18 Blood Culture Gram Stain - Final Blood Blood Culture - Final Beta Hemolytic Strep Group G Assessment and Plan (1) Bacteremia Current Visit: Yes Status: Acute Priority: High Code(s): R78.81 - BACTEREMIA SNOMED Code(s): 9555853 (2) Leukocytopenia Current Visit: Yes Status: Acute Priority: High Code(s): D72.819 - DECREASED WHITE BLOOD CELL COUNT, UNSPECIFIED SNOMED Code(s): 41267069 (3) Pancytopenia Current Visit: Yes Status: Acute Priority: High Code(s): D61.818 - OTHER PANCYTOPENIA SNOMED Code(s): 213732754 (4) Pneumonia Current Visit: Yes Status: Acute Code(s): J18.9 - PNEUMONIA, UNSPECIFIED ORGANISM SNOMED Code(s): 848518128 Plan: Leukocytopenia: The patient had presented with pancytopenia, with leukocytopenia most pronounced. WBCs improved, 3.9, ANC 500 - Based on review of his history with the family, and previous labs, this appears to be acute, most likely due to severe infection. It may be some underlying baseline marrow suppression from allopurinol use. Clinical suspicion for any underlying primary marrow condition is low at this time. - S/p 3 doses granix, will continue till ANC > 1000 - Check labs for other underlying conditions, with autoimmune markers, and labs for deficiency states and paraproteinemia. No vitamin B12 or folate deficiency noted. Iron studies pending. K/L ratio normal, 1.5. SPEP and immunofixation pending. IgG level normal at 588, no indication for IVIG at this time -CMV serology ordered in view of prominent leukopenia, and liver enzyme elevation. 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 Platelet counts decreased today at 17,000. No reported episodes of bleeding. Will order one unit of platelets, so dialysis catheter can be placed due to worsening kidney function. -Hgb 5.4 today, 2 units PRBCs ordered -Continue to monitor CBC daily and supplement for hemoglobin less than 7, and platelets less than 10,000. -Hemolysis workup was negative. DIC labs checked, fibrinogen 877. DIC labs today pending. Will continue to monitor - G-CSF initiation as detailed above. For anticoagulation platelets need to be greater than 50,000. Recommend SCDs for DVT prophylaxis - Hold allopurinol Defer to the admitting service for management of his other medical issues. Case discussed with nursing. It is possible that as his WBC increases, the chest x- ray findings, as well as lung symptoms may actually worsen temporarily, due to increased capacity for inflammatory response.
[2023-02-04] MEDS: CALCIUM ACETATE 667 MG TAB PO SCH (15:58)
--- NOTE | 2023-02-04 16:22 | P.PN ---
Subjective Progress Note Date: 02/04/23 Principal diagnosis: Sepsis.Pneumonia,Bacteremia Patient is a 67-year-old male with a past medical history Nupercaine for hypertension and gout who recently returned from a trip to [facility] about a week ago patient presented to [facility], for evaluation of increasing shortness of breath fever and generalized body aches,patient admitted to ICU subsequently ended up getting intubated because of worsening respiratory status. On today's evaluation that is 02/04/2023 patient last fever of 99.7F this morning the patient is afebrile since then, the patient is still requiring pressor support and more supplemental oxygen, and no significant purulent secretion through the ET, vomiting or diarrhea reported by the nursing staff Patient white count has come up to 3.7, creatinine is 5.05 blood cultures with a beta-hemolytic group G strep. Sputum cultures pending Objective - Vital Signs Vital signs: Vital Signs Temp 99.3 F 02/04/23 12:00 Pulse 111 H 02/04/23 12:00 Resp 28 H 02/04/23 12:00 BP 92/57 02/04/23 11:43 Pulse Ox 88 L 02/04/23 12:00 FiO2 100 02/04/23 12:00 Intake & Output 02/03/23 02/04/23 02/04/23 18:59 06:59 18:59 Intake Total 5756.418 2952.836 2513.453 Output Total 80 68 2 Balance 5676.418 2884.836 2511.453 Weight 137 kg 147 kg Intake: IV 1625 1525 375 ACETAMINOPHEN IV (For NPO 100 ) 1,000 mg In Empty Bag 1 bag @ 400 mls/hr IVPB ONCE ONE Rx#:[id number] Clindamycin 900 mg In 50 Dextrose 5% in Water 50 ml @ 50 mls/hr IVPB Q8HR [facility] Rx#:[id number] Dextrose 5% in Water 1, 1625 1375 375 000 ml @ 125 mls/hr IV . Q9H12M [facility] with Sodium Bicarb (1 Meq/ml) 150 ml Rx#:[id number] Intake, IV Titration 3831.418 3884.196 8591.453 Amount Albumin Human 5% 500 ml 500 In Empty Bag 1 bag @ 250 mls/hr IVPB ONCE ONE Rx#: [id number] Amiodarone 360 mg In 338.885 378.887 329.997 Dextrose 5% in Water 200 ml @ 1 MG/MIN 33.333 mls/ hr IV .Q6H [facility] Rx#: [id number] Calcium Gluconate in NaCl 100 2 gm In Saline 1 100ml. bag @ 100 mls/hr IVPB ONCE ONE Rx#:[id number] Cisatracurium 200 mg In 173.928 192.165 Sodium Chloride 0.9% 180 ml @ 1 MCG/KG/MIN 8.046 mls/hr IV .Q24H [facility] Rx#: [id number] Clindamycin 900 mg In 50 Dextrose 5% in Water 50 ml @ 50 mls/hr IVPB Q8HR [facility] Rx#:[id number] Insulin Regular 100 unit 53.733 29.283 In Sodium Chloride 0.9% 100 ml @ Titrate IV .Q0M [facility] Rx#:[id number] Magnesium Sulfate-D5w Pmx 200 1 gm In Dextrose/Water 1 100ml.bag @ 100 mls/hr IVPB ONCE ONE Rx#: [id number] Norepinephrine 32 mg In 216.258 217.348 143.291 Sodium Chloride 0.9% 218 ml @ 0.03 MCG/KG/MIN 1. 722 mls/hr IV .Q24H [facility] Rx#:[id number] Sodium Chloride 0.9% 2, 2000 000 ml @ 999 mls/hr IV . Q2H1M [facility] Rx#:[id number] Vasopressin 60 unit In 138.006 Sodium Chloride 0.9% 150 ml @ 0.03 UNITS/MIN 4.59 mls/hr IV .Q24H [facility] Rx#: [id number] cefTRIAXone 2 gm In 50 50 Sodium Chloride 0.9% 50 ml @ 100 mls/hr IVPB Q24HR [facility] Rx#:[id number] propofoL 1,000 mg In 448.614 354.312 100 Empty Bag 1 bag @ 15 MCG/ KG/MIN 11.022 mls/hr IV . Q9H5M [facility] Rx#:[id number] Oral 160 Tube Feeding 140 220 80 Blood Product 943 Platelet Pheresis Pas 0 Psoralen Unit [id number] Platelet Pheresis Pas 349 Psoralen Unit [id number] Rc As-1 Unit 310 [id number] Rc Pheresis As-3 Unit 284 [id number] Other 90 Output: Urine 80 68 2 Other: Voiding Method Indwelling Catheter Indwelling Catheter Indwelling Catheter ABP, PAP, CO, CI - Last Documented Arterial Blood Pressure 95/58 - Exam GENERAL DESCRIPTION: Elderly male intubated on the vent RESPIRATORY SYSTEM: Unlabored breathing , decreased breath sounds at bases HEART: S1 S2 regular rate and rhythm ,no loud murmurs ABDOMEN: Soft , no tenderness EXTREMITIES: No edema feet - Labs CBC & Chem 7: 02/04/23 05:00 02/04/23 05:00 Labs: Abnormal Lab Results - Last 24 Hours (Table) 02/02/23 02/02/23 02/03/23 Range/Units 02:40 02:40 12:32 WBC (3.8-10.6) k/uL RBC (4.30-5.90) m/uL Hgb (13.0-17.5) gm/dL Hct (39.0-53.0) % MCV (80.0-100.0) fL RDW (11.5-15.5) % Plt Count (150-450) k/uL Neutrophils # (Manual) (1.3-7.7) k/uL Metamyelocytes # (Man) (0) k/uL Myelocytes # (Manual) (0) k/uL Nucleated RBCs (0-0) /100 WBC Fibrinogen (200-500) mg/dL ABG pH (7.35-7.45) ABG pCO2 (35-45) mmHg ABG HCO3 (21-25) mmol/L ABG Total CO2 (19-24) mmol/L Sodium (137-145) mmol/L Chloride (98-107) mmol/L BUN (9-20) mg/dL Creatinine (0.66-1.25) mg/dL Glucose (74-99) mg/dL POC Glucose (mg/dL) (70-110) mg/dL Calcium (8.4-10.2) mg/dL Ionized Calcium Ban (4.5-5.3) mg/dL Phosphorus (2.5-4.5) mg/dL Total Bilirubin (0.2-1.3) mg/dL AST (17-59) U/L ALT (4-49) U/L Creatine Kinase (55-170) U/L Total Protein (6.3-8.2) g/dL Albumin (3.5-5.0) g/dL RBC Folate 795 H (280 - 791) ng/mL Procalcitonin (0.02-0.09) ng/mL IgG 588.0 L (700.0-1600.0) mg/dL CMV IgG Ab Reactive A (Non-Reactive) Crossmatch 02/03/23 02/03/23 02/03/23 Range/Units 15:26 17:42 18:55 WBC (3.8-10.6) k/uL RBC (4.30-5.90) m/uL Hgb (13.0-17.5) gm/dL Hct (39.0-53.0) % MCV (80.0-100.0) fL RDW (11.5-15.5) % Plt Count (150-450) k/uL Neutrophils # (Manual) (1.3-7.7) k/uL Metamyelocytes # (Man) (0) k/uL Myelocytes # (Manual) (0) k/uL Nucleated RBCs (0-0) /100 WBC Fibrinogen (200-500) mg/dL ABG pH (7.35-7.45) ABG pCO2 (35-45) mmHg ABG HCO3 (21-25) mmol/L ABG Total CO2 (19-24) mmol/L Sodium (137-145) mmol/L Chloride (98-107) mmol/L BUN (9-20) mg/dL Creatinine (0.66-1.25) mg/dL Glucose (74-99) mg/dL POC Glucose (mg/dL) 208 H 206 H 174 H (70-110) mg/dL Calcium (8.4-10.2) mg/dL Ionized Calcium Ban (4.5-5.3) mg/dL Phosphorus (2.5-4.5) mg/dL Total Bilirubin (0.2-1.3) mg/dL AST (17-59) U/L ALT (4-49) U/L Creatine Kinase (55-170) U/L Total Protein (6.3-8.2) g/dL Albumin (3.5-5.0) g/dL RBC Folate (280 - 791) ng/mL Procalcitonin (0.02-0.09) ng/mL IgG (700.0-1600.0) mg/dL CMV IgG Ab (Non-Reactive) Crossmatch 02/03/23 02/03/23 02/03/23 Range/Units 21:11 21:15 22:16 WBC (3.8-10.6) k/uL RBC (4.30-5.90) m/uL Hgb (13.0-17.5) gm/dL Hct (39.0-53.0) % MCV (80.0-100.0) fL RDW (11.5-15.5) % Plt Count (150-450) k/uL Neutrophils # (Manual) (1.3-7.7) k/uL Metamyelocytes # (Man) (0) k/uL Myelocytes # (Manual) (0) k/uL Nucleated RBCs (0-0) /100 WBC Fibrinogen 877 H (200-500) mg/dL ABG pH (7.35-7.45) ABG pCO2 (35-45) mmHg ABG HCO3 (21-25) mmol/L ABG Total CO2 (19-24) mmol/L Sodium (137-145) mmol/L Chloride (98-107) mmol/L BUN (9-20) mg/dL Creatinine (0.66-1.25) mg/dL Glucose (74-99) mg/dL POC Glucose (mg/dL) 176 H 179 H (70-110) mg/dL Calcium (8.4-10.2) mg/dL Ionized Calcium Ban (4.5-5.3) mg/dL Phosphorus (2.5-4.5) mg/dL Total Bilirubin (0.2-1.3) mg/dL AST (17-59) U/L ALT (4-49) U/L Creatine Kinase (55-170) U/L Total Protein (6.3-8.2) g/dL Albumin (3.5-5.0) g/dL RBC Folate (280 - 791) ng/mL Procalcitonin (0.02-0.09) ng/mL IgG (700.0-1600.0) mg/dL CMV IgG Ab (Non-Reactive) Crossmatch 02/03/23 02/04/23 02/04/23 Range/Units 23:10 00:06 02:28 WBC (3.8-10.6) k/uL RBC (4.30-5.90) m/uL Hgb (13.0-17.5) gm/dL Hct (39.0-53.0) % MCV (80.0-100.0) fL RDW (11.5-15.5) % Plt Count (150-450) k/uL Neutrophils # (Manual) (1.3-7.7) k/uL Metamyelocytes # (Man) (0) k/uL Myelocytes # (Manual) (0) k/uL Nucleated RBCs (0-0) /100 WBC Fibrinogen (200-500) mg/dL ABG pH (7.35-7.45) ABG pCO2 (35-45) mmHg ABG HCO3 (21-25) mmol/L ABG Total CO2 (19-24) mmol/L Sodium (137-145) mmol/L Chloride (98-107) mmol/L BUN (9-20) mg/dL Creatinine (0.66-1.25) mg/dL Glucose (74-99) mg/dL POC Glucose (mg/dL) 180 H 180 H 178 H (70-110) mg/dL Calcium (8.4-10.2) mg/dL Ionized Calcium Ban (4.5-5.3) mg/dL Phosphorus (2.5-4.5) mg/dL Total Bilirubin (0.2-1.3) mg/dL AST (17-59) U/L ALT (4-49) U/L Creatine Kinase (55-170) U/L Total Protein (6.3-8.2) g/dL Albumin (3.5-5.0) g/dL RBC Folate (280 - 791) ng/mL Procalcitonin (0.02-0.09) ng/mL IgG (700.0-1600.0) mg/dL CMV IgG Ab (Non-Reactive) Crossmatch 02/04/23 02/04/23 02/04/23 Range/Units 03:18 04:16 05:00 WBC (3.8-10.6) k/uL RBC (4.30-5.90) m/uL Hgb (13.0-17.5) gm/dL Hct (39.0-53.0) % MCV (80.0-100.0) fL RDW (11.5-15.5) % Plt Count (150-450) k/uL Neutrophils # (Manual) (1.3-7.7) k/uL Metamyelocytes # (Man) (0) k/uL Myelocytes # (Manual) (0) k/uL Nucleated RBCs (0-0) /100 WBC Fibrinogen (200-500) mg/dL ABG pH (7.35-7.45) ABG pCO2 (35-45) mmHg ABG HCO3 (21-25) mmol/L ABG Total CO2 (19-24) mmol/L Sodium 128 L (137-145) mmol/L Chloride 87 L (98-107) mmol/L BUN 91 H (9-20) mg/dL Creatinine 5.05 H (0.66-1.25) mg/dL Glucose 150 H (74-99) mg/dL POC Glucose (mg/dL) 181 H 175 H (70-110) mg/dL Calcium 5.3 L* (8.4-10.2) mg/dL Ionized Calcium Ban 3.1 L* (4.5-5.3) mg/dL Phosphorus 9.4 H* (2.5-4.5) mg/dL Total Bilirubin 3.1 H (0.2-1.3) mg/dL AST 1223 H (17-59) U/L ALT 875 H (4-49) U/L Creatine Kinase 4574 H* (55-170) U/L Total Protein 4.8 L (6.3-8.2) g/dL Albumin 2.3 L (3.5-5.0) g/dL RBC Folate (280 - 791) ng/mL Procalcitonin (0.02-0.09) ng/mL IgG (700.0-1600.0) mg/dL CMV IgG Ab (Non-Reactive) Crossmatch 02/04/23 02/04/23 02/04/23 Range/Units 05:00 05:00 05:24 WBC 3.7 L (3.8-10.6) k/uL RBC 1.53 L (4.30-5.90) m/uL Hgb 5.4 L* D (13.0-17.5) gm/dL Hct 16.0 L* (39.0-53.0) % MCV 104.6 H (80.0-100.0) fL RDW 17.1 H (11.5-15.5) % Plt Count 17 L* (150-450) k/uL Neutrophils # (Manual) 0.50 L (1.3-7.7) k/uL Metamyelocytes # (Man) 0.15 H (0) k/uL Myelocytes # (Manual) 0.11 H (0) k/uL Nucleated RBCs 5 H (0-0) /100 WBC Fibrinogen (200-500) mg/dL ABG pH (7.35-7.45) ABG pCO2 (35-45) mmHg ABG HCO3 (21-25) mmol/L ABG Total CO2 (19-24) mmol/L Sodium (137-145) mmol/L Chloride (98-107) mmol/L BUN (9-20) mg/dL Creatinine (0.66-1.25) mg/dL Glucose (74-99) mg/dL POC Glucose (mg/dL) 176 H (70-110) mg/dL Calcium (8.4-10.2) mg/dL Ionized Calcium Ban (4.5-5.3) mg/dL Phosphorus (2.5-4.5) mg/dL Total Bilirubin (0.2-1.3) mg/dL AST (17-59) U/L ALT (4-49) U/L Creatine Kinase (55-170) U/L Total Protein (6.3-8.2) g/dL Albumin (3.5-5.0) g/dL RBC Folate (280 - 791) ng/mL Procalcitonin 95.90 H (0.02-0.09) ng/mL IgG (700.0-1600.0) mg/dL CMV IgG Ab (Non-Reactive) Crossmatch 02/04/23 02/04/23 02/04/23 Range/Units 05:50 06:39 07:54 WBC (3.8-10.6) k/uL RBC (4.30-5.90) m/uL Hgb (13.0-17.5) gm/dL Hct (39.0-53.0) % MCV (80.0-100.0) fL RDW (11.5-15.5) % Plt Count (150-450) k/uL Neutrophils # (Manual) (1.3-7.7) k/uL Metamyelocytes # (Man) (0) k/uL Myelocytes # (Manual) (0) k/uL Nucleated RBCs (0-0) /100 WBC Fibrinogen (200-500) mg/dL ABG pH 7.25 L (7.35-7.45) ABG pCO2 60 H (35-45) mmHg ABG HCO3 26 H (21-25) mmol/L ABG Total CO2 28 H (19-24) mmol/L Sodium (137-145) mmol/L Chloride (98-107) mmol/L BUN (9-20) mg/dL Creatinine (0.66-1.25) mg/dL Glucose (74-99) mg/dL POC Glucose (mg/dL) 181 H 179 H (70-110) mg/dL Calcium (8.4-10.2) mg/dL Ionized Calcium Ban (4.5-5.3) mg/dL Phosphorus (2.5-4.5) mg/dL Total Bilirubin (0.2-1.3) mg/dL AST (17-59) U/L ALT (4-49) U/L Creatine Kinase (55-170) U/L Total Protein (6.3-8.2) g/dL Albumin (3.5-5.0) g/dL RBC Folate (280 - 791) ng/mL Procalcitonin (0.02-0.09) ng/mL IgG (700.0-1600.0) mg/dL CMV IgG Ab (Non-Reactive) Crossmatch 02/04/23 02/04/23 02/04/23 Range/Units 08:08 10:58 14:27 WBC (3.8-10.6) k/uL RBC (4.30-5.90) m/uL Hgb (13.0-17.5) gm/dL Hct (39.0-53.0) % MCV (80.0-100.0) fL RDW (11.5-15.5) % Plt Count (150-450) k/uL Neutrophils # (Manual) (1.3-7.7) k/uL Metamyelocytes # (Man) (0) k/uL Myelocytes # (Manual) (0) k/uL Nucleated RBCs (0-0) /100 WBC Fibrinogen (200-500) mg/dL ABG pH (7.35-7.45) ABG pCO2 (35-45) mmHg ABG HCO3 (21-25) mmol/L ABG Total CO2 (19-24) mmol/L Sodium (137-145) mmol/L Chloride (98-107) mmol/L BUN (9-20) mg/dL Creatinine (0.66-1.25) mg/dL Glucose (74-99) mg/dL POC Glucose (mg/dL) 175 H 136 H (70-110) mg/dL Calcium (8.4-10.2) mg/dL Ionized Calcium Ban (4.5-5.3) mg/dL Phosphorus (2.5-4.5) mg/dL Total Bilirubin (0.2-1.3) mg/dL AST (17-59) U/L ALT (4-49) U/L Creatine Kinase (55-170) U/L Total Protein (6.3-8.2) g/dL Albumin (3.5-5.0) g/dL RBC Folate (280 - 791) ng/mL Procalcitonin (0.02-0.09) ng/mL IgG (700.0-1600.0) mg/dL CMV IgG Ab (Non-Reactive) Crossmatch See Detail Microbiology - Last 24 Hours (Table) 02/02/23 21:16 Gram Stain - Preliminary Sputum Sputum Culture - Preliminary 02/01/23 20:00 Urine Culture - Final Urine,Catheterized 02/01/23 00:18 Blood Culture Gram Stain - Final Blood Blood Culture - Final Beta Hemolytic Strep Group G Assessment and Plan (1) Sepsis Current Visit: Yes Status: Acute Code(s): A41.9 - SEPSIS, UNSPECIFIED ORGANISM SNOMED Code(s): 63170021 (2) Bacteremia Current Visit: Yes Status: Acute Priority: High Code(s): R78.81 - BACTEREMIA SNOMED Code(s): 7208796 (3) Pneumonia Current Visit: Yes Status: Acute Code(s): J18.9 - PNEUMONIA, UNSPECIFIED ORGANISM SNOMED Code(s): 566190236 Plan: 1patient presented hospital with sepsis in this patient with the leukopenia tachycardia tachypnea hypotension elevated lactic acid and apparently did have a fever at home with the pulmonary vascular congestion on the x-rays low probability of PE on the VQ scan with consideration for pneumonia question of tuberculosis atypical pathogen however urine for Legionella antigen was negative and the patient has been ruled out for COVID-19 2patient blood cultures came back positive with beta-hemolytic's group G strep source likely pneumonia 3-patient to continue with Rocephin 2 g daily however we would discontinue clindamycin as the organism is resistant to it Prognosis remains to be guarded Dictation was produced using [employer] software. please excuse any grammatical, word or spelling errors. Time with Patient: Less than 30
[2023-02-04 16:33] LABS: Ionized Calcium 3.1 mg/dL (4.5-5.3)
[2023-02-04 16:35] LABS: Anion Gap 24 mmol/L; Blood Urea Nitrogen 92 mg/dL (9-20); Carbon Dioxide 19 mmol/L (22-30); Chloride 84 mmol/L (98-107); Glucose 132 mg/dL (74-99); Potassium 4.9 mmol/L (3.5-5.1); Sodium 127 mmol/L (137-145)
[2023-02-04 16:41] LABS: African American GFR (CKD) 13 (>60 ml/min/1.73 sqM); Non-African American GFR(CKD) 11 (>60 ml/min/1.73 sqM)
[2023-02-04 16:43] LABS: Glucose,Whole Blood 169 mg/dL (70-110)
[2023-02-04 16:46] LABS: Anisocytosis Slight; Calcium 5.5 mg/dL (8.4-10.2); MCV 99.9 fL (80.0-100.0); Macrocytosis Moderate; RBC 2.31 m/uL (4.30-5.90); RDW 18.4 % (11.5-15.5); WBC 4.2 k/uL (3.8-10.6)
[2023-02-04] MEDS: AMIODARONE 450 MG in DEXTROSE 5% IN WATER 250 ML IV SCH ×2 (17:19)
[2023-02-04 17:20] LABS: Platelet Count 34 k/uL (150-450)
[2023-02-04 17:23] LABS: MCHC 33.9 g/dL (31.0-37.0)
[2023-02-04 17:25] LABS: HGB 7.8 gm/dL (13.0-17.5); MCH 33.5 pg (25.0-35.0)
[2023-02-04 17:54] LABS: Glucose,Whole Blood 164 mg/dL (70-110)
[2023-02-04] MEDS ORDERED: FUROSEMIDE 10 MG/ML 10 ML VIAL IV STA (18:24)
[2023-02-04 18:57] LABS: Glucose,Whole Blood 145 mg/dL (70-110)
[2023-02-04 19:58] LABS: Prothrombin Time 18.5 sec (9.0-12.0)
[2023-02-04 19:59] LABS: INR 1.6 (<1.2)
[2023-02-04 20:39] LABS: Glucose,Whole Blood 147 mg/dL (70-110)
[2023-02-04] MEDS: INSULIN REGULAR 100 UNIT in SODIUM CHLORIDE 0.9% 100 ML IV SCH (20:51)
[2023-02-04 21:22] LABS: Glucose,Whole Blood 133 mg/dL (70-110)
[2023-02-04 22:17] LABS: Glucose,Whole Blood 133 mg/dL (70-110)
[2023-02-04 23:09] LABS: Glucose,Whole Blood 132 mg/dL (70-110)
[2023-02-04 23:15] LABS: African American GFR (CKD) 19 (>60 ml/min/1.73 sqM); Anion Gap 18 mmol/L; Blood Urea Nitrogen 63 mg/dL (9-20); Carbon Dioxide 22 mmol/L (22-30); Chloride 89 mmol/L (98-107); Glucose 108 mg/dL (74-99); Non-African American GFR(CKD) 17 (>60 ml/min/1.73 sqM); Potassium 4.5 mmol/L (3.5-5.1); Sodium 129 mmol/L (137-145)
[2023-02-04 23:18] LABS: Calcium 6.2 mg/dL (8.4-10.2)
[2023-02-05 00:21] LABS: Glucose,Whole Blood 124 mg/dL (70-110)
[2023-02-05] MEDS: IPRATROPIUM-ALBUTEROL 3 ML NEB INHALATION SCH ×5 (00:31→11:27)
[2023-02-05 01:05] LABS: ABG Base Excess -1.8 mmol/L; ABG HCO3 25 mmol/L (21-25); ABG Oxygen Saturation 88.3 % (94-97); ABG PCO2 58 mmHg (35-45); ABG PH 7.25 (7.35-7.45); ABG PO2 67 mmHg (83-108); ABG TCO2 27 mmol/L (19-24)
[2023-02-05 01:45] LABS: Glucose,Whole Blood 127 mg/dL (70-110)
[2023-02-05 02:20] LABS: Glucose,Whole Blood 136 mg/dL (70-110)
[2023-02-05 03:22] LABS: Glucose,Whole Blood 134 mg/dL (70-110)
[2023-02-05] MEDS: VASOPRESSIN 60 UNIT in SODIUM CHLORIDE 0.9% 150 ML IV SCH (04:31)
[2023-02-05 04:37] LABS: Anisocytosis Slight; HCT 22.7 % (39.0-53.0); MCV 97.9 fL (80.0-100.0); Macrocytosis Slight; Mean Platelet Volume 12.1; Platelet Count 32 k/uL (150-450); RBC 2.32 m/uL (4.30-5.90); RDW 18.6 % (11.5-15.5)
[2023-02-05 04:44] LABS: Glucose,Whole Blood 133 mg/dL (70-110)
[2023-02-05 04:50] LABS: HGB 7.8 gm/dL (13.0-17.5); MCH 33.1 pg (25.0-35.0); MCHC 34.1 g/dL (31.0-37.0)
[2023-02-05 05:09] VITALS: TEMP 98.9
[2023-02-05 05:09] LABS: ABG Base Excess -4.1 mmol/L; ABG HCO3 24 mmol/L (21-25); ABG PCO2 58 mmHg (35-45); ABG PH 7.22 (7.35-7.45); ABG PO2 66 mmHg (83-108); ABG TCO2 26 mmol/L (19-24)
[2023-02-05 06:01] LABS: Hepatitis B Surface AB- Quant 3.5 mIU/mL
[2023-02-05 06:07] LABS: Glucose,Whole Blood 140 mg/dL (70-110)
[2023-02-05 06:11] VITALS: BP 105/59
[2023-02-05 06:16] LABS: Band Neutrophils % 7 %; Neutrophils % (M) 14 %
[2023-02-05 06:18] LABS: Blast Cells # (M) 0.94 k/uL (0); Monocytes # (M) 1.27 k/uL (0-1.0); Nucleated Red Blood Cells 2 /100 WBC (0-0); Total Cells Counted 200; WBC 5.5 k/uL (3.8-10.6)
[2023-02-05 06:19] LABS: Anisocytosis (M) Present
[2023-02-05] MEDS: CISATRACURIUM 200 MG in SODIUM CHLORIDE 0.9% 180 ML IV SCH (06:26)
[2023-02-05] MEDS: AMIODARONE 450 MG in DEXTROSE 5% IN WATER 250 ML IV SCH ×2 (06:26)
[2023-02-05 06:54] LABS: Glucose,Whole Blood 134 mg/dL (70-110)
[2023-02-05 07:05] LABS: Ionized Calcium 3.3 mg/dL (4.5-5.3)
[2023-02-05 07:14] LABS: ALT 743 U/L (4-49); Albumin 2.4 g/dL (3.5-5.0); Anion Gap 22 mmol/L; Blood Urea Nitrogen 69 mg/dL (9-20); Carbon Dioxide 18 mmol/L (22-30); Chloride 88 mmol/L (98-107); Glucose 106 mg/dL (74-99); Potassium 5.6 mmol/L (3.5-5.1); Sodium 128 mmol/L (137-145); Total Bilirubin 4.8 mg/dL (0.2-1.3); Total Protein 5.3 g/dL (6.3-8.2)
[2023-02-05 07:14] LABS: Albumin 2.5 d/dL (3.8-4.9); Protein, Total 5.2 d/dL (6.2-8.2)
--- NOTE | 2023-02-05 07:16 | XR ---
EXAMINATION TYPE: XR chest 1V portable DATE OF EXAM: 02/05/2023 4:15 AM COMPARISON: Chest radiographs from 02/04/2023 TECHNIQUE: XR chest 1V portable Portable AP radiograph of the chest. CLINICAL INDICATION:Male, 67 years old with history of mechanical ventilation; FINDINGS: Lungs/Pleura: Blunting of both costophrenic angles with bibasilar patchy airspace opacities. No pneum othorax. Pulmonary vascularity: Unremarkable. Heart/mediastinum: Cardiomediastinal silhouette is enlarged and stable. Musculoskeletal: No acute osseous pathology. Other findings: None Lines/Tubes: Stable position of endotracheal and enteric tubes and left subclavian approach central venous cathete r. IMPRESSION: 1. Similar small bilateral pleural effusions with bibasilar airspace opacities. 2. Stable support lines and tubes.
[2023-02-05 07:17] VITALS: PULSE 105
[2023-02-05 07:19] LABS: African American GFR (CKD) 17 (>60 ml/min/1.73 sqM); Non-African American GFR(CKD) 15 (>60 ml/min/1.73 sqM)
--- NOTE | 2023-02-05 07:27 | P.PN ---
Subjective Progress Note Date: 02/05/23 Principal diagnosis: Persistent atrial fibrillation This is a 67-year-old gentleman who was admitted to the hospital after he presented with shortness of breath and was found to be in respiratory failure. Initially he was placed on BiPAP with no improvement and subsequently he was intubated and placed on mechanical ventilation. Patient was seen by our service because off new-onset atrial fibrillation with RVR. He was diagnosed with pneumonia/sepsis. Also he was found to have pancytopenia. The atrial fibrillation is new to the patient. Further investigation was performed including an echocardiogram and that revealed a cardiomyopathy appeared to be severe with an ejection fraction between 25-30%. Also he was found to be in acute renal failure. The plan is to undergo dialysis later on today. February 032022 The patient was seen and evaluated this morning. Unfortunately he continues to be intubated on mechanical ventilation and currently he is with an empty unstable requiring vasopressors was norepinephrine and vasopressin's. He continues to be in atrial fibrillation. Currently amiodarone is on. He, be on any beta fabian at this point during the hypotension and cannot be on any calcium channel fabian giving the cardiomyopathy as well as well as h ypotension. Heparin is not given to the patient also because of the pancytopenia severely low platelet count. Also his hemoglobin is low. The echo as a mentioned earlier showed an ejection fraction between 25-30% The examination is remarkable for irregular rhythm with diminished breathing sounds bilaterally and bilateral lower extremities edema 02/04/2023 The patient was seen and evaluated this morning. Unfortunately he is not doing well. He continues to be hemodynamically unstable requiring vasopressors. Beside that he continues to be in atrial fibrillation with overall heart rate around 115 bpm. He is on amiodarone IV. We can't add any beta fabian or calcium channel fabian at this point. We can't add any oral anticoagulation in the light of thrombocytopenia. Beside that his hemoglobin is low. The EF is extremely low as well as a 25-30%. Overall the prognosis is extremely poor. The examination is remarkable for irregular rhythm with diminished breathing sounds bilaterally and mild bilateral lower extremities edema 02/05/2023 The patient was seen and evaluated this morning. Unfortunately he is not doing well. He underwent dialysis yesterday. He is not making any urine. He continues to be nature fibrillation with overall controlled heart rate on the current dose of amiodarone. He received 2 units of packed RBC yesterday. Overall the prognosis is poor and the potentially the patient might go into hospice/05/08 care. The chest x-ray showed bilateral pleural effusion The examination is remarkable for diminished breathing sounds bilaterally and mild bilateral lower extremities edema Assessment Acute hypoxic respiratory failure Pneumonia/sepsis with positive blood culture Persistent atrial fibrillation Acute renal failure Pancytopenia Multiple comorbid conditions Plan Continue amiodarone IV Avoid any oral anticoagulation giving the thrombocytopenia Follow-up with the patient Objective - Vital Signs Vital signs: Vital Signs Temp 98.9 F 02/05/23 04:00 Pulse 105 H 02/05/23 07:00 Resp 28 H 02/05/23 07:00 BP 105/59 02/05/23 06:00 Pulse Ox 84 L 02/05/23 07:00 FiO2 100 02/05/23 06:00 Intake & Output 02/04/23 02/05/23 02/05/23 18:59 06:59 18:59 Intake Total 3224.096 1991.168 30 Output Total 2 16 0 Balance 3222.096 1975.168 30 Weight 147 kg 150 kg Intake: IV 495 220 20 0.9 NS 120 220 20 Dextrose 5% in Water 1, 375 000 ml @ 125 mls/hr IV . Q9H12M [facility] with Sodium Bicarb (1 Meq/ml) 150 ml Rx#:[id number] Intake, IV Titration 6098.122 5955.168 Amount Amiodarone 360 mg In 380.554 Dextrose 5% in Water 200 ml @ 0.5 MG/MIN 16.667 mls/hr IV .Q12H [facility] Rx#: [id number] Amiodarone 450 mg In 218.615 Dextrose 5% in Water 250 ml @ 0.5 MG/MIN 16.667 mls/hr IV .Q15H [facility] Rx#: [id number] Calcium Gluconate in NaCl 200 2 gm In Saline 1 100ml. bag @ 100 mls/hr IVPB ONCE ONE Rx#:[id number] Cisatracurium 200 mg In 192.165 188.411 Sodium Chloride 0.9% 180 ml @ 1 MCG/KG/MIN 8.046 mls/hr IV .Q24H [facility] Rx#: [id number] Insulin Regular 100 unit 44.733 7.051 In Sodium Chloride 0.9% 100 ml @ Titrate IV .Q0M [facility] Rx#:[id number] Magnesium Sulfate-D5w Pmx 200 1 gm In Dextrose/Water 1 100ml.bag @ 100 mls/hr IVPB ONCE ONE Rx#: [id number] Norepinephrine 32 mg In 276.791 177.410 Sodium Chloride 0.9% 218 ml @ 0.03 MCG/KG/MIN 1. 722 mls/hr IV .Q24H [facility] Rx#:[id number] Vasopressin 60 unit In 142.902 Sodium Chloride 0.9% 150 ml @ 0.03 UNITS/MIN 4.59 mls/hr IV .Q24H [facility] Rx#: [id number] cefTRIAXone 2 gm In 50 Sodium Chloride 0.9% 50 ml @ 100 mls/hr IVPB Q24HR [facility] Rx#:[id number] propofoL 1,000 mg In 291.853 337.779 Empty Bag 1 bag @ 15 MCG/ KG/MIN 11.022 mls/hr IV . Q9H5M [facility] Rx#:[id number] Oral 70 Tube Feeding 80 110 10 Blood Product 943 Platelet Pheresis Pas 0 Psoralen Unit [id number] Platelet Pheresis Pas 349 Psoralen Unit [id number] Rc As-1 Unit 310 [id number] Rc Pheresis As-3 Unit 284 [id number] Hemodialysis 500 Other 90 Output: Urine 2 16 0 Hemodialysis 0 Other: Voiding Method Indwelling Catheter Indwelling Catheter ABP, PAP, CO, CI - Last Documented Arterial Blood Pressure 79/51 - Labs CBC & Chem 7: 02/05/23 04:30 02/04/23 22:30 Labs: Abnormal Lab Results - Last 24 Hours (Table) 02/02/23 02/02/23 02/03/23 Range/Units 02:40 02:40 11:56 WBC (3.8-10.6) k/uL RBC (4.30-5.90) m/uL Hgb (13.0-17.5) gm/dL Hct (39.0-53.0) % RDW (11.5-15.5) % Plt Count (150-450) k/uL Blast Cells % % Neutrophils # (Manual) (1.3-7.7) k/uL Monocytes # (Manual) (0-1.0) k/uL Metamyelocytes # (Man) (0) k/uL Myelocytes # (Manual) (0) k/uL Blast Cells # (Man) (0) k/uL Nucleated RBCs (0-0) /100 WBC PT (9.0-12.0) sec INR (<1.2) APTT (22.0-30.0) sec Fibrinogen (200-500) mg/dL ABG pH (7.35-7.45) ABG pCO2 (35-45) mmHg ABG pO2 (83-108) mmHg ABG Total CO2 (19-24) mmol/L ABG O2 Saturation (94-97) % Sodium (137-145) mmol/L Chloride (98-107) mmol/L Carbon Dioxide (22-30) mmol/L BUN (9-20) mg/dL Creatinine (0.66-1.25) mg/dL Glucose (74-99) mg/dL POC Glucose (mg/dL) (70-110) mg/dL Calcium (8.4-10.2) mg/dL Ionized Calcium Ban (4.5-5.3) mg/dL TIBC 70 L (228-460) UG/DL % Saturation 110.00 H (15.00-50.00) Transferrin 50.1 L (204.0-354.0) mg/dL Creatine Kinase (55-170) U/L Total Protein (PEP) 5.2 L (6.2-8.2) d/dL Albumin (PEP) 2.5 L (3.8-4.9) d/dL RBC Folate 795 H (280 - 791) ng/mL Procalcitonin (0.02-0.09) ng/mL Crossmatch 02/04/23 02/04/23 02/04/23 Range/Units 05:00 05:00 07:54 WBC 3.7 L (3.8-10.6) k/uL RBC (4.30-5.90) m/uL Hgb 5.4 L* D (13.0-17.5) gm/dL Hct (39.0-53.0) % RDW (11.5-15.5) % Plt Count 17 L* (150-450) k/uL Blast Cells % % Neutrophils # (Manual) 0.50 L (1.3-7.7) k/uL Monocytes # (Manual) (0-1.0) k/uL Metamyelocytes # (Man) 0.15 H (0) k/uL Myelocytes # (Manual) 0.11 H (0) k/uL Blast Cells # (Man) (0) k/uL Nucleated RBCs 5 H (0-0) /100 WBC PT (9.0-12.0) sec INR (<1.2) APTT (22.0-30.0) sec Fibrinogen (200-500) mg/dL ABG pH (7.35-7.45) ABG pCO2 (35-45) mmHg ABG pO2 (83-108) mmHg ABG Total CO2 (19-24) mmol/L ABG O2 Saturation (94-97) % Sodium (137-145) mmol/L Chloride (98-107) mmol/L Carbon Dioxide (22-30) mmol/L BUN (9-20) mg/dL Creatinine (0.66-1.25) mg/dL Glucose (74-99) mg/dL POC Glucose (mg/dL) 179 H (70-110) mg/dL Calcium (8.4-10.2) mg/dL Ionized Calcium Ban (4.5-5.3) mg/dL TIBC (228-460) UG/DL % Saturation (15.00-50.00) Transferrin (204.0-354.0) mg/dL Creatine Kinase (55-170) U/L Total Protein (PEP) (6.2-8.2) d/dL Albumin (PEP) (3.8-4.9) d/dL RBC Folate (280 - 791) ng/mL Procalcitonin 95.90 H (0.02-0.09) ng/mL Crossmatch 02/04/23 02/04/23 02/04/23 Range/Units 08:08 10:58 14:25 WBC (3.8-10.6) k/uL RBC (4.30-5.90) m/uL Hgb (13.0-17.5) gm/dL Hct (39.0-53.0) % RDW (11.5-15.5) % Plt Count (150-450) k/uL Blast Cells % % Neutrophils # (Manual) (1.3-7.7) k/uL Monocytes # (Manual) (0-1.0) k/uL Metamyelocytes # (Man) (0) k/uL Myelocytes # (Manual) (0) k/uL Blast Cells # (Man) (0) k/uL Nucleated RBCs (0-0) /100 WBC PT 18.5 H (9.0-12.0) sec INR 1.6 H (<1.2) APTT 34.0 H (22.0-30.0) sec Fibrinogen 868 H (200-500) mg/dL ABG pH (7.35-7.45) ABG pCO2 (35-45) mmHg ABG pO2 (83-108) mmHg ABG Total CO2 (19-24) mmol/L ABG O2 Saturation (94-97) % Sodium (137-145) mmol/L Chloride (98-107) mmol/L Carbon Dioxide (22-30) mmol/L BUN (9-20) mg/dL Creatinine (0.66-1.25) mg/dL Glucose (74-99) mg/dL POC Glucose (mg/dL) 175 H (70-110) mg/dL Calcium (8.4-10.2) mg/dL Ionized Calcium Ban (4.5-5.3) mg/dL TIBC (228-460) UG/DL % Saturation (15.00-50.00) Transferrin (204.0-354.0) mg/dL Creatine Kinase (55-170) U/L Total Protein (PEP) (6.2-8.2) d/dL Albumin (PEP) (3.8-4.9) d/dL RBC Folate (280 - 791) ng/mL Procalcitonin (0.02-0.09) ng/mL Crossmatch See Detail 02/04/23 02/04/23 02/04/23 Range/Units 14:25 14:25 14:27 WBC (3.8-10.6) k/uL RBC 2.31 L (4.30-5.90) m/uL Hgb 7.8 L D (13.0-17.5) gm/dL Hct 23.0 L (39.0-53.0) % RDW 18.4 H (11.5-15.5) % Plt Count 34 L D (150-450) k/uL Blast Cells % % Neutrophils # (Manual) (1.3-7.7) k/uL Monocytes # (Manual) (0-1.0) k/uL Metamyelocytes # (Man) (0) k/uL Myelocytes # (Manual) (0) k/uL Blast Cells # (Man) (0) k/uL Nucleated RBCs (0-0) /100 WBC PT (9.0-12.0) sec INR (<1.2) APTT (22.0-30.0) sec Fibrinogen (200-500) mg/dL ABG pH (7.35-7.45) ABG pCO2 (35-45) mmHg ABG pO2 (83-108) mmHg ABG Total CO2 (19-24) mmol/L ABG O2 Saturation (94-97) % Sodium 127 L (137-145) mmol/L Chloride 84 L (98-107) mmol/L Carbon Dioxide 19 L (22-30) mmol/L BUN 92 H (9-20) mg/dL Creatinine 4.93 H (0.66-1.25) mg/dL Glucose 132 H (74-99) mg/dL POC Glucose (mg/dL) 136 H (70-110) mg/dL Calcium 5.5 L* (8.4-10.2) mg/dL Ionized Calcium Ban 3.1 L* (4.5-5.3) mg/dL TIBC (228-460) UG/DL % Saturation (15.00-50.00) Transferrin (204.0-354.0) mg/dL Creatine Kinase (55-170) U/L Total Protein (PEP) (6.2-8.2) d/dL Albumin (PEP) (3.8-4.9) d/dL RBC Folate (280 - 791) ng/mL Procalcitonin (0.02-0.09) ng/mL Crossmatch 02/04/23 02/04/23 02/04/23 Range/Units 16:42 17:53 18:54 WBC (3.8-10.6) k/uL RBC (4.30-5.90) m/uL Hgb (13.0-17.5) gm/dL Hct (39.0-53.0) % RDW (11.5-15.5) % Plt Count (150-450) k/uL Blast Cells % % Neutrophils # (Manual) (1.3-7.7) k/uL Monocytes # (Manual) (0-1.0) k/uL Metamyelocytes # (Man) (0) k/uL Myelocytes # (Manual) (0) k/uL Blast Cells # (Man) (0) k/uL Nucleated RBCs (0-0) /100 WBC PT (9.0-12.0) sec INR (<1.2) APTT (22.0-30.0) sec Fibrinogen (200-500) mg/dL ABG pH (7.35-7.45) ABG pCO2 (35-45) mmHg ABG pO2 (83-108) mmHg ABG Total CO2 (19-24) mmol/L ABG O2 Saturation (94-97) % Sodium (137-145) mmol/L Chloride (98-107) mmol/L Carbon Dioxide (22-30) mmol/L BUN (9-20) mg/dL Creatinine (0.66-1.25) mg/dL Glucose (74-99) mg/dL POC Glucose (mg/dL) 169 H 164 H 145 H (70-110) mg/dL Calcium (8.4-10.2) mg/dL Ionized Calcium Ban (4.5-5.3) mg/dL TIBC (228-460) UG/DL % Saturation (15.00-50.00) Transferrin (204.0-354.0) mg/dL Creatine Kinase (55-170) U/L Total Protein (PEP) (6.2-8.2) d/dL Albumin (PEP) (3.8-4.9) d/dL RBC Folate (280 - 791) ng/mL Procalcitonin (0.02-0.09) ng/mL Crossmatch 02/04/23 02/04/23 02/04/23 Range/Units 20:36 21:19 22:14 WBC (3.8-10.6) k/uL RBC (4.30-5.90) m/uL Hgb (13.0-17.5) gm/dL Hct (39.0-53.0) % RDW (11.5-15.5) % Plt Count (150-450) k/uL Blast Cells % % Neutrophils # (Manual) (1.3-7.7) k/uL Monocytes # (Manual) (0-1.0) k/uL Metamyelocytes # (Man) (0) k/uL Myelocytes # (Manual) (0) k/uL Blast Cells # (Man) (0) k/uL Nucleated RBCs (0-0) /100 WBC PT (9.0-12.0) sec INR (<1.2) APTT (22.0-30.0) sec Fibrinogen (200-500) mg/dL ABG pH (7.35-7.45) ABG pCO2 (35-45) mmHg ABG pO2 (83-108) mmHg ABG Total CO2 (19-24) mmol/L ABG O2 Saturation (94-97) % Sodium (137-145) mmol/L Chloride (98-107) mmol/L Carbon Dioxide (22-30) mmol/L BUN (9-20) mg/dL Creatinine (0.66-1.25) mg/dL Glucose (74-99) mg/dL POC Glucose (mg/dL) 147 H 133 H 133 H (70-110) mg/dL Calcium (8.4-10.2) mg/dL Ionized Calcium Ban (4.5-5.3) mg/dL TIBC (228-460) UG/DL % Saturation (15.00-50.00) Transferrin (204.0-354.0) mg/dL Creatine Kinase (55-170) U/L Total Protein (PEP) (6.2-8.2) d/dL Albumin (PEP) (3.8-4.9) d/dL RBC Folate (280 - 791) ng/mL Procalcitonin (0.02-0.09) ng/mL Crossmatch 02/04/23 02/04/23 02/05/23 Range/Units 22:30 23:07 00:18 WBC (3.8-10.6) k/uL RBC (4.30-5.90) m/uL Hgb (13.0-17.5) gm/dL Hct (39.0-53.0) % RDW (11.5-15.5) % Plt Count (150-450) k/uL Blast Cells % % Neutrophils # (Manual) (1.3-7.7) k/uL Monocytes # (Manual) (0-1.0) k/uL Metamyelocytes # (Man) (0) k/uL Myelocytes # (Manual) (0) k/uL Blast Cells # (Man) (0) k/uL Nucleated RBCs (0-0) /100 WBC PT (9.0-12.0) sec INR (<1.2) APTT (22.0-30.0) sec Fibrinogen (200-500) mg/dL ABG pH (7.35-7.45) ABG pCO2 (35-45) mmHg ABG pO2 (83-108) mmHg ABG Total CO2 (19-24) mmol/L ABG O2 Saturation (94-97) % Sodium 129 L (137-145) mmol/L Chloride 89 L (98-107) mmol/L Carbon Dioxide (22-30) mmol/L BUN 63 H (9-20) mg/dL Creatinine 3.54 H (0.66-1.25) mg/dL Glucose 108 H (74-99) mg/dL POC Glucose (mg/dL) 132 H 124 H (70-110) mg/dL Calcium 6.2 L* (8.4-10.2) mg/dL Ionized Calcium Ban (4.5-5.3) mg/dL TIBC (228-460) UG/DL % Saturation (15.00-50.00) Transferrin (204.0-354.0) mg/dL Creatine Kinase (55-170) U/L Total Protein (PEP) (6.2-8.2) d/dL Albumin (PEP) (3.8-4.9) d/dL RBC Folate (280 - 791) ng/mL Procalcitonin (0.02-0.09) ng/mL Crossmatch 02/05/23 02/05/23 02/05/23 Range/Units 00:51 01:43 02:18 WBC (3.8-10.6) k/uL RBC (4.30-5.90) m/uL Hgb (13.0-17.5) gm/dL Hct (39.0-53.0) % RDW (11.5-15.5) % Plt Count (150-450) k/uL Blast Cells % % Neutrophils # (Manual) (1.3-7.7) k/uL Monocytes # (Manual) (0-1.0) k/uL Metamyelocytes # (Man) (0) k/uL Myelocytes # (Manual) (0) k/uL Blast Cells # (Man) (0) k/uL Nucleated RBCs (0-0) /100 WBC PT (9.0-12.0) sec INR (<1.2) APTT (22.0-30.0) sec Fibrinogen (200-500) mg/dL ABG pH 7.25 L (7.35-7.45) ABG pCO2 58 H (35-45) mmHg ABG pO2 67 L (83-108) mmHg ABG Total CO2 27 H (19-24) mmol/L ABG O2 Saturation 88.3 L (94-97) % Sodium (137-145) mmol/L Chloride (98-107) mmol/L Carbon Dioxide (22-30) mmol/L BUN (9-20) mg/dL Creatinine (0.66-1.25) mg/dL Glucose (74-99) mg/dL POC Glucose (mg/dL) 127 H 136 H (70-110) mg/dL Calcium (8.4-10.2) mg/dL Ionized Calcium Ban (4.5-5.3) mg/dL TIBC (228-460) UG/DL % Saturation (15.00-50.00) Transferrin (204.0-354.0) mg/dL Creatine Kinase (55-170) U/L Total Protein (PEP) (6.2-8.2) d/dL Albumin (PEP) (3.8-4.9) d/dL RBC Folate (280 - 791) ng/mL Procalcitonin (0.02-0.09) ng/mL Crossmatch 02/05/23 02/05/23 02/05/23 Range/Units 03:21 04:25 04:30 WBC (3.8-10.6) k/uL RBC 2.32 L (4.30-5.90) m/uL Hgb 7.8 L (13.0-17.5) gm/dL Hct 22.7 L (39.0-53.0) % RDW 18.6 H (11.5-15.5) % Plt Count 32 L (150-450) k/uL Blast Cells % 17 H* % Neutrophils # (Manual) 1.10 L (1.3-7.7) k/uL Monocytes # (Manual) 1.27 H (0-1.0) k/uL Metamyelocytes # (Man) (0) k/uL Myelocytes # (Manual) (0) k/uL Blast Cells # (Man) 0.94 H (0) k/uL Nucleated RBCs 2 H (0-0) /100 WBC PT (9.0-12.0) sec INR (<1.2) APTT (22.0-30.0) sec Fibrinogen (200-500) mg/dL ABG pH 7.22 L (7.35-7.45) ABG pCO2 58 H (35-45) mmHg ABG pO2 66 L (83-108) mmHg ABG Total CO2 26 H (19-24) mmol/L ABG O2 Saturation 86.0 L (94-97) % Sodium (137-145) mmol/L Chloride (98-107) mmol/L Carbon Dioxide (22-30) mmol/L BUN (9-20) mg/dL Creatinine (0.66-1.25) mg/dL Glucose (74-99) mg/dL POC Glucose (mg/dL) 134 H (70-110) mg/dL Calcium (8.4-10.2) mg/dL Ionized Calcium Ban (4.5-5.3) mg/dL TIBC (228-460) UG/DL % Saturation (15.00-50.00) Transferrin (204.0-354.0) mg/dL Creatine Kinase (55-170) U/L Total Protein (PEP) (6.2-8.2) d/dL Albumin (PEP) (3.8-4.9) d/dL RBC Folate (280 - 791) ng/mL Procalcitonin (0.02-0.09) ng/mL Crossmatch 02/05/23 02/05/23 02/05/23 Range/Units 04:30 04:43 06:05 WBC (3.8-10.6) k/uL RBC (4.30-5.90) m/uL Hgb (13.0-17.5) gm/dL Hct (39.0-53.0) % RDW (11.5-15.5) % Plt Count (150-450) k/uL Blast Cells % % Neutrophils # (Manual) (1.3-7.7) k/uL Monocytes # (Manual) (0-1.0) k/uL Metamyelocytes # (Man) (0) k/uL Myelocytes # (Manual) (0) k/uL Blast Cells # (Man) (0) k/uL Nucleated RBCs (0-0) /100 WBC PT (9.0-12.0) sec INR (<1.2) APTT (22.0-30.0) sec Fibrinogen (200-500) mg/dL ABG pH (7.35-7.45) ABG pCO2 (35-45) mmHg ABG pO2 (83-108) mmHg ABG Total CO2 (19-24) mmol/L ABG O2 Saturation (94-97) % Sodium (137-145) mmol/L Chloride (98-107) mmol/L Carbon Dioxide (22-30) mmol/L BUN (9-20) mg/dL Creatinine (0.66-1.25) mg/dL Glucose (74-99) mg/dL POC Glucose (mg/dL) 133 H 140 H (70-110) mg/dL Calcium (8.4-10.2) mg/dL Ionized Calcium Ban (4.5-5.3) mg/dL TIBC (228-460) UG/DL % Saturation (15.00-50.00) Transferrin (204.0-354.0) mg/dL Creatine Kinase 4448 H* (55-170) U/L Total Protein (PEP) (6.2-8.2) d/dL Albumin (PEP) (3.8-4.9) d/dL RBC Folate (280 - 791) ng/mL Procalcitonin (0.02-0.09) ng/mL Crossmatch 02/05/23 02/05/23 Range/Units 06:45 06:52 WBC (3.8-10.6) k/uL RBC (4.30-5.90) m/uL Hgb (13.0-17.5) gm/dL Hct (39.0-53.0) % RDW (11.5-15.5) % Plt Count (150-450) k/uL Blast Cells % % Neutrophils # (Manual) (1.3-7.7) k/uL Monocytes # (Manual) (0-1.0) k/uL Metamyelocytes # (Man) (0) k/uL Myelocytes # (Manual) (0) k/uL Blast Cells # (Man) (0) k/uL Nucleated RBCs (0-0) /100 WBC PT (9.0-12.0) sec INR (<1.2) APTT (22.0-30.0) sec Fibrinogen (200-500) mg/dL ABG pH (7.35-7.45) ABG pCO2 (35-45) mmHg ABG pO2 (83-108) mmHg ABG Total CO2 (19-24) mmol/L ABG O2 Saturation (94-97) % Sodium (137-145) mmol/L Chloride (98-107) mmol/L Carbon Dioxide (22-30) mmol/L BUN (9-20) mg/dL Creatinine (0.66-1.25) mg/dL Glucose (74-99) mg/dL POC Glucose (mg/dL) 134 H (70-110) mg/dL Calcium (8.4-10.2) mg/dL Ionized Calcium Ban 3.3 L* (4.5-5.3) mg/dL TIBC (228-460) UG/DL % Saturation (15.00-50.00) Transferrin (204.0-354.0) mg/dL Creatine Kinase (55-170) U/L Total Protein (PEP) (6.2-8.2) d/dL Albumin (PEP) (3.8-4.9) d/dL RBC Folate (280 - 791) ng/mL Procalcitonin (0.02-0.09) ng/mL Crossmatch Microbiology - Last 24 Hours (Table) 02/02/23 21:16 Gram Stain - Preliminary Sputum Sputum Culture - Preliminary
[2023-02-05] MEDS ORDERED: CALCIUM GLUCONATE IN NACL 2 GM in SALINE 1 100ML.BAG IVPB ONE (07:30)
[2023-02-05] MEDS ORDERED: DOBUTamine DRIP 500 MG in DEXTROSE/WATER 1 250ML.BAG IV SCH (07:45)
[2023-02-05 07:48] LABS: AST 869 U/L (17-59); Calcium 5.9 mg/dL (8.4-10.2)
--- NOTE | 2023-02-05 07:49 | P.PN ---
Subjective Progress Note Date: 02/05/23 67-year-old male with a history of hypertension, hyperlipidemia, and gout. Presents to the emergency department on January 31, complaining of shortness of breath. He also complained of cough. He apparently recently was in [facility], about a week and a half or 2 weeks ago. On today's evaluation of 02/03/2022, I'm seeing the patient for a follow-up. He remains intubated on a mechanical ventilator. The patient is an septic shock with multisystem organ failure. To me, the exact source of the strep into his blood is not clear. The patient had positive positive blood culture with beta- hemolytic strep group G. The patient remains on a combination of clindamycin and IV Rocephin. At this point in time, the patient is intubated on a mechanical ventilator. He is on propofol running at 50 mcg/kg/m and is also on Nimbex at 1 mcg/kg/m. His adequately sedated and paralyzed for now. He is on assist-control mode of mechanical ventilation, at the rate of 28, tidal volume 400, FiO2 of 50% with a PEEP of 10. He remains on pressors. Norepinephrine is running at 0.32 mcg/kg/m and the patient is also physiologic vasopressin dose of 0.04 units minutes. The patient remains oliguric, hypotensive, tachycardic, his cardiac rhythm is atrial fibrillation he remains on amiodarone drip running at 1 mg/m. His urine output is in order of 5-10 mL an hour. IV fluids are currently running in the form of bicarbonate infusion at the rate of 125 mL an hour. Is in a pathologic profile is obviously abnormal. His echoes improved and is currently up to 2.3. He has a drop in hemoglobin down to 7.7 and a drop in a platelet count down to 84. This could be related to underlying DIC as the patient has also abnormal coagulation profile. D-dimer is at 9.9. Fibrinogen is at 05/06/2003. The patient also has an acute kidney injury. Creatinine was up to 3.7 with a BUN of 65, serum bicarbs of 18, the patient has a hiatus lactic acid level of 8.1, LFTs are abnormal, he had a acute rhabdomyolysis and the CPK has been down trending down to 12,607. Pro-calcitonin level was above 1000. The patient's echo cardiac rhythm showed impaired LV function with ejection fraction of 25%. The chest x-ray from today is showing adequate expansion of both lungs. No evidence of any pneumothorax. There is some limited subpulmonic bilateral pleural effusions. The blood gas also shows a pH of 7.3 with a pCO2 of 53 and pO2 of 79. The patient's triple lumen cath in his left IJ. Calcium level is at 4.4. Potassium levels at 3.0. The patient is also on an insulin drip running at 12 units an hour. On 03/03/2023, the patient showing progressive signs of decline and multisystem organ failure. No major progress. The patient is sedated and paralyzed. The patient is on a combination of propofol and fentanyl and the patient is also paralyzed with Nimbex. Noted the patient is profoundly septic in a combination of septic and cardiogenic shock. Noted the patient was offered fluids. He received an additional 2 L of normal saline yesterday and he was also given 5% albumin 2. Despite aggressive fluid resuscitation and ongoing bicarb infusion, the patient continues to be profoundly hypotensive and his pressor requirements have gone up significantly and the patient is currently on norepinephrine at 0.5 mcg/kg/m and the patient is also on vasopressin physiologic dose. This morning, he remains intubated on a mechanical ventilator. Is on assist-control at the rate of 28, tidal volume of 400, FiO2 of 100% with a PEEP of 12. He is demonstrating borderline oxygenation this morning with a pulse ox of 89%. A chest x-ray showing some atelectatic change in lung bases bilaterally with small infiltrates. His blood gas shows a pH of 7.25 with episodes of 60 and pO2 of 91. At the same time, the patient is on high-dose pressors and norepinephrine running at 0.5 mcg/kg/m. Urine output is quite low in the order of 5-10 mL on an hourly basis. The hemoglobin has dropped down to 5.5 and the patient is currently receiving units of packed RBC. This progressive worsening renal function and the creatinine is up to 5.05 with a BUN of 91. Sodium level is at 128. The white cell count is currently at 3.9. Antibiotic coverage same and the patient is currently on a combination of Rocephin and clindamycin. He is on insulin drip which is running at 4 units an hour. He is receiving enteral f eeding the patient is currently on vital high-protein at the rate of 10 mL an hour. His CPK levels are improving. It has dropped down to the 4794. He also developed hepatic dysfunction with elevation of AST and ALP consistent with sepsisshock. The ionized calcium level today is at 3.1. Note that nephrology gave him IV calcium yesterday. His phosphorus level is 9.4. He has also demonstrated progressive drop in his platelet count which is currently down to 17/DIC. The patient continues to be on amiodarone drip at 1 mg a per minutes. There has been improvement in his rate controlled and the patient continues to be in atrial fibrillation. 2022, the patient remains intubated on a mechanical ventilator. The patient is sedated with propofol and propofol is running at 50 mcg/kg/m. The patient is also paralyzed with Nimbex at 1 mcg/kg/m. Unfortunately, remains in a shock state, on high-dose pressors. We will able to initiate slow low efficiency dialysis on him yesterday and the patient ran for a total of 4 hours. During the process, the patient had some improvement in his blood pressure and the norepinephrine dose was weaned down to 0.2 mitral respiratory kilogram per minute. Overnight, his pressor requirements are back to 0.5 mcg/kg/m in combination with vasopressin. He remains on amiodarone as 0.5 mg/m, cardiac rhythm is A. fib, rate is controlled. Most recent blood pressure based on the arterial line is 75/49. No urine output. Remains on a mechanical ventilator, assist control mode with a rate of 32, tidal volume 400, FiO2 is at 100% with a PEEP of 15. PH is 7.22 with a pCO2 58 and pO2 of 66. Peak air pressure is 32. Static pressure is 28. The chest x-ray is showing lower lobe pulmonary infiltrates along with small effusion and increased pulmonary vascular congestion. Orotracheal tube is in a good location. Blood work shows abnormal hematologic profile. His white cell count is currently at 5.5 with a hemoglobin of 7.8 and a platelet count of 32. The rest of the electrolytes show a sodium level of 129, potassium of 4.5, BUN is at 63 with a creatinine of 3.5. Repeat electrolytes are pending for now and those electrolytes are from midnight. Calcium level is low with an ionized calcium level of 3.3. CPK is down to 4448. Enteral feeding is still running at the rate of 10 mL an hour in the form of vital high-protein. Unfortunately, not a whole lot of progress since yesterday. Family is aware. No signs of bleeding. The temporary dialysis catheters placed in the right groin. He has some increase fluid overload and third spacing and edema in all 4 extremities. Objective - Vital Signs Vital signs: Vital Signs Temp 98.9 F 02/05/23 04:00 Pulse 105 H 02/05/23 07:00 Resp 28 H 02/05/23 07:00 BP 105/59 02/05/23 06:00 Pulse Ox 84 L 02/05/23 07:00 FiO2 100 02/05/23 06:00 Intake & Output 02/04/23 02/05/23 02/05/23 18:59 06:59 18:59 Intake Total 3224.096 1991.168 30 Output Total 2 16 0 Balance 3222.096 1975.168 30 Weight 147 kg 150 kg Intake: IV 495 220 20 0.9 NS 120 220 20 Dextrose 5% in Water 1, 375 000 ml @ 125 mls/hr IV . Q9H12M [facility] with Sodium Bicarb (1 Meq/ml) 150 ml Rx#:[id number] Intake, IV Titration 9881.962 0620.168 Amount Amiodarone 360 mg In 380.554 Dextrose 5% in Water 200 ml @ 0.5 MG/MIN 16.667 mls/hr IV .Q12H [facility] Rx#: [id number] Amiodarone 450 mg In 218.615 Dextrose 5% in Water 250 ml @ 0.5 MG/MIN 16.667 mls/hr IV .Q15H [facility] Rx#: [id number] Calcium Gluconate in NaCl 200 2 gm In Saline 1 100ml. bag @ 100 mls/hr IVPB ONCE ONE Rx#:[id number] Cisatracurium 200 mg In 192.165 188.411 Sodium Chloride 0.9% 180 ml @ 1 MCG/KG/MIN 8.046 mls/hr IV .Q24H [facility] Rx#: [id number] Insulin Regular 100 unit 44.733 7.051 In Sodium Chloride 0.9% 100 ml @ Titrate IV .Q0M [facility] Rx#:[id number] Magnesium Sulfate-D5w Pmx 200 1 gm In Dextrose/Water 1 100ml.bag @ 100 mls/hr IVPB ONCE ONE Rx#: [id number] Norepinephrine 32 mg In 276.791 177.410 Sodium Chloride 0.9% 218 ml @ 0.03 MCG/KG/MIN 1. 722 mls/hr IV .Q24H [facility] Rx#:[id number] Vasopressin 60 unit In 142.902 Sodium Chloride 0.9% 150 ml @ 0.03 UNITS/MIN 4.59 mls/hr IV .Q24H [facility] Rx#: [id number] cefTRIAXone 2 gm In 50 Sodium Chloride 0.9% 50 ml @ 100 mls/hr IVPB Q24HR [facility] Rx#:[id number] propofoL 1,000 mg In 291.853 337.779 Empty Bag 1 bag @ 15 MCG/ KG/MIN 11.022 mls/hr IV . Q9H5M [facility] Rx#:[id number] Oral 70 Tube Feeding 80 110 10 Blood Product 943 Platelet Pheresis Pas 0 Psoralen Unit [id number] Platelet Pheresis Pas 349 Psoralen Unit [id number] Rc As-1 Unit 310 [id number] Rc Pheresis As-3 Unit 284 [id number] Hemodialysis 500 Other 90 Output: Urine 2 16 0 Hemodialysis 0 Other: Voiding Method Indwelling Catheter Indwelling Catheter ABP, PAP, CO, CI - Last Documented Arterial Blood Pressure 79/51 - Exam Sedated, with an orally placed endotracheal tube and NG tube. Patient is also on paralytics and is on a combination propofol and Nimbex Head exam was generally normal. There was no scleral icterus or corneal arcus. Mucous membranes were moist. HEENT examination is grossly unremarkable. The patient has a left IJ triple lumen catheter Neck supple. Full range of motion. No adenopathy thyromegaly or neck vein distention. Cardiovascular examination reveals regular rhythm rate. S1-S2 normal. No S3 or S4. No discernible murmur noted. Lungs reveal mostly clear breath sounds. Her sounds are equal bilaterally. Minimal scattered rhonchi. No wheezes or crackles. Abdomen soft, without bowel sounds. No masses or tenderness.. Extremities are intact. No cyanosis, clubbing, increased edema in all 4 extremities, diminished pulses, extremities are rather warm with diminished pulses. Skin reveals livedo reticularis of the lower extremities, which is improved. Neurologic examination cannot be assessed at this time. - Labs CBC & Chem 7: 02/05/23 04:30 02/04/23 22:30 Labs: Abnormal Lab Results - Last 24 Hours (Table) 02/02/23 02/02/23 02/03/23 Range/Units 02:40 02:40 11:56 WBC (3.8-10.6) k/uL RBC (4.30-5.90) m/uL Hgb (13.0-17.5) gm/dL Hct (39.0-53.0) % RDW (11.5-15.5) % Plt Count (150-450) k/uL Blast Cells % % Neutrophils # (Manual) (1.3-7.7) k/uL Monocytes # (Manual) (0-1.0) k/uL Metamyelocytes # (Man) (0) k/uL Myelocytes # (Manual) (0) k/uL Blast Cells # (Man) (0) k/uL Nucleated RBCs (0-0) /100 WBC PT (9.0-12.0) sec INR (<1.2) APTT (22.0-30.0) sec Fibrinogen (200-500) mg/dL ABG pH (7.35-7.45) ABG pCO2 (35-45) mmHg ABG pO2 (83-108) mmHg ABG Total CO2 (19-24) mmol/L ABG O2 Saturation (94-97) % Sodium (137-145) mmol/L Chloride (98-107) mmol/L Carbon Dioxide (22-30) mmol/L BUN (9-20) mg/dL Creatinine (0.66-1.25) mg/dL Glucose (74-99) mg/dL POC Glucose (mg/dL) (70-110) mg/dL Calcium (8.4-10.2) mg/dL Ionized Calcium Ban (4.5-5.3) mg/dL TIBC 70 L (228-460) UG/DL % Saturation 110.00 H (15.00-50.00) Transferrin 50.1 L (204.0-354.0) mg/dL Ferritin 94839.0 H (22.0-322.0) ng/mL Creatine Kinase (55-170) U/L Total Protein (PEP) 5.2 L (6.2-8.2) d/dL Albumin (PEP) 2.5 L (3.8-4.9) d/dL RBC Folate 795 H (280 - 791) ng/mL Procalcitonin (0.02-0.09) ng/mL Crossmatch 02/04/23 02/04/23 02/04/23 Range/Units 05:00 05:00 07:54 WBC 3.7 L (3.8-10.6) k/uL RBC (4.30-5.90) m/uL Hgb 5.4 L* D (13.0-17.5) gm/dL Hct (39.0-53.0) % RDW (11.5-15.5) % Plt Count 17 L* (150-450) k/uL Blast Cells % % Neutrophils # (Manual) 0.50 L (1.3-7.7) k/uL Monocytes # (Manual) (0-1.0) k/uL Metamyelocytes # (Man) 0.15 H (0) k/uL Myelocytes # (Manual) 0.11 H (0) k/uL Blast Cells # (Man) (0) k/uL Nucleated RBCs 5 H (0-0) /100 WBC PT (9.0-12.0) sec INR (<1.2) APTT (22.0-30.0) sec Fibrinogen (200-500) mg/dL ABG pH (7.35-7.45) ABG pCO2 (35-45) mmHg ABG pO2 (83-108) mmHg ABG Total CO2 (19-24) mmol/L ABG O2 Saturation (94-97) % Sodium (137-145) mmol/L Chloride (98-107) mmol/L Carbon Dioxide (22-30) mmol/L BUN (9-20) mg/dL Creatinine (0.66-1.25) mg/dL Glucose (74-99) mg/dL POC Glucose (mg/dL) 179 H (70-110) mg/dL Calcium (8.4-10.2) mg/dL Ionized Calcium Ban (4.5-5.3) mg/dL TIBC (228-460) UG/DL % Saturation (15.00-50.00) Transferrin (204.0-354.0) mg/dL Ferritin (22.0-322.0) ng/mL Creatine Kinase (55-170) U/L Total Protein (PEP) (6.2-8.2) d/dL Albumin (PEP) (3.8-4.9) d/dL RBC Folate (280 - 791) ng/mL Procalcitonin 95.90 H (0.02-0.09) ng/mL Crossmatch 02/04/23 02/04/23 02/04/23 Range/Units 08:08 10:58 14:25 WBC (3.8-10.6) k/uL RBC (4.30-5.90) m/uL Hgb (13.0-17.5) gm/dL Hct (39.0-53.0) % RDW (11.5-15.5) % Plt Count (150-450) k/uL Blast Cells % % Neutrophils # (Manual) (1.3-7.7) k/uL Monocytes # (Manual) (0-1.0) k/uL Metamyelocytes # (Man) (0) k/uL Myelocytes # (Manual) (0) k/uL Blast Cells # (Man) (0) k/uL Nucleated RBCs (0-0) /100 WBC PT 18.5 H (9.0-12.0) sec INR 1.6 H (<1.2) APTT 34.0 H (22.0-30.0) sec Fibrinogen 868 H (200-500) mg/dL ABG pH (7.35-7.45) ABG pCO2 (35-45) mmHg ABG pO2 (83-108) mmHg ABG Total CO2 (19-24) mmol/L ABG O2 Saturation (94-97) % Sodium (137-145) mmol/L Chloride (98-107) mmol/L Carbon Dioxide (22-30) mmol/L BUN (9-20) mg/dL Creatinine (0.66-1.25) mg/dL Glucose (74-99) mg/dL POC Glucose (mg/dL) 175 H (70-110) mg/dL Calcium (8.4-10.2) mg/dL Ionized Calcium Ban (4.5-5.3) mg/dL TIBC (228-460) UG/DL % Saturation (15.00-50.00) Transferrin (204.0-354.0) mg/dL Ferritin (22.0-322.0) ng/mL Creatine Kinase (55-170) U/L Total Protein (PEP) (6.2-8.2) d/dL Albumin (PEP) (3.8-4.9) d/dL RBC Folate (280 - 791) ng/mL Procalcitonin (0.02-0.09) ng/mL Crossmatch See Detail 02/04/23 02/04/23 02/04/23 Range/Units 14:25 14:25 14:27 WBC (3.8-10.6) k/uL RBC 2.31 L (4.30-5.90) m/uL Hgb 7.8 L D (13.0-17.5) gm/dL Hct 23.0 L (39.0-53.0) % RDW 18.4 H (11.5-15.5) % Plt Count 34 L D (150-450) k/uL Blast Cells % % Neutrophils # (Manual) (1.3-7.7) k/uL Monocytes # (Manual) (0-1.0) k/uL Metamyelocytes # (Man) (0) k/uL Myelocytes # (Manual) (0) k/uL Blast Cells # (Man) (0) k/uL Nucleated RBCs (0-0) /100 WBC PT (9.0-12.0) sec INR (<1.2) APTT (22.0-30.0) sec Fibrinogen (200-500) mg/dL ABG pH (7.35-7.45) ABG pCO2 (35-45) mmHg ABG pO2 (83-108) mmHg ABG Total CO2 (19-24) mmol/L ABG O2 Saturation (94-97) % Sodium 127 L (137-145) mmol/L Chloride 84 L (98-107) mmol/L Carbon Dioxide 19 L (22-30) mmol/L BUN 92 H (9-20) mg/dL Creatinine 4.93 H (0.66-1.25) mg/dL Glucose 132 H (74-99) mg/dL POC Glucose (mg/dL) 136 H (70-110) mg/dL Calcium 5.5 L* (8.4-10.2) mg/dL Ionized Calcium Ban 3.1 L* (4.5-5.3) mg/dL TIBC (228-460) UG/DL % Saturation (15.00-50.00) Transferrin (204.0-354.0) mg/dL Ferritin (22.0-322.0) ng/mL Creatine Kinase (55-170) U/L Total Protein (PEP) (6.2-8.2) d/dL Albumin (PEP) (3.8-4.9) d/dL RBC Folate (280 - 791) ng/mL Procalcitonin (0.02-0.09) ng/mL Crossmatch 02/04/23 02/04/23 02/04/23 Range/Units 16:42 17:53 18:54 WBC (3.8-10.6) k/uL RBC (4.30-5.90) m/uL Hgb (13.0-17.5) gm/dL Hct (39.0-53.0) % RDW (11.5-15.5) % Plt Count (150-450) k/uL Blast Cells % % Neutrophils # (Manual) (1.3-7.7) k/uL Monocytes # (Manual) (0-1.0) k/uL Metamyelocytes # (Man) (0) k/uL Myelocytes # (Manual) (0) k/uL Blast Cells # (Man) (0) k/uL Nucleated RBCs (0-0) /100 WBC PT (9.0-12.0) sec INR (<1.2) APTT (22.0-30.0) sec Fibrinogen (200-500) mg/dL ABG pH (7.35-7.45) ABG pCO2 (35-45) mmHg ABG pO2 (83-108) mmHg ABG Total CO2 (19-24) mmol/L ABG O2 Saturation (94-97) % Sodium (137-145) mmol/L Chloride (98-107) mmol/L Carbon Dioxide (22-30) mmol/L BUN (9-20) mg/dL Creatinine (0.66-1.25) mg/dL Glucose (74-99) mg/dL POC Glucose (mg/dL) 169 H 164 H 145 H (70-110) mg/dL Calcium (8.4-10.2) mg/dL Ionized Calcium Ban (4.5-5.3) mg/dL TIBC (228-460) UG/DL % Saturation (15.00-50.00) Transferrin (204.0-354.0) mg/dL Ferritin (22.0-322.0) ng/mL Creatine Kinase (55-170) U/L Total Protein (PEP) (6.2-8.2) d/dL Albumin (PEP) (3.8-4.9) d/dL RBC Folate (280 - 791) ng/mL Procalcitonin (0.02-0.09) ng/mL Crossmatch 02/04/23 02/04/23 02/04/23 Range/Units 20:36 21:19 22:14 WBC (3.8-10.6) k/uL RBC (4.30-5.90) m/uL Hgb (13.0-17.5) gm/dL Hct (39.0-53.0) % RDW (11.5-15.5) % Plt Count (150-450) k/uL Blast Cells % % Neutrophils # (Manual) (1.3-7.7) k/uL Monocytes # (Manual) (0-1.0) k/uL Metamyelocytes # (Man) (0) k/uL Myelocytes # (Manual) (0) k/uL Blast Cells # (Man) (0) k/uL Nucleated RBCs (0-0) /100 WBC PT (9.0-12.0) sec INR (<1.2) APTT (22.0-30.0) sec Fibrinogen (200-500) mg/dL ABG pH (7.35-7.45) ABG pCO2 (35-45) mmHg ABG pO2 (83-108) mmHg ABG Total CO2 (19-24) mmol/L ABG O2 Saturation (94-97) % Sodium (137-145) mmol/L Chloride (98-107) mmol/L Carbon Dioxide (22-30) mmol/L BUN (9-20) mg/dL Creatinine (0.66-1.25) mg/dL Glucose (74-99) mg/dL POC Glucose (mg/dL) 147 H 133 H 133 H (70-110) mg/dL Calcium (8.4-10.2) mg/dL Ionized Calcium Ban (4.5-5.3) mg/dL TIBC (228-460) UG/DL % Saturation (15.00-50.00) Transferrin (204.0-354.0) mg/dL Ferritin (22.0-322.0) ng/mL Creatine Kinase (55-170) U/L Total Protein (PEP) (6.2-8.2) d/dL Albumin (PEP) (3.8-4.9) d/dL RBC Folate (280 - 791) ng/mL Procalcitonin (0.02-0.09) ng/mL Crossmatch 02/04/23 02/04/23 02/05/23 Range/Units 22:30 23:07 00:18 WBC (3.8-10.6) k/uL RBC (4.30-5.90) m/uL Hgb (13.0-17.5) gm/dL Hct (39.0-53.0) % RDW (11.5-15.5) % Plt Count (150-450) k/uL Blast Cells % % Neutrophils # (Manual) (1.3-7.7) k/uL Monocytes # (Manual) (0-1.0) k/uL Metamyelocytes # (Man) (0) k/uL Myelocytes # (Manual) (0) k/uL Blast Cells # (Man) (0) k/uL Nucleated RBCs (0-0) /100 WBC PT (9.0-12.0) sec INR (<1.2) APTT (22.0-30.0) sec Fibrinogen (200-500) mg/dL ABG pH (7.35-7.45) ABG pCO2 (35-45) mmHg ABG pO2 (83-108) mmHg ABG Total CO2 (19-24) mmol/L ABG O2 Saturation (94-97) % Sodium 129 L (137-145) mmol/L Chloride 89 L (98-107) mmol/L Carbon Dioxide (22-30) mmol/L BUN 63 H (9-20) mg/dL Creatinine 3.54 H (0.66-1.25) mg/dL Glucose 108 H (74-99) mg/dL POC Glucose (mg/dL) 132 H 124 H (70-110) mg/dL Calcium 6.2 L* (8.4-10.2) mg/dL Ionized Calcium Ban (4.5-5.3) mg/dL TIBC (228-460) UG/DL % Saturation (15.00-50.00) Transferrin (204.0-354.0) mg/dL Ferritin (22.0-322.0) ng/mL Creatine Kinase (55-170) U/L Total Protein (PEP) (6.2-8.2) d/dL Albumin (PEP) (3.8-4.9) d/dL RBC Folate (280 - 791) ng/mL Procalcitonin (0.02-0.09) ng/mL Crossmatch 02/05/23 02/05/23 02/05/23 Range/Units 00:51 01:43 02:18 WBC (3.8-10.6) k/uL RBC (4.30-5.90) m/uL Hgb (13.0-17.5) gm/dL Hct (39.0-53.0) % RDW (11.5-15.5) % Plt Count (150-450) k/uL Blast Cells % % Neutrophils # (Manual) (1.3-7.7) k/uL Monocytes # (Manual) (0-1.0) k/uL Metamyelocytes # (Man) (0) k/uL Myelocytes # (Manual) (0) k/uL Blast Cells # (Man) (0) k/uL Nucleated RBCs (0-0) /100 WBC PT (9.0-12.0) sec INR (<1.2) APTT (22.0-30.0) sec Fibrinogen (200-500) mg/dL ABG pH 7.25 L (7.35-7.45) ABG pCO2 58 H (35-45) mmHg ABG pO2 67 L (83-108) mmHg ABG Total CO2 27 H (19-24) mmol/L ABG O2 Saturation 88.3 L (94-97) % Sodium (137-145) mmol/L Chloride (98-107) mmol/L Carbon Dioxide (22-30) mmol/L BUN (9-20) mg/dL Creatinine (0.66-1.25) mg/dL Glucose (74-99) mg/dL POC Glucose (mg/dL) 127 H 136 H (70-110) mg/dL Calcium (8.4-10.2) mg/dL Ionized Calcium Ban (4.5-5.3) mg/dL TIBC (228-460) UG/DL % Saturation (15.00-50.00) Transferrin (204.0-354.0) mg/dL Ferritin (22.0-322.0) ng/mL Creatine Kinase (55-170) U/L Total Protein (PEP) (6.2-8.2) d/dL Albumin (PEP) (3.8-4.9) d/dL RBC Folate (280 - 791) ng/mL Procalcitonin (0.02-0.09) ng/mL Crossmatch 02/05/23 02/05/23 02/05/23 Range/Units 03:21 04:25 04:30 WBC (3.8-10.6) k/uL RBC 2.32 L (4.30-5.90) m/uL Hgb 7.8 L (13.0-17.5) gm/dL Hct 22.7 L (39.0-53.0) % RDW 18.6 H (11.5-15.5) % Plt Count 32 L (150-450) k/uL Blast Cells % 17 H* % Neutrophils # (Manual) 1.10 L (1.3-7.7) k/uL Monocytes # (Manual) 1.27 H (0-1.0) k/uL Metamyelocytes # (Man) (0) k/uL Myelocytes # (Manual) (0) k/uL Blast Cells # (Man) 0.94 H (0) k/uL Nucleated RBCs 2 H (0-0) /100 WBC PT (9.0-12.0) sec INR (<1.2) APTT (22.0-30.0) sec Fibrinogen (200-500) mg/dL ABG pH 7.22 L (7.35-7.45) ABG pCO2 58 H (35-45) mmHg ABG pO2 66 L (83-108) mmHg ABG Total CO2 26 H (19-24) mmol/L ABG O2 Saturation 86.0 L (94-97) % Sodium (137-145) mmol/L Chloride (98-107) mmol/L Carbon Dioxide (22-30) mmol/L BUN (9-20) mg/dL Creatinine (0.66-1.25) mg/dL Glucose (74-99) mg/dL POC Glucose (mg/dL) 134 H (70-110) mg/dL Calcium (8.4-10.2) mg/dL Ionized Calcium Ban (4.5-5.3) mg/dL TIBC (228-460) UG/DL % Saturation (15.00-50.00) Transferrin (204.0-354.0) mg/dL Ferritin (22.0-322.0) ng/mL Creatine Kinase (55-170) U/L Total Protein (PEP) (6.2-8.2) d/dL Albumin (PEP) (3.8-4.9) d/dL RBC Folate (280 - 791) ng/mL Procalcitonin (0.02-0.09) ng/mL Crossmatch 02/05/23 02/05/23 02/05/23 Range/Units 04:30 04:43 06:05 WBC (3.8-10.6) k/uL RBC (4.30-5.90) m/uL Hgb (13.0-17.5) gm/dL Hct (39.0-53.0) % RDW (11.5-15.5) % Plt Count (150-450) k/uL Blast Cells % % Neutrophils # (Manual) (1.3-7.7) k/uL Monocytes # (Manual) (0-1.0) k/uL Metamyelocytes # (Man) (0) k/uL Myelocytes # (Manual) (0) k/uL Blast Cells # (Man) (0) k/uL Nucleated RBCs (0-0) /100 WBC PT (9.0-12.0) sec INR (<1.2) APTT (22.0-30.0) sec Fibrinogen (200-500) mg/dL ABG pH (7.35-7.45) ABG pCO2 (35-45) mmHg ABG pO2 (83-108) mmHg ABG Total CO2 (19-24) mmol/L ABG O2 Saturation (94-97) % Sodium (137-145) mmol/L Chloride (98-107) mmol/L Carbon Dioxide (22-30) mmol/L BUN (9-20) mg/dL Creatinine (0.66-1.25) mg/dL Glucose (74-99) mg/dL POC Glucose (mg/dL) 133 H 140 H (70-110) mg/dL Calcium (8.4-10.2) mg/dL Ionized Calcium Ban (4.5-5.3) mg/dL TIBC (228-460) UG/DL % Saturation (15.00-50.00) Transferrin (204.0-354.0) mg/dL Ferritin (22.0-322.0) ng/mL Creatine Kinase 4448 H* (55-170) U/L Total Protein (PEP) (6.2-8.2) d/dL Albumin (PEP) (3.8-4.9) d/dL RBC Folate (280 - 791) ng/mL Procalcitonin (0.02-0.09) ng/mL Crossmatch 02/05/23 02/05/23 Range/Units 06:45 06:52 WBC (3.8-10.6) k/uL RBC (4.30-5.90) m/uL Hgb (13.0-17.5) gm/dL Hct (39.0-53.0) % RDW (11.5-15.5) % Plt Count (150-450) k/uL Blast Cells % % Neutrophils # (Manual) (1.3-7.7) k/uL Monocytes # (Manual) (0-1.0) k/uL Metamyelocytes # (Man) (0) k/uL Myelocytes # (Manual) (0) k/uL Blast Cells # (Man) (0) k/uL Nucleated RBCs (0-0) /100 WBC PT (9.0-12.0) sec INR (<1.2) APTT (22.0-30.0) sec Fibrinogen (200-500) mg/dL ABG pH (7.35-7.45) ABG pCO2 (35-45) mmHg ABG pO2 (83-108) mmHg ABG Total CO2 (19-24) mmol/L ABG O2 Saturation (94-97) % Sodium (137-145) mmol/L Chloride (98-107) mmol/L Carbon Dioxide (22-30) mmol/L BUN (9-20) mg/dL Creatinine (0.66-1.25) mg/dL Glucose (74-99) mg/dL POC Glucose (mg/dL) 134 H (70-110) mg/dL Calcium (8.4-10.2) mg/dL Ionized Calcium Ban 3.3 L* (4.5-5.3) mg/dL TIBC (228-460) UG/DL % Saturation (15.00-50.00) Transferrin (204.0-354.0) mg/dL Ferritin (22.0-322.0) ng/mL Creatine Kinase (55-170) U/L Total Protein (PEP) (6.2-8.2) d/dL Albumin (PEP) (3.8-4.9) d/dL RBC Folate (280 - 791) ng/mL Procalcitonin (0.02-0.09) ng/mL Crossmatch Microbiology - Last 24 Hours (Table) 02/02/23 21:16 Gram Stain - Preliminary Sputum Sputum Culture - Preliminary Assessment and Plan Plan: Acute hypoxemic respiratory failure, requiring intubation and mechanical ventilation, on 02/01/2023. The patient remains intubated on a mechanical khoa tilator. Chest x-ray showing infiltrate/effusion lung base bilaterally. Patient remains on mechanical support. Blood gases were noted. There is interval worsening in oxygenation. Patient is currently on a PEEP of 15 with a FiO2 of 100%. Chest x-ray showing increased pulmonary vascular congestion. Acute septic shock with evidence of multisystem organ failure secondary to streptococcal septicemia. Exact source is not clear. It could be bilateral pneumonia although other sources cannot be completely ruled out. No evidence of any endocarditis. The patient continues to be on high-dose pressors and he is on norepinephrine infusion in combination of with physiologic dose of vasopressin. Multisystem organ failure secondary to septic shock and in addition the patient has an underlying cardiomyopathy. Acute hypotension secondary to above, currently on high-dose pressors and the patient is currently on a combination of norepinephrine and vasopressin, after some slight improvement in the pressor requirements, the patient is back on requiring high-dose of present this morning and he remains hypotensive. Acute bone marrow suppression secondary to septic shock, white cell count is i mproving. Subsequently, the patient developed anemia and thrombocytopenia related to DIC picture. Acute DIC secondary to septic shock, the patient has developed anemia and thrombocytopenia. No evidence of any bleeding, currently receiving units of packed RBC for a hemoglobin of 7.8. The patient received 2 units of packed RBC yesterday. Acute kidney failure secondary to above with progressive worsening renal function and patient remains oliguric, based on ongoing fluid overload and improvement in oxygenation, the patient was given slow low efficiency hemodialysis yesterday and had an for a total of 4 hours. Hypocalcemia Acute rhabdomyolysis, CPK is gradually improving Acute lactic acidosis Acute febrile illness secondary to above, currently afebrile Hypertension history of Hyperlipidemia, history of Gout, history of Chronic atrial fibrillation, currently on IV amiodarone, at 0.5 mg/m and the rate is controlled Severe cardiomyopathy with an ejection fraction of 25%, chronic versus acute myocardial suppression to septic shock. Plan Continue ventilator support, will increase the PEEP up to 18 to improve the oxygenation. The patient has borderline pulse ox of this point in time. Keep the patient sedated and paralyzed for now Continue pressors Continue same antibiotic coverage Monitor hematologic profile Continue the IV amiodarone, dropped the rate down to 0.5 mg/min Continue Rocephin and clindamycin Hemodialysis possibly again today Family was updated There may be possibly change in school status and the family agreeable, he may even be switched to a comfort care status as his mortality risk is quite high in the presence of profound shock and multisystem organ failure. Condition is extremely critical. We'll continue to follow, update the family in his condition and make further recommendations based on his progress. Evaluation was done in more than 30 minutes. Case was discussed with nephrology. Family was updated and the condition. Condition is extremely critical and the patient has a very high increased risk for mortality. Time with Patient: Greater than 30
[2023-02-05 07:50] LABS: Alkaline Phosphatase 112 U/L (38-126)
[2023-02-05] MEDS: FILGRASTIM-SNDZ 480 MCG/0.8 ML SYRINGE SQ SCH (07:54)
[2023-02-05] MEDS: CALCIUM ACETATE 667 MG TAB PO SCH (08:25)
[2023-02-05] MEDS: FINASTERIDE 5 MG TAB PO SCH (08:25)
[2023-02-05] MEDS: CHLORHEXIDINE GLUCONATE 15 ML CUP MUCOUS MEM SCH (08:25)
[2023-02-05] MEDS ORDERED: LORazepam 2 MG/ML INJ IV PRN (08:37)
[2023-02-05] MEDS ORDERED: MORPHINE SULFATE 4 MG/ML SYRINGE IV PRN (08:37)
--- NOTE | 2023-02-05 13:24 | P.PN ---
Progress Note - Text Progress Note Date: 02/05/23 CBC today revealed elevated blast cells at 17. Spoke to clinical research nurse coordinator, it was felt acute elevation in blast cells was related to G-CSF affect. No significant schistocytosis noted to indicate TTP
--- NOTE | 2023-02-05 14:09 | P.DS ---
Providers Date of admission: 02/01/23 01:41 Expected date of discharge: 02/05/23 Attending physician: Tara Gould MD Consults: 02/01/23 07:43 Consult Physician Urgent Consulting Provider: Nathaniel Bailey Consult Reason/Comments: hypoxic, on bipap Do you want consulting provider notified?: Yes 02/01/23 10:40 Consult Physician Urgent Consulting Provider: Little Milligan Consult Reason/Comments: FRANCISCO, rhabdo Do you want consulting provider notified?: Yes 02/01/23 13:22 Consult Physician Urgent Consulting Provider: Cristian Geiger Consult Reason/Comments: afib rvr Do you want consulting provider notified?: Yes Consult Physician Urgent Consulting Provider: Aixa Lopez Consult Reason/Comments: pneumonia, sepsis Do you want consulting provider notified?: Yes 02/01/23 13:30 Consult Physician Urgent Consulting Provider: Denver Marshall Consult Reason/Comments: pancytopenia Do you want consulting provider notified?: Yes 02/03/23 06:59 Consult Physician Urgent Consulting Provider: Darsahn Morejon Consult Reason/Comments: HD Cath Do you want consulting provider notified?: Yes Primary care physician: Sharmin [facility] Course: Septic shock with shock liver, ventilator dependent respiratory failure Beta-hemolytic strep G bacteremia Pancytopenia with severe neutropenia Rhabdomyolysis Acute kidney injury likely ATN, anuric High anion gap metabolic acidosis Hypocalcemia Hyperphosphatemia Persistent A. fib with RVR Cardiomyopathy, unsure if ischemic or nonischemic, EF 25-30% History of hypertension, hold antihypertensives Hospital Course: 67 year old man with history of HTN, and recent vacation time in [facility], came back 1 week ago presented with fever and felt pain in his knees, and syspnea. At the time of admission, patient was tachypneic, tachycardic, slowly becoming hypoxic and required BiPAP. Laboratory workup showed WBC of 0.9, with neutrophil 0.1, pancytopenia, acute kidney injury with creatinine of 2.53, transaminitis, lactic acidosis with lactate of 8.1, rhabdomyolysis with CK of 15,000. Pulmonology was consulted. Patient was transferred to medical ICU, currently intubated and sedated. His workup revealed beta-hemolytic strep group G bacteremia. Currently on IV antibiotics. In septic shock, on vasopressors. Remains anuric, nephrology following. Also in A. fib with RVR, placed on amiodarone drip, cardiology following. Pt decompensated into septic shock and anuric kidney failure. Pt had temp dialysis cath placed and trialed on SLED. Patient continued to decline despite the use of 3 pressors. Family was notified by pulmonology who recommended patient be transitioned to comfort care. Pt on 02/05. Plan - Discharge Summary Discharge Rx Participant: No New Discharge Prescriptions: No Action Losartan [Cozaar] 50 mg PO HS allopurinoL 300 mg PO HS Finasteride [Proscar] 5 mg PO HS HYDROcodone/APAP 5-325MG [[place] 5-325] 1 tab PO Q6HR PRN #12 tab PRN Reason: Pain Meloxicam [Mobic] 15 mg PO HS Atorvastatin [Lipitor] 20 mg PO HS Cyclobenzaprine [Flexeril] 10 mg PO TID PRN PRN Reason: Muscle Spasm Discharge Medication List Losartan [Cozaar] 50 mg PO HS 02/21/20 [History] Atorvastatin [Lipitor] 20 mg PO HS 09/20/22 [History] Finasteride [Proscar] 5 mg PO HS 09/20/22 [History] allopurinoL 300 mg PO HS 09/20/22 [History] HYDROcodone/APAP 5-325MG [[place] 5-325] 1 tab PO Q6HR PRN #12 tab 09/25/22 [Rx] Cyclobenzaprine [Flexeril] 10 mg PO TID PRN 02/01/23 [History] Meloxicam [Mobic] 15 mg PO HS 02/01/23 [History] Follow up Appointment(s)/Referral(s): Sharmin Escobedo MD [Primary Care Provider] - 1-2 days Discharge Disposition: - Preliminary Cause of Preliminary Cause of : Septic Shock
[2023-02-06 16:39] LABS: Gamma Globulin 0.57 d/dL (0.70-1.50)
== END 2023-02-05 11:31 | disposition expired | DRG 871 ==
LOC: EC 21:55 → 3SCARD 02-01 01:41 → 2SICU 02-01 08:42
PROVIDERS: ADMIT Internal Medicine; ATTEND Internal Medicine
PROC: 03HY32Z Insertion of Monitoring Device into Upper Artery, Percutaneous Approach (ICD-10-PCS; principal; 2023-02-01)
PROC: 02HV33Z Insertion of Infusion Device into Superior Vena Cava, Percutaneous Approach (ICD-10-PCS; 2023-02-01)
PROC: 3E043XZ Introduction of Vasopressor into Central Vein, Percutaneous Approach (ICD-10-PCS; 2023-02-01)
PROC: 5A1945Z Respiratory Ventilation, 24-96 Consecutive Hours (ICD-10-PCS; 2023-02-01)
PROC: 5A09357 Assistance with Respiratory Ventilation, Less than 24 Consecutive Hours, Continuous Positive Airway Pressure (ICD-10-PCS; 2023-02-01)
PROC: 0BH18EZ Insertion of Endotracheal Airway into Trachea, Via Natural or Artificial Opening Endoscopic (ICD-10-PCS; 2023-02-01)
PROC: 30233R1 Transfusion of Nonautologous Platelets into Peripheral Vein, Percutaneous Approach (ICD-10-PCS; 2023-02-04)
PROC: 30233N1 Transfusion of Nonautologous Red Blood Cells into Peripheral Vein, Percutaneous Approach (ICD-10-PCS; 2023-02-04)
PROC: 6A551Z2 Pheresis of Platelets, Multiple (ICD-10-PCS; 2023-02-04)
PROC: 5A1D80Z Performance of Urinary Filtration, Prolonged Intermittent, 6-18 hours Per Day (ICD-10-PCS; 2023-02-05)
PROC: 06HY33Z Insertion of Infusion Device into Lower Vein, Percutaneous Approach (ICD-10-PCS; 2023-02-05)
DX: A40.8 Other streptococcal sepsis (principal); D65 Disseminated intravascular coagulation [defibrination syndrome]; J96.01 Acute respiratory failure with hypoxia; N17.0 Acute kidney failure with tubular necrosis; K72.00 Acute and subacute hepatic failure without coma; R65.21 Severe sepsis with septic shock; J18.9 Pneumonia, unspecified organism; D61.818 Other pancytopenia; I42.9 Cardiomyopathy, unspecified; I48.19 Other persistent atrial fibrillation; E87.20 Acidosis, unspecified; M62.82 Rhabdomyolysis; J98.11 Atelectasis; R57.0 Cardiogenic shock; D70.9 Neutropenia, unspecified; Z51.5 Encounter for palliative care; Z66 Do not resuscitate; Z20.822 Contact with and (suspected) exposure to COVID-19; E83.51 Hypocalcemia; E83.39 Other disorders of phosphorus metabolism; T50.4X5A Adverse effect of drugs affecting uric acid metabolism, initial encounter; R31.9 Hematuria, unspecified; I10 Essential (primary) hypertension; R80.9 Proteinuria, unspecified; R82.81 Pyuria; E87.70 Fluid overload, unspecified; E78.5 Hyperlipidemia, unspecified; M10.9 Gout, unspecified; E87.6 Hypokalemia; R50.81 Fever presenting with conditions classified elsewhere; R73.9 Hyperglycemia, unspecified; D64.9 Anemia, unspecified; Z79.899 Other long term (current) drug therapy; Z79.1 Long term (current) use of non-steroidal anti-inflammatories (NSAID); Z85.828 Personal history of other malignant neoplasm of skin
CPT/HCPCS: 36415; 36600; 71045; 71046; 76770; 78580; 80048; 80053; 80074; 80202; 81001; 82330; 82533; 82550; 82607; 82728; 82747; 82784; 82805; 83010; 83036; 83540; 83550; 83605; 83615; 83735; 83880; 83883; 83921; 84100; 84145; 84165; 84484; 85025; 85027; 85045; 85379; 85384; 85610; 85730; 86038; 86334; 86431; 86644; 86645; 86706; 86850; 86900; 86901; 86920; 87040; 87070; 87077; 87086; 87186; 87205; 87390; 87449; 87635; 87636; 90935; 93005; 93306; 93970; 94002; 94003; 94640; 94660; 96361; 96365; 99291